=== PATIENT | female | born 1965 | race Caucasian/White ===

== ENCOUNTER 2018-12-02 01:04 | Inpatient (IN) | payer OTHER ==
[2018-12-02] VITALS (13 sets, daily range): BP systolic 104–128; BP diastolic 64–80; PULSE 76–99; RESP 18–19; Ht 152.4 cm; Wt 88.3 kg
[~2018-12-02] VITALS: Ht 152.4 cm; Wt 88.3 kg
[2018-12-02] MEDS ORDERED: AMLO-145 PO (02:45)
[2018-12-02] MEDS ORDERED: METO10TA3 PO (02:45)
[2018-12-02] MEDS ORDERED: LOSA50TA14 PO (02:45)
[2018-12-02] MEDS ORDERED: NITROGLYCERIN (SL) 0.4 MG TAB SL PRN (05:00)
[2018-12-02] MEDS ORDERED: ONDANSETRON 4 MG INJ IV PRN (05:00)
[2018-12-02] MEDS ORDERED: NACL 0.9% 3 ML SYG IV SCH (05:00)
[2018-12-02] MEDS ORDERED: ALBUTEROL/IPRATROPIUM (NEB) 3 ML AMP HHN PRN (05:00)
--- NOTE | 2018-12-02 06:39 | HP ---
Date/Time of Note Date/Time of Note DATE: 12/02/18 TIME: 06:37 Assessment/Plan VTE Prophylaxis Pharmacological prophylaxis: heparin Lines/Catheters IV Catheter Type (from Nrsg): Saline Lock Urinary Cath still in place: No Assessment/Plan Assessment/Plan 1. Chest pain: Rule out ACS -Telemetry monitoring -Supplemental oxygen, aspirin, statin. As needed nitro -2D echo and cardiology consult -Trend troponin -A1c, fasting lipid and TSH in a.m. 2. Hypertension: BP within goal. Continue home meds. Adjust as needed Results 24hrs Laboratory Tests Test 12/02/18 05:18 White Blood Count Pending Red Blood Count Pending Hemoglobin Pending Hematocrit Pending Mean Corpuscular Volume Pending Mean Corpuscular Hemoglobin Pending Mean Corpuscular Hemoglobin Concent Pending Red Cell Distribution Width Pending Platelet Count Pending Mean Platelet Volume Pending HPI/ROS Admit Date/Time Admit Date/Time Dec 02, 2018 at 01:56 Hx of Present Illness This is a 53-year-old female with a history of hypertension who initially presented on outside hospital complaining of chest pain. Pain is mainly left- sided and pressure-like. First troponin and EKG were negative. Patient was transferred to [facility] for insurance reasons. PMH/Family/Social Past Medical History Medications Current Medications Influenza Virus Vaccine Quadrival (Fluzone) 0.5 ml ONCE ONCE IM* ; Start 12/03/18 at 10:00; Stop 12/03/18 at 10:01 IV Flush (NS 3 ml) 3 ml PER PROTOCOL IV ; Start 12/02/18 at 05:00 Ondansetron HCl (Zofran Inj) 4 mg Q6H PRN IV NAUSEA AND/OR VOMITING; Start 12/02/18 at 05:00 Aspirin (Aspirin) 81 mg DAILY PO ; Start 12/02/18 at 09:00 Nitroglycerin (Nitroglycerin (Sl Tab) 0.4 Mg) 1 tab Q5M PRN SL CHEST PAIN; Start 12/02/18 at 05:00 Acetaminophen (Tylenol Tab) 650 mg Q6H PRN PO PAIN LEVEL 1-3 OR FEVER; Start 12/02/18 at 05:00 Enoxaparin Sodium (Lovenox) 40 mg DAILY SC ; Start 12/02/18 at 09:00 Albuterol/ Ipratropium (Duoneb) 3 ml Q2H RESP THERAPY PRN HHN SHORTNESS OF BREATH; Start 12/02/18 at 05:00 Amlodipine Besylate (Norvasc) 5 mg DAILY PO ; Start 12/02/18 at 09:00 Losartan Potassium (Cozaar) 50 mg BID PO ; Start 12/02/18 at 09:00 Coded Allergies: No Known Allergy (Unverified , 12/02/18) Social History Smoking Status: Never smoker Exam/Review of Systems Vital Signs Vitals Vital Signs Date Temp Pulse Resp B/P (MAP) Pulse Ox O2 O2 Flow FiO2 Time Delivery Rate 12/02/18 98.3 76 19 104/64 95 04:23 (77) 12/02/18 Nasal 2.0 02:20 Cannula Intake and Output 12/01/18 12/01/18 12/02/18 1515:00 23:00 07:00 IntakeIntake Total 200 ml BalanceBalance 200 ml Exam Exam Constitutional: other (no acute distress) Head: normocephalic Respiratory: other (slight decreased at bases) Cardiovascular: regular rate and rhythm Gastrointestinal: soft Extremities: normal pulses PMH/Family/Social Past Medical History Medical History: other (see hpi) Coded Allergies: No Known Drug Allergy (Verified Allergy, Unknown, 07/18/16) Past Surgical History Past Surgical Hx: other (see hpi) Family History Significant Family History: no pertinent family hx Social History Alcohol Use: other Smoking Status: Unknown if ever smoked Drug Use: other LULU BLACKWOOD MD Dec 02, 2018 06:39
[2018-12-02] MEDS: ACETAMINOPHEN 325 MG TAB PO PRN (07:52)
[2018-12-02] MEDS ORDERED: AMLODIPINE 5 MG TAB PO SCH (09:00)
[2018-12-02] MEDS ORDERED: LOSARTAN 50 MG TAB PO SCH (09:00)
[2018-12-02] MEDS ORDERED: ENOXAPARIN 40 MG/0.4 ML SYG SC SCH (09:00)
[2018-12-02] MEDS: ASPIRIN 81 MG TAB PO SCH (09:33)
--- NOTE | 2018-12-02 15:04 | PN ---
Date/Time of Note Date/Time of Note DATE: 12/02/18 TIME: 15:01 Assessment/Plan VTE Prophylaxis Risk score (from Ns)>0 risk: 5 SCD applied (from Ns): No SCD contraindicated: low risk/ambulating Pharmacological prophylaxis: LMWH Lines/Catheters IV [facility] Type (from [facility] Saline Lock Urinary Cath still in place: No Assessment/Plan Hospital Course Assessment and plan 1. Atypical chest pain nonexertional, stable rule out ACS. Rule out symptomatic pleural effusion check echo 2. Bronchitis pleurisy stable continue supportive care. Flu shot on discharge 3. Type 2 diabetes 4. Metabolic syndrome stable start aspirin 5. Anemia check stools iron 6. Migraines, intermittent subacute does not see a specialist. Start therapy 7. S: Atypical chest pain nonexertional but occurs when bending over. 2 days. Substernal lower chest no associated nausea vomiting diaphoresis syncope. No recent travel. 1 week cough fairly nonproductive. No sore throat no flu shot no ill contacts. Appetite okay no diarrhea. O: Vital signs stable PE No pallor adenopathy JVD Reg no m/r/g Ctab, no rash Bs+ nt nd, no abd bruits No edema/Homans some varicose veins Result Diagram: 12/02/18 0518 12/02/1818 Results 24hrs Laboratory Tests Test 12/02/18 05:18 12/02/18 08:10 12/02/18 10:55 12/02/18 12:13 White Blood Count 6.6 Red Blood Count 3.45 L Hemoglobin 10.3 L Hematocrit 30.9 L Mean Corpuscular Volume 89.6 Mean Corpuscular 29.9 Hemoglobin Mean Corpuscular 33.3 Hemoglobin Concent Red Cell Distribution 12.9 Width Platelet Count 202 Mean Platelet Volume 9.6 Immature Granulocytes % 0.500 H Neutrophils % 54.2 Lymphocytes % 32.3 Monocytes % 10.5 Eosinophils % 2.3 Basophils % 0.2 Nucleated Red Blood 0.0 Cells % Immature Granulocytes # 0.030 Neutrophils # 3.6 Lymphocytes # 2.1 Monocytes # 0.7 Eosinophils # 0.2 Basophils # 0.0 Nucleated Red Blood 0.0 Cells # Sodium Level 143 Potassium Level 3.8 Chloride Level 111 H Carbon Dioxide Level 25 Anion Gap 7 Blood Urea Nitrogen 12 Creatinine 0.61 Est Glomerular Filtrat > 60 Rate mL/min Glucose Level 108 Hemoglobin A1c 6.1 H Calcium Level 9.3 Total Bilirubin 0.2 Direct Bilirubin 0.00 Indirect Bilirubin 0.2 Aspartate Amino 43 Transf (AST/SGOT) Alanine 44 Aminotransferase (ALT/SG PT) Alkaline Phosphatase 91 Creatine Kinase 133 107 Creatine Kinase Index 0.9 0.8 Creatinine Kinase MB 1.23 0.83 (Mass) Troponin I < 0.012 < 0.012 Total Protein 7.7 Albumin 3.7 Globulin 4.00 H Albumin/Globulin Ratio 0.92 Triglycerides Level 73 Cholesterol Level 125 LDL Cholesterol, 75 Calculated HDL Cholesterol 35 L Cholesterol/HDL Ratio 3.5 Thyroid Stimulating 4.060 Hormone (TSH) Bedside Glucose 105 111 Exam/Review of Systems Vital Signs Vitals Vital Signs Date Temp Pulse Resp B/P (MAP) Pulse Ox O2 O2 Flow FiO2 Time Delivery Rate 12/02/18 78 12:21 12/02/18 98.0 18 121/73 95 Nasal 11:05 (89) Cannula 12/02/18 2.0 07:57 Intake and Output 12/01/18 12/01/18 12/02/18 1515:00 23:00 07:00 IntakeIntake Total 200 ml BalanceBalance 200 ml Medications Medications Current Medications Influenza Virus Vaccine Quadrival (Fluzone) 0.5 ml ONCE ONCE IM* ; Start 12/03/18 at 10:00; Stop 12/03/18 at 10:01 IV Flush (NS 3 ml) 3 ml PER PROTOCOL IV ; Start 12/02/18 at 05:00 Ondansetron HCl (Zofran Inj) 4 mg Q6H PRN IV NAUSEA AND/OR VOMITING; Start 12/02/18 at 05:00 Aspirin (Aspirin) 81 mg DAILY PO Last administered on 12/02/18at 09:33; Admin Dose 81 MG; Start 12/02/18 at 09:00 Nitroglycerin (Nitroglycerin (Sl Tab) 0.4 Mg) 1 tab Q5M PRN SL CHEST PAIN; Start 12/02/18 at 05:00 Acetaminophen (Tylenol Tab) 650 mg Q6H PRN PO PAIN LEVEL 1-3 OR FEVER Last administered on 12/02/18at 07:52; Admin Dose 650 MG; Start 12/02/18 at 05:00 Enoxaparin Sodium (Lovenox) 40 mg DAILY SC Last administered on 12/02/18at 09:40; Admin Dose 40 MG; Start 12/02/18 at 09:00 Albuterol/ Ipratropium (Duoneb) 3 ml Q2H RESP THERAPY PRN HHN SHORTNESS OF ANGEL TH; Start 12/02/18 at 05:00 Amlodipine Besylate (Norvasc) 5 mg DAILY PO Last administered on 12/02/18at 09:33; Admin Dose 5 MG; Start 12/02/18 at 09:00 Losartan Potassium (Cozaar) 50 mg BID PO Last administered on 12/02/18at 09:32; Admin Dose 50 MG; Start 12/02/18 at 09:00 MICHAEL VELIZ MD Dec 02, 2018 15:04
[2018-12-02] MEDS ORDERED: SUMATRIPTAN 50 MG TAB PO PRN (15:30)
[2018-12-02] MEDS ORDERED: morphine 4 MG/ML VIAL IV PRN (15:30)
[2018-12-02] MEDS ORDERED: GLUCOSE GEL 15 GRAM TUBE BUCCAL PRN (15:30)
[2018-12-02] MEDS ORDERED: METOCLOPRAMIDE 10 MG INJ IV PRN (15:30)
[2018-12-02] MEDS ORDERED: GLUCAGON 1 MG INJ IM PRN (15:30)
[2018-12-02] MEDS ORDERED: GLUCOSE GEL 15 GRAM TUBE PO PRN ×2 (15:30)
[2018-12-02] MEDS ORDERED: ALBUTEROL HFA 8 GM INHALER INH PRN (15:30)
[2018-12-02] MEDS ORDERED: HYDROCODONE/APAP (10/325) TAB PO PRN (15:30)
[2018-12-02] MEDS ORDERED: SUMATRIPTAN 50 MG TAB PO ONE (15:30)
[2018-12-02] MEDS ORDERED: DEXTROSE 50% 50 ML SYRINGE IV PRN ×2 (15:30)
[2018-12-02] MEDS: INSULIN ASPART [NOVOLOG] 3 ML PEN SC SCH ×2 (17:37→20:19)
--- NOTE | 2018-12-02 18:38 | RADRPT ---
Echocardiogram Report Patient Name: QUINTEN REDDY Gender: Female Date: 1965 Study Date: 02-Dec-2018 Personnel Clerk: Renetta [facility] Location: [address] Ref. Physician: MICHAEL VELIZ Quality: Adequate Procedures: Transthoracic echocardiogram with complete 2D, M-Mode, and doppler examination. Indications: Chest pain, effusion?. 2D/M Mode Doppler Measurement Value Normal Ranges Measurement Value Normal Ranges LVIDd 2D 3.0 3.5 - 5.6 cm AV Peak Eduardo 1.9 m/sec LVIDs 2D 2.0 2.1 - 4.1 cm AV Peak PG 15.0 mmHg LVPWd 2D 1.9 0.6 - 1.1 cm LVOT Peak Eduardo 1.0 m/sec IVSd 2D 2.0 0.6 - 1.1 cm LVOT Peak PG 4.0 mmHg AoR Diam 2D 2.9 2.0 - 3.7 cm MV E Peak Eduardo 0.8 m/sec LA/Ao 2D 1 0 - 1 MV A Peak Eduardo 1.1 m/sec LA Dimen 2D 3.7 2.3 - 4.0 cm MV E/A 0.7 MV Decel Time 236 msec Lat E` Eduardo 0.1 m/sec Lateral E/E` 9.4 Med E` Eduardo 0.1 m/sec MV E/A 0.7 TR Peak Eduardo 2.3 m/sec TR Peak PG 22.0 mmHg RVSP 37.0 mmHg Findings Left Ventricle: Normal left ventricular systolic function. Normal left ventricular cavity size. Moderate concentric left ventricular hypertrophy. Ejection fraction is visually estimated at 60 %. Tissue Doppler/Mitral Doppler indices are consistent with impaired relaxation (Stage I diastolic dysfunction). Right Ventricle: Normal right ventricular size. Normal right ventricular systolic function. Left Atrium: The left atrium is normal in size. Right Atrium: The right atrium is normal in size. Mitral Valve: Mild mitral leaflet calcification. Mild mitral annular calcification. Trace mitral regurgitation. Aortic Valve: No significant aortic stenosis or insufficiency. Aortic cusps appear mildly calcified. Trace aortic valve regurgitation. Tricuspid Valve: Normal appearance of the tricuspid valve. Estimated peak PA systolic pressure 37 mmHg. There is mild tricuspid regurgitation. Pulmonic Valve: Pulmonic valve not well visualized. There is trace pulmonic regurgitation. Pericardium: Moderate to large pericardial effusion. Aorta: Normal aortic root. IVC: Dilated inferior vena cava with poor inspiratory collapse consistent with elevated right atrial pressures. Conclusions Normal left ventricular systolic function. Normal left ventricular cavity size. Moderate concentric left ventricular hypertrophy. Ejection fraction is visually estimated at 60 %. Tissue Doppler/Mitral Doppler indices are consistent with impaired relaxation (Stage I diastolic dysfunction). Normal right ventricular size. Normal right ventricular systolic function. The left atrium is normal in size. The right atrium is normal in size. Normal appearance of the tricuspid valve. Estimated peak PA systolic pressure 37 mmHg. There is mild tricuspid regurgitation. No significant valvular stenosis or regurgitation seen of remaining visualized valves. Medium to large sized pericardial effusion. Findings discussed with hospitalist. Electronically Signed By: Pawel Plascencia 02-Dec-2018 18:37:09 -0800 Patient Name: QUINTEN REDDY Study Date: 02-Dec-2018 [id number]
--- NOTE | 2018-12-02 18:40 | EN ---
Date/Time of Note Date/Time of Note DATE: 12/02/18 TIME: 18:37 Event Note Cardiology Cardiology Event Note Called by library circulation technician regarding pericardial effusion seen. Echo reviewed, medium to large size pericardial effusion. Early RA invagination. Spoke to hospitalist and bedside nurse, HR in 70-80s, BP stable, no sob, cp, dizziness, palpitations. Will dc anti-HTN meds, start IV fluids, NPO after midnight for possible pericardiocentesis, close monitoring for sx and vital signs. D/W nurse Pawel Plascencia DO Dec 02, 2018 18:40
[2018-12-02] MEDS ORDERED: SOD CHLORIDE 0.9% 1,000 ML IV SCH (19:00)
[2018-12-02] MEDS: COLCHICINE 0.6 MG TAB PO SCH (20:16)
[2018-12-03] VITALS (18 sets, daily range): BP systolic 106–140; BP diastolic 51–85; PULSE 76–101; RESP 14–27
[2018-12-03] MEDS: ACCU-CHEK XX SCH (02:00)
[2018-12-03] MEDS: INSULIN ASPART [NOVOLOG] 3 ML PEN SC SCH ×4 (07:55→21:00)
[2018-12-03] MEDS: ACETAMINOPHEN 325 MG TAB PO PRN (07:58)
[2018-12-03] MEDS: COLCHICINE 0.6 MG TAB PO SCH ×2 (09:57→21:07)
[2018-12-03] MEDS: ASPIRIN 81 MG TAB PO SCH (09:57)
[2018-12-03] MEDS ORDERED: INFLUENZA VIRUS VACCINE 0.5 ML (DISPENSING) IM* ONE (10:00)
[2018-12-03] MEDS ORDERED: LIDOCAINE 1% (MDV) 20 ML INJ ONE (12:37)
[2018-12-03] MEDS ORDERED: HEPARIN 1000 UNITS/NS (A-LINE) 1,000 ML ONE (12:37)
[2018-12-03] MEDS ORDERED: FENTAnyl 50 MCG/ML VIAL ONE (12:38)
[2018-12-03] MEDS ORDERED: MIDAZOLAM 1 MG/ML 2 ML INJ ONE (12:38)
--- NOTE | 2018-12-03 13:51 | PN ---
Date/Time of Note Date/Time of Note DATE: 12/03/18 TIME: 13:48 Assessment/Plan VTE Prophylaxis Risk score (from Ns)>0 risk: 5 SCD applied (from [facility]): Yes SCD contraindicated: low risk/ambulating Pharmacological prophylaxis: NA/contraindicated Pharm contraindication: surgical contra Lines/Catheters IV [facility]from [facility] Peripheral IV Urinary Cath still in place: No Assessment/Plan Hospital Course Assessment and plan 1. Atypical chest pain nonexertional, stable ruled out ACS. 2. Bronchitis pleurisy stable cont supportive care. Flu shot on discharge 3. Type 2 diabetes 4. Metabolic syndrome stable start asa 5. Anemia check stools iron 6. Migraines, intermittent subacute does not see a specialist. Started therapy 7. Pericardial effusion/moderate. for pericardiocentesis/ culture S: 12/02: Atypical chest pain nonexertional but occurs when bending over. 2 days. Substernal lower chest no associated nausea vomiting diaphoresis syncope. No recent travel. 1 week cough fairly nonproductive. No sore throat no flu shot no ill contacts. Appetite okay no diarrhea. 12/03: events noted O: Vital signs stable PE No pallor adenopathy JVD Reg no m/r/g Ctab, no rash Bs+ nt nd, no abd bruits No edema/Homans some varicose veins Result Diagram: 12/03/18 0527 12/03/18 0527 Results 24hrs Laboratory Tests Test 12/02/18 17:32 12/02/18 20:12 12/03/18 05:27 12/03/18 08:02 Bedside Glucose 104 122 102 White Blood Count 6.7 Red Blood Count 3.55 L Hemoglobin 10.5 L Hematocrit 32.3 L Mean Corpuscular Volume 91.0 Mean Corpuscular 29.6 Hemoglobin Mean Corpuscular 32.5 Hemoglobin Concent Red Cell Distribution 13.1 Width Platelet Count 198 Mean Platelet Volume 9.7 Immature Granulocytes % 0.400 Neutrophils % 57.3 Lymphocytes % 28.3 Monocytes % 10.0 Eosinophils % 3.7 Basophils % 0.3 Nucleated Red Blood 0.0 Cells % Immature Granulocytes # 0.030 Neutrophils # 3.8 Lymphocytes # 1.9 Monocytes # 0.7 Eosinophils # 0.3 Basophils # 0.0 Nucleated Red Blood 0.0 Cells # Sodium Level 143 Potassium Level 4.3 Chloride Level 109 Carbon Dioxide Level 25 Anion Gap 9 Blood Urea Nitrogen 16 Creatinine 0.59 Est Glomerular Filtrat > 60 Rate mL/min Glucose Level 112 Hemoglobin A1c 6.1 H Calcium Level 8.9 Phosphorus Level 3.8 Magnesium Level 1.9 Iron Level 52 Total Iron Binding 329 Capacity Percent Iron Saturation 16 L Ferritin 54.8 Total Bilirubin 0.3 Direct Bilirubin 0.00 Indirect Bilirubin 0.3 Aspartate Amino 36 Transf (AST/SGOT) Alanine 39 Aminotransferase (ALT/SG PT) Alkaline Phosphatase 66 Total Protein 7.3 Albumin 3.5 Globulin 3.80 H Albumin/Globulin Ratio 0.92 Lipase 137 Serum HCG, Qualitative NEGATIVE Test 12/03/18 12:20 Bedside Glucose 87 Exam/Review of Systems Vital Signs Vitals Vital Signs Date Temp Pulse Resp B/P (MAP) Pulse Ox O2 O2 Flow FiO2 Time Delivery Rate 12/03/18 98.3 81 20 126/72 92 11:25 (90) 12/03/18 Nasal 2.0 07:43 Cannula Intake and Output 12/02/18 12/02/18 12/03/18 1515:00 23:00 07:00 IntakeIntake Total 600 ml 975 ml BalanceBalance 600 ml 975 ml Medications Medications Current Medications IV Flush (NS 3 ml) 3 ml PER PROTOCOL IV ; Start 12/02/18 at 05:00 Ondansetron HCl (Zofran Inj) 4 mg Q6H PRN IV NAUSEA AND/OR VOMITING; Start 12/02/18 at 05:00 Aspirin (Aspirin) 81 mg DAILY PO Last administered on 12/03/18at 09:57; Admin Dose 81 MG; Start 12/02/18 at 09:00 Nitroglycerin (Nitroglycerin (Sl Tab) 0.4 Mg) 1 tab Q5M PRN SL CHEST PAIN; Start 12/02/18 at 05:00 Acetaminophen (Tylenol Tab) 650 mg Q6H PRN PO PAIN LEVEL 1-3 OR FEVER Last administered on 12/03/18at 07:58; Admin Dose 650 MG; Start 12/02/18 at 05:00 Albuterol/ Ipratropium (Duoneb) 3 ml Q2H RESP THERAPY PRN HHN SHORTNESS OF BREATH; Start 12/02/18 at 05:00 Metoclopramide HCl (Reglan) 5 mg Q6H PRN IV HEADACHE; Start 12/02/18 at 15:30 Diagnostic Test (Pha) (Accu-Chek) 1 ea 02 XX ; Start 12/03/18 at 02:00 Insulin Aspart (Novolog Insulin Pen) NOVOLOG *MODERATE* ALGORITHM WITH MEALS BEDTIME SC ; Start 12/02/18 at 17:55 Miscellaneous Information 1 ea NOTE XX ; Start 12/02/18 at 15:30 Glucose (Glutose) 15 gm Q15M PRN PO DECREASED GLUCOSE; Start 12/02/18 at 15:30 Glucose (Glutose) 22.5 gm Q15M PRN PO DECREASED GLUCOSE; Start 12/02/18 at 15:30 Dextrose (D50w Syringe) 25 ml Q15M PRN IV DECREASED GLUCOSE; Start 12/02/18 at 15:30 Dextrose (D50w Syringe) 50 ml Q15M PRN IV DECREASED GLUCOSE; Start 12/02/18 at 15:30 Glucagon (Glucagen) 1 mg Q15M PRN IM DECREASED GLUCOSE; Start 12/02/18 at 15:30 Glucose (Glutose) 15 gm Q15M PRN BUCCAL DECREASED GLUCOSE; Start 12/02/18 at 15:30 Acetaminophen/ Hydrocodone Bitart ([place] (10/325)) 1 tab Q6H PRN PO MODERATE PAIN LEVEL 4-6; Start 12/02/18 at 15:30 Morphine Sulfate (morphine) 3 mg Q4H PRN IV SEVERE PAIN LEVEL 7-10; Start 12/02/18 at 15:30 Guaifenesin/ Dextromethorphan (Robitussin Dm Liquid Cup) 10 ml Q4H PRN PO COUGH; Start 12/02/18 at 15:30 Albuterol (Ventolin Hfa) 2 puff Q6H RESP THERAPY PRN INH SHORTNESS OF BREATH; Start 12/02/18 at 15:30 Colchicine (Colchicine) 0.6 mg BID PO Last administered on 12/03/18at 09:57; Admin Dose 0.6 MG; Start 12/02/18 at 21:00 MICHAEL VELIZ MD Dec 03, 2018 13:51
[2018-12-03] MEDS ORDERED: KETOROLAC 15 MG INJ IV STA (14:00)
--- NOTE | 2018-12-03 14:00 | OPR ---
Date/Time of Note Date/Time of Note DATE: 12/03/18 TIME: 13:57 Operative Report Procedure Date: Dec 03, 2018 Preoperative Diagnosis Pericardial effusion Postoperative Diagnosis Pericardial effusion Operation/Procedure Performed Pericardiocentesis Surgeon see signature line Learning Analyst [employer] staff Anesthesia Type: MAC Estimated Blood Loss: minimal Transfusion none Specimen 550 mL's of pericardial fluid Grafts/Implants none Complications none Pt Condition Post Procedure: stable Procedure Description Patient with echocardiographic evidence of cardiac tamponade on with medium to large size pericardial effusion. After informed consent, patient brought down to [employer]. Patient prepped and draped as per protocol. Using fluoroscopy guidance and ultrasound guidance, we enter the pericardium. This was confirmed with bubble study via echocardiogram as well as with fluoroscopy. Fluid was removed. We attempted getting a pigtail fully in the pericardium, but the mid region [place] in the subcutaneous tissue. After echo confirmed that all the pe ricardial fluid was removed, the pigtail was removed. There was no immediate complications Recommendation Pericardial fluid evaluation, ICU observation overnight. Repeat echocardiogram in the Pawel Mcallister DO Dec 03, 2018 14:00
--- NOTE | 2018-12-03 16:21 | CONS ---
Date/Time of Note Date/Time of Note DATE: 12/03/18 TIME: 16:18 Assessment/Plan Assessment/Plan Assessment/Plan Medium to large size pericardial effusion Chest pain and shortness of breath Preserved ejection fraction Hypertension Diabetes -Echocardiogram with medium to large caliber pericardial effusion. There is early echo cardiographic evidence of cardiac tamponade with right atrial invagination and intermittent RV diastolic collapse. Blood pressure has remained stable, patient underwent pericardiocentesis for therapeutic and diagnostic purposes. Approximately 550 mL's of bloody fluid was removed. This was sent for microbiology and cytology. Will monitor in the ICU overnight, repeat limited echocardiogram in the a.m. Result Diagram: 12/03/1827 12/03/18526 Results 24hrs Laboratory Tests Test 12/02/18 17:32 12/02/18 20:12 12/03/18 05:27 12/03/18 08:02 Bedside Glucose 104 122 102 White Blood Count 6.7 Red Blood Count 3.55 L Hemoglobin 10.5 L Hematocrit 32.3 L Mean Corpuscular Volume 91.0 Mean Corpuscular 29.6 Hemoglobin Mean Corpuscular 32.5 Hemoglobin Concent Red Cell Distribution 13.1 Width Platelet Count 198 Mean Platelet Volume 9.7 Immature Granulocytes % 0.400 Neutrophils % 57.3 Lymphocytes % 28.3 Monocytes % 10.0 Eosinophils % 3.7 Basophils % 0.3 Nucleated Red Blood 0.0 Cells % Immature Granulocytes # 0.030 Neutrophils # 3.8 Lymphocytes # 1.9 Monocytes # 0.7 Eosinophils # 0.3 Basophils # 0.0 Nucleated Red Blood 0.0 Cells # Sodium Level 143 Potassium Level 4.3 Chloride Level 109 Carbon Dioxide Level 25 Anion Gap 9 Blood Urea Nitrogen 16 Creatinine 0.59 Est Glomerular Filtrat > 60 Rate mL/min Glucose Level 112 Hemoglobin A1c 6.1 H Calcium Level 8.9 Phosphorus Level 3.8 Magnesium Level 1.9 Iron Level 52 Total Iron Binding 329 Capacity Percent Iron Saturation 16 L Ferritin 54.8 Total Bilirubin 0.3 Direct Bilirubin 0.00 Indirect Bilirubin 0.3 Aspartate Amino 36 Transf (AST/SGOT) Alanine 39 Aminotransferase (ALT/SG PT) Alkaline Phosphatase 66 Total Protein 7.3 Albumin 3.5 Globulin 3.80 H Albumin/Globulin Ratio 0.92 Lipase 137 Serum HCG, Qualitative NEGATIVE Test 12/03/18 12:20 12/03/18 13:13 Bedside Glucose 87 Body Fluid Type OTHERS Body Fluid Volume 510.0 Body Fluid Color RED Body Fluid Appearance BLOODY Body Fluid WBC 1270 Body Fluid RBC (Auto) > 82176 Body Fluid Polynuclear 37.8 WBCs (%) Body Fluid Mononuclear 62.2 Cells % Auto Body Fluid Total Protein 7.1 Consultation Date/Type/Reason Admit Date/Time Dec 02, 2018 at 01:56 Type of Consult cv Reason for Consultation Pericardial effusion Hx of Present Illness This is a 53-year-old female with past medical history of hypertension, diabetes who presents with chest pain and shortness of breath over the past 5-6 days. Symptoms have been worse with exertion and improved at rest. Patient also with dizziness at times. Denies any edema, denies any fevers or chills but has been having a cough. 12 point review of systems was performed with all pertinent positives and negatives mentioned above and all else is negative Past Medical History Medical History: diabetes, hypertension Medications Current Medications IV Flush (NS 3 ml) 3 ml PER PROTOCOL IV ; Start 12/02/18 at 05:00 Ondansetron HCl (Zofran Inj) 4 mg Q6H PRN IV NAUSEA AND/OR VOMITING; Start 12/02/18 at 05:00 Aspirin (Aspirin) 81 mg DAILY PO Last administered on 12/03/18at 09:57; Admin Dose 81 MG; Start 12/02/18 at 09:00 Nitroglycerin (Nitroglycerin (Sl Tab) 0.4 Mg) 1 tab Q5M PRN SL CHEST PAIN; Start 12/02/18 at 05:00 Acetaminophen (Tylenol Tab) 650 mg Q6H PRN PO PAIN LEVEL 1-3 OR FEVER Last administered on 12/03/18at 07:58; Admin Dose 650 MG; Start 12/02/18 at 05:00 Albuterol/ Ipratropium (Duoneb) 3 ml Q2H RESP THERAPY PRN HHN SHORTNESS OF BREATH; Start 12/02/18 at 05:00 Metoclopramide HCl (Reglan) 5 mg Q6H PRN IV HEADACHE; Start 12/02/18 at 15:30 Diagnostic Test (Pha) (Accu-Chek) 1 ea 02 XX ; Start 12/03/18 at 02:00 Insulin Aspart (Novolog Insulin Pen) NOVOLOG *MODERATE* ALGORITHM WITH MEALS BEDTIME SC ; Start 12/02/18 at 17:55 Miscellaneous Information 1 ea NOTE XX ; Start 12/02/18 at 15:30 Glucose (Glutose) 15 gm Q15M PRN PO DECREASED GLUCOSE; Start 12/02/18 at 15:30 Glucose (Glutose) 22.5 gm Q15M PRN PO DECREASED GLUCOSE; Start 12/02/18 at 15:30 Dextrose (D50w Syringe) 25 ml Q15M PRN IV DECREASED GLUCOSE; Start 12/02/18 at 15:30 Dextrose (D50w Syringe) 50 ml Q15M PRN IV DECREASED GLUCOSE; Start 12/02/18 at 15:30 Glucagon (Glucagen) 1 mg Q15M PRN IM DECREASED GLUCOSE; Start 12/02/18 at 15:30 Glucose (Glutose) 15 gm Q15M PRN BUCCAL DECREASED GLUCOSE; Start 12/02/18 at 15:30 Acetaminophen/ Hydrocodone Bitart ([place] (10/325)) 1 tab Q6H PRN PO MODERATE PAIN LEVEL 4-6; Start 12/02/18 at 15:30 Morphine Sulfate (morphine) 3 mg Q4H PRN IV SEVERE PAIN LEVEL 7-10; Start 12/02/18 at 15:30 Guaifenesin/ Dextromethorphan (Robitussin Dm Liquid Cup) 10 ml Q4H PRN PO COUGH; Start 12/02/18 at 15:30 Albuterol (Ventolin Hfa) 2 puff Q6H RESP THERAPY PRN INH SHORTNESS OF BREATH; Start 12/02/18 at 15:30 Colchicine (Colchicine) 0.6 mg BID PO Last administered on 12/03/18at 09:57; Admin Dose 0.6 MG; Start 12/02/18 at 21:00 Ibuprofen (Motrin) 400 mg Q6 PO ; Start 12/03/18 at 18:00; Stop 12/05/18 at 17:59 Allergies: Coded Allergies: No Known Allergy (Unverified , 12/02/18) Past Surgical History Past Surgical Hx: no surgical history Family History Significant Family History: no pertinent family hx Social History Alcohol Use: none Smoking Status: Never smoker Exam/Review of Systems Vital Signs Vitals Vital Signs Date Temp Pulse Resp B/P (MAP) Pulse Ox O2 O2 Flow FiO2 Time Delivery Rate 12/03/18 97 14:15 12/03/18 Nasal 2.0 14:00 Cannula 12/03/18 98.3 20 126/72 92 11:25 (90) Intake and Output 12/02/18 12/02/18 12/03/18 1515:00 23:00 07:00 IntakeIntake Total 600 ml 975 ml BalanceBalance 600 ml 975 ml Exam No apparent distress Constitutional: alert, oriented, obese Head: normocephalic Respiratory: clear to auscultation, normal air movement Cardiovascular: regular rate and rhythm, other (S1-S2 heard) Gastrointestinal: soft, non-tender, bowel sounds Extremities: other (Trace lower examinee edema) Medications Medications Current Medications IV Flush (NS 3 ml) 3 ml PER PROTOCOL IV ; Start 12/02/18 at 05:00 Ondansetron HCl (Zofran Inj) 4 mg Q6H PRN IV NAUSEA AND/OR VOMITING; Start 12/02/18 at 05:00 Aspirin (Aspirin) 81 mg DAILY PO Last administered on 12/03/18at 09:57; Admin Dose 81 MG; Start 12/02/18 at 09:00 Nitroglycerin (Nitroglycerin (Sl Tab) 0.4 Mg) 1 tab Q5M PRN SL CHEST PAIN; Start 12/02/18 at 05:00 Acetaminophen (Tylenol Tab) 650 mg Q6H PRN PO PAIN LEVEL 1-3 OR FEVER Last administered on 12/03/18at 07:58; Admin Dose 650 MG; Start 12/02/18 at 05:00 Albuterol/ Ipratropium (Duoneb) 3 ml Q2H RESP THERAPY PRN HHN SHORTNESS OF BREATH; Start 12/02/18 at 05:00 Metoclopramide HCl (Reglan) 5 mg Q6H PRN IV HEADACHE; Start 12/02/18 at 15:30 Diagnostic Test (Pha) (Accu-Chek) 1 ea 02 XX ; Start 12/03/18 at 02:00 Insulin Aspart (Novolog Insulin Pen) NOVOLOG *MODERATE* ALGORITHM WITH MEALS BEDTIME SC ; Start 12/02/18 at 17:55 Miscellaneous Information 1 ea NOTE XX ; Start 12/02/18 at 15:30 Glucose (Glutose) 15 gm Q15M PRN PO DECREASED GLUCOSE; Start 12/02/18 at 15:30 Glucose (Glutose) 22.5 gm Q15M PRN PO DECREASED GLUCOSE; Start 12/02/18 at 15:30 Dextrose (D50w Syringe) 25 ml Q15M PRN IV DECREASED GLUCOSE; Start 12/02/18 at 15:30 Dextrose (D50w Syringe) 50 ml Q15M PRN IV DECREASED GLUCOSE; Start 12/02/18 at 15:30 Glucagon (Glucagen) 1 mg Q15M PRN IM DECREASED GLUCOSE; Start 12/02/18 at 15:30 Glucose (Glutose) 15 gm Q15M PRN BUCCAL DECREASED GLUCOSE; Start 12/02/18 at 15:30 Acetaminophen/ Hydrocodone Bitart ([place] (10)) 1 tab Q6H PRN PO MODERATE PAIN LEVEL 4-6; Start 12/02/18 at 15:30 Morphine Sulfate (morphine) 3 mg Q4H PRN IV SEVERE PAIN LEVEL 7-10; Start at 15:30 Guaifenesin/ Dextromethorphan (Robitussin Dm Liquid Cup) 10 ml Q4H PRN PO COUGH; Start 12/02/18 at 15:30 Albuterol (Ventolin Hfa) 2 puff Q6H RESP THERAPY PRN INH SHORTNESS OF BREATH; Start 12/02/18 at 15:30 Colchicine (Colchicine) 0.6 mg BID PO Last administered on 12/03/18at 09:57; Ad min Dose 0.6 MG; Start 12/02/18 at 21:00 Ibuprofen (Motrin) 400 mg Q6 PO ; Start 12/03/18 at 18:00; Stop 12/05/18 at 17:59 Imaging Imaging ECG sinus rhythm, poor R wave progression, nonspecific ST abnormalities Pawel Plascencia DO Dec 03, 2018 16:21
[2018-12-03] MEDS: IBUPROFEN 400 MG TAB PO SCH (18:08)
[2018-12-04] VITALS (21 sets, daily range): BP systolic 96–126; BP diastolic 56–74; PULSE 71–87; RESP 16–29
[2018-12-04] MEDS: IBUPROFEN 400 MG TAB PO SCH ×4 (00:09→17:27)
[2018-12-04] MEDS: ACCU-CHEK XX SCH (01:44)
[2018-12-04] MEDS: INSULIN ASPART [NOVOLOG] 3 ML PEN SC SCH ×4 (07:35→20:29)
[2018-12-04] MEDS: ASPIRIN 81 MG TAB PO SCH (08:34)
[2018-12-04] MEDS: COLCHICINE 0.6 MG TAB PO SCH ×2 (08:34→20:21)
--- NOTE | 2018-12-04 11:34 | CONS ---
Date/Time of Note Date/Time of Note DATE: 12/04/18 TIME: 11:30 Assessment/Plan Assessment/Plan Assessment/Plan Medium to large size pericardial effusion with early tamponade, status post pericardiocentesis 12/03/2018 Chest pain and shortness of breath-resolved Preserved ejection fraction Hypertension Diabetes -Patient doing well post procedure. Limited echo for today to look for any residual effusion. Fluid studies have been sent off, so far preliminary Gram stain is negative, awaiting cultures, AFB and cytology. Plan of care and findings discussed with patient and daughter over the phone. Okay to transfer to telemetry. Result Diagram: 12/04/18 0500 12/04/18 0500 Results 24hrs Laboratory Tests Test 12/03/18 12:20 12/03/18 13:13 12/03/18 18:06 12/03/18 21:05 Bedside Glucose 87 80 157 Body Fluid Type OTHERS Body Fluid Volume 510.0 Body Fluid Color RED Body Fluid Appearance BLOODY Body Fluid WBC 1270 Body Fluid RBC (Auto) > 77819 Body Fluid Polynuclear 37.8 WBCs (%) Body Fluid Mononuclear 62.2 Cells % Auto Body Fluid Total Protein 7.1 Test 12/04/18 05:00 12/04/18 08:11 White Blood Count 7.8 Red Blood Count 3.56 L Hemoglobin 10.6 L Hematocrit 32.3 L Mean Corpuscular Volume 90.7 Mean Corpuscular 29.8 Hemoglobin Mean Corpuscular 32.8 Hemoglobin Concent Red Cell Distribution 12.5 Width Platelet Count 207 Mean Platelet Volume 9.1 Immature Granulocytes % 0.600 H Neutrophils % 58.2 Lymphocytes % 26.6 Monocytes % 13.1 H Eosinophils % 1.4 Basophils % 0.1 Nucleated Red Blood 0.0 Cells % Immature Granulocytes # 0.050 H Neutrophils # 4.5 Lymphocytes # 2.1 Monocytes # 1.0 H Eosinophils # 0.1 Basophils # 0.0 Nucleated Red Blood 0.0 Cells # Prothrombin Time 15.2 H Prothrombin Time Ratio 1.2 INR International 1.19 Normalized Ratio Sodium Level 145 H Potassium Level 3.9 Chloride Level 108 Carbon Dioxide Level 28 Anion Gap 9 Blood Urea Nitrogen 15 Creatinine 0.64 Est Glomerular Filtrat > 60 Rate mL/min Glucose Level 88 Uric Acid 6.7 Calcium Level 8.8 Magnesium Level 2.0 Total Bilirubin 0.5 Direct Bilirubin 0.00 Indirect Bilirubin 0.5 Aspartate Amino 36 Transf (AST/SGOT) Alanine 34 Aminotransferase (ALT/SG PT) Alkaline Phosphatase 60 Total Protein 7.4 Albumin 3.3 Globulin 4.10 H Albumin/Globulin Ratio 0.80 Thyroid Stimulating 2.480 Hormone (TSH) Bedside Glucose 89 Consultation Date/Type/Reason Admit Date/Time Dec 03, 2018 at 13:51 Initial Consult Date Type of Consult cv 24 HR Interval Summary Free Text/Dictation Feeling much better today. Denies chest pain, shortness of breath, dizziness or palpitations Exam/Review of Systems Vital Signs Vitals Vital Signs Date Temp Pulse Resp B/P (MAP) Pulse Ox O2 O2 Flow FiO2 Time Delivery Rate 12/04/18 79 27 104/59 93 Nasal 09:00 (74) Cannula 12/04/18 99.1 08:00 12/04/18 2.0 08:00 Intake and Output 12/03/18 12/03/18 12/04/18 1414:59 22:59 06:59 IntakeIntake Total 240 ml OutputOutput Total 750 ml BalanceBalance -510 ml Exam No apparent distress Constitutional: alert, oriented, obese Head: normocephalic Respiratory: clear to auscultation, normal air movement Cardiovascular: regular rate and rhythm, other (S1-S2 heard) Gastrointestinal: soft, non-tender, bowel sounds Musculoskeletal: other (Chest wall puncture site is soft, no hematoma felt and no drainage) Extremities: edema (Trace) Medications Medications Current Medications IV Flush (NS 3 ml) 3 ml PER PROTOCOL IV ; Start 12/02/18 at 05:00 Ondansetron HCl (Zofran Inj) 4 mg Q6H PRN IV NAUSEA AND/OR VOMITING; Start 12/02/18 at 05:00 Aspirin (Aspirin) 81 mg DAILY PO Last administered on 12/04/18at 08:34; Admin Dose 81 MG; Start 12/02/18 at 09:00 Nitroglycerin (Nitroglycerin (Sl Tab) 0.4 Mg) 1 tab Q5M PRN SL CHEST PAIN; Start 12/02/18 at 05:00 Acetaminophen (Tylenol Tab) 650 mg Q6H PRN PO PAIN LEVEL 1-3 OR FEVER Last administered on 12/03/18at 07:58; Admin Dose 650 MG; Start 12/02/18 at 05:00 Albuterol/ Ipratropium (Duoneb) 3 ml Q2H RESP THERAPY PRN HHN SHORTNESS OF BREATH; Start 12/02/18 at 05:00 Metoclopramide HCl (Reglan) 5 mg Q6H PRN IV HEADACHE; Start 12/02/18 at 15:30 Diagnostic Test (Pha) (Accu-Chek) 1 ea 02 XX ; Start 12/03/18 at 02:00 Insulin Aspart (Novolog Insulin Pen) NOVOLOG *MODERATE* ALGORITHM WITH MEALS BEDTIME SC ; Start 12/02/18 at 17:55 Miscellaneous Information 1 ea NOTE XX ; Start 12/02/18 at 15:30 Glucose (Glutose) 15 gm Q15M PRN PO DECREASED GLUCOSE; Start 12/02/18 at 15:30 Glucose (Glutose) 22.5 gm Q15M PRN PO DECREASED GLUCOSE; Start 12/02/18 at 15:30 Dextrose (D50w Syringe) 25 ml Q15M PRN IV DECREASED GLUCOSE; Start 12/02/18 at 15:30 Dextrose (D50w Syringe) 50 ml Q15M PRN IV DECREASED GLUCOSE; Start 12/02/18 at 15:30 Glucagon (Glucagen) 1 mg Q15M PRN IM DECREASED GLUCOSE; Start 12/02/18 at 15:30 Glucose (Glutose) 15 gm Q15M PRN BUCCAL DECREASED GLUCOSE; Start 12/02/18 at 15:30 Acetaminophen/ Hydrocodone Bitart ([place] (10/325)) 1 tab Q6H PRN PO MODERATE PAIN LEVEL 4-6; Start 12/02/18 at 15:30 Morphine Sulfate (morphine) 3 mg Q4H PRN IV SEVERE PAIN LEVEL 7-10; Start 12/02/18 at 15:30 Guaifenesin/ Dextromethorphan (Robitussin Dm Liquid Cup) 10 ml Q4H PRN PO COUGH; Start 12/02/18 at 15:30 Albuterol (Ventolin Hfa) 2 puff Q6H RESP THERAPY PRN INH SHORTNESS OF BREATH; Start 12/02/18 at 15:30 Colchicine (Colchicine) 0.6 mg BID PO Last administered on 12/04/18at 08:34; Admin Dose 0.6 MG; Start 12/02/18 at 21:00 Ibuprofen (Motrin) 400 mg Q6 PO Last administered on 12/04/18at 06:22; Admin Dose 400 MG; Start 12/03/18 at 18:00; Stop 12/05/18 at 17:59 Pawel Plascencia DO Dec 04, 2018 11:34
--- NOTE | 2018-12-04 13:09 | PN ---
Date/Time of Note Date/Time of Note DATE: 12/04/18 TIME: 13:08 Assessment/Plan VTE Prophylaxis Risk score (from [facility])>0 risk: 2 SCD applied (from [facility]): No SCD contraindicated: low risk/ambulating Pharmacological prophylaxis: NA/contraindicated Pharm contraindication: surgical contra Lines/Catheters IV [facility]from [facility] [place] Urinary Cath still in place: No Assessment/Plan Hospital Course Assessment and plan 1. Atypical chest pain nonexertional, stable ruled out ACS. 2. Bronchitis pleurisy stable cont supportive care. Flu shot on discharge 3. Type 2 diabetes 4. Metabolic syndrome stable start asa 5. Anemia check stools iron 6. Migraines, intermittent subacute does not see a specialist. Started therapy 7. Pericardial effusion w mild Tamponade. sp pericardiocentesis/ cultures sent. viral? S: 1/2: Atypical chest pain nonexertional but occurs when bending over. 2 days. Substernal lower chest no associated nausea vomiting diaphoresis syncope. No recent travel. 1 week cough fairly nonproductive. No sore throat no flu shot no ill contacts. Appetite okay no diarrhea. 12/03: events noted 12/04: No events O: Vital signs stable PE No pallor adenopathy JVD Reg no m/r/g Ctab, no rash Bs+ nt nd, no abd bruits No edema, some varicose veins Result Diagram: 12/04/18 0500 12/04/18 0500 Results 24hrs Laboratory Tests Test 12/03/18 13:13 12/03/18 18:06 12/03/18 21:05 12/04/18 05:00 Body Fluid Type OTHERS Body Fluid Volume 510.0 Body Fluid Color RED Body Fluid Appearance BLOODY Body Fluid WBC 1270 Body Fluid RBC (Auto) > 43790 Body Fluid Polynuclear 37.8 WBCs (%) Body Fluid Mononuclear 62.2 Cells % Auto Body Fluid Total Protein 7.1 Bedside Glucose 80 157 White Blood Count 7.8 Red Blood Count 3.56 L Hemoglobin 10.6 L Hematocrit 32.3 L Mean Corpuscular Volume 90.7 Mean Corpuscular 29.8 Hemoglobin Mean Corpuscular 32.8 Hemoglobin Concent Red Cell Distribution 12.5 Width Platelet Count 207 Mean Platelet Volume 9.1 Immature Granulocytes % 0.600 H Neutrophils % 58.2 Lymphocytes % 26.6 Monocytes % 13.1 H Eosinophils % 1.4 Basophils % 0.1 Nucleated Red Blood 0.0 Cells % Immature Granulocytes # 0.050 H Neutrophils # 4.5 Lymphocytes # 2.1 Monocytes # 1.0 H Eosinophils # 0.1 Basophils # 0.0 Nucleated Red Blood 0.0 Cells # Prothrombin Time 15.2 H Prothrombin Time Ratio 1.2 INR International 1.19 Normalized Ratio Sodium Level 145 H Potassium Level 3.9 Chloride Level 108 Carbon Dioxide Level 28 Anion Gap 9 Blood Urea Nitrogen 15 Creatinine 0.64 Est Glomerular Filtrat > 60 Rate mL/min Glucose Level 88 Uric Acid 6.7 Calcium Level 8.8 Magnesium Level 2.0 Total Bilirubin 0.5 Direct Bilirubin 0.00 Indirect Bilirubin 0.5 Aspartate Amino 36 Transf (AST/SGOT) Alanine 34 Aminotransferase (ALT/SG PT) Alkaline Phosphatase 60 Total Protein 7.4 Albumin 3.3 Globulin 4.10 H Albumin/Globulin Ratio 0.80 Thyroid Stimulating 2.480 Hormone (TSH) Test 12/04/18 08:11 12/04/18 12:23 Bedside Glucose 89 102 Exam/Review of Systems Vital Signs Vitals Vital Signs Date Temp Pulse Resp B/P (MAP) Pulse Ox O2 O2 Flow FiO2 Time Delivery Rate 12/04/18 79 27 104/59 93 Nasal 09:00 (74) Cannula 12/04/18 99.1 08:00 12/04/18 2.0 08:00 Intake and Output 12/03/18 12/03/18 12/04/18 1515:00 23:00 07:00 IntakeIntake Total 0 ml 240 ml OutputOutput Total 350 ml 400 ml BalanceBalance -350 ml -160 ml Medications Medications Current Medications IV Flush (NS 3 ml) 3 ml PER PROTOCOL IV ; Start 12/02/18 at 05:00 Ondansetron HCl (Zofran Inj) 4 mg Q6H PRN IV NAUSEA AND/OR VOMITING; Start 12/02/18 at 05:00 Aspirin (Aspirin) 81 mg DAILY PO Last administered on 12/04/18at 08:34; Admin Dose 81 MG; Start 12/02/18 at 09:00 Nitroglycerin (Nitroglycerin (Sl Tab) 0.4 Mg) 1 tab Q5M PRN SL CHEST PAIN; Start 12/02/18 at 05:00 Acetaminophen (Tylenol Tab) 650 mg Q6H PRN PO PAIN LEVEL 1-3 OR FEVER Last administered on 12/03/18at 07:58; Admin Dose 650 MG; Start 12/02/18 at 05:00 Albuterol/ Ipratropium (Duoneb) 3 ml Q2H RESP THERAPY PRN HHN SHORTNESS OF BREATH; Start 12/02/18 at 05:00 Metoclopramide HCl (Reglan) 5 mg Q6H PRN IV HEADACHE; Start 12/02/18 at 15:30 Diagnostic Test (Pha) (Accu-Chek) 1 ea 02 XX ; Start 12/03/18 at 02:00 Insulin Aspart (Novolog Insulin Pen) NOVOLOG *MODERATE* ALGORITHM WITH MEALS BEDTIME SC ; Start 12/02/18 at 17:55 Miscellaneous Information 1 ea NOTE XX ; Start 12/02/18 at 15:30 Glucose (Glutose) 15 gm Q15M PRN PO DECREASED GLUCOSE; Start 12/02/18 at 15:30 Glucose (Glutose) 22.5 gm Q15M PRN PO DECREASED GLUCOSE; Start 12/02/18 at 15:30 Dextrose (D50w Syringe) 25 ml Q15M PRN IV DECREASED GLUCOSE; Start 12/02/18 at 15:30 Dextrose (D50w Syringe) 50 ml Q15M PRN IV DECREASED GLUCOSE; Start 12/02/18 at 15:30 Glucagon (Glucagen) 1 mg Q15M PRN IM DECREASED GLUCOSE; Start 12/02/18 at 15:30 Glucose (Glutose) 15 gm Q15M PRN BUCCAL DECREASED GLUCOSE; Start 12/02/18 at 15:30 Acetaminophen/ Hydrocodone Bitart ([place] (10/325)) 1 tab Q6H PRN PO MODERATE PAIN LEVEL 4-6; Start 12/02/18 at 15:30 Morphine Sulfate (morphine) 3 mg Q4H PRN IV SEVERE PAIN LEVEL 7-10; Start 12/02/18 at 15:30 Guaifenesin/ Dextromethorphan (Robitussin Dm Liquid Cup) 10 ml Q4H PRN PO CO UGH; Start 12/02/18 at 15:30 Albuterol (Ventolin Hfa) 2 puff Q6H RESP THERAPY PRN INH SHORTNESS OF BREATH; Start 12/02/18 at 15:30 Colchicine (Colchicine) 0.6 mg BID PO Last administered on 12/04/18at 08:34; Admin Dose 0.6 MG; Start 12/02/18 at 21:00 Ibuprofen (Motrin) 400 mg Q6 PO Last administered on 12/04/18at 12:32; Admin Dose 400 MG; Start 12/03/18 at 18:00; Stop 12/05/18 at 17:59 MICHAEL VELIZ MD Dec 04, 2018 13:09
--- NOTE | 2018-12-04 13:26 | RADRPT ---
Echocardiogram Report Patient Name: QUINTEN REDDY Gender: Female Date: 1965 Study Date: 04-Dec-2018 Construction Sales Manager: Emelina Solis RDCS Location: [address] [place] [address]. Physician: JERMAINE PLASCENCIA Quality: Good Procedures: Transthoracic echocardiogram examination. Indications: Pericardial Effusion. Findings Left Ventricle: Normal left ventricular systolic function. The left ventricular ejection fraction is visually estimated at 60 %. Right Ventricle: Normal right ventricular systolic function. Pericardium: Trivial to small pericardial effusion. Conclusions Normal left ventricular systolic function. The left ventricular ejection fraction is visually estimated at 60 %. Normal right ventricular systolic function. Trivial to small pericardial effusion. Electronically Signed By: Jermaine Plascencia 04-Dec-2018 13:26:18 -0800 Patient Name: QUINTEN REDDY Study Date: 04-Dec-2018 [id number]
[2018-12-05] VITALS (12 sets, daily range): BP systolic 107–130; BP diastolic 55–72; PULSE 63–77; RESP 16–18
[2018-12-05] MEDS: IBUPROFEN 400 MG TAB PO SCH ×3 (00:28→12:46)
[2018-12-05] MEDS: GUAIFENESIN/DM 5ML CUP PO PRN ×3 (00:28→23:58)
[2018-12-05] MEDS: ACCU-CHEK XX SCH (01:34)
[2018-12-05] MEDS: INSULIN ASPART [NOVOLOG] 3 ML PEN SC SCH ×4 (07:46→20:32)
[2018-12-05] MEDS: ASPIRIN 81 MG TAB PO SCH (08:23)
[2018-12-05] MEDS: COLCHICINE 0.6 MG TAB PO SCH ×2 (08:23→20:32)
--- NOTE | 2018-12-05 15:25 | CONS ---
Date/Time of Note Date/Time of Note DATE: 12/05/18 TIME: 15:21 Consult Date/Type/Reason Admit Date/Time Dec 03, 2018 at 13:51 Initial Consult Date Subjective Cardiology follow-up progress Subjective: Discussed with the staff. Rhythm was reviewed. Patient remained sinus rhythm. Patient with no chest pain or pressure but does complain of cough No PND orthopnea. Discussed with patient daughter as well. Objective: General: no acute distress HEENT: NC/AT. pupils are equal. round. NECK: NO JVD. no stridor. CV: RRR. systolic murmur; no gallop or rubs. PULM: no wheezing or rhonchi. GI: SOFT, NT, ND, no rebound or guarding Extremity: trace B/L LE edema. no clubbing. neuro: awake and alert, OX3. Psych: calm and pleasant rectal: deferred Repeat echocardiogram done December 04, 2018 shows Normal left ventricular systolic function. The left ventricular ejection fraction is visually estimated at 60 %. Normal right ventricular systolic function. Trivial to small pericardial effusion. Objective Vital Signs Date Temp Pulse Resp B/P (MAP) Pulse Ox O2 O2 Flow FiO2 Time Delivery Rate 12/05/18 74 12:02 12/05/18 98.4 16 115/58 96 Room Air 11:39 (77) 12/04/18 2.0 08:00 Intake and Output 12/04/18 12/04/18 12/05/18 1515:00 23:00 07:00 IntakeIntake Total 600 ml 150 ml BalanceBalance 600 ml 150 ml Results/Medications Result Diagram: 12/04/18 0500 12/04/18 0500 Results 24 hrs Laboratory Tests Test 12/04/18 17:26 12/04/18 20:22 12/05/18 07:45 12/05/18 11:47 Bedside Glucose 91 121 91 93 Medications Current Medications IV Flush (NS 3 ml) 3 ml PER PROTOCOL IV ; Start 12/02/18 at 05:00 Ondansetron HCl (Zofran Inj) 4 mg Q6H PRN IV NAUSEA AND/OR VOMITING; Start 12/02/18 at 05:00 Aspirin (Aspirin) 81 mg DAILY PO Last administered on 12/05/18at 08:23; Admin Dose 81 MG; Start 12/02/18 at 09:00 Nitroglycerin (Nitroglycerin (Sl Tab) 0.4 Mg) 1 tab Q5M PRN SL CHEST PAIN; St art 12/02/18 at 05:00 Acetaminophen (Tylenol Tab) 650 mg Q6H PRN PO PAIN LEVEL 1-3 OR FEVER Last admi nistered on 12/03/18at 07:58; Admin Dose 650 MG; Start 12/02/18 at 05:00 Albuterol/ Ipratropium (Duoneb) 3 ml Q2H RESP THERAPY PRN HHN SHORTNESS OF BREATH; Start 12/02/18 at 05:00 Metoclopramide HCl (Reglan) 5 mg Q6H PRN IV HEADACHE; Start 12/02/18 at 15:30 Diagnostic Test (Pha) (Accu-Chek) 1 ea 02 XX ; Start 12/03/18 at 02:00 Insulin Aspart (Novolog Insulin Pen) NOVOLOG *MODERATE* ALGORITHM WITH MEALS BEDTIME SC ; Start 12/02/18 at 17:55 Miscellaneous Information 1 ea NOTE XX ; Start 12/02/18 at 15:30 Glucose (Glutose) 15 gm Q15M PRN PO DECREASED GLUCOSE; Start 12/02/18 at 15:30 Glucose (Glutose) 22.5 gm Q15M PRN PO DECREASED GLUCOSE; Start 12/02/18 at 15:30 Dextrose (D50w Syringe) 25 ml Q15M PRN IV DECREASED GLUCOSE; Start 12/02/18 at 15:30 Dextrose (D50w Syringe) 50 ml Q15M PRN IV DECREASED GLUCOSE; Start 12/02/18 at 15:30 Glucagon (Glucagen) 1 mg Q15M PRN IM DECREASED GLUCOSE; Start 12/02/18 at 15:30 Glucose (Glutose) 15 gm Q15M PRN BUCCAL DECREASED GLUCOSE; Start 12/02/18 at 15:30 Acetaminophen/ Hydrocodone Bitart ([place] ([id number])) 1 tab Q6H PRN PO MODERATE PAIN LEVEL 4-6; Start 12/02/18 at 15:30 Morphine Sulfate (morphine) 3 mg Q4H PRN IV SEVERE PAIN LEVEL 7-10; Start 12/02/18 at 15:30 Guaifenesin/ Dextromethorphan (Robitussin Dm Liquid Cup) 10 ml Q4H PRN PO COUGH Last administered on 12/05/18at 08:30; Admin Dose 10 ML; Start 12/02/18 at 15:30 Albuterol (Ventolin Hfa) 2 puff Q6H RESP THERAPY PRN INH SHORTNESS OF BREATH; Start 12/02/18 at 15:30 Colchicine (Colchicine) 0.6 mg BID PO Last administered on 12/05/18at 08:23; Admin Dose 0.6 MG; Start 12/02/18 at 21:00 Ibuprofen (Motrin) 400 mg Q6 PO Last administered on 12/05/18at 12:46; Admin Dose 400 MG; Start 12/03/18 at 18:00; Stop 12/05/18 at 17:59 Assessment/Plan Chief Complaint/Hosp Course Medium to large size pericardial effusion with early tamponade, status post pericardiocentesis 12/03/2018 Chest pain and shortness of breath-resolved with Preserved ejection fraction Hypertension Diabetes Anemia Recommendations: We will continue the current cardiac care. Follow-up with results of pericardiocentesis sent including cytology AFB Thank you for his referral. We will continue to follow along with you until Dr. Islas returns on Friday ROBBI EMERSON MD [facility] ROBBI EMERSON MD Dec 05, 2018 15:25
--- NOTE | 2018-12-05 16:19 | PN ---
Date/Time of Note Date/Time of Note DATE: 12/05/18 TIME: 16:19 Assessment/Plan VTE Prophylaxis Risk score (from Ns)>0 risk: 3 [place]CD applied [place] [facility] [place] SCD contraindicated: low risk/ambulating Pharmacological prophylaxis: NA/contraindicated Pharm contraindication: surgical contra Lines/Catheters IV [facility] Type [facility]from [facility] [place] [facility] Urinary Cath still in place: No Assessment/Plan Hospital Course Assessment and plan 1. Atypical chest pain nonexertional, stable ruled out ACS. 2. Bronchitis pleurisy stable cont supportive care. Flu shot on discharge 3. Type 2 diabetes 4. Metabolic syndrome stable start asa 5. Anemia check stools iron 6. Migraines, intermittent subacute does not see a specialist. Started therapy 7. Pericardial effusion w mild Tamponade. sp pericardiocentesis/ cultures sent. viral? S: 1/2: Atypical chest pain nonexertional but occurs when bending over. 2 days. Substernal lower chest no associated nausea vomiting diaphoresis syncope. No recent travel. 1 week cough fairly nonproductive. No sore throat no flu shot no ill contacts. Appetite okay no diarrhea. 12/03: events noted 12/04: No events: Occasional cough otherwise stable no fever O: Vital signs stable PE No pallor adenopathy JVD Reg no m/r/g Ctab, no rash Bs+ nt nd, no abd bruits No edema, some varicose veins Result Diagram: 12/04/18 0500 12/04/18 0500 Results 24hrs Laboratory Tests Test 12/04/18 17:26 12/04/18 20:22 12/05/18 07:45 12/05/18 11:47 Bedside Glucose 91 121 91 93 Exam/Review of Systems Vital Signs Vitals Vital Signs Date Temp Pulse Resp B/P (MAP) Pulse Ox O2 O2 Flow FiO2 Time Delivery Rate 12/05/18 77 16:07 12/05/18 98.7 18 130/69 100 Room Air 15:39 (89) 12/04/18 2.0 08:00 Intake and Output 12/04/18 12/04/18 12/05/18 1515:00 23:00 07:00 IntakeIntake Total 600 ml 150 ml BalanceBalance 600 ml 150 ml Medications Medications Current Medications IV Flush (NS 3 ml) 3 ml PER PROTOCOL IV ; Start 12/02/18 at 05:00 Ondansetron HCl (Zofran Inj) 4 mg Q6H PRN IV NAUSEA AND/OR VOMITING; Start 12/02/18 at 05:00 Aspirin (Aspirin) 81 mg DAILY PO Last administered on 12/05/18at 08:23; Admin Dose 81 MG; Start 12/02/18 at 09:00 Nitroglycerin (Nitroglycerin (Sl Tab) 0.4 Mg) 1 tab Q5M PRN SL CHEST PAIN; Sta rt 12/02/18 at 05:00 Acetaminophen (Tylenol Tab) 650 mg Q6H PRN PO PAIN LEVEL 1-3 OR FEVER Last administered on 12/03/18at 07:58; Admin Dose 650 MG; Start 12/02/18 at 05:00 Albuterol/ Ipratropium (Duoneb) 3 ml Q2H RESP THERAPY PRN HHN SHORTNESS OF BREATH; Start 12/02/18 at 05:00 Metoclopramide HCl (Reglan) 5 mg Q6H PRN IV HEADACHE; Start 12/02/18 at 15:30 Diagnostic Test (Pha) (Accu-Chek) 1 ea 02 XX ; Start 12/03/18 at 02:00 Insulin Aspart (Novolog Insulin Pen) NOVOLOG *MODERATE* ALGORITHM WITH MEALS BEDTIME SC ; Start 12/02/18 at 17:55 Miscellaneous Information 1 ea NOTE XX ; Start 12/02/18 at 15:30 Glucose (Glutose) 15 gm Q15M PRN PO DECREASED GLUCOSE; Start 12/02/18 at 15:30 Glucose (Glutose) 22.5 gm Q15M PRN PO DECREASED GLUCOSE; Start 12/02/18 at 15:30 Dextrose (D50w Syringe) 25 ml Q15M PRN IV DECREASED GLUCOSE; Start 12/02/18 at 15:30 Dextrose (D50w Syringe) 50 ml Q15M PRN IV DECREASED GLUCOSE; Start 12/02/18 at 15:30 Glucagon (Glucagen) 1 mg Q15M PRN IM DECREASED GLUCOSE; Start 12/02/18 at 15:30 Glucose (Glutose) 15 gm Q15M PRN BUCCAL DECREASED GLUCOSE; Start 12/02/18 at 15:30 Acetaminophen/ Hydrocodone Bitart ([place] (10/325)) 1 tab Q6H PRN PO MODERATE PAIN LEVEL 4-6; Start 12/02/18 at 15:30 Morphine Sulfate (morphine) 3 mg Q4H PRN IV SEVERE PAIN LEVEL 7-10; Start 12/02/18 at 15:30 Guaifenesin/ Dextromethorphan (Robitussin Dm Liquid Cup) 10 ml Q4H PRN PO COUGH Last administered on 12/05/18at 08:30; Admin Dose 10 ML; Start 12/02/18 at 15:30 Albuterol (Ventolin Hfa) 2 puff Q6H RESP THERAPY PRN INH SHORTNESS OF BREATH; Start 12/02/18 at 15:30 Colchicine (Colchicine) 0.6 mg BID PO Last administered on 12/05/18at 08:23; Admin Dose 0.6 MG; Start 12/02/18 at 21:00 Ibuprofen (Motrin) 400 mg Q6 PO Last administered on 12/05/18at 12:46; Admin Dose 400 MG; Start 12/03/18 at 18:00; Stop 12/05/18 at 17:59 MICHAEL VELIZ MD Dec 05, 2018 16:19
[2018-12-06] VITALS (9 sets, daily range): BP systolic 120–124; BP diastolic 60–70; PULSE 70–91; RESP 17–20
[2018-12-06] MEDS: ACCU-CHEK XX SCH (02:00)
[2018-12-06] MEDS: INSULIN ASPART [NOVOLOG] 3 ML PEN SC SCH ×2 (07:45→11:47)
[2018-12-06] MEDS: COLCHICINE 0.6 MG TAB PO SCH (08:23)
[2018-12-06] MEDS: ASPIRIN 81 MG TAB PO SCH (08:23)
--- NOTE | 2018-12-06 14:41 | DS ---
Date/Time of Note Date/Time of Note DATE: 12/06/18 TIME: 14:34 Discharge Summary Admission/Discharge Info Admit Date/Time Dec 03, 2018 at 13:51 Discharge Date/Time Patient Condition: Good Consults [facility] Procedures CXR IMPRESSION: 1. Enlarged cardiomediastinal silhouette. Considerations include pericardial effusion and cardiomyopathy. Echocardiogram results of 12/02/2018 are pending. 2. Left retrocardiac opacification with diagnostic considerations including atelectasis, consolidation, and hiatal hernia. [place] [facility] Physician 2D ECHO Normal left ventricular systolic function. Normal left ventricular cavity size. Moderate concentric left ventricular hypertrophy. Ejection fraction is visually estimated at 60 %. Tissue Doppler/Mitral Doppler indices are consistent with impaired relaxation (Stage I diastolic dysfunction). Normal right ventricular size. Normal right ventricular systolic function. The left atrium is normal in size. The right atrium is normal in size. Normal appearance of the tricuspid valve. Estimated peak PA systolic pressure 37 mmHg. There is mild tricuspid regurgitation. No significant valvular stenosis or regurgitation seen of remaining visualized valves. Medium to large sized pericardial effusion. Findings discussed with hospitalist. Electronically Signed By: Pawel Plascencia Pericardiocentesis Postoperative Diagnosis Pericardial effusion Operation/Procedure Performed Pericardiocentesis Specimen 550 mL's of pericardial fluid Procedure Description Patient with echocardiographic evidence of cardiac tamponade on with medium to large size pericardial effusion. After informed consent, patient brought down to [employer]. Patient prepped and draped as per protocol. Using fluoroscopy guidance and ultrasound guidance, we enter the pericardium. This was confirmed with bubble study via echocardiogram as well as with fluoroscopy. Fluid was removed. We attempted getting a pigtail fully in the pericardium, but the mid region Cur[place] in the subcutaneous tissue. After echo confirmed that all the pericardial fluid was removed, the pigtail was removed. There was no immediate complications 2D ECHO #2 Conclusions Normal left ventricular systolic function. The left ventricular ejection fraction is visually estimated at 60 %. Normal right ventricular systolic function. Trivial to small pericardial effusion. Hx of Present Illness 53-year-old female admitted transferred from [facility] for continuity with insurance. Hospital Course Hospital course Imaging concerning for cardiomegaly. ECHO confirming pericardial effusion. underwent pericardiocentesis the next day. At this time there is no growth. Etiologies are probably due to recent pericarditis, likely viral. At this time the patient is stable and fit for discharge. Follow-up with cardiology/primary to follow-up pathology/ fungal/ afb results. Daughter aware additionally. Assessment and plan 1. Atypical chest pain nonexertional, stable ruled out ACS. 2. Bronchitis pleurisy stable cont supportive care. Flu shot on discharge 3. Type 2 diabetes 4. Metabolic syndrome stable start asa soon 5. Anemia checked stools iron 6. Migraines, intermittent subacute does not see a specialist. Resolved with 2 doses of Imitrex. 7. Pericardial effusion w mild Tamponade. sp pericardiocentesis/ cultures sent/pending [[phone] & [id number]]. viral? S: 1/2: Atypical chest pain nonexertional but occurs when bending over. 2 days. Substernal lower chest no associated nausea vomiting diaphoresis syncope. No recent travel. 1 week cough fairly nonproductive. No sore throat no flu shot no ill contacts. Appetite okay no diarrhea. 3: events noted 12/04: No events: Occasional cough otherwise stable no fever /5: No events 12/06: Feels good no fever dyspnea occ cough Home Meds Reported Medications Amlodipine Besylate* (Amlodipine Besylate*) 5 Mg Tablet, 5 MG PO DAILY, #30 TAB 12/02/18 Losartan Potassium* (Losartan Potassium*) 50 Mg Tablet, 50 MG PO BID, TAB 12/02/18 Metoclopramide Hcl* (Metoclopramide Hcl*) 10 Mg Tablet, 10 MG PO TID for NAUSEA AND VOMITING, TAB 12/02/18 Primary Care Provider Not On Staff Doctor Time spent on discharge: > 30 minutes Pending Labs Laboratory Tests Test 12/05/18 17:01 12/05/18 20:32 12/06/18 07:44 12/06/18 11:42 Bedside 121 135 97 105 Glucose mg/dL (70-220) mg/dL (70-220) mg/dL (70-220) mg/dL (70-220) MICHAEL VELIZ MD Dec 06, 2018 14:41
--- NOTE | 2018-12-06 14:42 | PDOCDIS ---
Discharge Instructions CONDITION [id number] Patient Condition: [id number] Good HOME CARE INSTRUCTIONS: [id number] Diet Instructions: [id number] Low Fat /Cholesterol [id number] Special Diet: [id number] CCD ACTIVITY: [id number] Activity Restrictions: [id number] Slowly Increase Activity Do not Drive FOLLOW UP/APPOINTMENTS Follow-up Plan Appt PCP & Dr Plascencia 1wk MICHAEL VELIZ MD Dec 06, 2018 14:42
[2018-12-06] MEDS ORDERED: GUAI120S26 PO (14:44)
[2018-12-06] MEDS ORDERED: ACET325T33 PO (14:44)
[2018-12-06] MEDS ORDERED: METO10TA3 PO (14:44)
[2018-12-06] MEDS ORDERED: Colchicine PO (14:44)
--- NOTE | 2018-12-06 16:03 | CONS ---
Date/Time of Note Date/Time of Note DATE: 12/06/18 TIME: 16:02 Consult Date/Type/Reason Admit Date/Time Dec 03, 2018 at 13:51 Initial Consult Date Subjective Cardiology follow-up progress Subjective: Discussed with the staff. Rhythm was reviewed. Patient remained sinus rhythm. Patient with no chest pain or pressure No PND orthopnea. Discussed with patient daughter as well. Patient is excited to go home Objective: General: no acute distress HEENT: NC/AT. pupils are equal. round. NECK: NO JVD. no stridor. CV: RRR. systolic murmur; no gallop or rubs. PULM: no wheezing or rhonchi. GI: SOFT, NT, ND, no rebound or guarding Extremity: trace B/L LE edema. no clubbing. neuro: awake and alert, OX3. Psych: calm and pleasant rectal: deferred Repeat echocardiogram done December 04, 2018 shows Normal left ventricular systolic function. The left ventricular ejection fraction is visually estimated at 60 %. Normal right ventricular systolic function. Trivial to small pericardial effusion. Objective Vital Signs Date Temp Pulse Resp B/P (MAP) Pulse Ox O2 O2 Flow FiO2 Time Delivery Rate 12/06/18 97.5 79 20 120/60 100 Room Air 15:42 (80) 12/04/18 2.0 08:00 Intake and Output 12/05/18 12/05/18 12/06/18 1515:00 23:00 07:00 IntakeIntake Total 1200 ml 280 ml BalanceBalance 1200 ml 280 ml Results/Medications Result Diagram: 12/04/18 0500 12/04/18 0500 Results 24 hrs Laboratory Tests Test 12/05/18 17:01 12/05/18 20:32 12/06/18 07:44 12/06/18 11:42 Bedside Glucose 121 135 97 105 Medications Current Medications IV Flush (NS 3 ml) 3 ml PER PROTOCOL IV ; Start 12/02/18 at 05:00 Ondansetron HCl (Zofran Inj) 4 mg Q6H PRN IV NAUSEA AND/OR VOMITING; Start 12/02/18 at 05:00 Aspirin (Aspirin) 81 mg DAILY PO Last administered on 12/06/18at 08:23; Admin Dose 81 MG; Start 12/02/18 at 09:00 Nitroglycerin (Nitroglycerin (Sl Tab) 0.4 Mg) 1 tab Q5M PRN SL CHEST PAIN; Start 12/02/18 at 05:00 Acetaminophen (Tylenol Tab) 650 mg Q6H PRN PO PAIN LEVEL 1-3 OR FEVER Last administered on 12/03/18at 07:58; Admin Dose 650 MG; Start 12/02/18 at 05:00 Albuterol/ Ipratropium (Duoneb) 3 ml Q2H RESP THERAPY PRN HHN SHORTNESS OF BREATH; Start 12/02/18 at 05:00 Metoclopramide HCl (Reglan) 5 mg Q6H PRN IV HEADACHE; Start 12/02/18 at 15:30 Diagnostic Test (Pha) (Accu-Chek) 1 ea 02 XX ; Start 12/03/18 at 02:00 Insulin Aspart (Novolog Insulin Pen) NOVOLOG *MODERATE* ALGORITHM WITH MEALS BEDTIME SC ; Start 12/02/18 at 17:55 Miscellaneous Information 1 ea NOTE XX ; Start 12/02/18 at 15:30 Glucose (Glutose) 15 gm Q15M PRN PO DECREASED GLUCOSE; Start 12/02/18 at 15:30 Glucose (Glutose) 22.5 gm Q15M PRN PO DECREASED GLUCOSE; Start 12/02/18 at 15:30 Dextrose (D50w Syringe) 25 ml Q15M PRN IV DECREASED GLUCOSE; Start 12/02/18 at 15:30 Dextrose (D50w Syringe) 50 ml Q15M PRN IV DECREASED GLUCOSE; Start 12/02/18 at 15:30 Glucagon (Glucagen) 1 mg Q15M PRN IM DECREASED GLUCOSE; Start 12/02/18 at 15:30 Glucose (Glutose) 15 gm Q15M PRN BUCCAL DECREASED GLUCOSE; Start 12/02/18 at 15:30 Acetaminophen/ Hydrocodone Bitart ([place] (10/325)) 1 tab Q6H PRN PO MODERATE PAIN LEVEL 4-6; Start 12/02/18 at 15:30 Morphine Sulfate (morphine) 3 mg Q4H PRN IV SEVERE PAIN LEVEL 7-10; Start 12/02/18 at 15:30 Guaifenesin/ Dextromethorphan (Robitussin Dm Liquid Cup) 10 ml Q4H PRN PO COUGH Last administered on 12/05/18at 23:58; Admin Dose 10 ML; Start 12/02/18 at 15:30 Albuterol (Ventolin Hfa) 2 puff Q6H RESP THERAPY PRN INH SHORTNESS OF BREATH; Start 12/02/18 at 15:30 Colchicine (Colchicine) 0.6 mg BID PO Last administered on 12/06/18at 08:23; Admin Dose 0.6 MG; Start 12/02/18 at 21:00 Assessment/Plan Chief Complaint/Hosp Course Medium to large size pericardial effusion with early tamponade, status post pericardiocentesis 12/03/2018 Chest pain and shortness of breath-resolved with Preserved ejection fraction Hypertension Diabetes Anemia Recommendations: We will continue the current cardiac care. Follow-up with results of pericardiocentesis sent including cytology AFB Patient was advised to call Dr. Islas office tomorrow to schedule a post hospital follow-up with him as soon as possible Thank you for his referral. We will continue to follow along with you until Dr. Islas returns on Friday ROBBI EMERSON MD [facility] ROBBI EMERSON MD Dec 06, 2018 16:03
== END 2018-12-06 16:55 | disposition home or self-care (01) | DRG 316 ==
LOC: INTOOBSV 01:56 → TEL 01:56 → ICU 12-03 12:22 → OBSVTOIN 12-03 13:51 → TEL 12-04 17:17
PROVIDERS: ADMIT Internal Medicine; ATTEND Internal Medicine
PROC: 0W9D3ZZ Drainage of Pericardial Cavity, Percutaneous Approach (ICD-10-PCS; principal; 2018-12-03 13:00)
DX: I31.3 Pericardial effusion (noninflammatory) (principal); I31.4 Cardiac tamponade; I10 Essential (primary) hypertension; E11.9 Type 2 diabetes mellitus without complications; D64.9 Anemia, unspecified; J40 Bronchitis, not specified as acute or chronic; E88.81 Metabolic syndrome and other insulin resistance; G43.809 Other migraine, not intractable, without status migrainosus
CPT/HCPCS: 33010; 71045; 80053; 80061; 82550; 82553; 82728; 82962; 83036; 83540; 83690; 83735; 84100; 84157; 84443; 84484; 84560; 84703; 85025; 85610; 86480; 87070; 87102; 87116; 87400; 88104; 88107; 88305; 89051; 93306; 93308; 99217; G0378; J1644; J1650; J1815; J2250; J3010; J7030

== ENCOUNTER 2018-12-17 11:07 | Inpatient (IN) | payer OTHER ==
[2018-12-17] VITALS (14 sets, daily range): BP systolic 94–127; BP diastolic 53–101; PULSE 105–123; RESP 14–23
[~2018-12-17] VITALS: Ht 152.4 cm; Wt 86.8 kg
[~2018-12-17 11:07] MED LIST: ACET325T33 PO; AMLO-145 PO; CEFAZOLIN 1 GM INJ ONE; Colchicine PO; DESFLURANE 15 MIN ONE; DEXAMETHASONE 4 MG/ML 1 ML INJ ONE; ETOMIDATE 20 MG INJ ONE; GUAI120S26 PO; LIDOCAINE 2% (SDV) 5 ML INJ ONE; LOSA50TA14 PO; METO10TA3 PO; METOCLOPRAMIDE 10 MG INJ ONE; ONDANSETRON 4 MG INJ ONE; PROPOFOL 200 MG INJ ONE; ROCURONIUM 50 MG INJ ONE; SUCCINYLCHOLINE CHLORIDE 100 MG/5 ML SYG IV ONE
[2018-12-17] MEDS ORDERED: COLC0.6T6 PO (12:32)
[2018-12-17] MEDS ORDERED: SODIUM CHLORIDE 0.9% 1L BAG IV* STA (12:54)
--- NOTE | 2018-12-17 12:59 | ERD ---
ER Documentation Chief Complaint Chief Complaint CP X 12 DAYS. HAD CARDIO PARACENTHESIS ON Dec HPI 53-year-old woman presents with 2 weeks of mild cough, intermittent shortness of breath, and sharp nonexertional nonradiating chest pain. Her symptoms did get worse this morning and mostly consists of shortness of breath. She is status post pericardiocentesis due to pericardial effusion about 2-3 weeks ago. She denies loss of consciousness, no dizziness, no vomiting or diarrhea, no blood per rectum or melena. ROS All systems reviewed and are negative except as per history of present illness. Medications Home Meds Active Scripts Metoclopramide Hcl* (Metoclopramide Hcl*) 10 Mg Tablet, 10 MG PO TID PRN for NAUSEA MDD 4 for 7 Days, #1 TAB Prov:MICHAEL VELIZ MD 12/06/18 Reported Medications Colchicine* (Colcrys*) 0.6 Mg Tablet, 0.6 MG PO DAILY, TAB 12/17/18 Amlodipine Besylate* (Amlodipine Besylate*) 5 Mg Tablet, 5 MG PO DAILY, #30 TAB 12/02/18 Losartan Potassium* (Losartan Potassium*) 50 Mg Tablet, 50 MG PO DAILY, TAB 12/02/18 Discontinued Scripts [Colchicine] 0.6 MG TAB No Conflict Check, 0.6 MG PO BID for 7 Days, #14 Prov:MICHAEL VELIZ MD 12/06/18 Fzygvxpjwcc-D-Bctfihrpmu Hb* (Guaifenesin* DM Syrup) 120 Ml Syrup, 10 ML PO Q4H PRN for COUGH for 1 Day Prov:MICHAEL VELIZ MD 12/06/18 Acetaminophen* (Tylenol*) 325 Mg Tablet, 650 MG PO Q6H PRN for PAIN LEVEL 1-3 OR FEVER for 1 Day, TAB Prov:MICHAEL VELIZ MD 12/06/18 Allergies Allergies: Coded Allergies: No Known Allergy (Unverified , 12/17/18) PMhx/Soc Hypertension, diabetes mellitus, obesity, recent large pericardial effusion requiring urgent pericardiocentesis Medical and Surgical Hx: pt denies Surgical Hx History of Surgery: No Anesthesia Reaction: No Hx Neurological Disorder: No Hx Respiratory Disorders: No Hx Cardiac Disorders: Yes (HTN) Hx Psychiatric Problems: No Hx Miscellaneous Medical Probl: Yes (DM) Hx Alcohol Use: No Hx Substance Use: No Hx Tobacco Use: No Smoking Status: Never smoker Physical Exam Vitals Vital Signs Date Temp Pulse Resp B/P (MAP) Pulse Ox O2 O2 Flow FiO2 Time Delivery Rate 12/17/18 91 18 93/71 (78) 95 Nasal 3.0 15:40 Cannula 12/17/18 99 98/75 (83) 95 Nasal 3.0 15:08 Cannula 12/17/18 113/84 98 Room Air 13:45 (94) 12/17/18 Nasal 3 13:20 Cannula 12/17/18 Nasal 3 12:43 Cannula 12/17/18 104 16 93/66 (75) 95 Room Air 12:23 12/17/18 100.0 78 18 121/73 99 11:09 (89) Physical Exam GENERAL: Well-developed, well-nourished, elderly woman, appears dyspneic, low- grade fever HEENT: Dry mucous membranes, pale conjunctive a, no cervical spine tenderness or step-off deformities, no goiter, no jaundice or icterus, extraocular movements intact without pain. NEURO: Alert and oriented 3, cranial nerves II through XII intact bilaterally, pupils equal round reactive to light, no focal deficits or facial asymmetry, sensation intact distally Strength 5/5 in upper and lower extremities bilaterally CARDIAC: Tachycardic and regular, distant heart sounds LUNGS: Poor breath sounds, crackles at the bases, no wheezing or stridor ABDOMEN: Soft nontender, no guarding, no rigidity, no rebound, no psoas sign no obturator sign. SKIN: Warm and dry to touch, no abrasions, contusions, or hematomas, no la cerations, no ecchymosis, no target lesions, and without ulcers EXTREMITIES: No clubbing cyanosis or edema, calves are bilaterally symmetrical, no Homans sign, no popliteal cord sign. Distal pulses equal and bilateral PSYCH: Normal affect without agitation or irritability Result Diagram: 12/17/18 1303 12/17/18 1303 Results 24 hrs Laboratory Tests Test 12/17/18 13:03 12/17/18 13:06 12/17/18 14:40 White Blood Count 7.1 10^3/ul Red Blood Count 3.29 10^6/ul Hemoglobin 9.4 g/dl Hematocrit 29.7 % Mean Corpuscular Volume 90.3 fl Mean Corpuscular Hemoglobin 28.6 pg Mean Corpuscular 31.6 g/dl Hemoglobin Concent Red Cell Distribution Width 13.0 % Platelet Count 246 10^3/UL Mean Platelet Volume 9.6 fl Immature Granulocytes % 0.400 % Neutrophils % 60.2 % Lymphocytes % 26.2 % Monocytes % 11.5 % Eosinophils % 1.4 % Basophils % 0.3 % Nucleated Red Blood Cells % 0.0 /100WBC Immature Granulocytes # 0.030 10^3/ul Neutrophils # 4.3 10^3/ul Lymphocytes # 1.9 10^3/ul Monocytes # 0.8 10^3/ul Eosinophils # 0.1 10^3/ul Basophils # 0.0 10^3/ul Nucleated Red Blood Cells # 0.0 10^3/ul Prothrombin Time 15.0 Sec Prothrombin Time Ratio 1.2 INR International 1.17 Normalized Ratio Activated Partial Thromboplast 26.9 Sec Time Sodium Level 136 mmol/L Potassium Level 4.0 mmol/L Chloride Level 103 mmol/L Carbon Dioxide Level 23 mmol/L Anion Gap 10 Blood Urea Nitrogen 28 mg/dl Creatinine 1.02 mg/dl Est Glomerular Filtrat 57 mL/min Rate mL/min Glucose Level 146 mg/dl Calcium Level 9.4 mg/dl Total Bilirubin 0.6 mg/dl Direct Bilirubin 0.00 mg/dl Indirect Bilirubin 0.6 mg/dl Aspartate Amino 28 IU/L Transf (AST/SGOT) Alanine 21 IU/L Aminotransferase (ALT/SGPT) Alkaline Phosphatase 74 IU/L Troponin I < 0.012 ng/ml C-Reactive Protein 1.9 mg/dl B-Type Natriuretic Peptide 253 PG/ML Total Protein 8.3 g/dl Albumin 3.9 g/dl Globulin 4.40 g/dl Albumin/Globulin Ratio 0.88 Lipase 168 U/L POC Venous Lactate 1.5 mmol/L Urine Color YELLOW Urine Clarity SLIGHTLY CLOUDY Urine pH 5.0 Urine Specific [place] 1.009 Urine Ketones NEGATIVE mg/dL Urine Nitrite NEGATIVE mg/dL Urine Bilirubin NEGATIVE mg/dL Urine Urobilinogen NEGATIVE mg/dL Urine Leukocyte Esterase 3+ Anna/ul Urine Microscopic RBC 7 /HPF Urine Microscopic WBC 5 /HPF Urine Squamous Epithelial Cells FEW /HPF Urine Hemoglobin 1+ mg/dL Urine Glucose NEGATIVE mg/dL Urine Total Protein 1+ mg/dl Current Medications Medications Dose Sig/Jodie Start Time Status Last (Trade) Ordered Route PRN Stop Time Admin Dose Reason Admin Ibuprofen 600 mg ONCE ONCE 12/17/18 DC 12/17/18 (Motrin) PO 13:00 13:47 12/17/18 13:01 Sodium 2,000 ml BOLUS OVER 2 12/17/18 DC 12/17/18 Chloride HOURS STAT 12:54 13:47 (NS) IV* 12/17/18 12:57 Cefepime HCl 50 ml @ ONCE ONCE 12/17/18 DC 12/17/18 100 mls/hr IVPB 14:00 14:03 12/17/18 14:29 80 mg ONCE ONCE 12/17/18 DC 12/17/18 Methylprednis IV 15:00 15:30 olone Sodium 12/17/18 15:11 Succinate (Solu-Medrol) Colchicine 0.6 mg BID PO 12/17/18 (Colchicine) 21:00 Sodium 1,000 ml @ [id number] IV 12/17/18 Chloride 75 mls/hr 15:00 12/18/18 14:59 IV Flush 3 ml PER 12/17/18 (NS 3 ml) PROTOCOL IV 16:30 Ondansetron 4 mg Q6H PRN 12/17/18 HCl (Zofran IV NAUSEA 16:30 Inj) AND/OR VOMITING 650 mg Q6H PRN 12/17/18 Acetaminophen PO PAIN 16:30 (Tylenol LEVEL 1-3 OR Tab) FEVER 650 mg Q6H PRN 12/17/18 Acetaminophen LA PAIN 16:30 (Tylenol LEVEL 1-3 OR Supp) FEVER Oxycodone/ 1 tab Q6H PRN 12/17/18 Acetaminophen PO MODERATE 16:30 (Percocet PAIN LEVEL (5/ 325)) 4-6 Morphine 2 mg Q4H PRN 12/17/18 Sulfate IV SEVERE 16:30 (morphine) PAIN LEVEL 7-10 Docusate 100 mg Q12H PRN 12/17/18 Sodium PO 16:30 (Colace) CONSTIPATION Magnesium 30 ml DAILY PRN 12/17/18 Hydroxide PO 16:30 (Milk Of Mag) CONSTIPATION Bisacodyl 5 mg DAILY PRN 12/17/18 (Dulcolax) PO 16:30 CONSTIPATION Bisacodyl 10 mg DAILY PRN 12/17/18 (Dulcolax LA 16:30 Supp) CONSTIPATION Discontinue ONCE ONCE 12/17/18 DC Miscellaneous current oral XX 16:30 sulfonylur... 12/17/18 17:05 Information (* Miscellaneous Pharmacy Order) Diagnostic 1 ea 02 XX 12/18/18 Test (Pha) 02:00 (Accu-Chek) ONCE ONCE 12/17/18 DC Miscellaneous HYPOGLYCEMIA XX 16:30 PROTOCOL 12/17/18 17:05 Information w... (* Miscellaneous Pharmacy Order) Insulin NOVOLOG Q4 SC 12/17/18 Aspart *MODERATE* 17:00 (Novolog ALGORI... Insulin Pen) Discontinue ONCE ONCE 12/17/18 DC Miscellaneous all previ... XX 16:30 12/17/18 17:05 Information (* Miscellaneous Pharmacy Order) Procedures/MDM IV line was established patient was placed on residential monitor rhythm strip revealed a sinus tachycardia at 110 bpm with upright P and T waves. Patient was febrile, blood and urine cultures have been ordered results are pending I will follow-up. I do not suspect sepsis. EKG performed, read by me revealed a sinus tachycardia at 110 bpm, normal axis, narrow QRS complex, no concerning ST elevations or depressions noted, diffuse flattened T waves Adult echocardiogram performed: Revealed large pericardial effusion overall concerning given her symptoms One AP view of the chest performed, read by me reveals cardiomegaly and bilateral pulmonary vascular congestion, no acute infiltrates, no pneumothorax. Given her low-grade fever and pericardial effusion I administered cefepime 1 g IV. Patient was initially hypotensive and tachycardic and I administered 2 L normal saline IV, as well as ibuprofen 600 mg p.o. CBC revealed mild anemia, electrolytes revealed dehydration otherwise unremarkable, liver function tests were unremarkable, troponin was negative, BNP was low. Urinalysis was positive for infection. Lactic acid level was low Critical Care: Time: 42 minutes, this was time separate from other billable procedures. Treatments/Evaluations: Close monitoring and treatment of unstable vital signs, cardiorespiratory, and neurologic status, while maintaining tight balance of fluid, respiratory, and cardiac interventions. 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 Plascencia who saw the patient in the emergency department and recommended admission to ICU and will continue to manage, patient may receive pericardial window Departure Diagnosis: Primary Impression: Acute pericardial effusion Additional Impressions: Acute UTI Dehydration Anemia Anemia type: unspecified type Qualified Codes: D64.9 - Anemia, unspecified Chest pain Chest pain type: unspecified Qualified Codes: R07.9 - Chest pain, unspecified Condition: Serious BAILEY BRENNAN MD Dec 17, 2018 12:59
[2018-12-17] MEDS ORDERED: IBUPROFEN 600 MG TAB PO ONE (13:00)
[2018-12-17] MEDS ORDERED: CEFEPIME 1GM/50 ML (PMX) 50 ML IVPB ONE (14:00)
[2018-12-17] MEDS ORDERED: METHYLPREDNISOLONE 125 MG INJ IV ONE (15:00)
[2018-12-17] MEDS ORDERED: SOD CHLORIDE 0.9% 1,000 ML IV SCH (15:00)
--- NOTE | 2018-12-17 15:01 | CONS ---
Date/Time of Note Date/Time of Note DATE: 12/17/18 TIME: 14:56 Assessment/Plan Assessment/Plan Assessment/Plan Pericardial effusion Preserved ejection fraction History of hypertension Diabetes -Patient with history of pericardial effusion and underwent pericardial centesis approximately 2 weeks ago. Now with recurrent symptoms. Preliminary echocardiogram with recurrent effusion. I will review the echo. Given patient with recurrent effusion such a short period of time, will need pericardial window to be performed by CT surgery. Increased dose of colchicine, add NSAIDs if renal function permits, 1 dose of steroids. Antibiotics as per primary team. -Hold all antihypertensives, ICU monitoring Result Diagram: 12/17/18 1303 12/17/18 1303 Results 24hrs Laboratory Tests Test 12/17/18 13:03 12/17/18 13:06 White Blood Count 7.1 Red Blood Count 3.29 L Hemoglobin 9.4 L Hematocrit 29.7 L Mean Corpuscular Volume 90.3 Mean Corpuscular Hemoglobin 28.6 L Mean Corpuscular Hemoglobin Concent 31.6 L Red Cell Distribution Width 13.0 Platelet Count 246 Mean Platelet Volume 9.6 Immature Granulocytes % 0.400 Neutrophils % 60.2 Lymphocytes % 26.2 Monocytes % 11.5 H Eosinophils % 1.4 Basophils % 0.3 Nucleated Red Blood Cells % 0.0 Immature Granulocytes # 0.030 Neutrophils # 4.3 Lymphocytes # 1.9 Monocytes # 0.8 Eosinophils # 0.1 Basophils # 0.0 Nucleated Red Blood Cells # 0.0 Prothrombin Time 15.0 H Prothrombin Time Ratio 1.2 INR International Normalized Ratio 1.17 Activated Partial Thromboplast Time 26.9 Sodium Level 136 Potassium Level 4.0 Chloride Level 103 Carbon Dioxide Level 23 Anion Gap 10 Blood Urea Nitrogen 28 H Creatinine 1.02 H Est Glomerular Filtrat Rate mL/min 57 L Glucose Level 146 Calcium Level 9.4 Total Bilirubin 0.6 Direct Bilirubin 0.00 Indirect Bilirubin 0.6 Aspartate Amino Transf (AST/SGOT) 28 Alanine Aminotransferase (ALT/SGPT) 21 Alkaline Phosphatase 74 Troponin I < 0.012 C-Reactive Protein 1.9 H B-Type Natriuretic Peptide 253 H Total Protein 8.3 H Albumin 3.9 Globulin 4.40 H Albumin/Globulin Ratio 0.88 Lipase 168 POC Venous Lactate 1.5 Consultation Date/Type/Reason Admit Date/Time Type of Consult cv Reason for Consultation Pericardial effusion Hx of Present Illness This is a 53-year-old female past medical history of pericardial effusion status post pericardiocentesis beginning of December who presents back with 3-4 days of aggressive worsening chest discomfort, back pain and cough. Patient also with subjective fevers and chills. Because of worsening symptoms, patient came to emergency room today for evaluation and care. 12 point review of systems was performed with all pertinent positives and negatives mentioned above and all else is negative Past Medical History Pericardial effusion Hypertension Allergies: Coded Allergies: No Known Allergy (Unverified , 12/17/18) Past Surgical History Past Surgical Hx: other (Pericardiocentesis) Family History Significant Family History: no pertinent family hx Social History Smoking Status: Never smoker Exam/Review of Systems Vital Signs Vitals Vital Signs Date Temp Pulse Resp B/P (MAP) Pulse Ox O2 O2 Flow FiO2 Time Delivery Rate 12/17/18 Nasal 3 13:20 Cannula 12/17/18 104 16 93/66 (75) 95 12:23 12/17/18 100.0 11:09 Exam No apparent distress Constitutional: alert, oriented, obese Head: normocephalic Respiratory: other (Coarse breath sounds bilaterally, no wheezing) Cardiovascular: regular rate and rhythm, other Gastrointestinal: soft, non-tender, bowel sounds Extremities: edema (Trace) Imaging Imaging ECG sinus tachycardia 110 bpm, QRS 82 ms, nonspecific ST abnormalities Pawel Plascencia DO Dec 17, 2018 15:01
--- NOTE | 2018-12-17 16:28 | HP ---
Date/Time of Note Date/Time of Note DATE: 12/17/18 TIME: 16:22 Assessment/Plan VTE Prophylaxis SCD contraindicated: low risk/ambulating Pharmacological prophylaxis: NA/contraindicated Pharm contraindication: surgical contra Lines/Catheters IV C[facility]ter Type [facility]): Peripheral IV Assessment/Plan Hospital Course Chief complaint dyspnea History of present illness 53-year-old female who presents from home with dyspnea chest and back discomfort. Subjective fever chills? No known aggravating or relieving factors. No syncope diaphoresis nausea vomiting or chest wall injury. No recent travel. Patient was here at the beginning a month for pericardial effu deann had pericardiocentesis. Likely viral. Cultures cytology negative. Patient was stabilized and discharged home on colchicine which I believe she took. ER: Vital signs stable except for sinus tachycardia Past medical history 1. Pericardial effusion with tamponade on December 2018 2. Type 2 diabetes 3. Metabolic syndrome 4. Hypertension Past surgical history None Social history No active tobacco or alcohol Family history There is no family history of early coronary scans were stroke Review of systems Neuro: No headache loss speech or vision Cardiovascular: Positive chest pain dyspnea subjective fever Pulmonary: Cough dyspnea no active edema GI: No nausea vomiting diarrhea : No dysuria hematuria, fever subjective Musculoskeletal: No edema calf pain recent travel gait dysfunction Endocrine: Type 2 diabetes no previous thyroid dysfunction or dyslipidemia Psychiatry: Patient has stable mood without any significant agitation anxiety depression Hematologic; no hematochezia melena hematuria Constitutional: Subjective fever no chills no regular Physical exam No pallor adenopathy JVD Regular no m/r/g Clear Benign No edema Assessment and plan 1. Recurrent pericardial effusion, stable consulted cardio/CT surgery. Etio, likely viral, patient may need pericardial window. 2. Type 2 diabetes/metabolic syndrome stable observe 3. Anemia stable observe Result Diagram: 12/17/18 1303 12/17/18 1303 Results 24hrs Laboratory Tests Test 12/17/18 13:03 12/17/18 13:06 12/17/18 14:40 White Blood Count 7.1 Red Blood Count 3.29 L Hemoglobin 9.4 L Hematocrit 29.7 L Mean Corpuscular Volume 90.3 Mean Corpuscular Hemoglobin 28.6 L Mean Corpuscular 31.6 L Hemoglobin Concent Red Cell Distribution Width 13.0 Platelet Count 246 Mean Platelet Volume 9.6 Immature Granulocytes % 0.400 Neutrophils % 60.2 Lymphocytes % 26.2 Monocytes % 11.5 H Eosinophils % 1.4 Basophils % 0.3 Nucleated Red Blood Cells % 0.0 Immature Granulocytes # 0.030 Neutrophils # 4.3 Lymphocytes # 1.9 Monocytes # 0.8 Eosinophils # 0.1 Basophils # 0.0 Nucleated Red Blood Cells # 0.0 Prothrombin Time 15.0 H Prothrombin Time Ratio 1.2 INR International 1.17 Normalized Ratio Activated Partial Thromboplast 26.9 Time Sodium Level 136 Potassium Level 4.0 Chloride Level 103 Carbon Dioxide Level 23 Anion Gap 10 Blood Urea Nitrogen 28 H Creatinine 1.02 H Est Glomerular Filtrat 57 L Rate mL/min Glucose Level 146 Calcium Level 9.4 Total Bilirubin 0.6 Direct Bilirubin 0.00 Indirect Bilirubin 0.6 Aspartate Amino 28 Transf (AST/SGOT) Alanine 21 Aminotransferase (ALT/SGPT) Alkaline Phosphatase 74 Troponin I < 0.012 C-Reactive Protein 1.9 H B-Type Natriuretic Peptide 253 H Total Protein 8.3 H Albumin 3.9 Globulin 4.40 H Albumin/Globulin Ratio 0.88 Lipase 168 POC Venous Lactate 1.5 Urine Color YELLOW Urine Clarity SLIGHTLY CLOUDY A Urine pH 5.0 Urine Specific [place] 1.009 Urine Ketones NEGATIVE Urine Nitrite NEGATIVE Urine Bilirubin NEGATIVE Urine Urobilinogen NEGATIVE Urine Leukocyte Esterase 3+ H Urine Microscopic RBC 7 H Urine Microscopic WBC 5 Urine Squamous FEW Epithelial Cells Urine Hemoglobin 1+ H Urine Glucose NEGATIVE Urine Total Protein 1+ H HPI/ROS Admit Date/Time Admit Date/Time PMH/Family/Social Past Medical History Medications Current Medications Colchicine (Colchicine) 0.6 mg BID PO ; Start 12/17/18 at 21:00 Sodium Chloride 1,000 ml @ 75 mls/hr [id number] IV ; Start 12/17/18 at 15:00; Stop 12/18/18 at 14:59 Coded Allergies: No Known Allergy (Unverified , 12/17/18) Past Surgical History Past Surgical Hx: other (Pericardiocentesis) Family History Significant Family History: no pertinent family hx Social History Smoking Status: Never smoker Exam/Review of Systems Vital Signs Vitals Vital Signs Date Temp Pulse Resp B/P (MAP) Pulse Ox O2 O2 Flow FiO2 Time Delivery Rate 12/17/18 99 98/75 (83) 95 Nasal 3.0 15:08 Cannula 12/17/18 16 12:23 12/17/18 100.0 11:09 MICHAEL VELIZ MD Dec 17, 2018 16:28
[2018-12-17] MEDS ORDERED: DOCUSATE SODIUM 100 MG CAP PO PRN (16:30)
[2018-12-17] MEDS ORDERED: ACETAMINOPHEN 650 MG SUPP PR PRN (16:30)
[2018-12-17] MEDS ORDERED: MAGNESIUM HYDROXIDE 30ML CUP PO PRN (16:30)
[2018-12-17] MEDS ORDERED: ONDANSETRON 4 MG INJ IV PRN ×2 (16:30→21:30)
[2018-12-17] MEDS ORDERED: morphine 2 MG INJ IV PRN ×2 (16:30→20:30)
[2018-12-17] MEDS ORDERED: BISACODYL (EC) 5 MG TAB PO PRN (16:30)
[2018-12-17] MEDS ORDERED: OXYCODONE/ACETAMINOPHEN (5/325) TAB PO PRN (16:30)
[2018-12-17] MEDS ORDERED: NACL 0.9% 3 ML SYG IV SCH (16:30)
[2018-12-17] MEDS ORDERED: BISACODYL 10 MG SUPP PR PRN (16:30)
--- NOTE | 2018-12-17 18:19 | PREAC ---
Date/Time of Note Date/Time of Note DATE: 12/17/18 TIME: 18:17 Anesthesia Eval and Record Evaluation Time Pre-Procedure Interview DATE: 12/17/18 TIME: 18:17 Age 53 Sex female NPO: 8 hrs Preoperative diagnosis acute pericadial tamponade Planned procedure sub-xiphoid pericardial window w/ drainage of effusion Past Medical History Past Medical History: Includes Cardio: Dyslipidemia, Arrythmia, CHF, Other (pericardial effusion w/ TAMPONADE) Pulm: Sleep Apnea Neuro: Peripheral neuropathy GI: Obesity, Other (metabolic syndrome) Surgery & Anesthesia Issues Hx of difficult intubation, Significant blood loss Meds Anticoagulation: No Beta Salome within 24 hr: No Reason Beta Salome not given: Pt. not on B-Salome, Cardiomyopathy, CHF Active Scripts Metoclopramide Hcl* (Metoclopramide Hcl*) 10 Mg Tablet, 10 MG PO TID PRN for NAUSEA MDD 4 for 7 Days, #1 TAB Prov:MICHAEL VELIZ MD 12/06/18 Reported Medications Colchicine* (Colcrys*) 0.6 Mg Tablet, 0.6 MG PO DAILY, TAB 12/17/18 Amlodipine Besylate* (Amlodipine Besylate*) 5 Mg Tablet, 5 MG PO DAILY, #30 TAB 12/02/18 Losartan Potassium* (Losartan Potassium*) 50 Mg Tablet, 50 MG PO DAILY, TAB 12/02/18 Discontinued Scripts [Colchicine] 0.6 MG TAB No Conflict Check, 0.6 MG PO BID for 7 Days, #14 Prov:MICHAEL VELIZ MD 12/06/18 Fhirwntwfno-D-Otrguupjtm Hb* (Guaifenesin* DM Syrup) 120 Ml Syrup, 10 ML PO Q4H PRN for COUGH for 1 Day Prov:MICHAEL VELIZ MD 12/06/18 Acetaminophen* (Tylenol*) 325 Mg Tablet, 650 MG PO Q6H PRN for PAIN LEVEL 1-3 OR FEVER for 1 Day, TAB Prov:MICHAEL VELIZ MD 12/06/18 Current Medications Colchicine (Colchicine) 0.6 mg BID PO ; Start 12/17/18 at 21:00 Sodium Chloride 1,000 ml @ 75 mls/hr [id number] IV ; Start 12/17/18 at 15:00; Stop 12/18/18 at 14:59 IV Flush (NS 3 ml) 3 ml PER PROTOCOL IV ; Start 12/17/18 at 16:30 Ondansetron HCl (Zofran Inj) 4 mg Q6H PRN IV NAUSEA AND/OR VOMITING; Start 12/17/18 at 16:30 Acetaminophen (Tylenol Tab) 650 mg Q6H PRN PO PAIN LEVEL 1-3 OR FEVER; Start 12/17/18 at 16:30 Acetaminophen (Tylenol Supp) 650 mg Q6H PRN [place] PAIN LEVEL 1-3 OR FEVER; Start 12/17/18 at 16:30 Oxycodone/ Acetaminophen (Percocet (5/ 325)) 1 tab Q6H PRN PO MODERATE PAIN LEVEL 4-6; Start 12/17/18 at 16:30 Morphine Sulfate (morphine) 2 mg Q4H PRN IV SEVERE PAIN LEVEL 7-10; Start 12/17/18 at 16:30 Docusate Sodium (Colace) 100 mg Q12H PRN PO CONSTIPATION; Start 12/17/18 at 16:30 Magnesium Hydroxide (Milk Of Mag) 30 ml DAILY PRN PO CONSTIPATION; Start 12/17/18 at 16:30 Bisacodyl (Dulcolax) 5 mg DAILY PRN PO CONSTIPATION; Start 12/17/18 at 16:30 Bisacodyl (Dulcolax Supp) 10 mg DAILY PRN [place] CONSTIPATION; Start 12/17/18 at 16:30 Diagnostic Test (Pha) (Accu-Chek) 1 ea 02 XX ; Start 12/18/18 at 02:00 Insulin Aspart (Novolog Insulin Pen) NOVOLOG *MODERATE* ALGORI... Q4 SC ; Start 12/17/18 at 17:00 Norepinephrine 250 ml @ 1.875 mls/ hr TITRATE IV ; Start 12/17/18 at 18:30 Phenylephrine HCl 250 ml @ 75 mls/hr TITRATE IV ; Start 12/17/18 at 18:30 Meds reviewed: Yes Allergies Coded Allergies: No Known Allergy (Unverified , 12/17/18) Allergies Reviewed: Yes Labs/Studies Labs Reviewed: Reviewed by anesthesiologist Result Diagram: 12/17/18 1303 12/17/18 1303 Laboratory Tests 12/17/18 13:03 Blood Bank Test 12/17/18 16:55 Blood Product Summary Counts test: Negative Studies: ECG, CXR, 2D Echo Pre-procedure Exam Last vitals Vital Signs Date Temp Pulse Resp B/P (MAP) Pulse Ox O2 O2 Flow FiO2 Time Delivery Rate 12/17/18 98 24 104/71 94 Nasal 3.0 18:01 (82) Cannula 12/17/18 100.0 11:09 Airway: Adequate mouth opening, Adequate thyromental dist Mallampati: Mallampati IV Teeth: Normal Lung: Normal Heart: Normal ASA Physical Status ASA physical status: 4 Emergency: E Planned Anesthetic General/MAC: ETT Planned Pain Management Parenteral pain med, Local by surgeon Pre-operative Attestations Prior to commencing anesthesia and surgery, the patient was re-evaluated, there was verification of: *The patient's identity *The results of appropriate recent lab work and preoperative vital signs *The above evaluation not changing prior to induction *Anesthetic plan, risk benefits, alternative and complications discussed with patient/family; questions answered; patient/family understands, accepts and wishes to proceed. Detention Attendant used (myself) DREW NOLEN MD Dec 17, 2018 18:19
--- NOTE | 2018-12-17 18:27 | RADRPT ---
Echocardiogram Report Patient Name: QUINTEN REDDY Gender: Female Date: 1965 Study Date: 17-Dec-2018 House Coordinator: TB Location: E Ref. Physician: BAILEY BRENNAN Quality: Good Procedures: Transthoracic echocardiogram examination. Indications: Pericardial Effusion. 2D/M Mode Doppler Measurement Value Normal Range Measurement Value Normal Range LVIDd 2D 4.4 3.5 - 5.6 cm LVIDs 2D 3.4 2.1 - 4.1 cm LVPWd 2D 0.8 0.6 - 1.1 cm IVSd 2D 0.9 0.6 - 1.1 cm IVC Diam 2.2 1.2 - 2.0 Findings Left Ventricle: Normal left ventricular systolic function. Right Ventricle: Normal right ventricular systolic function. Pericardium: Large pericardial effusion. IVC: Dilated inferior vena cava with respiratory collapse only with sniff. Conclusions Normal left ventricular systolic function. Normal right ventricular systolic function. Large pericardial effusion. Electronically Signed By: Pawel Plascencia 17-Dec-2018 15:33:53 -0800 Patient Name: QUINTEN REDDY Study Date: 17-Dec-2018 [id number]
[2018-12-17] MEDS ORDERED: PHENYLephrine 20MG IN 250 ML 250 ML IV SCH (18:30)
[2018-12-17] MEDS ORDERED: IPRATROPIUM (NEB) 0.5 MG/2.5 ML AMP HHN SCH (18:30)
[2018-12-17] MEDS ORDERED: NORepinephrine 8MG/250 ML (PMX 250 ML IV SCH (18:30)
[2018-12-17] MEDS ORDERED: LEVALBUTEROL (NEB) 1.25 MG/0.5 ML AMP HHN SCH (18:30)
--- NOTE | 2018-12-17 18:30 | NUR ---
ADMIT PT ADMITTED TO [address] NOLEN AT BEDSIDE, PREPARING PATIENT TO GO FOR SURGERY. AWAITING FOR DR TEJEDA TO COME AND TALK TO PATIENT ABOUT SURGERY. ORDERS RECEIVED FROM DR NOLEN AND CARRIED OUT. WILL ENDORSE TO PACKING MACHINE PILOT CAN ROUTER. 1829- DR TEJEDA AT BEDSIDE, SPOKE WITH FAMILY AND PATIENT. HE WROTE CONSENT AND RN HAD PATIENT SIGN FOR SURGERY.
[2018-12-17] MEDS ORDERED: FENTAnyl 50 MCG/ML VIAL ONE (18:33)
--- NOTE | 2018-12-17 19:00 | CONS ---
Date/Time of Note Date/Time of Note DATE: 12/17/18 TIME: 18:53 Assessment/Plan Assessment/Plan Hospital Course 53 year old female with large pericardial effusion with early tamponade. I explained to the patient and daughter the risks and benefits of surgery They understand and consent Result Diagram: 12/17/18 1303 12/17/18 1303 Results 24hrs Laboratory Tests Test 12/17/18 13:03 12/17/18 13:06 12/17/18 14:40 12/17/18 16:57 White Blood Count 7.1 Red Blood Count 3.29 L Hemoglobin 9.4 L Hematocrit 29.7 L Mean Corpuscular 90.3 Volume Mean Corpuscular 28.6 L Hemoglobin Mean Corpuscular 31.6 L Hemoglobin Concen t Red Cell 13.0 Distribution Width Platelet Count 246 Mean Platelet 9.6 Volume Immature 0.400 Granulocytes % Neutrophils % 60.2 Lymphocytes % 26.2 Monocytes % 11.5 H Eosinophils % 1.4 Basophils % 0.3 Nucleated Red 0.0 Blood Cells % Immature 0.030 Granulocytes # Neutrophils # 4.3 Lymphocytes # 1.9 Monocytes # 0.8 Eosinophils # 0.1 Basophils # 0.0 Nucleated Red 0.0 Blood Cells # Prothrombin Time 15.0 H Prothrombin Time 1.2 Ratio INR International 1.17 Normalized Ratio Activated 26.9 Partial Thrombopl ast Time Sodium Level 136 Potassium Level 4.0 Chloride Level 103 Carbon Dioxide 23 Level Anion Gap 10 Blood Urea 28 H Nitrogen Creatinine 1.02 H Est Glomerular 57 L Filtrat Rate mL/min Glucose Level 146 Calcium Level 9.4 Total Bilirubin 0.6 Direct Bilirubin 0.00 Indirect 0.6 Bilirubin Aspartate Amino 28 Transf (AST/SGOT) Alanine 21 Aminotransferase (ALT/SGPT) Alkaline 74 Phosphatase Troponin I < 0.012 C-Reactive 1.9 H Protein B-Type 253 H Natriuretic Peptide Total Protein 8.3 H Albumin 3.9 Globulin 4.40 H Albumin/Globulin 0.88 Ratio Lipase 168 POC Venous 1.5 Lactate Urine Color YELLOW Urine Clarity SLIGHTLY CLOUDY A Urine pH 5.0 Urine Specific 1.009 [place] Urine Ketones NEGATIVE Urine Nitrite NEGATIVE Urine Bilirubin NEGATIVE Urine NEGATIVE Urobilinogen Urine Leukocyte 3+ H Esterase Urine Microscopic 7 H RBC Urine Microscopic 5 WBC Urine Squamous FEW Epithelial Cells Urine Hemoglobin 1+ H Urine Glucose NEGATIVE Urine Total 1+ H Protein Lactic Acid Level 1.1 Consultation Date/Type/Reason Admit Date/Time Date of Consultation: Dec 17, [address] surgery Reason for Consultation pericardial effusion with tamponade Requesting Provider: Pawel Plascencia DO Hx of Present Illness 53 year old female s/p pericardiocentesis 2 weeks. Fluid was nondiagnostic. Now admitted with chest pain and SOB. Repeat echo shows large effusion and early tamponad. We are asked to see her regarding urgent pericardial window. Constitutional: No no complaints, No improved, No chills, No diaphoresis, No disoriented, No febrile, No poor po, No requiring IVF, No requiring O2, No other Eyes: No no complaints, No pain, No discharge, No redness, No visual change, No other ENT: No no complaints, No bleeding, No pain, No congestion, No discharge, No dy sphagia, No sore throat, No other Respiratory: shortness of breath Cardiovascular: chest pain Gastrointestinal: No no complaints, No pain, No blood, No constipation, No decreased appetite, No diarrhea, No flatus, No nausea, No passing stool, No vomiting, No other Genitourinary: No no complaints, No bleeding, No dysuria, No discharge, No flank pain, No hematuria, No other Musculoskeletal: No no complaints, No back pain, No bone/joint pain, No neck pain, No restricted range of motion, No swelling, No other Skin: No no complaints, No bruising, No erythema, No laceration, No pruritis, No rash, No skin lesions, No other Neurologic: No no complaints, No confusion, No dizziness, No focal-weakness, No headache, No syncope, No seizure, No other Endocrine: No no complaints, No polyuria, No polydypsia, No dry skin, No temp intolerance, No other Lymphatic: No no complaints, No adenopathy, No tender nodes, No lymphadema, No other Psychological: No no complaints, No nl mood/affect, No anxiety, No confusion, No depression, No suicidal, No other Immunologic: No no complaints, No immunodeficiency, No pruritis, No rhinitis, No urticaria, No other Past Medical History Medical History: no pertinent history Medications Current Medications Colchicine (Colchicine) 0.6 mg BID PO ; Start 12/17/18 at 21:00 Sodium Chloride 1,000 ml @ 75 mls/hr [id number] IV ; Start 12/17/18 at 15:00; St op 12/18/18 at 14:59 IV Flush (NS 3 ml) 3 ml PER PROTOCOL IV ; Start 12/17/18 at 16:30 Ondansetron HCl (Zofran Inj) 4 mg Q6H PRN IV NAUSEA AND/OR VOMITING; Start 12/17/18 at 16:30 Acetaminophen (Tylenol Tab) 650 mg Q6H PRN PO PAIN LEVEL 1-3 OR FEVER; Start 12/17/18 at 16:30 Acetaminophen (Tylenol Supp) 650 mg Q6H PRN RI PAIN LEVEL 1-3 OR FEVER; Start 12/17/18 at 16:30 Oxycodone/ Acetaminophen (Percocet (5/ 325)) 1 tab Q6H PRN PO MODERATE PAIN LEVEL 4-6; Start 12/17/18 at 16:30 Morphine Sulfate (morphine) 2 mg Q4H PRN IV SEVERE PAIN LEVEL 7-10; Start 12/17/18 at 16:30 Docusate Sodium (Colace) 100 mg Q12H PRN PO CONSTIPATION; Start 12/17/18 at 16:30 Magnesium Hydroxide (Milk Of Mag) 30 ml DAILY PRN PO CONSTIPATION; Start 12/17/18 at 16:30 Bisacodyl (Dulcolax) 5 mg DAILY PRN PO CONSTIPATION; Start 12/17/18 at 16:30 Bisacodyl (Dulcolax Supp) 10 mg DAILY PRN RI CONSTIPATION; Start 12/17/18 at 16:30 Diagnostic Test (Pha) (Accu-Chek) 1 ea 02 XX ; Start 12/18/18 at 02:00 Insulin Aspart (Novolog Insulin Pen) NOVOLOG *MODERATE* ALGORI... Q4 SC ; Start 12/17/18 at 17:00 Norepinephrine 250 ml @ 1.875 mls/ hr TITRATE IV ; Start 12/17/18 at 18:30 Phenylephrine HCl 250 ml @ 75 mls/hr TITRATE IV ; Start 12/17/18 at 18:30 Levalbuterol (Xopenex Neb) 1.25 mg Q6 HHN Last administered on 12/17/18at 18:30; Admin Dose 1.25 MG; Start 12/17/18 at 18:30 Ipratropium [place] (Atrovent 0.02% (Neb)) 0.5 mg Q6 HHN Last administered on 12/17/18at 18:30; Admin Dose 0.5 MG; Start 12/17/18 at 18:30 Allergies: Coded Allergies: No Known Allergy (Unverified , 12/17/18) Past Surgical History Past Surgical Hx: no surgical history, other (Pericardiocentesis) Family History Significant Family History: no pertinent family hx Social History Alcohol Use: none Smoking Status: Never smoker Drug Use: none Exam/Review of Systems Vital Signs Vitals Vital Signs Date Temp Pulse Resp B/P (MAP) Pulse Ox O2 O2 Flow FiO2 Time Delivery Rate 12/17/18 87 18 96 Nasal 2.0 18:32 Cannula 12/17/18 98.9 117/80 18:10 (92) Exam Constitutional: No alert, No oriented, No well developed, No non-verbal, No distress, No frail, No obese, No other Psych: No no complaints, No nl mood/affect, No anxiety, No confusion, No depression, No suicidal, No other Head: No normocephalic, No atraumatic, No lacerations, No hematomas, No other Eyes: No nl conjunctiva, No EOMI, No nl lids, No nl sclera, No PERRL, No icteric, No fundi, disc, No other ENMT: No nl external ears & nose, No nl lips & teeth, No nl nasal mucosa & septum, No mucosa pink and moist, No intubated, No tympanic membranes, No other Neck: No supple, No non-tender, No jvd, No bruits, No masses, No thyromegaly, No nuchal rigidity, No other Respiratory: No clear to auscultation, No normal air movement, No congested cough, No crackles/rales, No diminished breath sounds, No intercostal retraction, No labored breathing, No respirations, No tactile fremitus, No wheezing, No other Cardiovascular: jugular venous distention (JVD), other (distant breath sounds) Gastrointestinal: No soft, No nl liver, spleen, No non-tender, No ascites, No bowel sounds, No distended, No firm, No hepatomegaly, No mass, No rebound or guarding, No splenomegaly, No surgical scars, No tender, No other Musculoskeletal: No nl extremities to inspection, No nl gait and stance, No joint tenderness, No muscle tone, No muscle weakness, No range of motion, No spine non-tender, No swelling, No other Extremities: No normal pulses, No calf tenderness, No cyanosis, No clubbing, No edema, No pitting pedal edema, No palpable cord, No tenderness, No other Neurological: No [employer] II-XII intact, No nl mental status, No nl speech, No nl strength, No confused, No DTR's symmetric, No focal weakness, No lethargic, No numbness, No reflexes, No unresponsive, No other Skin: No nl turgor, No rash or lesions, No diaphoresis, No ecchymosis, No l aceration, No puncture, No other Lymph: No nl lymph nodes, No enlarged, No nontender, No other Medications Medications Current Medications Colchicine (Colchicine) 0.6 mg BID PO ; Start 12/17/18 at 21:00 Sodium Chloride 1,000 ml @ 75 mls/hr [id number] IV ; Start 12/17/18 at 15:00; Stop 12/18/18 at 14:59 IV Flush (NS 3 ml) 3 ml PER PROTOCOL IV ; Start 12/17/18 at 16:30 Ondansetron HCl (Zofran Inj) 4 mg Q6H PRN IV NAUSEA AND/OR VOMITING; Start 12/17/18 at 16:30 Acetaminophen (Tylenol Tab) 650 mg Q6H PRN PO PAIN LEVEL 1-3 OR FEVER; Start 12/17/18 at 16:30 Acetaminophen (Tylenol Supp) 650 mg Q6H PRN RI PAIN LEVEL 1-3 OR FEVER; Start 12/17/18 at 16:30 Oxycodone/ Acetaminophen (Percocet (5/ 325)) 1 tab Q6H PRN PO MODERATE PAIN LEVEL 4-6; Start 12/17/18 at 16:30 Morphine Sulfate (morphine) 2 mg Q4H PRN IV SEVERE PAIN LEVEL 7-10; Start 12/17/18 at 16:30 Docusate Sodium (Colace) 100 mg Q12H PRN PO CONSTIPATION; Start 12/17/18 at 16:30 Magnesium Hydroxide (Milk Of Mag) 30 ml DAILY PRN PO CONSTIPATION; Start at 16:30 Bisacodyl (Dulcolax) 5 mg DAILY PRN PO CONSTIPATION; Start 12/17/18 at 16:30 Bisacodyl (Dulcolax Supp) 10 mg DAILY PRN RI CONSTIPATION; Start 12/17/18 at 16:30 Diagnostic Test (Pha) (Accu-Chek) 1 ea 02 XX ; Start 12/18/18 at 02:00 Insulin Aspart (Novolog Insulin Pen) NOVOLOG *MODERATE* ALGORI... Q4 SC ; Start 12/17/18 at 17:00 Norepinephrine 250 ml @ 1.875 mls/ hr TITRATE IV ; Start 12/17/18 at 18:30 Phenylephrine HCl 250 ml @ 75 mls/hr TITRATE IV ; Start 12/17/18 at 18:30 Levalbuterol (Xopenex Neb) 1.25 mg Q6 HHN Last administered on 12/17/18at 18:30; Admin Dose 1.25 MG; Start 12/17/18 at 18:30 Ipratropium [place] (Atrovent 0.02% (Neb)) 0.5 mg Q6 HHN Last administered on 12/17/18at 18:30; Admin Dose 0.5 MG; Start 12/17/18 at 18:30 CHERI TEJEDA MD Dec 17, 2018 19:00
--- NOTE | 2018-12-17 20:02 | SIPON ---
Date/Time of Note Date/Time of Note DATE: 12/17/18 TIME: 20:01 Operative Report Preoperative Diagnosis cardiac tamponade Postoperative Diagnosis same Operation/Procedure Performed subxyphoid pericardial window and biopsy Surgeon see signature line senior it assistant none Anesthesia: general Estimated blood loss: 10 - 50 ml's Transfusion Required none Specimen pericardial fluid and pericardium Grafts/Implants none Complications none CHERI TEJEDA MD Dec 17, 2018 20:02
[2018-12-17] MEDS ORDERED: SUGAMMADEX SODIUM 200 MG/2 ML VIAL IV ONE (20:06)
[2018-12-17] MEDS ORDERED: ACETAMINOPHEN 325 MG TAB PO PRN (20:30)
[2018-12-17] MEDS ORDERED: HYDROCODONE/APAP (5/325) TAB PO PRN (20:30)
[2018-12-17] MEDS ORDERED: CEFAZOLIN 2 GM/50 ML (PMX) 50 ML IVPB SCH (20:30)
[2018-12-17] MEDS ORDERED: KETOROLAC 30 MG INJ IV PRN (20:30)
[2018-12-17] MEDS: COLCHICINE 0.6 MG TAB PO SCH (21:00)
[2018-12-17] MEDS ORDERED: FAMOTIDINE 20 MG TAB PO SCH (21:00)
[2018-12-17] MEDS ORDERED: TRIMETHOBENZAMIDE 100 MG/ML VIAL IM PRN (21:30)
[2018-12-17] MEDS ORDERED: PROCHLORPERAZINE 10 MG INJ IV PRN (21:30)
[2018-12-17] MEDS ORDERED: HALOPERIDOL 5 MG INJ IV PRN (21:30)
[2018-12-17] MEDS ORDERED: MIDAZOLAM 1 MG/ML 2 ML INJ IV PRN (21:30)
[2018-12-17] MEDS ORDERED: DIPHENHYDRAMINE 50 MG INJ IV PRN (21:30)
[2018-12-17] MEDS ORDERED: MEPERIDINE 25 MG INJ IV PRN (21:30)
[2018-12-17] MEDS ORDERED: LORAZEPAM 2 MG INJ IV PRN (21:30)
[2018-12-17] MEDS ORDERED: ALBUMIN HUMAN 5% 250 ML IV PRN (21:30)
[2018-12-17] MEDS ORDERED: HYDROmorphONE 0.5 MG/0.5 ML SYG IV PRN ×3 (21:30)
[2018-12-17] MEDS ORDERED: hydrALAzine 20 MG INJ IV PRN (21:30)
[2018-12-17] MEDS ORDERED: IPRATROPIUM (NEB) 0.5 MG/2.5 ML AMP HHN PRN (21:30)
[2018-12-17] MEDS ORDERED: LEVALBUTEROL (NEB) 1.25 MG/0.5 ML AMP HHN PRN (21:30)
[2018-12-17] MEDS ORDERED: LABETALOL HCL 20MG INJ IV PRN (21:30)
[2018-12-17] MEDS ORDERED: FENTAnyl 50 MCG/ML VIAL IV PRN ×2 (21:30)
[2018-12-17] MEDS ORDERED: NA BICARBONATE 8.4% 50 ML SYG IV STA (22:35)
[2018-12-17] MEDS: D5-NS + KCL 20 MEQ 1,000 ML IV SCH (22:47)
[2018-12-17] MEDS ORDERED: morphine 4 MG/ML VIAL IV PRN (23:45)
[2018-12-18] VITALS (38 sets, daily range): BP systolic 86–137; BP diastolic 45–87; PULSE 76–114; RESP 14–26; Ht 152.4 cm; Wt 86.8 kg
[2018-12-18] MEDS: INSULIN ASPART [NOVOLOG] 3 ML PEN SC SCH ×8 (00:19→21:00)
[2018-12-18] MEDS: FAMOTIDINE 20 MG INJ IV SCH ×3 (01:48→20:56)
[2018-12-18] MEDS: LEVALBUTEROL (HFA) 15 GM INHALER INH SCH ×4 (01:58→20:00)
[2018-12-18] MEDS: IPRATROPIUM (HFA) 12.9 GM INHALER INH SCH ×4 (01:59→20:57)
[2018-12-18] MEDS: ACCU-CHEK XX SCH (02:00)
[2018-12-18] MEDS: PROPOFOL 100 ML IV SCH ×2 (06:13→18:30)
--- NOTE | 2018-12-18 06:56 | NUR ---
EOSS: Received pt from OR s/p pericardial window with RENY drain. orally intubated to vent, no SOB, with [place] to right radial, CVP 3L o right IJ, sedated on Propofol. Sinus tachy per child monitor , HR in the 120's medicated for pain, noted decrease in HR. Yannick noted to nbe positional, ETT initially found low and needed to be pulled out 2 cms , ETT placement repeat CXR done. grace with good u/o , labs drawn called to Dr Oleg Ibrahim, ABG done at [address] Oleg Ibrahim ,received total 4 amps of Na Bicarb . repeat ABG done 1 hr and called to Dr Ibrahim. Dr Ingram aware pt here in ICU, ordered to insert grace cath, NPO, changed Pepcid po to IV. turned and repositioned, no skin breakdown noted, refused bath. Blood suagrs done by Accuchecks elevated, addressed to Dr Mirian Ibrahim, aware of coverage will address again in am for better control. RENY moderate drain, more serous than sanguinous drainage in am. afebrile, no signs of distress noted.
[2018-12-18] MEDS: ENOXAPARIN 40 MG/0.4 ML SYG SC SCH (07:00)
--- NOTE | 2018-12-18 07:00 | PN ---
Date/Time of Note Date/Time of Note DATE: 12/18/18 TIME: 06:53 Assessment/Plan VTE Prophylaxis Risk score (from Ns)>0 risk: 8 [place] [facility] [place] Pharmacological prophylaxis: NA/contraindicated, LMWH Pharm contraindication: bleeding Lines/Catheters IV Catheter Type (from [facility]): Central Line Central line still needed: Yes Urinary Cath still in place: Yes Reason Cath still needed: other (indicate) Assessment/Plan Assessment/Plan Awake. Lungs sound clear. No fever this am. BP 90-100 systolic. Serosang per icardial drainage. Labs not back yet. CXR pending. HR 90's. Probable wean today. Sats 100 on 60% Result Diagram: 12/18/1844412/18/18 0445 Results 24hrs Laboratory Tests Test 12/17/18 13:03 12/17/18 13:06 12/17/18 14:40 12/17/18 16:57 White Blood 7.1 Count Red Blood Count 3.29 L Hemoglobin 9.4 L Hematocrit 29.7 L Mean 90.3 Corpuscular Volume Mean 28.6 L Corpuscular Hemoglobin Mean 31.6 L Corpuscular Hemoglobin Conc ent Red Cell 13.0 Distribution Width Platelet Count 246 Mean Platelet 9.6 Volume Immature 0.400 Granulocytes % Neutrophils % 60.2 Lymphocytes % 26.2 Monocytes % 11.5 H Eosinophils % 1.4 Basophils % 0.3 Nucleated Red 0.0 Blood Cells % Immature 0.030 Granulocytes # Neutrophils # 4.3 Lymphocytes # 1.9 Monocytes # 0.8 Eosinophils # 0.1 Basophils # 0.0 Nucleated Red 0.0 Blood Cells # Prothrombin 15.0 H Time Prothrombin 1.2 Time Ratio INR 1.17 International Normalized Rati o Activated 26.9 Partial Thrombo plast Time Sodium Level 136 Potassium Level 4.0 Chloride Level 103 Carbon Dioxide 23 Level Anion Gap 10 Blood Urea 28 H Nitrogen Creatinine 1.02 H Est Glomerular 57 L Filtrat Rate mL/min Glucose Level 146 Calcium Level 9.4 Total Bilirubin 0.6 Direct 0.00 Bilirubin Indirect 0.6 Bilirubin Aspartate Amino 28 Transf (AST/SGO T) Alanine 21 Aminotransferas e (ALT/SGPT) Alkaline 74 Phosphatase Troponin I < 0.012 C-Reactive 1.9 H Protein B-Type 253 H Natriuretic Peptide Total Protein 8.3 H Albumin 3.9 Globulin 4.40 H Albumin/Globuli 0.88 n Ratio Lipase 168 POC Venous 1.5 Lactate Urine Color YELLOW Urine Clarity SLIGHTLY CLOUDY A Urine pH 5.0 Urine Specific 1.009 [place] Urine Ketones NEGATIVE Urine Nitrite NEGATIVE Urine Bilirubin NEGATIVE Urine NEGATIVE Urobilinogen Urine Leukocyte 3+ H Esterase Urine 7 H Microscopic RBC Urine 5 Microscopic WBC Urine Squamous FEW Epithelial Cell s Urine 1+ H Hemoglobin Urine Glucose NEGATIVE Urine Total 1+ H Protein Lactic Acid 1.1 Level Test 12/17/18 21:30 12/17/18 22:12 12/17/18 22:20 12/18/18 00:00 Blood Gas Blood arterial Blood Specimen arterial Source Arterial Blood 12/17/2018 10:04 12/18/2018 12:0 Date Drawn :23 PM 5:48 AM Arterial Blood 7.216 *L 7.426 pH (Temp corrected ) Arterial Blood 36.7 35.2 pCO2 (Temp correct) Arterial Blood 205.9 H 80.2 pO2 (Temp corrected ) Arterial Blood 14.5 L 22.6 HCO3 Arterial Blood -12.3 L -1.3 Base Excess Arterial Blood 99.1 H 94.9 L Oxygen Saturati on Myke Test N/A N/A Arterial Blood A-Line A-Line Gas Puncture Site Arterial 0.2 0.3 Blood Carboxyhe moglobin Arterial Blood 0.7 0.4 Methemoglobin Blood Gas A-a 470.4 H 308.9 H O2 Differential Oxyhemoglobin 98.2 94.2 Percent Blood Gas 37.0 37.0 Temperature Blood Gas 14.0 14.0 Respiration Rate Blood Gas 15 15 Actual Respiration Rat e Blood Gas VENT - AC VENT - AC Modality FiO2 100.0 60.0 Blood Gas Tidal 550.0 550.0 Volume Blood Gas Low 8.0 5.0 PEEP Setting Blood Gas Faiza PALMER RN Critical Value Read Back Blood Gas LW MM Notified Whom Blood Gas 12/17/2018 10:16 12/18/2018 12:1 Notified Time :05 PM 3:30 AM Bedside Glucose 259 H White Blood 9.8 # Count Red Blood Count 3.44 L Hemoglobin 10.1 L Hematocrit 31.5 L Mean 91.6 Corpuscular Volume Mean 29.4 Corpuscular Hemoglobin Mean 32.1 Corpuscular Hemoglobin Conc ent Red Cell 13.1 Distribution Width Platelet Count 261 Mean Platelet 9.5 Volume Immature 0.700 H Granulocytes % Neutrophils % 88.0 H Lymphocytes % 9.7 L Monocytes % 1.4 Eosinophils % 0.0 Basophils % 0.2 Nucleated Red 0.0 Blood Cells % Immature 0.070 H Granulocytes # Neutrophils # 8.6 H Lymphocytes # 1.0 Monocytes # 0.1 L Eosinophils # 0.0 Basophils # 0.0 Nucleated Red 0.0 Blood Cells # Sodium Level 137 Potassium Level 3.9 Chloride Level 108 Carbon Dioxide 15 L Level Anion Gap 14 H Blood Urea 24 H Nitrogen Creatinine 0.82 Est Glomerular > 60 Filtrat Rate mL/min Glucose Level 258 #H Calcium Level 9.3 Phosphorus 5.1 H Level Magnesium Level 1.9 Total Bilirubin 0.4 Direct 0.00 Bilirubin Indirect 0.4 Bilirubin Aspartate Amino 27 Transf (AST/SGO T) Alanine 23 Aminotransferas e (ALT/SGPT) Alkaline 67 Phosphatase Total Protein 7.7 Albumin 3.4 Globulin 4.30 H Albumin/Globuli 0.79 n Ratio Blood Gas 29.0 Inspiratory Pressure Test 12/18/18 00:16 12/18/18 02:22 12/18/18 04:45 12/18/18 05:45 Bedside Glucose 261 H 280 H 229 H White Blood 8.1 Count Red Blood Count 3.08 L Hemoglobin 9.0 L Hematocrit 27.1 L Mean 88.0 Corpuscular Volume Mean 29.2 Corpuscular Hemoglobin Mean 33.2 Corpuscular Hemoglobin Conc ent Red Cell 13.0 Distribution Width Platelet Count 216 Mean Platelet 9.8 Volume Immature 0.500 H Granulocytes % Neutrophils % 84.2 H Lymphocytes % 8.2 L Monocytes % 7.0 Eosinophils % 0.0 Basophils % 0.1 Nucleated Red 0.0 Blood Cells % Immature 0.040 H Granulocytes # Neutrophils # 6.8 Lymphocytes # 0.7 L Monocytes # 0.6 Eosinophils # 0.0 Basophils # 0.0 Nucleated Red 0.0 Blood Cells # Sodium Level 142 Potassium Level 3.9 Chloride Level 108 Carbon Dioxide 25 # Level Anion Gap 9 # Blood Urea 20 Nitrogen Creatinine 0.69 Est Glomerular > 60 Filtrat Rate mL/min Glucose Level 259 H Hemoglobin A1c 5.8 Calcium Level 8.9 Phosphorus 2.7 # Level Magnesium Level 2.1 Total Bilirubin 0.3 Direct 0.00 Bilirubin Indirect 0.3 Bilirubin Aspartate Amino 21 Transf (AST/SGO T) Alanine 25 Aminotransferas e (ALT/SGPT) Alkaline 52 Phosphatase Total Protein 6.6 # Albumin 2.8 L Globulin 3.80 H Albumin/Globuli 0.73 n Ratio Thyroid 1.230 Stimulating Hormone (TSH) Exam/Review of Systems Vital Signs Vitals Vital Signs Date Temp Pulse Resp B/P (MAP) Pulse Ox O2 O2 Flow FiO2 Time Delivery Rate 12/18/18 91 14 92/64 (73) 99 Mechanical 06:00 Ventilator 12/18/18 60 05:15 12/18/18 98.7 04:00 12/17/18 2.0 18:32 Intake and Output 12/17/18 12/17/18 12/18/18 1515:00 23:00 07:00 IntakeIntake Total 1450 ml 550 ml OutputOutput Total 245 ml 595 ml BalanceBalance 1205 ml -45 ml Medications Medications Current Medications Colchicine (Colchicine) 0.6 mg BID PO ; Start 12/17/18 at 21:00 Sodium Chloride 1,000 ml @ 75 mls/hr [id number] IV ; Start 12/17/18 at 15:00; Stop 12/18/18 at 14:59 IV Flush (NS 3 ml) 3 ml PER PROTOCOL IV ; Start 12/17/18 at 16:30 Acetaminophen (Tylenol Tab) 650 mg Q6H PRN PO PAIN LEVEL 1-3 OR FEVER; Start 12/17/18 at 16:30 Acetaminophen (Tylenol Supp) 650 mg Q6H PRN IN PAIN LEVEL 1-3 OR FEVER; Start 12/17/18 at 16:30 Oxycodone/ Acetaminophen (Percocet (5/ 325)) 1 tab Q6H PRN PO MODERATE PAIN LEVEL 4-6; Start 12/17/18 at 16:30 Docusate Sodium (Colace) 100 mg Q12H PRN PO CONSTIPATION; Start 12/17/18 at 16:30 Magnesium Hydroxide (Milk Of Mag) 30 ml DAILY PRN PO CONSTIPATION; Start 12/17/18 at 16:30 Bisacodyl (Dulcolax) 5 mg DAILY PRN PO CONSTIPATION; Start 12/17/18 at 16:30 Bisacodyl (Dulcolax Supp) 10 mg DAILY PRN IN CONSTIPATION; Start 12/17/18 at 16:30 Diagnostic Test (Pha) (Accu-Chek) 1 ea 02 XX Last administered on 12/18/18at 02:00; Admin Dose 1 EA; Start 12/18/18 at 02:00 Insulin Aspart (Novolog Insulin Pen) NOVOLOG *MODERATE* ALGORI... Q4 SC Last administered on 12/18/18at 05:53; Admin Dose 6 UNIT; Start 12/17/18 at 17:00 Norepinephrine 250 ml @ 1.875 mls/ hr TITRATE IV ; Start 12/17/18 at 18:30 Phenylephrine HCl 250 ml @ 75 mls/hr TITRATE IV ; Start 12/17/18 at 18:30 Acetaminophen/ Hydrocodone Bitart ([place] (5/325)) 1 tab Q6H PRN PO PAIN LEVEL 6-10; Start 12/17/18 at 20:30 Ketorolac Tromethamine (Toradol) 30 mg Q6H PRN IV PAIN; Start 12/17/18 at 20:30; Stop 12/20/18 at 20:29 Acetaminophen (Tylenol Tab) 650 mg Q6H PRN PO MILD PAIN(1-3)OR ELEVATED TEMP; Start 12/17/18 at 20:30 Ondansetron HCl (Zofran Inj) 4 mg Q6H PRN IV NAUSEA AND/OR VOMITING; Start 12/17/18 at 20:30 Potassium Chloride/Dextrose/ Sod Cl 1,000 ml @ 100 mls/hr Q10H IV Last administered on 12/17/18at 22:47; Admin Dose 100 MLS/HR; Start 12/17/18 at 20:02 Enoxaparin Sodium (Lovenox) 40 mg DAILY@07 SC ; Start 12/18/18 at 07:00 Levalbuterol (Xopenex Neb) 1.25 mg ICU RECOVERY PRN HHN WHEEZING; Start 12/17/18 at 21:30 Ipratropium [place] (Atrovent 0.02% (Neb)) 0.5 mg ICU RECOVERY PRN HHN WHEEZING; Start 12/17/18 at 21:30 Ipratropium [place] (Atrovent Hfa) 4 puff Q6H RESP THERAPY INH Last administered on 12/18/18at 01:59; Admin Dose 4 PUFF; Start 12/18/18 at 02:00 Levalbuterol (Xopenex Hfa) 4 puff Q6H RESP THERAPY INH Last administered on 12/18/18at 01:58; Admin Dose 4 PUFF; Start 12/18/18 at 02:00 Famotidine (Pepcid Iv) 20 mg BID IV Last administered on 12/18/18at 01:48; Admin Dose 20 MG; Start 12/17/18 at 23:30 Morphine Sulfate (morphine) 2 mg Q2H PRN IV PAIN LEVEL 6-10; Start 12/17/18 at 23:45 Morphine Sulfate (morphine) 2 mg Q4H PRN IV SEVERE PAIN LEVEL 7-10; Start 12/17/18 at 23:45 Cefazolin Sodium/ Dextrose 50 ml @ 100 mls/hr Q8H IVPB ; Start 12/18/18 at 08:30; Stop 12/18/18 at 16:59 Propofol 100 ml @ 2.604 mls/ hr Q12H IV Last administered on 12/18/18at 06:13; Admin Dose 5.208 MLS/HR; Start 12/18/18 at 06:30 JERMAINE GARAY MD Dec 18, 2018 07:00
[2018-12-18] MEDS: COLCHICINE 0.6 MG TAB PO SCH ×2 (09:00→20:56)
[2018-12-18] MEDS: CEFAZOLIN 2 GM/50 ML (PMX) 50 ML IVPB SCH ×2 (09:11→16:42)
[2018-12-18] MEDS: D5-NS + KCL 20 MEQ 1,000 ML IV SCH ×3 (09:18→19:25)
[2018-12-18] MEDS: morphine 4 MG/ML VIAL IV PRN ×2 (09:39→17:26)
--- NOTE | 2018-12-18 09:58 | CONS ---
Date/Time of Note Date/Time of Note DATE: 12/18/18 TIME: 09:54 Assessment/Plan Assessment/Plan Assessment/Plan Chest x-ray showing cardiomegaly with volume loss involving left lower lobe. Endotracheal tube is at an adequate level. Patient is currently on assist control of 14, tidal volume 550, PEEP of 5, 40% FiO2. Patient is on propofol at 20 mics per kilogram per minute. Assessment recommendations; 1. Patient admitted with shortness of breath due to recurrent pericardial effusion status post pericardial window placement yesterday. 2. Possibly some element of left lower lobe atelectasis. 3. History of diabetes and hypertension. 4. Mild anemia. Discontinue further propofol dosing. Once the patient is off propofol she will be evaluated for possible extubation. Obtain follow-up chest x-ray 24 hours. I did have a detailed discussion with the patient's daughter at bedside and answered all questions. 40 minutes of critical care time was spent evaluating patient. Result Diagram: 12/18/18 0445 12/18/18 0445 Results 24hrs Laboratory Tests Test 12/17/18 13:03 12/17/18 13:06 12/17/18 14:40 12/17/18 16:57 White Blood 7.1 Count Red Blood Count 3.29 L Hemoglobin 9.4 L Hematocrit 29.7 L Mean 90.3 Corpuscular Volume Mean 28.6 L Corpuscular Hemoglobin Mean 31.6 L Corpuscular Hemoglobin Conc ent Red Cell 13.0 Distribution Width Platelet Count 246 Mean Platelet 9.6 Volume Immature 0.400 Granulocytes % Neutrophils % 60.2 Lymphocytes % 26.2 Monocytes % 11.5 H Eosinophils % 1.4 Basophils % 0.3 Nucleated Red 0.0 Blood Cells % Immature 0.030 Granulocytes # Neutrophils # 4.3 Lymphocytes # 1.9 Monocytes # 0.8 Eosinophils # 0.1 Basophils # 0.0 Nucleated Red 0.0 Blood Cells # Prothrombin 15.0 H Time Prothrombin 1.2 Time Ratio INR 1.17 International Normalized Rati o Activated 26.9 Partial Thrombo plast Time Sodium Level 136 Potassium Level 4.0 Chloride Level 103 Carbon Dioxide 23 Level Anion Gap 10 Blood Urea 28 H Nitrogen Creatinine 1.02 H Est Glomerular 57 L Filtrat Rate mL/min Glucose Level 146 Calcium Level 9.4 Total Bilirubin 0.6 Direct 0.00 Bilirubin Indirect 0.6 Bilirubin Aspartate Amino 28 Transf (AST/SGO T) Alanine 21 Aminotransferas e (ALT/SGPT) Alkaline 74 Phosphatase Troponin I < 0.012 C-Reactive 1.9 H Protein B-Type 253 H Natriuretic Peptide Total Protein 8.3 H Albumin 3.9 Globulin 4.40 H Albumin/Globuli 0.88 n Ratio Lipase 168 POC Venous 1.5 Lactate Urine Color YELLOW Urine Clarity SLIGHTLY CLOUDY A Urine pH 5.0 Urine Specific 1.009 Boyce Urine Ketones NEGATIVE Urine Nitrite NEGATIVE Urine Bilirubin NEGATIVE Urine NEGATIVE Urobilinogen Urine Leukocyte 3+ H Esterase Urine 7 H Microscopic RBC Urine 5 Microscopic WBC Urine Squamous FEW Epithelial Cell s Urine 1+ H Hemoglobin Urine Glucose NEGATIVE Urine Total 1+ H Protein Lactic Acid 1.1 Level Test 12/17/18 21:30 12/17/18 22:12 12/17/18 22:20 12/18/18 00:00 Blood Gas Blood arterial Blood Specimen arterial Source Arterial Blood 12/17/2018 10:04 12/18/2018 12:0 Date Drawn :23 PM 5:48 AM Arterial Blood 7.216 *L 7.426 pH (Temp corrected ) Arterial Blood 36.7 35.2 pCO2 (Temp correct) Arterial Blood 205.9 H 80.2 pO2 (Temp corrected ) Arterial Blood 14.5 L 22.6 HCO3 Arterial Blood -12.3 L -1.3 Base Excess Arterial Blood 99.1 H 94.9 L Oxygen Saturati on Myke Test N/A N/A Arterial Blood A-Line A-Line Gas Puncture Site Arterial 0.2 0.3 Blood Carboxyhe moglobin Arterial Blood 0.7 0.4 Methemoglobin Blood Gas A-a 470.4 H 308.9 H O2 Differential Oxyhemoglobin 98.2 94.2 Percent Blood Gas 37.0 37.0 Temperature Blood Gas 14.0 14.0 Respiration Rate Blood Gas 15 15 Actual Respiration Rat e Blood Gas VENT - AC VENT - AC Modality FiO2 100.0 60.0 Blood Gas Tidal 550.0 550.0 Volume Blood Gas Low 8.0 5.0 PEEP Setting Blood Gas Faiza PALMER RN Critical Value Read Back Blood Gas LW MM Notified Whom Blood Gas 12/17/2018 10:16 12/18/2018 12:1 Notified Time :05 PM 3:30 AM Bedside Glucose 259 H White Blood 9.8 # Count Red Blood Count 3.44 L Hemoglobin 10.1 L Hematocrit 31.5 L Mean 91.6 Corpuscular Volume Mean 29.4 Corpuscular Hemoglobin Mean 32.1 Corpuscular Hemoglobin Conc ent Red Cell 13.1 Distribution Width Platelet Count 261 Mean Platelet 9.5 Volume Immature 0.700 H Granulocytes % Neutrophils % 88.0 H Lymphocytes % 9.7 L Monocytes % 1.4 Eosinophils % 0.0 Basophils % 0.2 Nucleated Red 0.0 Blood Cells % Immature 0.070 H Granulocytes # Neutrophils # 8.6 H Lymphocytes # 1.0 Monocytes # 0.1 L Eosinophils # 0.0 Basophils # 0.0 Nucleated Red 0.0 Blood Cells # Sodium Level 137 Potassium Level 3.9 Chloride Level 108 Carbon Dioxide 15 L Level Anion Gap 14 H Blood Urea 24 H Nitrogen Creatinine 0.82 Est Glomerular > 60 Filtrat Rate mL/min Glucose Level 258 #H Calcium Level 9.3 Phosphorus 5.1 H Level Magnesium Level 1.9 Total Bilirubin 0.4 Direct 0.00 Bilirubin Indirect 0.4 Bilirubin Aspartate Amino 27 Transf (AST/SGO T) Alanine 23 Aminotransferas e (ALT/SGPT) Alkaline 67 Phosphatase Total Protein 7.7 Albumin 3.4 Globulin 4.30 H Albumin/Globuli 0.79 n Ratio Blood Gas 29.0 Inspiratory Pressure Test 12/18/18 00:16 12/18/18 02:22 12/18/18 04:45 12/18/18 05:45 Bedside Glucose 261 H 280 H 229 H White Blood 8.1 Count Red Blood Count 3.08 L Hemoglobin 9.0 L Hematocrit 27.1 L Mean 88.0 Corpuscular Volume Mean 29.2 Corpuscular Hemoglobin Mean 33.2 Corpuscular Hemoglobin Conc ent Red Cell 13.0 Distribution Width Platelet Count 216 Mean Platelet 9.8 Volume Immature 0.500 H Granulocytes % Neutrophils % 84.2 H Lymphocytes % 8.2 L Monocytes % 7.0 Eosinophils % 0.0 Basophils % 0.1 Nucleated Red 0.0 Blood Cells % Immature 0.040 H Granulocytes # Neutrophils # 6.8 Lymphocytes # 0.7 L Monocytes # 0.6 Eosinophils # 0.0 Basophils # 0.0 Nucleated Red 0.0 Blood Cells # Sodium Level 142 Potassium Level 3.9 Chloride Level 108 Carbon Dioxide 25 # Level Anion Gap 9 # Blood Urea 20 Nitrogen Creatinine 0.69 Est Glomerular > 60 Filtrat Rate mL/min Glucose Level 259 H Hemoglobin A1c 5.8 Calcium Level 8.9 Phosphorus 2.7 # Level Magnesium Level 2.1 Total Bilirubin 0.3 Direct 0.00 Bilirubin Indirect 0.3 Bilirubin Aspartate Amino 21 Transf (AST/SGO T) Alanine 25 Aminotransferas e (ALT/SGPT) Alkaline 52 Phosphatase Total Protein 6.6 # Albumin 2.8 L Globulin 3.80 H Albumin/Globuli 0.73 n Ratio Thyroid 1.230 Stimulating Hormone (TSH) Test 12/18/18 09:24 Bedside Glucose 170 Consultation Date/Type/Reason Admit Date/Time Date of Consultation: Dec 18, 2018 Type of Consult Pulmonary/critical care Patient is a 53-year-old lady who came into the hospital yesterday with shortness of breath. Patient does have a history of Pericardial effusion and underwent pericardiocentesis last month however no discernible etiology could be discovered. Patient was discharged home in stable condition only to return yesterday with increasing shortness of breath. Echocardiogram was done which showed a large pericardial effusion. Patient underwent pericardial window placement as well as evacuation of pericardial effusion. Postoperatively patient could not be immediately extubated and was transferred to ICU intubated. By the time I saw her, patient is awake and alert and did not appear to be in any distress. Orally intubated. Past medical history; 1. History of recent pericarditis with pericardial effusion. Status post pericardiocentesis. 2. History of diabetes and hypertension. 3. Anemia. Medications; reviewed. Allergies; none. Social history; noncontributory. Family history; various family members of diabetes and hypertension. Occupational history; patient is a housewife. Review of systems; limited review of system could be obtained. Patient denies any chest pain, shortness of breath. Any abdominal pain. General exam; young female, appears overweight. Orally intubated. Awake and alert. Currently in no distress. Past Medical History Medical History: no pertinent history Medications Current Medications Colchicine (Colchicine) 0.6 mg BID PO ; Start 12/17/18 at 21:00 Sodium Chloride 1,000 ml @ 75 mls/hr [id number] IV ; Start 12/17/18 at 15:00; Stop 12/18/18 at 14:59 IV Flush (NS 3 ml) 3 ml PER PROTOCOL IV ; Start 12/17/18 at 16:30 Acetaminophen (Tylenol Tab) 650 mg Q6H PRN PO PAIN LEVEL 1-3 OR FEVER; Start 12/17/18 at 16:30 Acetaminophen (Tylenol Supp) 650 mg Q6H PRN [place] PAIN LEVEL 1-3 OR FEVER; Start 12/17/18 at 16:30 Oxycodone/ Acetaminophen (Percocet (5/ 325)) 1 tab Q6H PRN PO MODERATE PAIN LEVEL 4-6; Start 12/17/18 at 16:30 Docusate Sodium (Colace) 100 mg Q12H PRN PO CONSTIPATION; Start 12/17/18 at 16:30 Magnesium Hydroxide (Milk Of Mag) 30 ml DAILY PRN PO CONSTIPATION; Start 12/17/18 at 16:30 Bisacodyl (Dulcolax) 5 mg DAILY PRN PO CONSTIPATION; Start 12/17/18 at 16:30 Bisacodyl (Dulcolax Supp) 10 mg DAILY PRN [place] CONSTIPATION; Start 12/17/18 at 16:30 Diagnostic Test (Pha) (Accu-Chek) 1 ea 02 XX Last administered on 12/18/18at 02:00; Admin Dose 1 EA; Start 12/18/18 at 02:00 Insulin Aspart (Novolog Insulin Pen) NOVOLOG *MODERATE* ALGORI... Q4 SC Last administered on 12/18/18at 09:26; Admin Dose 2 UNIT; Start 12/17/18 at 17:00 Norepinephrine 250 ml @ 1.875 mls/ hr TITRATE IV ; Start 12/17/18 at 18:30 Phenylephrine HCl 250 ml @ 75 mls/hr TITRATE IV ; Start 12/17/18 at 18:30 Acetaminophen/ Hydrocodone Bitart ([place] (5/325)) 1 tab Q6H PRN PO PAIN LEVEL 6-10; Start 12/17/18 at 20:30 Ketorolac Tromethamine (Toradol) 30 mg Q6H PRN IV PAIN; Start 12/17/18 at 20:30; Stop 12/20/18 at 20:29 Acetaminophen (Tylenol Tab) 650 mg Q6H PRN PO MILD PAIN(1-3)OR ELEVATED TEMP; Start 12/17/18 at 20:30 Ondansetron HCl (Zofran Inj) 4 mg Q6H PRN IV NAUSEA AND/OR VOMITING; Start 12/17/18 at 20:30 Potassium Chloride/Dextrose/ Sod Cl 1,000 ml @ 100 mls/hr Q10H IV Last administered on 12/18/18at 09:18; Admin Dose 100 MLS/HR; Start 12/17/18 at 20:02 Enoxaparin Sodium (Lovenox) 40 mg DAILY@07 SC ; Start 12/18/18 at 07:00 Levalbuterol (Xopenex Neb) 1.25 mg ICU RECOVERY PRN HHN WHEEZING; Start 12/17/18 at 21:30 Ipratropium [place] (Atrovent 0.02% (Neb)) 0.5 mg ICU RECOVERY PRN HHN WHEEZING; Start 12/17/18 at 21:30 Ipratropium [place] (Atrovent Hfa) 4 puff Q6H RESP THERAPY INH Last administered on 12/18/18at 08:12; Admin Dose 4 PUFF; Start 12/18/18 at 02:00 Levalbuterol (Xopenex Hfa) 4 puff Q6H RESP THERAPY INH Last administered on 12/18/18at 08:12; Admin Dose 4 PUFF; Start 12/18/18 at 02:00 Famotidine (Pepcid Iv) 20 mg BID IV Last administered on 12/18/18at 09:18; Admin Dose 20 MG; Start 12/17/18 at 23:30 Morphine Sulfate (morphine) 2 mg Q2H PRN IV PAIN LEVEL 6-10 Last administered on 12/18/18at 09:39; Admin Dose 2 MG; Start 12/17/18 at 23:45 Morphine Sulfate (morphine) 2 mg Q4H PRN IV SEVERE PAIN LEVEL 7-10; Start 12/17/18 at 23:45 Cefazolin Sodium/ Dextrose 50 ml @ 100 mls/hr Q8H IVPB Last administered on 12/18/18at 09:11; Admin Dose 100 MLS/HR; Start 12/18/18 at 08:30; Stop 12/18/18 at 16:59 Propofol 100 ml @ 2.604 mls/ hr Q12H IV Last administered on 12/18/18at 06:13; Admin Dose 5.208 MLS/HR; Start 12/18/18 at 06:30 Allergies: Coded Allergies: No Known Allergy (Unverified , 12/17/18) Past Surgical History Past Surgical Hx: no surgical history, other (Pericardiocentesis) Social History Alcohol Use: none Smoking Status: Unknown if ever smoked Drug Use: none Exam/Review of Systems Vital Signs Vitals Vital Signs Date Temp Pulse Resp B/P (MAP) Pulse Ox O2 O2 Flow FiO2 Time Delivery Rate 12/18/18 91 14 92/64 (73) 99 Mechanical 06:00 Ventilator 12/18/18 60 05:15 12/18/18 98.7 04:00 12/17/18 2.0 18:32 Intake and Output 12/17/18 12/17/18 12/18/18 1515:00 23:00 07:00 IntakeIntake Total 1450 ml 850 ml OutputOutput Total 245 ml 920 ml BalanceBalance 1205 ml -70 ml Exam HEENT exam; supple neck, positive JVD. No lymphadenopathy. Midline trachea. No thyromegaly. Orally intubated. Patient does have carious teeth. Pupils are small bilaterally. Chest exam; diminished breath sounds left lower lobe. Upper lobes and right lower lobe are clear to auscultation. S1-S2 audible, no murmurs. Regular rhythm. Dressing applied over epigastric area. Abdomen exam; soft, protuberant. Nontender. Bowel sounds audible. No organomegaly. Extremity exam; no peripheral edema or clubbing. Pulses 1+. MAT INSPECTOR exam; no focal deficit. Medications Medications Current Medications Colchicine (Colchicine) 0.6 mg BID PO ; Start 12/17/18 at 21:00 Sodium Chloride 1,000 ml @ 75 mls/hr [id number] IV ; Start 12/17/18 at 15:00; Stop 12/18/18 at 14:59 IV Flush (NS 3 ml) 3 ml PER PROTOCOL IV ; Start 12/17/18 at 16:30 Acetaminophen (Tylenol Tab) 650 mg Q6H PRN PO PAIN LEVEL 1-3 OR FEVER; Start 12/17/18 at 16:30 Acetaminophen (Tylenol Supp) 650 mg Q6H PRN [place] PAIN LEVEL 1-3 OR FEVER; Start 12/17/18 at 16:30 Oxycodone/ Acetaminophen (Percocet (5/ 325)) 1 tab Q6H PRN PO MODERATE PAIN LEVEL 4-6; Start 12/17/18 at 16:30 Docusate Sodium (Colace) 100 mg Q12H PRN PO CONSTIPATION; Start 12/17/18 at 16:30 Magnesium Hydroxide (Milk Of Mag) 30 ml DAILY PRN PO CONSTIPATION; Start 12/17/18 at 16:30 Bisacodyl (Dulcolax) 5 mg DAILY PRN PO CONSTIPATION; Start 12/17/18 at 16:30 Bisacodyl (Dulcolax Supp) 10 mg DAILY PRN [place] CONSTIPATION; Start 12/17/18 at 16:30 Diagnostic Test (Pha) (Accu-Chek) 1 ea 02 XX Last administered on 12/18/18at 02:00; Admin Dose 1 EA; Start 12/18/18 at 02:00 Insulin Aspart (Novolog Insulin Pen) NOVOLOG *MODERATE* ALGORI... Q4 SC Last administered on 12/18/18at 09:26; Admin Dose 2 UNIT; Start 12/17/18 at 17:00 Norepinephrine 250 ml @ 1.875 mls/ hr TITRATE IV ; Start 12/17/18 at 18:30 Phenylephrine HCl 250 ml @ 75 mls/hr TITRATE IV ; Start 12/17/18 at 18:30 Acetaminophen/ Hydrocodone Bitart ([place] (5/325)) 1 tab Q6H PRN PO PAIN LEVEL 6-10; Start 12/17/18 at 20:30 Ketorolac Tromethamine (Toradol) 30 mg Q6H PRN IV PAIN; Start 12/17/18 at 20:30; Stop 12/20/18 at 20:29 Acetaminophen (Tylenol Tab) 650 mg Q6H PRN PO MILD PAIN(1-3)OR ELEVATED TEMP; Start 12/17/18 at 20:30 Ondansetron HCl (Zofran Inj) 4 mg Q6H PRN IV NAUSEA AND/OR VOMITING; Start 12/17/18 at 20:30 Potassium Chloride/Dextrose/ Sod Cl 1,000 ml @ 100 mls/hr Q10H IV Last administered on 12/18/18at 09:18; Admin Dose 100 MLS/HR; Start 12/17/18 at 20:02 Enoxaparin Sodium (Lovenox) 40 mg DAILY@07 SC ; Start 12/18/18 at 07:00 Levalbuterol (Xopenex Neb) 1.25 mg ICU RECOVERY PRN HHN WHEEZING; Start 12/17/18 at 21:30 Ipratropium [place] (Atrovent 0.02% (Neb)) 0.5 mg ICU RECOVERY PRN HHN WHEEZING; Start 12/17/18 at 21:30 Ipratropium [place] (Atrovent Hfa) 4 puff Q6H RESP THERAPY INH Last administered on 12/18/18 08:12; Admin Dose 4 PUFF; Start 12/18/18 at 02:00 Levalbuterol (Xopenex Hfa) 4 puff Q6H RESP THERAPY INH Last administered on 12/18/18 08:12; Admin Dose 4 PUFF; Start 12/18/18 at 02:00 Famotidine (Pepcid Iv) 20 mg BID IV Last administered on 12/18/18 09:18; Admin Dose 20 MG; Start 12/17/18 at 23:30 Morphine Sulfate (morphine) 2 mg Q2H PRN IV PAIN LEVEL 6-10 Last administered on 12/18/18 09:39; Admin Dose 2 MG; Start 12/17/18 at 23:45 Morphine Sulfate (morphine) 2 mg Q4H PRN IV SEVERE PAIN LEVEL 7-10; Start 12/17/18 at 23:45 Cefazolin Sodium/ Dextrose 50 ml @ 100 mls/hr Q8H IVPB Last administered on 12/18/18 09:11; Admin Dose 100 MLS/HR; Start 12/18/18 at 08:30; Stop 12/18/18 at 16:59 Propofol 100 ml @ 2.604 mls/ hr Q12H IV Last administered on 12/18/18 06:13; Admin Dose 5.208 MLS/HR; Start 12/18/18 at 06:30 JOSHUA CHRISTENSEN Dec 18, 2018 09:58
--- NOTE | 2018-12-18 11:05 | CONS ---
Date/Time of Note Date/Time of Note DATE: 12/18/18 TIME: 10:55 Assessment/Plan Assessment/Plan Assessment/Plan 1) pericarditis/pericardial effusion s/p pericardial window on 12/17/18 the likely diagnosis would be viral in origin I have ordered coxsackie A and B serology, echo virus serology, EBV, HIV I have also ordered mycoplasma fungal and TB are possible but less likely in lieu of relatively benign presentation for constitutional symptoms nonetheless I will order beta d glucan, cocci titers and histoplasma Ag (seen in [place]) her quant TB gold was neg before and so far the AFB cx are NGTD I will look for non infectious etiology as well with ESR, CRP, HODA her TSH was WNL so no sign of myxedema no further antibiotics at this time when she is done with her cefazolin prophylaxis 2) DM 3) HTN Result Diagram: 12/18/185 12/18/185 Results 24hrs Laboratory Tests Test 12/17/18 13:03 12/17/18 13:06 12/17/18 14:40 12/17/18 16:57 White Blood 7.1 Count Red Blood Count 3.29 L Hemoglobin 9.4 L Hematocrit 29.7 L Mean 90.3 Corpuscular Volume Mean 28.6 L Corpuscular Hemoglobin Mean 31.6 L Corpuscular Hemoglobin Conc ent Red Cell 13.0 Distribution Width Platelet Count 246 Mean Platelet 9.6 Volume Immature 0.400 Granulocytes % Neutrophils % 60.2 Lymphocytes % 26.2 Monocytes % 11.5 H Eosinophils % 1.4 Basophils % 0.3 Nucleated Red 0.0 Blood Cells % Immature 0.030 Granulocytes # Neutrophils # 4.3 Lymphocytes # 1.9 Monocytes # 0.8 Eosinophils # 0.1 Basophils # 0.0 Nucleated Red 0.0 Blood Cells # Prothrombin 15.0 H Time Prothrombin 1.2 Time Ratio INR 1.17 International Normalized Rati o Activated 26.9 Partial Thrombo plast Time Sodium Level 136 Potassium Level 4.0 Chloride Level 103 Carbon Dioxide 23 Level Anion Gap 10 Blood Urea 28 H Nitrogen Creatinine 1.02 H Est Glomerular 57 L Filtrat Rate mL/min Glucose Level 146 Calcium Level 9.4 Total Bilirubin 0.6 Direct 0.00 Bilirubin Indirect 0.6 Bilirubin Aspartate Amino 28 Transf (AST/SGO T) Alanine 21 Aminotransferas e (ALT/SGPT) Alkaline 74 Phosphatase Troponin I < 0.012 C-Reactive 1.9 H Protein B-Type 253 H Natriuretic Peptide Total Protein 8.3 H Albumin 3.9 Globulin 4.40 H Albumin/Globuli 0.88 n Ratio Lipase 168 POC Venous 1.5 Lactate Urine Color YELLOW Urine Clarity SLIGHTLY CLOUDY A Urine pH 5.0 Urine Specific 1.009 [place] Urine Ketones NEGATIVE Urine Nitrite NEGATIVE Urine Bilirubin NEGATIVE Urine NEGATIVE Urobilinogen Urine Leukocyte 3+ H Esterase Urine 7 H Microscopic RBC Urine 5 Microscopic WBC Urine Squamous FEW Epithelial Cell s Urine 1+ H Hemoglobin Urine Glucose NEGATIVE Urine Total 1+ H Protein Lactic Acid 1.1 Level Test 12/17/18 21:30 12/17/18 22:12 12/17/18 22:20 12/18/18 00:00 Blood Gas Blood arterial Blood Specimen arterial Source Arterial Blood 12/17/2018 10:04 12/18/2018 12:0 Date Drawn :23 PM 5:48 AM Arterial Blood 7.216 *L 7.426 pH (Temp corrected ) Arterial Blood 36.7 35.2 pCO2 (Temp correct) Arterial Blood 205.9 H 80.2 pO2 (Temp corrected ) Arterial Blood 14.5 L 22.6 HCO3 Arterial Blood -12.3 L -1.3 Base Excess Arterial Blood 99.1 H 94.9 L Oxygen Saturati on Myke Test N/A N/A Arterial Blood A-Line A-Line Gas Puncture Site Arterial 0.2 0.3 Blood Carboxyhe moglobin Arterial Blood 0.7 0.4 Methemoglobin Blood Gas A-a 470.4 H 308.9 H O2 Differential Oxyhemoglobin 98.2 94.2 Percent Blood Gas 37.0 37.0 Temperature Blood Gas 14.0 14.0 Respiration Rate Blood Gas 15 15 Actual Respiration Rat e Blood Gas VENT - AC VENT - AC Modality FiO2 100.0 60.0 Blood Gas Tidal 550.0 550.0 Volume Blood Gas Low 8.0 5.0 PEEP Setting Blood Gas Faiza PALMER RN Critical Value Read Back Blood Gas LW MM Notified Whom Blood Gas 12/17/2018 10:16 12/18/2018 12:1 Notified Time :05 PM 3:30 AM Bedside Glucose 259 H White Blood 9.8 # Count Red Blood Count 3.44 L Hemoglobin 10.1 L Hematocrit 31.5 L Mean 91.6 Corpuscular Volume Mean 29.4 Corpuscular Hemoglobin Mean 32.1 Corpuscular Hemoglobin Conc ent Red Cell 13.1 Distribution Width Platelet Count 261 Mean Platelet 9.5 Volume Immature 0.700 H Granulocytes % Neutrophils % 88.0 H Lymphocytes % 9.7 L Monocytes % 1.4 Eosinophils % 0.0 Basophils % 0.2 Nucleated Red 0.0 Blood Cells % Immature 0.070 H Granulocytes # Neutrophils # 8.6 H Lymphocytes # 1.0 Monocytes # 0.1 L Eosinophils # 0.0 Basophils # 0.0 Nucleated Red 0.0 Blood Cells # Sodium Level 137 Potassium Level 3.9 Chloride Level 108 Carbon Dioxide 15 L Level Anion Gap 14 H Blood Urea 24 H Nitrogen Creatinine 0.82 Est Glomerular > 60 Filtrat Rate mL/min Glucose Level 258 #H Calcium Level 9.3 Phosphorus 5.1 H Level Magnesium Level 1.9 Total Bilirubin 0.4 Direct 0.00 Bilirubin Indirect 0.4 Bilirubin Aspartate Amino 27 Transf (AST/SGO T) Alanine 23 Aminotransferas e (ALT/SGPT) Alkaline 67 Phosphatase Total Protein 7.7 Albumin 3.4 Globulin 4.30 H Albumin/Globuli 0.79 n Ratio Blood Gas 29.0 Inspiratory Pressure Test 12/18/18 00:16 12/18/18 02:22 12/18/18 04:45 12/18/18 05:45 Bedside Glucose 261 H 280 H 229 H White Blood 8.1 Count Red Blood Count 3.08 L Hemoglobin 9.0 L Hematocrit 27.1 L Mean 88.0 Corpuscular Volume Mean 29.2 Corpuscular Hemoglobin Mean 33.2 Corpuscular Hemoglobin Conc ent Red Cell 13.0 Distribution Width Platelet Count 216 Mean Platelet 9.8 Volume Immature 0.500 H Granulocytes % Neutrophils % 84.2 H Lymphocytes % 8.2 L Monocytes % 7.0 Eosinophils % 0.0 Basophils % 0.1 Nucleated Red 0.0 Blood Cells % Immature 0.040 H Granulocytes # Neutrophils # 6.8 Lymphocytes # 0.7 L Monocytes # 0.6 Eosinophils # 0.0 Basophils # 0.0 Nucleated Red 0.0 Blood Cells # Sodium Level 142 Potassium Level 3.9 Chloride Level 108 Carbon Dioxide 25 # Level Anion Gap 9 # Blood Urea 20 Nitrogen Creatinine 0.69 Est Glomerular > 60 Filtrat Rate mL/min Glucose Level 259 H Hemoglobin A1c 5.8 Calcium Level 8.9 Phosphorus 2.7 # Level Magnesium Level 2.1 Total Bilirubin 0.3 Direct 0.00 Bilirubin Indirect 0.3 Bilirubin Aspartate Amino 21 Transf (AST/SGO T) Alanine 25 Aminotransferas e (ALT/SGPT) Alkaline 52 Phosphatase Total Protein 6.6 # Albumin 2.8 L Globulin 3.80 H Albumin/Globuli 0.73 n Ratio Thyroid 1.230 Stimulating Hormone (TSH) Test 12/18/18 09:24 Bedside Glucose 170 Consultation Date/Type/Reason Admit Date/Time Date of Consultation: Dec 18, 2018 Type of Consult ID Hx of Present Illness pt was admitted earlier this month due to new onset pericardial effusion Pt has travel to [place] (around [facility]) for 3 weeks in october and while there she developed some cough and SOB There has not been though any fever, chills, sweats She has recently be losing weight and not eating well. The cough she has is non productive. No N, V, D no rashes, joint pains, dysuria no sick contacts, tick bites or animal exposures She was sent home on 12/06/18 but returned due to recurrence of the chest pressure, and SOB She got a pericardial window performed yesterday Her cx from the initial pericardiocentesis have been neg for bacteria and NGTD for fungus and AFB Past Medical History DM but sugars have been good HTN Medications Current Medications Colchicine (Colchicine) 0.6 mg BID PO ; Start 12/17/18 at 21:00 Sodium Chloride 1,000 ml @ 75 mls/hr [id number] IV ; Start 12/17/18 at 15:00; Stop 12/18/18 at 14:59 IV Flush (NS 3 ml) 3 ml PER PROTOCOL IV ; Start 12/17/18 at 16:30 Acetaminophen (Tylenol Tab) 650 mg Q6H PRN PO PAIN LEVEL 1-3 OR FEVER; Start 12/17/18 at 16:30 Acetaminophen (Tylenol Supp) [address] PAIN LEVEL 1-3 OR FEVER; Start 12/17/18 at 16:30 Oxycodone/ Acetaminophen (Percocet (5/ 325)) 1 tab Q6H PRN PO MODERATE PAIN LEVEL 4-6; Start 12/17/18 at 16:30 Docusate Sodium (Colace) 100 mg Q12H PRN PO CONSTIPATION; Start 12/17/18 at 16:30 Magnesium Hydroxide (Milk Of Mag) 30 ml DAILY PRN PO CONSTIPATION; Start 12/17/18 at 16:30 Bisacodyl (Dulcolax) 5 mg DAILY PRN PO CONSTIPATION; Start 12/17/18 at 16:30 Bisacodyl (Dulcolax Supp) [address] CONSTIPATION; Start 12/17/18 at 16:30 Diagnostic Test (Pha) (Accu-Chek) 1 ea 02 XX Last administered on 12/18/18at 02:00; Admin Dose 1 EA; Start 12/18/18 at 02:00 Insulin Aspart (Novolog Insulin Pen) NOVOLOG *MODERATE* ALGORI... Q4 SC Last administered on 12/18/18at 09:26; Admin Dose 2 UNIT; Start 12/17/18 at 17:00 Norepinephrine 250 ml @ 1.875 mls/ hr TITRATE IV ; Start 12/17/18 at 18:30 Phenylephrine HCl 250 ml @ 75 mls/hr TITRATE IV ; Start 12/17/18 at 18:30 Acetaminophen/ Hydrocodone Bitart ([place] (5/325)) 1 tab Q6H PRN PO PAIN LEVEL 6-10; Start 12/17/18 at 20:30 Ketorolac Tromethamine (Toradol) 30 mg Q6H PRN IV PAIN; Start 12/17/18 at 20:30; Stop 12/20/18 at 20:29 Acetaminophen (Tylenol Tab) 650 mg Q6H PRN PO MILD PAIN(1-3)OR ELEVATED TEMP; Start 12/17/18 at 20:30 Ondansetron HCl (Zofran Inj) 4 mg Q6H PRN IV NAUSEA AND/OR VOMITING; Start 12/17/18 at 20:30 Potassium Chloride/Dextrose/ Sod Cl 1,000 ml @ 100 mls/hr Q10H IV Last administered on 12/18/18at 09:18; Admin Dose 100 MLS/HR; Start 12/17/18 at 20:02 Enoxaparin Sodium (Lovenox) 40 mg DAILY@07 SC ; Start 12/18/18 at 07:00 Levalbuterol (Xopenex Neb) 1.25 mg ICU RECOVERY PRN HHN WHEEZING; Start 12/17/18 at 21:30 Ipratropium Lorane (Atrovent 0.02% (Neb)) 0.5 mg ICU RECOVERY PRN HHN WHEEZING; Start 12/17/18 at 21:30 Ipratropium Lorane (Atrovent Hfa) 4 puff Q6H RESP THERAPY INH Last administered on 12/18/18at 08:12; Admin Dose 4 PUFF; Start 12/18/18 at 02:00 Levalbuterol (Xopenex Hfa) 4 puff Q6H RESP THERAPY INH Last administered on 12/18/18at 08:12; Admin Dose 4 PUFF; Start 12/18/18 at 02:00 Famotidine (Pepcid Iv) 20 mg BID IV Last administered on 12/18/18 09:18; Admin Dose 20 MG; Start 12/17/18 at 23:30 Morphine Sulfate (morphine) 2 mg Q2H PRN IV PAIN LEVEL 6-10 Last administered on 12/18/18at 09:39; Admin Dose 2 MG; Start 12/17/18 at 23:45 Morphine Sulfate (morphine) 2 mg Q4H PRN IV SEVERE PAIN LEVEL 7-10; Start 12/17/18 at 23:45 Cefazolin Sodium/ Dextrose 50 ml @ 100 mls/hr Q8H IVPB Last administered on 12/18/18at 09:11; Admin Dose 100 MLS/HR; Start 12/18/18 at 08:30; Stop 12/18/18 at 16:59 Propofol 100 ml @ 2.604 mls/ hr Q12H IV Last administered on 12/18/18at 06:13; Admin Dose 5.208 MLS/HR; Start 12/18/18 at 06:30 Allergies: Coded Allergies: No Known Allergy (Unverified , 12/17/18) Past Surgical History Past Surgical Hx: no surgical history, other (Pericardiocentesis) Social History Alcohol Use: none Smoking Status: Unknown if ever smoked Drug Use: none Exam/Review of Systems Vital Signs Vitals Vital Signs Date Temp Pulse Resp B/P (MAP) Pulse Ox O2 O2 Flow FiO2 Time Delivery Rate 12/18/18 98 18 137/70 97 Mechanical 10:30 (92) Ventilator 12/18/18 98.6 08:00 12/18/18 60 05:15 12/17/18 2.0 18:32 Intake and Output 112/17/18 12/18/18 1515:00 23:00 07:00 IntakeIntake Total 1450 ml 850 ml OutputOutput Total 245 ml 920 ml BalanceBalance 1205 ml -70 ml Exam Constitutional: alert, oriented Eyes: nl sclera ENMT: mucosa pink and moist Respiratory: clear to auscultation Cardiovascular: regular rate and rhythm Gastrointestinal: soft, non-tender Extremities: other (no edema) Neurological: other (non focal) Medications Medications Current Medications Colchicine (Colchicine) 0.6 mg BID PO ; Start 12/17/18 at 21:00 Sodium Chloride 1,000 ml @ 75 mls/hr [id number] IV ; Start 12/17/18 at 15:00; Stop 12/18/18 at 14:59 IV Flush (NS 3 ml) 3 ml PER PROTOCOL IV ; Start 12/17/18 at 16:30 Acetaminophen (Tylenol Tab) 650 mg Q6H PRN PO PAIN LEVEL 1-3 OR FEVER; Start 12/17/18 at 16:30 Acetaminophen (Tylenol Supp) [address] PAIN LEVEL 1-3 OR FEVER; Start 12/17/18 at 16:30 Oxycodone/ Acetaminophen (Percocet (5/ 325)) 1 tab Q6H PRN PO MODERATE PAIN LEVEL 4-6; Start 12/17/18 at 16:30 Docusate Sodium (Colace) 100 mg Q12H PRN PO CONSTIPATION; Start 12/17/18 at 16:30 Magnesium Hydroxide (Milk Of Mag) 30 ml DAILY PRN PO CONSTIPATION; Start 12/17/18 at 16:30 Bisacodyl (Dulcolax) 5 mg DAILY PRN PO CONSTIPATION; Start 12/17/18 at 16:30 Bisacodyl (Dulcolax Supp) [address] CONSTIPATION; Start 12/17/18 at 16:30 Diagnostic Test (Pha) (Accu-Chek) 1 ea 02 XX Last administered on 12/18/18at 02:00; Admin Dose 1 EA; Start 12/18/18 at 02:00 Insulin Aspart (Novolog Insulin Pen) NOVOLOG *MODERATE* ALGORI... Q4 SC Last administered on 12/18/18at 09:26; Admin Dose 2 UNIT; Start 12/17/18 at 17:00 Norepinephrine 250 ml @ 1.875 mls/ hr TITRATE IV ; Start 12/17/18 at 18:30 Phenylephrine HCl 250 ml @ 75 mls/hr TITRATE IV ; Start 12/17/18 at 18:30 Acetaminophen/ Hydrocodone Bitart ([place] (5/325)) 1 tab Q6H PRN PO PAIN LEVEL 6-10; Start 12/17/18 at 20:30 Ketorolac Tromethamine (Toradol) 30 mg Q6H PRN IV PAIN; Start 12/17/18 at 20:30; Stop 12/20/18 at 20:29 Acetaminophen (Tylenol Tab) 650 mg Q6H PRN PO MILD PAIN(1-3)OR ELEVATED TEMP; Start 12/17/18 at 20:30 Ondansetron HCl (Zofran Inj) 4 mg Q6H PRN IV NAUSEA AND/OR VOMITING; Start 12/17/18 at 20:30 Potassium Chloride/Dextrose/ Sod Cl 1,000 ml @ 100 mls/hr Q10H IV Last administered on 12/18/18at 09:18; Admin Dose 100 MLS/HR; Start 12/17/18 at 20:02 Enoxaparin Sodium (Lovenox) 40 mg DAILY@07 SC ; Start 12/18/18 at 07:00 Levalbuterol (Xopenex Neb) 1.25 mg ICU RECOVERY PRN HHN WHEEZING; Start 12/17/18 at 21:30 Ipratropium Lorane (Atrovent 0.02% (Neb)) 0.5 mg ICU RECOVERY PRN HHN WHEEZING; Start 12/17/18 at 21:30 Ipratropium Lorane (Atrovent Hfa) 4 puff Q6H RESP THERAPY INH Last administered on 12/18/18at 08:12; Admin Dose 4 PUFF; Start 12/18/18 at 02:00 Levalbuterol (Xopenex Hfa) 4 puff Q6H RESP THERAPY INH Last administered on 12/18/18at 08:12; Admin Dose 4 PUFF; Start 12/18/18 at 02:00 Famotidine (Pepcid Iv) 20 mg BID IV Last administered on 12/18/18at 09:18; Admin Dose 20 MG; Start 12/17/18 at 23:30 Morphine Sulfate (morphine) 2 mg Q2H PRN IV PAIN LEVEL 6-10 Last administered on 12/18/18at 09:39; Admin Dose 2 MG; Start 12/17/18 at 23:45 Morphine Sulfate (morphine) 2 mg Q4H PRN IV SEVERE PAIN LEVEL 7-10; Start 12/17/18 at 23:45 Cefazolin Sodium/ Dextrose 50 ml @ 100 mls/hr Q8H IVPB Last administered on 12/18/18at 09:11; Admin Dose 100 MLS/HR; Start 12/18/18 at 08:30; Stop 12/18/18 at 16:59 Propofol 100 ml @ 2.604 mls/ hr Q12H IV Last administered on 12/18/18at 06:13; Admin Dose 5.208 MLS/HR; Start 12/18/18 at 06:30 RAINER SANTIAGO MD Dec 18, 2018 11:05
[2018-12-18] MEDS ORDERED: LIDOCAINE 1% (MDV) 20 ML INJ SC STA (12:35)
--- NOTE | 2018-12-18 12:43 | CONS ---
Date/Time of Note Date/Time of Note DATE: 12/18/18 TIME: 12:39 Assessment/Plan Assessment/Plan Assessment/Plan Recurrent pericardial effusion status post pericardial window 12/17/2018 Preserved ejection fraction History of hypertension Diabetes -Patient with recurrent pericardial effusion, most recent pericardiocentesis December 03, 2018. Given recurrence and early evidence of cardiac tamponade, patient underwent pericardial window yesterday evening. -Patient undergoing infectious and rheumatological workup -Vent weaning Result Diagram: 12/18/18 0445 12/18/18 0445 Results 24hrs Laboratory Tests Test 12/17/18 13:03 12/17/18 13:06 12/17/18 14:40 12/17/18 16:57 White Blood 7.1 Count Red Blood Count 3.29 L Hemoglobin 9.4 L Hematocrit 29.7 L Mean 90.3 Corpuscular Volume Mean 28.6 L Corpuscular Hemoglobin Mean 31.6 L Corpuscular Hemoglobin Conc ent Red Cell 13.0 Distribution Width Platelet Count 246 Mean Platelet 9.6 Volume Immature 0.400 Granulocytes % Neutrophils % 60.2 Lymphocytes % 26.2 Monocytes % 11.5 H Eosinophils % 1.4 Basophils % 0.3 Nucleated Red 0.0 Blood Cells % Immature 0.030 Granulocytes # Neutrophils # 4.3 Lymphocytes # 1.9 Monocytes # 0.8 Eosinophils # 0.1 Basophils # 0.0 Nucleated Red 0.0 Blood Cells # Prothrombin 15.0 H Time Prothrombin 1.2 Time Ratio INR 1.17 International Normalized Rati o Activated 26.9 Partial Thrombo plast Time Sodium Level 136 Potassium Level 4.0 Chloride Level 103 Carbon Dioxide 23 Level Anion Gap 10 Blood Urea 28 H Nitrogen Creatinine 1.02 H Est Glomerular 57 L Filtrat Rate mL/min Glucose Level 146 Calcium Level 9.4 Total Bilirubin 0.6 Direct 0.00 Bilirubin Indirect 0.6 Bilirubin Aspartate Amino 28 Transf (AST/SGO T) Alanine 21 Aminotransferas e (ALT/SGPT) Alkaline 74 Phosphatase Troponin I < 0.012 C-Reactive 1.9 H Protein B-Type 253 H Natriuretic Peptide Total Protein 8.3 H Albumin 3.9 Globulin 4.40 H Albumin/Globuli 0.88 n Ratio Lipase 168 POC Venous 1.5 Lactate Urine Color YELLOW Urine Clarity SLIGHTLY CLOUD Y A Urine pH 5.0 Urine Specific 1.009 [place] Urine Ketones NEGATIVE Urine Nitrite NEGATIVE Urine Bilirubin NEGATIVE Urine NEGATIVE Urobilinogen Urine Leukocyte 3+ H Esterase Urine 7 H Microscopic RBC Urine 5 Microscopic WBC Urine Squamous FEW Epithelial Cell s Urine 1+ H Hemoglobin Urine Glucose NEGATIVE Urine Total 1+ H Protein Lactic Acid 1.1 Level Test 12/17/18 21:30 12/17/18 22:12 12/17/18 22:20 12/18/18 00:00 Blood Gas Blood arterial Blood Specimen arterial Source Arterial Blood 12/17/2018 10:04 12/18/2018 12:0 Date Drawn :23 PM 5:48 AM Arterial Blood 7.216 *L 7.426 pH (Temp corrected ) Arterial Blood 36.7 35.2 pCO2 (Temp correct) Arterial Blood 205.9 H 80.2 pO2 (Temp corrected ) Arterial Blood 14.5 L 22.6 HCO3 Arterial Blood -12.3 L -1.3 Base Excess Arterial Blood 99.1 H 94.9 L Oxygen Saturati on Myke Test N/A N/A Arterial Blood A-Line A-Line Gas Puncture Site Arterial 0.2 0.3 Blood Carboxyhe moglobin Arterial Blood 0.7 0.4 Methemoglobin Blood Gas A-a 470.4 H 308.9 H O2 Differential Oxyhemoglobin 98.2 94.2 Percent Blood Gas 37.0 37.0 Temperature Blood Gas 14.0 14.0 Respiration Rate Blood Gas 15 15 Actual Respiration Rat e Blood Gas VENT - AC VENT - AC Modality FiO2 100.0 60.0 Blood Gas Tidal 550.0 550.0 Volume Blood Gas Low 8.0 5.0 PEEP Setting Blood Gas Faiza PALMER RN Critical Value Read Back Blood Gas LW MM Notified Whom Blood Gas 12/17/2018 10:16 12/18/2018 12:1 Notified Time :05 PM 3:30 AM Bedside Glucose 259 H White Blood 9.8 # Count Red Blood Count 3.44 L Hemoglobin 10.1 L Hematocrit 31.5 L Mean 91.6 Corpuscular Volume Mean 29.4 Corpuscular Hemoglobin Mean 32.1 Corpuscular Hemoglobin Conc ent Red Cell 13.1 Distribution Width Platelet Count 261 Mean Platelet 9.5 Volume Immature 0.700 H Granulocytes % Neutrophils % 88.0 H Lymphocytes % 9.7 L Monocytes % 1.4 Eosinophils % 0.0 Basophils % 0.2 Nucleated Red 0.0 Blood Cells % Immature 0.070 H Granulocytes # Neutrophils # 8.6 H Lymphocytes # 1.0 Monocytes # 0.1 L Eosinophils # 0.0 Basophils # 0.0 Nucleated Red 0.0 Blood Cells # Sodium Level 137 Potassium Level 3.9 Chloride Level 108 Carbon Dioxide 15 L Level Anion Gap 14 H Blood Urea 24 H Nitrogen Creatinine 0.82 Est Glomerular > 60 Filtrat Rate mL/min Glucose Level 258 #H Calcium Level 9.3 Phosphorus 5.1 H Level Magnesium Level 1.9 Total Bilirubin 0.4 Direct 0.00 Bilirubin Indirect 0.4 Bilirubin Aspartate Amino 27 Transf (AST/SGO T) Alanine 23 Aminotransferas e (ALT/SGPT) Alkaline 67 Phosphatase Total Protein 7.7 Albumin 3.4 Globulin 4.30 H Albumin/Globuli 0.79 n Ratio Blood Gas 29.0 Inspiratory Pressure Test 12/18/18 00:16 12/18/18 02:22 12/18/18 04:45 12/18/18 05:45 Bedside Glucose 261 H 280 H 229 H White Blood 8.1 Count Red Blood Count 3.08 L Hemoglobin 9.0 L Hematocrit 27.1 L Mean 88.0 Corpuscular Volume Mean 29.2 Corpuscular Hemoglobin Mean 33.2 Corpuscular Hemoglobin Conc ent Red Cell 13.0 Distribution Width Platelet Count 216 Mean Platelet 9.8 Volume Immature 0.500 H Granulocytes % Neutrophils % 84.2 H Lymphocytes % 8.2 L Monocytes % 7.0 Eosinophils % 0.0 Basophils % 0.1 Nucleated Red 0.0 Blood Cells % Immature 0.040 H Granulocytes # Neutrophils # 6.8 Lymphocytes # 0.7 L Monocytes # 0.6 Eosinophils # 0.0 Basophils # 0.0 Nucleated Red 0.0 Blood Cells # Sodium Level 142 Potassium Level 3.9 Chloride Level 108 Carbon Dioxide 25 # Level Anion Gap 9 # Blood Urea 20 Nitrogen Creatinine 0.69 Est Glomerular > 60 Filtrat Rate mL/min Glucose Level 259 H Hemoglobin A1c 5.8 Calcium Level 8.9 Phosphorus 2.7 # Level Magnesium Level 2.1 Total Bilirubin 0.3 Direct 0.00 Bilirubin Indirect 0.3 Bilirubin Aspartate Amino 21 Transf (AST/SGO T) Alanine 25 Aminotransferas e (ALT/SGPT) Alkaline 52 Phosphatase Total Protein 6.6 # Albumin 2.8 L Globulin 3.80 H Albumin/Globuli 0.73 n Ratio Thyroid 1.230 Stimulating Hormone (TSH) Test 12/18/18 09:24 12/18/18 11:00 Bedside Glucose 170 Blood Gas Blood Specimen arterial Source Arterial Blood 12/18/2018 10:5 Date Drawn 0:39 AM Arterial Blood 7.459 H pH (Temp corrected ) Arterial Blood 34.7 L pCO2 (Temp correct) Arterial Blood 79.2 L pO2 (Temp corrected ) Arterial Blood 24.1 HCO3 Arterial Blood 0.6 Base Excess Arterial Blood 95.1 Oxygen Saturati on Myke Test N/A Arterial Blood A-Line Gas Puncture Site Arterial 0.3 Blood Carboxyhe moglobin Arterial Blood 0.4 Methemoglobin Blood Gas A-a 130.0 H O2 Differential Oxyhemoglobin 94.4 Percent Blood Gas 37.0 Temperature Blood Gas 21 Actual Respiration Rat e Blood Gas VENT - CPAP Modality FiO2 35.0 Blood Gas Low 5.0 PEEP Setting Blood Gas 10 Pressure Support Blood Gas TM Notified Whom Blood Gas 12/18/2018 10:5 Notified Time 8:14 AM Consultation Date/Type/Reason Admit Date/Time Dec 17, 2018 at 14:27 Initial Consult Date 12/18/18 Type of Consult cv Requesting Provider: Pawel Plascencia DO 24 HR Interval Summary Free Text/Dictation Patient status post pericardial window yesterday. Remains intubated, blood pressure stable Exam/Review of Systems Vital Signs Vitals Vital Signs Date Temp Pulse Resp B/P (MAP) Pulse Ox O2 O2 Flow FiO2 Time Delivery Rate 12/18/18 98 19 96 35 11:00 12/18/18 137/70 Mechanical 10:30 (92) Ventilator 12/18/18 98.6 08:00 12/17/18 2.0 18:32 Intake and Output 12/17/18 12/17/18 12/18/18 1414:59 22:59 06:59 IntakeIntake Total 1350 ml 850 ml OutputOutput Total 215 ml 950 ml BalanceBalance 1135 ml -100 ml Exam Sleeping but arousable, intubated, no apparent distress, in restraints, family bedside Head: normocephalic ENMT: intubated Respiratory: other (Coarse breath sounds bilaterally, no wheezing) Cardiovascular: regular rate and rhythm, other (S1-S2 heard) Gastrointestinal: soft, non-tender, bowel sounds Extremities: edema Medications Medications Current Medications Colchicine (Colchicine) 0.6 mg BID PO ; Start 12/17/18 at 21:00 Sodium Chloride 1,000 ml @ 75 mls/hr [id number] IV ; Start 12/17/18 at 15:00; Stop 12/18/18 at 14:59 IV Flush (NS 3 ml) 3 ml PER PROTOCOL IV ; Start 12/17/18 at 16:30 Acetaminophen (Tylenol Tab) 650 mg Q6H PRN PO PAIN LEVEL 1-3 OR FEVER; Start 12/17/18 at 16:30 Acetaminophen (Tylenol Supp) 650 mg Q6H PRN ND PAIN LEVEL 1-3 OR FEVER; Start 12/17/18 at 16:30 Oxycodone/ Acetaminophen (Percocet (5/ 325)) 1 tab Q6H PRN PO MODERATE PAIN LEVEL 4-6; Start 12/17/18 at 16:30 Docusate Sodium (Colace) 100 mg Q12H PRN PO CONSTIPATION; Start 12/17/18 at 16:30 Magnesium Hydroxide (Milk Of Mag) 30 ml DAILY PRN PO CONSTIPATION; Start 12/17/18 at 16:30 Bisacodyl (Dulcolax) 5 mg DAILY PRN PO CONSTIPATION; Start 12/17/18 at 16:30 Bisacodyl (Dulcolax Supp) 10 mg DAILY PRN ND CONSTIPATION; Start 12/17/18 at 16:30 Diagnostic Test (Pha) (Accu-Chek) 1 ea 02 XX Last administered on 12/18/18at 02:00; Admin Dose 1 EA; Start 12/18/18 at 02:00 Insulin Aspart (Novolog Insulin Pen) NOVOLOG *MODERATE* ALGORI... Q4 SC Last administered on 12/18/18at 09:26; Admin Dose 2 UNIT; Start 12/17/18 at 17:00 Norepinephrine 250 ml @ 1.875 mls/ hr TITRATE IV ; Start 12/17/18 at 18:30 Phenylephrine HCl 250 ml @ 75 mls/hr TITRATE IV ; Start 12/17/18 at 18:30 Acetaminophen/ Hydrocodone Bitart ([place] (5/325)) 1 tab Q6H PRN PO PAIN LEVEL 6-10; Start 12/17/18 at 20:30 Ketorolac Tromethamine (Toradol) 30 mg Q6H PRN IV PAIN; Start 12/17/18 at 20:30; Stop 12/20/18 at 20:29 Acetaminophen (Tylenol Tab) 650 mg Q6H PRN PO MILD PAIN(1-3)OR ELEVATED TEMP; Start 12/17/18 at 20:30 Ondansetron HCl (Zofran Inj) 4 mg Q6H PRN IV NAUSEA AND/OR VOMITING; Start 12/17/18 at 20:30 Potassium Chloride/Dextrose/ Sod Cl 1,000 ml @ 100 mls/hr Q10H IV Last administered on 12/18/18at 09:18; Admin Dose 100 MLS/HR; Start 12/17/18 at 20:02 Enoxaparin Sodium (Lovenox) 40 mg DAILY@07 SC ; Start 12/18/18 at 07:00 Levalbuterol (Xopenex Neb) 1.25 mg ICU RECOVERY PRN HHN WHEEZING; Start 12/17/18 at 21:30 Ipratropium [place] (Atrovent 0.02% (Neb)) 0.5 mg ICU RECOVERY PRN HHN WHEEZING; Start 12/17/18 at 21:30 Ipratropium [place] (Atrovent Hfa) 4 puff Q6H RESP THERAPY INH Last administered on 12/18/18at 08:12; Admin Dose 4 PUFF; Start 12/18/18 at 02:00 Levalbuterol (Xopenex Hfa) 4 puff Q6H RESP THERAPY INH Last administered on 12/18/18at 08:12; Admin Dose 4 PUFF; Start 12/18/18 at 02:00 Famotidine (Pepcid Iv) 20 mg BID IV Last administered on 12/18/18at 09:18; Admin Dose 20 MG; Start 12/17/18 at 23:30 Morphine Sulfate (morphine) 2 mg Q2H PRN IV PAIN LEVEL 6-10 Last administered on 12/18/18at 09:39; Admin Dose 2 MG; Start 12/17/18 at 23:45 Morphine Sulfate (morphine) 2 mg Q4H PRN IV SEVERE PAIN LEVEL 7-10; Start 12/17/18 at 23:45 Cefazolin Sodium/ Dextrose 50 ml @ 100 mls/hr Q8H IVPB Last administered on 12/18/18at 09:11; Admin Dose 100 MLS/HR; Start 12/18/18 at 08:30; Stop 12/18/18 at 16:59 Propofol 100 ml @ 2.604 mls/ hr Q12H IV Last administered on 12/18/18at 06:13; Admin Dose 5.208 MLS/HR; Start 12/18/18 at 06:30 Pawel Plascencia DO Dec 18, 2018 12:43
--- NOTE | 2018-12-18 12:51 | OPR ---
Date/Time of Note Date/Time of Note DATE: 12/18/18 TIME: 12:48 Operative Report Procedure Date: Dec 18, 2018 Preoperative Diagnosis Recurrent pericardial effusion. Chest x-ray showing left lower lobe segmental atelectasis. Bronchoscopy to rule out endobronchial lesion. Postoperative Diagnosis Normal bronchoscopy. Operation/Procedure Performed Bronchoscopy. Surgeon see signature line Taker Away Respiratory therapist. And patient's nurse. Anesthesia Type: moderate sedation Estimated Blood Loss: none Transfusion none Specimen None Grafts/Implants none Tubes/Drains Patient already was on mechanical ventilation via endotracheal tube. She already was on propofol drip for sedation. Topical anesthesia was achieved by instilling 5 mm of 1% lidocaine through endotracheal tube. Bronchoscope was introduced via endotracheal tube. Distal trachea was normal. Alea was sharp and well defined. The scope was introduced into the right mainstem bronchus with evaluation of the right upper lobe, bronchus intermedius, middle lobe, superior segment of the lower lobe as well as lower lobes. They were normal. The scope was introduced into the left mainstem bronchus with evaluation of left upper lobe, lingula, superior segment of the lower lobes as well as lower lobes. They were all totally normal. The scope was then withdrawn. Start time was 12:42 PM, finish time was 12:47 PM. The patient maintained stable O2 saturation, airway pressure as well as cardiac rhythm. Complications none Pt Condition Post Procedure: stable Procedure Description See above. JOSHUA CHRISTENSEN Dec 18, 2018 12:51
--- NOTE | 2018-12-18 13:26 | NUR ---
MD CHRISTENSEN PREFORMED BRONCH. MD CHRISTENSEN ROUNDED ON PT THIS AM. PT WAS PLACED ON CPAP AT 1000. ABG AT 1100 WERE GOOD, BUT MD WANTED TO DO A LEFT LOBE BRONCH. CONSENT SIGNED BY DAUGHTER. PT WAS PLACED BACK ON A/C. BRONCH PREFORMED BY MD CHRISTENSEN AT AROUND 1240. NOTHING SIGNIFICANT WAS FOUND. PT WILL TRY TO BE WEAN AGAIN LATER.
[2018-12-18] MEDS: ONDANSETRON 4 MG INJ IV PRN (17:30)
--- NOTE | 2018-12-18 19:00 | NUR ---
END OF SHIFT SUMMARY PT WAS WEAN OFF OF VENTILATOR. PT IS IN STABLE CONDITION. PT HAD NO RESPIRATORY DISTRESS AFTER EXTUBATION. PT HAD AN EPISODE OF EMESIS. PT HAS BEEN SINUS RHYTHM WITH HR IN THE 80S. PT HAS BEEN AFEBRILE. ALL OF PT NEEDS CARED FOR. ENDORSING CARE TO DAYSHIFT.
--- NOTE | 2018-12-18 20:09 | CONS ---
DATE OF ADMISSION: 12/17/2018 DATE OF CONSULTATION: TYPE OF CONSULTATION: Rheumatology. HISTORY OF PRESENT ILLNESS: The patient is a 53-year-old woman with a history of hypertensi on and well controlled diabetes, who was well until about 6 weeks ago when she started developing tawanda e shortness of breath and chest discomfort. She was admitted to this hospital 2 weeks ago and was fo und to have a pericardial effusion and subsequently improved and was discharged home. This was felt to be of viral etiology. Subsequently, the patient returned a couple of days ago to the hospital [facility] with shortness of breath and chest discomfort. She again was noted to have a large pericardial e ffusion and underwent a pericardial window surgery yesterday with removal of large amount of fluid. The patient denies having had fevers until now. Infectious etiology has not been found. Cytology wa s negative. Fungal cultures are pending and new studies were recently obtained but results are pendi ng. The patient denies a history of autoimmune conditions such as rheumatoid or lupus and denies a family history of such. She denies history of rashes and denies arthritis history. States that prior to e cherelle 10/2018, she did not have fatigue. No prior history of shortness of breath or chest pains. No significant abdominal pain, nausea or vomiting or diarrhea. No dysuria or hematuria. Denies history of headaches. No history of numbness or specific muscle weakness. Denies depression or anxiety. PAST MEDICAL HISTORY: 1. Hypertension. 2. Diabetes type 2. 3. Recent pericardial effusion with tamponade. PAST SURGICAL HISTORY: None prior to this hospitalization. MEDICATIONS: Prior to admission included: 1. Colchicine that was recently given. 2. Losartan. 3. Amlodipine. 4. Metoclopramide that was p.r.n. ALLERGIES: NO KNOWN ALLERGIES. SOCIAL HISTORY: The patient is . Does not smoke or drink alcohol. FAMILY HISTORY: Negative for rheumatoid arthritis, lupus or other autoimmune connective tissue disea se as far as she knows. PHYSICAL EXAMINATION: GENERAL: Well-developed, well-nourished, woman in no acute distress at present, alert, orie nted. SKIN: Without rashes. HEENT: Without acute oral or ocular lesions. NECK: Without lymphadenopathy or thyromegaly. CHEST: Decreased breath sounds at present. HEART: Regular rate. No murmurs noted. ABDOMEN: Soft without masses or tenderness. MUSCULOSKELETAL: Joints with good range of motion, no synovitis or tenderness. NEUROLOGIC: Grossly intact. EXTREMITIES: No cyanosis, clubbing or edema at present. ASSESSMENT: 1. Pericarditis with pericardial effusion, unclear etiology. No evidence so far of bacterial infect ion or tuberculosis and final fungal cultures are pending. No evidence of neoplastic process with ne gative cytology of the fluid. Viral etiology is still a possibility. We would consider an autoimmun e etiology as well, although has no prior evidence of autoimmune condition. However, she did come wi th substantial anemia which may have reflected a more chronic process inflammatory process. 2. Anemia of unclear etiology. The patient denies a history of gastrointestinal bleeding. It is po ssible that it is connected to a more chronic autoimmune process. 3. Hypertension, stable. 4. Diabetes mellitus, stable. RECOMMENDATIONS: 1. Various laboratory studies were recently ordered by Dr. Rehman. 2. I will add additional laboratory studies and evaluation for possible autoimmune process: 3. If okay with Dr. Rehman, we would consider adding prednisone at 20 mg daily empirically. Thank you for having me see the patient rheumatologically. We will follow while in the hospital. Dictated By: CHINA IVEY MD CW/NTS Conf#: [id number] DID#: [id number] CC: MICHAEL VELIZ MD; ZINA MURRAY; CHERI TEJEDA MD;*EndCC*
[2018-12-18] MEDS: ACETAMINOPHEN 325 MG TAB PO PRN (21:43)
--- NOTE | 2018-12-18 23:25 | PN ---
Date/Time of Note Date/Time of Note DATE: 12/18/18 TIME: 23:23 Assessment/Plan VTE Prophylaxis Risk score (from Ns)>0 risk: 7 SCD applied (from [facility] [place]): Yes SCD contraindicated: low risk/ambulating Pharmacological prophylaxis: NA/contraindicated, LMWH Pharm contraindication: surgical contra Lines/Catheters IV Catheter Type (from [facility]): Central Line Central line still needed: Yes Urinary Cath still in place: Yes Reason Cath still needed: urinary retention Assessment/Plan Hospital Course Assessment and plan 1. Recurrent pericardial effusion, stable sp pericardial window. etio, likely viral, continue supportive care 2. Type 2 diabetes/metabolic syndrome stable observe 3. Anemia stable observ3 4. Possible migraines, may try Imitrex Subjective: Extubated some dysphagia occasional headache, which may be associate with photophobia and nausea Objective: Vital signs stable Physical exam No pallor JVD Regular faint or distant no murmur rub gallop Diminished but clear Benign No edema Result Diagram: 12/18/18 0445 12/18/18 0445 Results 24hrs Laboratory Tests Test 12/18/18 00:00 12/18/18 00:16 12/18/18 02:22 12/18/18 04:45 Blood Gas Blood arterial Specimen Source Arterial Blood 12/18/2018 12:05 Date Drawn :48 AM Arterial Blood 7.426 pH (Temp corrected) Arterial Blood 35.2 pCO2 (Temp correct) Arterial Blood 80.2 pO2 (Temp corrected) Arterial Blood 22.6 HCO3 Arterial Blood -1.3 Base Excess Arterial Blood 94.9 L Oxygen Saturatio n Myke Test N/A Arterial Blood A-Line Gas Puncture Site Arterial 0.3 Blood Carboxyhem oglobin Arterial Blood 0.4 Methemoglobin Blood Gas A-a O2 308.9 H Differential Oxyhemoglobin 94.2 Percent Blood Gas 37.0 Temperature Blood Gas 14.0 Respiration Rate Blood Gas Actual 15 Respiration Rate Blood Gas VENT - AC Modality FiO2 60.0 Blood Gas Tidal 550.0 Volume Blood Gas Low 5.0 PEEP Setting Blood Gas 29.0 Inspiratory Pressure Blood Gas MM Notified Whom Blood Gas 12/18/2018 12:13 Notified Time :30 AM Bedside Glucose 261 H 280 H White Blood 8.1 Count Red Blood Count 3.08 L Hemoglobin 9.0 L Hematocrit 27.1 L Mean Corpuscular 88.0 Volume Mean Corpuscular 29.2 Hemoglobin Mean Corpuscular 33.2 Hemoglobin Nadine nt Red Cell 13.0 Distribution Width Platelet Count 216 Mean Platelet 9.8 Volume Immature 0.500 H Granulocytes % Neutrophils % 84.2 H Lymphocytes % 8.2 L Monocytes % 7.0 Eosinophils % 0.0 Basophils % 0.1 Nucleated Red 0.0 Blood Cells % Immature 0.040 H Granulocytes # Neutrophils # 6.8 Lymphocytes # 0.7 L Monocytes # 0.6 Eosinophils # 0.0 Basophils # 0.0 Nucleated Red 0.0 Blood Cells # Sodium Level 142 Potassium Level 3.9 Chloride Level 108 Carbon Dioxide 25 # Level Anion Gap 9 # Blood Urea 20 Nitrogen Creatinine 0.69 Est Glomerular > 60 Filtrat Rate mL/min Glucose Level 259 H Hemoglobin A1c 5.8 Calcium Level 8.9 Phosphorus Level 2.7 # Magnesium Level 2.1 Total Bilirubin 0.3 Direct Bilirubin 0.00 Indirect 0.3 Bilirubin Aspartate Amino 21 Transf (AST/SGOT ) Alanine 25 Aminotransferase (ALT/SGPT) Alkaline 52 Phosphatase Total Protein 6.6 # Albumin 2.8 L Globulin 3.80 H Albumin/Globulin 0.73 Ratio Thyroid 1.230 Stimulating Hormone (TSH) Test 12/18/18 05:45 12/18/18 09:24 12/18/18 11:00 12/18/18 12:57 Bedside Glucose 229 H 170 132 Blood Gas Blood arterial Specimen Source Arterial Blood 12/18/2018 10:50 Date Drawn :39 AM Arterial Blood 7.459 H pH (Temp corrected) Arterial Blood 34.7 L pCO2 (Temp correct) Arterial Blood 79.2 L pO2 (Temp corrected) Arterial Blood 24.1 HCO3 Arterial Blood 0.6 Base Excess Arterial Blood 95.1 Oxygen Saturatio n Myke Test N/A Arterial Blood A-Line Gas Puncture Site Arterial 0.3 Blood Carboxyhem oglobin Arterial Blood 0.4 Methemoglobin Blood Gas A-a O2 130.0 H Differential Oxyhemoglobin 94.4 Percent Blood Gas 37.0 Temperature Blood Gas Actual 21 Respiration Rate Blood Gas VENT - CPAP Modality FiO2 35.0 Blood Gas Low 5.0 PEEP Setting Blood Gas 10 Pressure Support Blood Gas TM Notified Whom Blood Gas 12/18/2018 10:58 Notified Time :14 AM Test 12/18/18 14:00 12/18/18 20:50 Blood Gas Blood arterial Specimen Source Arterial Blood 12/18/2018 2:31: Date Drawn 30 PM Arterial Blood 7.456 H pH (Temp corrected) Arterial Blood 36.3 pCO2 (Temp correct) Arterial Blood 75.9 L pO2 (Temp corrected) Arterial Blood 25.0 HCO3 Arterial Blood 1.3 Base Excess Arterial Blood 94.6 L Oxygen Saturatio n Myke Test N/A Arterial Blood A-Line Gas Puncture Site Arterial 0.3 Blood Carboxyhem oglobin Arterial Blood 0.4 Methemoglobin Blood Gas A-a O2 131.5 H Differential Oxyhemoglobin 93.9 Percent Blood Gas 37.0 Temperature Blood Gas Actual 24 Respiration Rate Blood Gas VENT - CPAP Modality FiO2 35.0 Blood Gas Low 5.0 PEEP Setting Blood Gas 10 Pressure Support Blood Gas TM Notified Whom Blood Gas 12/18/2018 2:41: Notified Time 11 PM Bedside Glucose 140 Exam/Review of Systems Vital Signs Vitals Vital Signs Date Temp Pulse Resp B/P (MAP) Pulse Ox O2 O2 Flow FiO2 Time Delivery Rate 12/18/18 78 26 90/59 (69) 94 Nasal 2.0 22:00 Cannula 12/18/18 98.2 21:00 12/18/18 35 15:00 Intake and Output 12/17/18 12/17/18 12/18/18 1515:00 23:00 07:00 IntakeIntake Total 1450 ml 860 ml OutputOutput Total 245 ml 1020 ml BalanceBalance 1205 ml -160 ml Medications Medications Current Medications Colchicine (Colchicine) 0.6 mg BID PO Last administered on 12/18/18at 20:56; Admin Dose 0.6 MG; Start 12/17/18 at 21:00 IV Flush (NS 3 ml) 3 ml PER PROTOCOL IV ; Start 12/17/18 at 16:30 Acetaminophen (Tylenol Tab) 650 mg Q6H PRN PO PAIN LEVEL 1-3 OR FEVER Last administered on 12/18/18at 21:43; Admin Dose 650 MG; Start 12/17/18 at 16:30 Acetaminophen (Tylenol Supp) 650 mg Q6H PRN [place] PAIN LEVEL 1-3 OR FEVER; Start 12/17/18 at 16:30 Oxycodone/ Acetaminophen (Percocet (5/ 325)) 1 tab Q6H PRN PO MODERATE PAIN LEVEL 4-6; Start 12/17/18 at 16:30 Docusate Sodium (Colace) 100 mg Q12H PRN PO CONSTIPATION; Start 12/17/18 at 16:30 Magnesium Hydroxide (Milk Of Mag) 30 ml DAILY PRN PO CONSTIPATION; Start 12/17/18 at 16:30 Bisacodyl (Dulcolax) 5 mg DAILY PRN PO CONSTIPATION; Start 12/17/18 at 16:30 Bisacodyl (Dulcolax Supp) 10 mg DAILY PRN [place] CONSTIPATION; Start 12/17/18 at 16:30 Diagnostic Test (Pha) (Accu-Chek) 1 ea 02 XX Last administered on 12/18/18at 02:00; Admin Dose 1 EA; Start 12/18/18 at 02:00 Insulin Aspart (Novolog Insulin Pen) NOVOLOG *MODERATE* ALGORI... Q4 SC Last administered on 12/18/18at 09:26; Admin Dose 2 UNIT; Start 12/17/18 at 17:00 Norepinephrine 250 ml @ 1.875 mls/ hr TITRATE IV ; Start 12/17/18 at 18:30 Phenylephrine HCl 250 ml @ 75 mls/hr TITRATE IV ; Start 12/17/18 at 18:30 Acetaminophen/ Hydrocodone Bitart ([place] (5/325)) 1 tab Q6H PRN PO PAIN LEVEL 6-10; Start 12/17/18 at 20:30 Ketorolac Tromethamine (Toradol) 30 mg Q6H PRN IV PAIN; Start 12/17/18 at 20:30; Stop 12/20/18 at 20:29 Acetaminophen (Tylenol Tab) 650 mg Q6H PRN PO MILD PAIN(1-3)OR ELEVATED TEMP; Start 12/17/18 at 20:30 Ondansetron HCl (Zofran Inj) 4 mg Q6H PRN IV NAUSEA AND/OR VOMITING Last administered on 12/18/18at 17:30; Admin Dose 4 MG; Start 12/17/18 at 20:30 Potassium Chloride/Dextrose/ Sod Cl 1,000 ml @ 100 mls/hr Q10H IV Last administered on 12/18/18at 19:25; Admin Dose 100 MLS/HR; Start 12/17/18 at 20:02 Enoxaparin Sodium (Lovenox) 40 mg DAILY@07 SC ; Start 12/18/18 at 07:00 Levalbuterol (Xopenex Neb) 1.25 mg ICU RECOVERY PRN HHN WHEEZING; Start 12/17/18 at 21:30 Ipratropium [place] (Atrovent 0.02% (Neb)) 0.5 mg ICU RECOVERY PRN HHN WHEEZING; Start 12/17/18 at 21:30 Ipratropium [place] (Atrovent Hfa) 4 puff Q6H RESP THERAPY INH Last admin istered on 12/18/18at 20:57; Admin Dose 4 PUFF; Start 12/18/18 at 02:00 Levalbuterol (Xopenex Hfa) 4 puff Q6H RESP THERAPY INH Last administered on 12/18/18 14:45; Admin Dose 4 PUFF; Start 12/18/18 at 02:00 Famotidine (Pepcid Iv) 20 mg BID IV Last administered on 12/18/18at 20:56; Admin Dose 20 MG; Start 12/17/18 at 23:30 Morphine Sulfate (morphine) 2 mg Q2H PRN IV PAIN LEVEL 6-10 Last administered on 12/18/18at 17:26; Admin Dose 2 MG; Start 12/17/18 at 23:45 Morphine Sulfate (morphine) 2 mg Q4H PRN IV SEVERE PAIN LEVEL 7-10; Start 12/17/18 at 23:45 Propofol 100 ml @ 2.604 mls/ hr Q12H IV Last administered on 12/18/18 06:13; Admin Dose 5.208 MLS/HR; Start 12/18/18 at 06:30 MICHAEL VELIZ MD Dec 18, 2018 23:25
[2018-12-18] MEDS ORDERED: SUMATRIPTAN 6 MG/0.5 ML INJ SC PRN (23:30)
[2018-12-19] VITALS (31 sets, daily range): BP systolic 40–125; BP diastolic 25–76; PULSE 73–89; RESP 12–35
[2018-12-19] MEDS: IPRATROPIUM (HFA) 12.9 GM INHALER INH SCH ×4 (01:36→20:02)
[2018-12-19] MEDS: INSULIN ASPART [NOVOLOG] 3 ML PEN SC SCH ×6 (01:42→20:47)
[2018-12-19] MEDS: ACCU-CHEK XX SCH (01:43)
[2018-12-19] MEDS: LEVALBUTEROL (HFA) 15 GM INHALER INH SCH ×4 (02:00→20:02)
[2018-12-19] MEDS: D5-NS + KCL 20 MEQ 1,000 ML IV SCH ×2 (05:20→16:59)
[2018-12-19] MEDS: PROPOFOL 100 ML IV SCH (05:24)
--- NOTE | 2018-12-19 07:26 | NUR ---
EOSS: Pt. did well overnight. A&Ox4 ([place]inid[place] speaking, understands/speaks little Frisian). Received pt. on 2L NC however throughout night had to increase O2 to 4L due to desaturations while sleeping. Pt. in normal sinus rhythm with minimal complaints of pain which were relieved with pain medications, most of the pain being from a headache, Dr. Lemons rounded overnight around ~2200 and made aware of headache complaints. Dr. Lemons also spoke with pt. and daughters who were present at bedside. No acute changes overnight. All information will be endorsed to day shift RN.
[2018-12-19] MEDS: COLCHICINE 0.6 MG TAB PO SCH ×2 (08:05→20:32)
[2018-12-19] MEDS: FAMOTIDINE 20 MG INJ IV SCH ×2 (08:05→20:32)
[2018-12-19] MEDS: ENOXAPARIN 40 MG/0.4 ML SYG SC SCH (08:15)
--- NOTE | 2018-12-19 09:50 | CONS ---
Date/Time of Note Date/Time of Note DATE: 12/19/18 TIME: 09:49 Assessment/Plan Assessment/Plan Hospital Course 1) pericarditis/pericardial effusion s/p pericardial window on 12/17/18 the likely diagnosis would be viral in origin I have ordered coxsackie A and B serology, echo virus serology, EBV, HIV I have also ordered mycoplasma fungal and TB are possible but less likely in lieu of relatively benign presentation for constitutional symptoms nonetheless I will order beta d glucan, cocci titers and histoplasma Ag (seen in [place]) her quant TB gold was neg before and so far the AFB cx are NGTD I will look for non infectious etiology as well with ESR, CRP, HODA her TSH was WNL so no sign of myxedema no further antibiotics at this time when she is done with her cefazolin prophylaxis 12/19 - ESR and CRP are not impressively elevated continue off antibiotics ok for steroids from ID perspective 2) DM 3) HTN Result Diagram: 12/19/18 0400 12/19/18 0428 Results 24hrs Laboratory Tests Test 12/18/18 11:00 12/18/18 12:57 12/18/18 14:00 12/18/18 20:50 Blood Gas Blood arterial Blood arterial Specimen Source Arterial Blood 12/18/2018 10:50 12/18/2018 2:31: Date Drawn :39 AM 30 PM Arterial Blood 7.459 H 7.456 H pH (Temp corrected) Arterial Blood 34.7 L 36.3 pCO2 (Temp correct) Arterial Blood 79.2 L 75.9 L pO2 (Temp corrected) Arterial Blood 24.1 25.0 HCO3 Arterial Blood 0.6 1.3 Base Excess Arterial Blood 95.1 94.6 L Oxygen Saturatio n Myke Test N/A N/A Arterial Blood A-Line A-Line Gas Puncture Site Arterial 0.3 0.3 Blood Carboxyhem oglobin Arterial Blood 0.4 0.4 Methemoglobin Blood Gas A-a O2 130.0 H 131.5 H Differential Oxyhemoglobin 94.4 93.9 Percent Blood Gas 37.0 37.0 Temperature Blood Gas Actual 21 24 Respiration Rate Blood Gas VENT - CPAP VENT - CPAP Modality FiO2 35.0 35.0 Blood Gas Low 5.0 5.0 PEEP Setting Blood Gas 10 10 Pressure Support Blood Gas TM TM Notified Whom Blood Gas 12/18/2018 10:58 12/18/2018 2:41: Notified Time :14 AM 11 PM Bedside Glucose 132 140 Test 12/19/18 01:35 12/19/18 04:00 12/19/18 04:28 12/19/18 05:20 Bedside Glucose 142 118 White Blood 10.0 # Count Red Blood Count 3.07 L Hemoglobin 8.8 L Hematocrit 28.2 L Mean Corpuscular 91.9 Volume Mean Corpuscular 28.7 L Hemoglobin Mean Corpuscular 31.2 L Hemoglobin Nadine nt Red Cell 13.4 Distribution Width Platelet Count 184 Mean Platelet 9.6 Volume Immature 0.300 Granulocytes % Neutrophils % 74.0 Lymphocytes % 17.8 Monocytes % 7.6 Eosinophils % 0.2 Basophils % 0.1 Nucleated Red 0.0 Blood Cells % Immature 0.030 Granulocytes # Neutrophils # 7.4 Lymphocytes # 1.8 Monocytes # 0.8 Eosinophils # 0.0 Basophils # 0.0 Nucleated Red 0.0 Blood Cells # Absolute 0.084 Reticulocyte Count Percent 2.7 H Reticulocyte Count Iron Level 16 L Total Iron 268 Binding Capacity Percent Iron 6 L Saturation Erythrocyte 37 H Sedimentation Rate Sodium Level 145 H Potassium Level 4.2 Chloride Level 115 H Carbon Dioxide 25 Level Anion Gap 5 Blood Urea 16 Nitrogen Creatinine 0.66 Est Glomerular > 60 Filtrat Rate mL/min Glucose Level 119 # Calcium Level 8.5 C-Reactive 2.6 H Protein Vitamin B12 356 Level Folate 12.4 HIV (1&2) NEGATIVE Antibody Consultation Date/Type/Reason Admit Date/Time Dec 17, 2018 at 14:27 Initial Consult Date 12/18/18 Type of Consult ID Requesting Provider: Pawel Plascencia DO 24 HR Interval Summary Free Text/Dictation pt has some pain at surgical site no N, V, D no SOB but pain with deep breathing Exam/Review of Systems Vital Signs Vitals Vital Signs Date Temp Pulse Resp B/P (MAP) Pulse Ox O2 O2 Flow FiO2 Time Delivery Rate 12/19/18 77 27 90/59 (69) 94 Nasal 2.0 06:00 Cannula 12/19/18 98.1 04:00 12/18/18 35 15:00 Intake and Output 12/18/18 12/18/18 12/19/18 1515:00 23:00 07:00 IntakeIntake Total 792 ml 820 ml 820 ml OutputOutput Total 705 ml 800 ml 460 ml BalanceBalance 87 ml 20 ml 360 ml Exam Constitutional: alert, oriented Eyes: nl sclera Respiratory: clear to auscultation Cardiovascular: regular rate and rhythm Gastrointestinal: soft, non-tender Medications Medications Current Medications Colchicine (Colchicine) 0.6 mg BID PO Last administered on 12/19/18at 08:05; Admin Dose 0.6 MG; Start 12/17/18 at 21:00 IV Flush (NS 3 ml) 3 ml PER PROTOCOL IV ; Start 12/17/18 at 16:30 Acetaminophen (Tylenol Tab) 650 mg Q6H PRN PO PAIN LEVEL 1-3 OR FEVER Last administered on 12/18/18at 21:43; Admin Dose 650 MG; Start 12/17/18 at 16:30 Acetaminophen (Tylenol Supp) 650 mg Q6H PRN [place] PAIN LEVEL 1-3 OR FEVER; Start 12/17/18 at 16:30 Oxycodone/ Acetaminophen (Percocet (5/ 325)) 1 tab Q6H PRN PO MODERATE PAIN LEVEL 4-6; Start 12/17/18 at 16:30 Docusate Sodium (Colace) 100 mg Q12H PRN PO CONSTIPATION; Start 12/17/18 at 16:30 Magnesium Hydroxide (Milk Of Mag) 30 ml DAILY PRN PO CONSTIPATION; Start 12/17/18 at 16:30 Bisacodyl (Dulcolax) 5 mg DAILY PRN PO CONSTIPATION; Start 12/17/18 at 16:30 Bisacodyl (Dulcolax Supp) 10 mg DAILY PRN [place] CONSTIPATION; Start 12/17/18 at 16:30 Diagnostic Test (Pha) (Accu-Chek) 1 ea 02 XX Last administered on 12/19/18at 01:43; Admin Dose 1 EA; Start 12/18/18 at 02:00 Insulin Aspart (Novolog Insulin Pen) NOVOLOG *MODERATE* ALGORI... Q4 SC Last administered on 12/19/18at 01:42; Admin Dose 2 UNIT; Start 12/17/18 at 17:00 Norepinephrine 250 ml @ 1.875 mls/ hr TITRATE IV ; Start 12/17/18 at 18:30 Phenylephrine HCl 250 ml @ 75 mls/hr TITRATE IV ; Start 12/17/18 at 18:30 Acetaminophen/ Hydrocodone Bitart ([place] (5/325)) 1 tab Q6H PRN PO PAIN LEVEL 6-10; Start 12/17/18 at 20:30 Ketorolac Tromethamine (Toradol) 30 mg Q6H PRN IV PAIN; Start 12/17/18 at 20:30; Stop 12/20/18 at 20:29 Acetaminophen (Tylenol Tab) 650 mg Q6H PRN PO MILD PAIN(1-3)OR ELEVATED TEMP; Start 12/17/18 at 20:30 Ondansetron HCl (Zofran Inj) 4 mg Q6H PRN IV NAUSEA AND/OR VOMITING Last administered on 12/18/18at 17:30; Admin Dose 4 MG; Start 12/17/18 at 20:30 Potassium Chloride/Dextrose/ Sod Cl 1,000 ml @ 100 mls/hr Q10H IV Last administered on 12/19/18 05:20; Admin Dose 100 MLS/HR; Start 12/17/18 at 20:02 Enoxaparin Sodium (Lovenox) 40 mg DAILY@07 SC Last administered on 12/19/18 08:15; Admin Dose 40 MG; Start 12/18/18 at 07:00 Levalbuterol (Xopenex Neb) 1.25 mg ICU RECOVERY PRN HHN WHEEZING; Start 12/17/18 at 21:30 Ipratropium [place] (Atrovent 0.02% (Neb)) 0.5 mg ICU RECOVERY PRN HHN WHEEZING; Start 12/17/18 at 21:30 Ipratropium [place] (Atrovent Hfa) 4 puff Q6H RESP THERAPY INH Last administered on 12/19/18 08:05; Admin Dose 4 PUFF; Start 12/18/18 at 02:00 Levalbuterol (Xopenex Hfa) 4 puff Q6H RESP THERAPY INH Last administered on 12/19/18 08:14; Admin Dose 4 PUFF; Start 12/18/18 at 02:00 Famotidine (Pepcid Iv) 20 mg BID IV Last administered on 12/19/18 08:05; Admin Dose 20 MG; Start 12/17/18 at 23:30 Morphine Sulfate (morphine) 2 mg Q2H PRN IV PAIN LEVEL 6-10 Last administered on 1/18/19at 17:26; Admin Dose 2 MG; Start 12/17/18 at 23:45 Morphine Sulfate (morphine) 2 mg Q4H PRN IV SEVERE PAIN LEVEL 7-10; Start 12/17/18 at 23:45 Propofol 100 ml @ 2.604 mls/ hr Q12H IV Last administered on 12/18/18at 06:13; Admin Dose 5.208 MLS/HR; Start 12/18/18 at 06:30 Sumatriptan Succinate (Imitrex) 6 mg ONCE PRN [place] HEADACHE; Start 12/18/18 at 23: 30 RAINER SANTIAGO MD Dec 19, 2018 09:50
[2018-12-19] MEDS: ONDANSETRON 4 MG INJ IV PRN (10:02)
--- NOTE | 2018-12-19 10:34 | PN ---
Date/Time of Note Date/Time of Note DATE: 12/19/18 TIME: 10:32 Assessment/Plan VTE Prophylaxis Risk score (from Ns)>0 risk: 7 SCD applied (from Ns): Yes Pharmacological prophylaxis: LMWH Lines/Catheters IV Catheter Type (from Nrsg): Central Line Central line still needed: Yes (venous access) Urinary Cath still in place: Yes Reason Cath still needed: other (indicate) (poorly mobile) Assessment/Plan Assessment/Plan Awake. Extubated. CXR some lower lobe atelectasis. Drainage 75cc. BP 95/74. Up in chair today. Result Diagram: 12/19/18 0400 12/19/18 0428 Results 24hrs Laboratory Tests Test 12/18/18 11:00 12/18/18 12:57 12/18/18 14:00 12/18/18 20:50 Blood Gas Blood arterial Blood arterial Specimen Source Arterial Blood 12/18/2018 10:50 12/18/2018 2:31: Date Drawn :39 AM 30 PM Arterial Blood 7.459 H 7.456 H pH (Temp corrected) Arterial Blood 34.7 L 36.3 pCO2 (Temp correct) Arterial Blood 79.2 L 75.9 L pO2 (Temp corrected) Arterial Blood 24.1 25.0 HCO3 Arterial Blood 0.6 1.3 Base Excess Arterial Blood 95.1 94.6 L Oxygen Saturatio n Myke Test N/A N/A Arterial Blood A-Line A-Line Gas Puncture Site Arterial 0.3 0.3 Blood Carboxyhem oglobin Arterial Blood 0.4 0.4 Methemoglobin Blood Gas A-a O2 130.0 H 131.5 H Differential Oxyhemoglobin 94.4 93.9 Percent Blood Gas 37.0 37.0 Temperature Blood Gas Actual 21 24 Respiration Rate Blood Gas VENT - CPAP VENT - CPAP Modality FiO2 35.0 35.0 Blood Gas Low 5.0 5.0 PEEP Setting Blood Gas 10 10 Pressure Support Blood Gas TM TM Notified Whom Blood Gas 12/18/2018 10:58 12/18/2018 2:41: Notified Time :14 AM 11 PM Bedside Glucose 132 140 Test 12/19/18 01:35 12/19/18 04:00 12/19/18 04:28 12/19/18 05:20 Bedside Glucose 142 118 White Blood 10.0 # Count Red Blood Count 3.07 L Hemoglobin 8.8 L Hematocrit 28.2 L Mean Corpuscular 91.9 Volume Mean Corpuscular 28.7 L Hemoglobin Mean Corpuscular 31.2 L Hemoglobin Nadine nt Red Cell 13.4 Distribution Width Platelet Count 184 Mean Platelet 9.6 Volume Immature 0.300 Granulocytes % Neutrophils % 74.0 Lymphocytes % 17.8 Monocytes % 7.6 Eosinophils % 0.2 Basophils % 0.1 Nucleated Red 0.0 Blood Cells % Immature 0.030 Granulocytes # Neutrophils # 7.4 Lymphocytes # 1.8 Monocytes # 0.8 Eosinophils # 0.0 Basophils # 0.0 Nucleated Red 0.0 Blood Cells # Absolute 0.084 Reticulocyte Count Percent 2.7 H Reticulocyte Count Iron Level 16 L Total Iron 268 Binding Capacity Percent Iron 6 L Saturation Erythrocyte 37 H Sedimentation Rate Sodium Level 145 H Potassium Level 4.2 Chloride Level 115 H Carbon Dioxide 25 Level Anion Gap 5 Blood Urea 16 Nitrogen Creatinine 0.66 Est Glomerular > 60 Filtrat Rate mL/min Glucose Level 119 # Calcium Level 8.5 C-Reactive 2.6 H Protein Vitamin B12 356 Level Folate 12.4 HIV (1&2) NEGATIVE Antibody Test 12/19/18 10:07 Bedside Glucose 115 Exam/Review of Systems Vital Signs Vitals Vital Signs Date Temp Pulse Resp B/P (MAP) Pulse Ox O2 O2 Flow FiO2 Time Delivery Rate 12/19/18 81 30 94/65 (75) 96 Nasal 4.0 09:00 Cannula 12/19/18 98.8 08:00 12/18/18 35 15:00 Intake and Output 12/18/18 12/18/18 12/19/18 1515:00 23:00 07:00 IntakeIntake Total 792 ml 820 ml 820 ml OutputOutput Total 705 ml 800 ml 530 ml BalanceBalance 87 ml 20 ml 290 ml Medications Medications Current Medications Colchicine (Colchicine) 0.6 mg BID PO Last administered on 12/19/18at 08:05; Admin Dose 0.6 MG; Start 12/17/18 at 21:00 IV Flush (NS 3 ml) 3 ml PER PROTOCOL IV ; Start 12/17/18 at 16:30 Acetaminophen (Tylenol Tab) 650 mg Q6H PRN PO PAIN LEVEL 1-3 OR FEVER Last administered on 12/18/18at 21:43; Admin Dose 650 MG; Start 12/17/18 at 16:30 Acetaminophen (Tylenol Supp) 650 mg Q6H PRN [place] PAIN LEVEL 1-3 OR FEVER; Start 12/17/18 at 16:30 Oxycodone/ Acetaminophen (Percocet (5/ 325)) 1 tab Q6H PRN PO MODERATE PAIN LEVEL 4-6; Start 12/17/18 at 16:30 Docusate Sodium (Colace) 100 mg Q12H PRN PO CONSTIPATION; Start 12/17/18 at 16:30 Magnesium Hydroxide (Milk Of Mag) 30 ml DAILY PRN PO CONSTIPATION; Start 12/17/18 at 16:30 Bisacodyl (Dulcolax) 5 mg DAILY PRN PO CONSTIPATION; Start 12/17/18 at 16:30 Bisacodyl (Dulcolax Supp) 10 mg DAILY PRN [place] CONSTIPATION; Start 12/17/18 at 16:30 Diagnostic Test (Pha) (Accu-Chek) 1 ea 02 XX Last administered on 12/19/18at 01:43; Admin Dose 1 EA; Start 12/18/18 at 02:00 Insulin Aspart (Novolog Insulin Pen) NOVOLOG *MODERATE* ALGORI... Q4 SC Last administered on 12/19/18at 01:42; Admin Dose 2 UNIT; Start 12/17/18 at 17:00 Norepinephrine 250 ml @ 1.875 mls/ hr TITRATE IV ; Start 12/17/18 at 18:30 Phenylephrine HCl 250 ml @ 75 mls/hr TITRATE IV ; Start 12/17/18 at 18:30 Acetaminophen/ Hydrocodone Bitart ([place] (5/325)) 1 tab Q6H PRN PO PAIN LEVEL 6-10; Start 12/17/18 at 20:30 Ketorolac Tromethamine (Toradol) 30 mg Q6H PRN IV PAIN Last administered on 12/19/18at 10:03; Admin Dose 30 MG; Start 12/17/18 at 20:30; Stop 12/20/18 at 20:29 Acetaminophen (Tylenol Tab) 650 mg Q6H PRN PO MILD PAIN(1-3)OR ELEVATED TEMP; Start 12/17/18 at 20:30 Ondansetron HCl (Zofran Inj) 4 mg Q6H PRN IV NAUSEA AND/OR VOMITING Last administered on 12/19/18at 10:02; Admin Dose 4 MG; Start 12/17/18 at 20:30 Potassium Chloride/Dextrose/ Sod Cl 1,000 ml @ 100 mls/hr Q10H IV Last administered on 12/19/18at 05:20; Admin Dose 100 MLS/HR; Start 12/17/18 at 20:02 Enoxaparin Sodium (Lovenox) 40 mg DAILY@07 SC Last administered on 12/19/18 08:15; Admin Dose 40 MG; Start 12/18/18 at 07:00 Levalbuterol (Xopenex Neb) 1.25 mg ICU RECOVERY PRN HHN WHEEZING; Start 12/17/18 at 21:30 Ipratropium [place] (Atrovent 0.02% (Neb)) 0.5 mg ICU RECOVERY PRN HHN WHEEZING; Start 12/17/18 at 21:30 Ipratropium [place] (Atrovent Hfa) 4 puff Q6H RESP THERAPY INH Last administered on 12/19/18at 08:05; Admin Dose 4 PUFF; Start 12/18/18 at 02:00 Levalbuterol (Xopenex Hfa) 4 puff Q6H RESP THERAPY INH Last administered on 12/19/18at 08:14; Admin Dose 4 PUFF; Start 12/18/18 at 02:00 Famotidine (Pepcid Iv) 20 mg BID IV Last administered on 12/19/18at 08:05; Admin Dose 20 MG; Start 12/17/18 at 23:30 Morphine Sulfate (morphine) 2 mg Q2H PRN IV PAIN LEVEL 6-10 Last administered on 12/18/18at 17:26; Admin Dose 2 MG; Start 12/17/18 at 23:45 Morphine Sulfate (morphine) 2 mg Q4H PRN IV SEVERE PAIN LEVEL 7-10; Start 12/17/18 at 23:45 Propofol 100 ml @ 2.604 mls/ hr Q12H IV Last administered on 12/18/18at 06:13; Admin Dose 5.208 MLS/HR; Start 12/18/18 at 06:30 Sumatriptan Succinate (Imitrex) 6 mg ONCE PRN SC HEADACHE; Start 12/18/18 at 23:30 JERMAINE GARAY MD Dec 19, 2018 10:34
[2018-12-19] MEDS ORDERED: GLUCOSE GEL 15 GRAM TUBE BUCCAL PRN (13:30)
[2018-12-19] MEDS ORDERED: DEXTROSE 50% 50 ML SYRINGE IV PRN ×2 (13:30)
[2018-12-19] MEDS ORDERED: GLUCOSE GEL 15 GRAM TUBE PO PRN ×2 (13:30)
[2018-12-19] MEDS ORDERED: GLUCAGON 1 MG INJ IM PRN (13:30)
[2018-12-19] MEDS: ACETAMINOPHEN 325 MG TAB PO PRN (14:15)
--- NOTE | 2018-12-19 15:49 | PN ---
Date/Time of Note Date/Time of Note DATE: 12/19/18 TIME: 15:45 Assessment/Plan VTE Prophylaxis Risk score (from Ns)>0 risk: 8 SCD applied (from Ns): Yes Pharmacological prophylaxis: LMWH Lines/Catheters IV Catheter Type (from Nrsg): Central Line Central line still needed: Yes Urinary Cath still in place: Yes Reason Cath still needed: urinary retention Assessment/Plan Hospital Course 53 yo with recurrent pericardial effusion who is s/p pericardial window, doing well. Assessment/Plan Impression: Recurrent pericardial effusion status post pericardial window 12/17/2018 Hypertension, with low/normal blood pressures Diabetes Recommendations: Patient undergoing infectious and rheumatological workup Will observe blood pressure for rise as she recovers Postoperative care, incentive spirometry Result Diagram: 12/19/18 0400 12/19/18 0428 Results 24hrs Laboratory Tests Test 12/18/18 20:50 12/19/18 01:35 12/19/18 04:00 12/19/18 04:28 Bedside Glucose 140 142 White Blood Count 10.0 # Red Blood Count 3.07 L Hemoglobin 8.8 L Hematocrit 28.2 L Mean Corpuscular 91.9 Volume Mean Corpuscular 28.7 L Hemoglobin Mean Corpuscular 31.2 L Hemoglobin Concent Red Cell 13.4 Distribution Width Platelet Count 184 Mean Platelet Volume 9.6 Immature 0.300 Granulocytes % Neutrophils % 74.0 Lymphocytes % 17.8 Monocytes % 7.6 Eosinophils % 0.2 Basophils % 0.1 Nucleated Red Blood 0.0 Cells % Immature 0.030 Granulocytes # Neutrophils # 7.4 Lymphocytes # 1.8 Monocytes # 0.8 Eosinophils # 0.0 Basophils # 0.0 Nucleated Red Blood 0.0 Cells # Absolute 0.084 Reticulocyte Count Percent Reticulocyte 2.7 H Count Iron Level 16 L Total Iron Binding 268 Capacity Percent Iron 6 L Saturation Serum HCG, NEGATIVE Qualitative Erythrocyte 37 H Sedimentation Rate Sodium Level 145 H Potassium Level 4.2 Chloride Level 115 H Carbon Dioxide Level 25 Anion Gap 5 Blood Urea Nitrogen 16 Creatinine 0.66 Est Glomerular > 60 Filtrat Rate mL/min Glucose Level 119 # Calcium Level 8.5 C-Reactive Protein 2.6 H Vitamin B12 Level 356 Folate 12.4 HIV (1&2) Antibody NEGATIVE Test 12/19/18 05:20 12/19/18 09:53 12/19/18 10:07 12/19/18 13:08 Bedside Glucose 118 115 133 Rheumatoid Factor NEGATIVE Screen Subjective 24 Hr Interval Summary Free Text/Dictation Mild pain the chest with coughing, otherwise doing okay. Exam/Review of Systems Vital Signs Vitals Vital Signs Date Temp Pulse Resp B/P (MAP) Pulse Ox O2 O2 Flow FiO2 Time Delivery Rate 12/19/18 83 25 103/67 93 Nasal 4.0 15:00 (79) Cannula 12/19/18 99.0 12:00 12/18/18 35 15:00 Intake and Output 12/18/18 12/18/18 12/19/18 1515:00 23:00 07:00 IntakeIntake Total 792 ml 820 ml 920 ml OutputOutput Total 705 ml 800 ml 530 ml BalanceBalance 87 ml 20 ml 390 ml Exam Constitutional: alert, oriented, obese Psych: no complaints, nl mood/affect Head: normocephalic, atraumatic Eyes: nl conjunctiva, EOMI, nl lids, nl sclera ENMT: nl external ears & nose, nl lips & teeth Neck: supple; No jvd, No bruits Respiratory: clear to auscultation (fair inspiratory effort), normal air movement Cardiovascular: regular rate and rhythm, nl pulses; No murmurs/extra sounds, No rub Gastrointestinal: soft, non-tender Musculoskeletal: nl extremities to inspection Extremities: normal pulses Neurological: nl mental status, nl speech Skin: nl turgor; No rash or lesions Medications Medications Current Medications Colchicine (Colchicine) 0.6 mg BID PO Last administered on 12/19/18at 08:05; Admin Dose 0.6 MG; Start 12/17/18 at 21:00 IV Flush (NS 3 ml) 3 ml PER PROTOCOL IV ; Start 12/17/18 at 16:30 Acetaminophen (Tylenol Tab) 650 mg Q6H PRN PO PAIN LEVEL 1-3 OR FEVER Last administered on 12/19/18at 14:15; Admin Dose 650 MG; Start 12/17/18 at 16:30 Acetaminophen (Tylenol Supp) 650 mg Q6H PRN [place] PAIN LEVEL 1-3 OR FEVER; Start 12/17/18 at 16:30 Oxycodone/ Acetaminophen (Percocet (5/ 325)) 1 tab Q6H PRN PO MODERATE PAIN LE RISHI 4-6; Start 12/17/18 at 16:30 Docusate Sodium (Colace) 100 mg Q12H PRN PO CONSTIPATION; Start 12/17/18 at 16:30 Magnesium Hydroxide (Milk Of Mag) 30 ml DAILY PRN PO CONSTIPATION; Start 12/17/18 at 16:30 Bisacodyl (Dulcolax) 5 mg DAILY PRN PO CONSTIPATION; Start 12/17/18 at 16:30 Bisacodyl (Dulcolax Supp) 10 mg DAILY PRN [place] CONSTIPATION; Start 12/17/18 at 16:30 Diagnostic Test (Pha) (Accu-Chek) 1 ea 02 XX Last administered on 12/19/18at 01:43; Admin Dose 1 EA; Start 12/18/18 at 02:00 Norepinephrine 250 ml @ 1.875 mls/ hr TITRATE IV ; Start 12/17/18 at 18:30 Phenylephrine HCl 250 ml @ 75 mls/hr TITRATE IV ; Start 12/17/18 at 18:30 Acetaminophen/ Hydrocodone Bitart ([place] (5/325)) 1 tab Q6H PRN PO PAIN LEVEL 6-10; Start 12/17/18 at 20:30 Ketorolac Tromethamine (Toradol) 30 mg Q6H PRN IV PAIN Last administered on 12/19/18at 10:03; Admin Dose 30 MG; Start 12/17/18 at 20:30; Stop 12/20/18 at 20:29 Acetaminophen (Tylenol Tab) 650 mg Q6H PRN PO MILD PAIN(1-3)OR ELEVATED TEMP; Start 12/17/18 at 20:30 Ondansetron HCl (Zofran Inj) 4 mg Q6H PRN IV NAUSEA AND/OR VOMITING Last administered on 12/19/18at 10:02; Admin Dose 4 MG; Start 12/17/18 at 20:30 Potassium Chloride/Dextrose/ Sod Cl 1,000 ml @ 100 mls/hr Q10H IV Last administered on 12/19/18at 05:20; Admin Dose 100 MLS/HR; Start 12/17/18 at 20:02 Enoxaparin Sodium (Lovenox) 40 mg DAILY@07 SC Last administered on 12/19/18at 08:15; Admin Dose 40 MG; Start 12/18/18 at 07:00 Levalbuterol (Xopenex Neb) 1.25 mg ICU RECOVERY PRN HHN WHEEZING; Start 12/17/18 at 21:30 Ipratropium [place] (Atrovent 0.02% (Neb)) 0.5 mg ICU RECOVERY PRN HHN WHEEZING; Start 12/17/18 at 21:30 Ipratropium [place] (Atrovent Hfa) 4 puff Q6H RESP THERAPY INH Last administered on 12/19/18at 08:05; Admin Dose 4 PUFF; Start 12/18/18 at 02:00 Levalbuterol (Xopenex Hfa) 4 puff Q6H RESP THERAPY INH Last administered on 12/19/18at 08:14; Admin Dose 4 PUFF; Start 12/18/18 at 02:00 Famotidine (Pepcid Iv) 20 mg BID IV Last administered on 12/19/18at 08:05; Admin Dose 20 MG; Start 12/17/18 at 23:30 Morphine Sulfate (morphine) 2 mg Q2H PRN IV PAIN LEVEL 6-10 Last administered on 12/18/18at 17:26; Admin Dose 2 MG; Start 12/17/18 at 23:45 Morphine Sulfate (morphine) 2 mg Q4H PRN IV SEVERE PAIN LEVEL 7-10; Start 12/17/18 at 23:45 Propofol 100 ml @ 2.604 mls/ hr Q12H IV Last administered on 12/18/18at 06:13; Admin Dose 5.208 MLS/HR; Start 12/18/18 at 06:30 Sumatriptan Succinate (Imitrex) 6 mg ONCE PRN SC HEADACHE; Start 12/18/18 at 23:30 Insulin Aspart (Novolog Insulin Pen) NOVOLOG *MODERATE* ALGORITHM WITH MEALS BEDTIME SC ; Start 12/19/18 at 17:35 Miscellaneous Information 1 ea NOTE XX ; Start 12/19/18 at 13:30 Glucose (Glutose) 15 gm Q15M PRN PO DECREASED GLUCOSE; Start 12/19/18 at 13:30 Glucose (Glutose) 22.5 gm Q15M PRN PO DECREASED GLUCOSE; Start 12/19/18 at 13:30 Dextrose (D50w Syringe) 25 ml Q15M PRN IV DECREASED GLUCOSE; Start 12/19/18 at 13:30 Dextrose (D50w Syringe) 50 ml Q15M PRN IV DECREASED GLUCOSE; Start 12/19/18 at 13:30 Glucagon (Glucagen) 1 mg Q15M PRN IM DECREASED GLUCOSE; Start 12/19/18 at 13:30 Glucose (Glutose) 15 gm Q15M PRN BUCCAL DECREASED GLUCOSE; Start 12/19/18 at 13:30 FAISAL JOE Dec 19, 2018 15:49
--- NOTE | 2018-12-19 17:10 | PN ---
Date/Time of Note Date/Time of Note DATE: 12/19/18 TIME: 17:08 Assessment/Plan VTE Prophylaxis Risk score (from [facility])>0 risk: 8 SCD applied (from [facility]): Yes SCD contraindicated: low risk/ambulating Pharmacological prophylaxis: NA/contraindicated Pharm contraindication: surgical contra Lines/Catheters IV Catheter Type (from [facility] Central Line Central line still needed: Yes Urinary Cath still in place: Yes Reason Cath still needed: urinary retention Assessment/Plan Hospital Course Assessment and plan 1. Recurrent pericardial effusion, stable sp pericardial window. etio, likely viral, cont supportive care; pending viral/ fungal studies. 2. Type 2 diabetes/metabolic syndrome stable observe 3. Anemia stable observe 4. Possible migraines, may try Imitrex Subjective: 12/18 extubated some dysphagia occasional headache, which may be associate with photophobia and nausea 12/19: No distress improving. Appreciate eventually T assistance. Viral fungal studies pending. Rheumatology has recommended to start prednisone Objective: Vital signs stable Physical exam No pallor JVD Regular faint or distant no m/r/g Diminished but clear Benign No edema Result Diagram: 12/19/18 0400 12/19/18 0428 Results 24hrs Laboratory Tests Test 12/18/18 20:50 12/19/18 01:35 12/19/18 04:00 12/19/18 04:28 Bedside Glucose 140 142 White Blood Count 10.0 # Red Blood Count 3.07 L Hemoglobin 8.8 L Hematocrit 28.2 L Mean Corpuscular 91.9 Volume Mean Corpuscular 28.7 L Hemoglobin Mean Corpuscular 31.2 L Hemoglobin Concent Red Cell 13.4 Distribution Width Platelet Count 184 Mean Platelet Volume 9.6 Immature 0.300 Granulocytes % Neutrophils % 74.0 Lymphocytes % 17.8 Monocytes % 7.6 Eosinophils % 0.2 Basophils % 0.1 Nucleated Red Blood 0.0 Cells % Immature 0.030 Granulocytes # Neutrophils # 7.4 Lymphocytes # 1.8 Monocytes # 0.8 Eosinophils # 0.0 Basophils # 0.0 Nucleated Red Blood 0.0 Cells # Absolute 0.084 Reticulocyte Count Percent Reticulocyte 2.7 H Count Iron Level 16 L Total Iron Binding 268 Capacity Percent Iron 6 L Saturation Serum HCG, NEGATIVE Qualitative Erythrocyte 37 H Sedimentation Rate Sodium Level 145 H Potassium Level 4.2 Chloride Level 115 H Carbon Dioxide Level 25 Anion Gap 5 Blood Urea Nitrogen 16 Creatinine 0.66 Est Glomerular > 60 Filtrat Rate mL/min Glucose Level 119 # Calcium Level 8.5 C-Reactive Protein 2.6 H Vitamin B12 Level 356 Folate 12.4 HIV (1&2) Antibody NEGATIVE Test 12/19/18 05:20 12/19/18 09:53 12/19/18 10:07 12/19/18 13:08 Bedside Glucose 118 115 133 Rheumatoid Factor NEGATIVE Screen Exam/Review of Systems Vital Signs Vitals Vital Signs Date Temp Pulse Resp B/P (MAP) Pulse Ox O2 O2 Flow FiO2 Time Delivery Rate 12/19/18 4.0 17:00 12/19/18 82 16:00 12/19/18 98.4 12 106/67 95 Nasal 16:00 (80) Cannula 12/18/18 35 15:00 Intake and Output 12/18/18 12/18/18 12/19/18 1414:59 22:59 06:59 IntakeIntake Total 802 ml 820 ml 920 ml OutputOutput Total 805 ml 700 ml 560 ml BalanceBalance -3 ml 120 ml 360 ml Medications Medications Current Medications Colchicine (Colchicine) 0.6 mg BID PO Last administered on 12/19/18at 08:05; Admin Dose 0.6 MG; Start 12/17/18 at 21:00 IV Flush (NS 3 ml) 3 ml PER PROTOCOL IV ; Start 12/17/18 at 16:30 Acetaminophen (Tylenol Tab) 650 mg Q6H PRN PO PAIN LEVEL 1-3 OR FEVER Last administered on 12/19/18at 14:15; Admin Dose 650 MG; Start 12/17/18 at 16:30 Acetaminophen (Tylenol Supp) 650 mg Q6H PRN [place] PAIN LEVEL 1-3 OR FEVER; Start 12/17/18 at 16:30 Oxycodone/ Acetaminophen (Percocet (5/ 325)) 1 tab Q6H PRN PO MODERATE PAIN LEVEL 4-6; Start 12/17/18 at 16:30 Docusate Sodium (Colace) 100 mg Q12H PRN PO CONSTIPATION; Start 12/17/18 at 16:30 Magnesium Hydroxide (Milk Of Mag) 30 ml DAILY PRN PO CONSTIPATION; Start 12/17/18 at 16:30 Bisacodyl (Dulcolax) 5 mg DAILY PRN PO CONSTIPATION; Start 12/17/18 at 16:30 Bisacodyl (Dulcolax Supp) 10 mg DAILY PRN [place] CONSTIPATION; Start 12/17/18 at 16:30 Diagnostic Test (Pha) (Accu-Chek) 1 ea 02 XX Last administered on 12/19/18at 01:43; Admin Dose 1 EA; Start 12/18/18 at 02:00 Norepinephrine 250 ml @ 1.875 mls/ hr TITRATE IV ; Start 12/17/18 at 18:30 Phenylephrine HCl 250 ml @ 75 mls/hr TITRATE IV ; Start 12/17/18 at 18:30 Acetaminophen/ Hydrocodone Bitart ([place] (5/325)) 1 tab Q6H PRN PO PAIN LEVEL 6-10; Start 12/17/18 at 20:30 Ketorolac Tromethamine (Toradol) 30 mg Q6H PRN IV PAIN Last administered on 12/19/18at 10:03; Admin Dose 30 MG; Start 12/17/18 at 20:30; Stop 12/20/18 at 20:29 Acetaminophen (Tylenol Tab) 650 mg Q6H PRN PO MILD PAIN(1-3)OR ELEVATED TEMP; Start 12/17/18 at 20:30 Ondansetron HCl (Zofran Inj) 4 mg Q6H PRN IV NAUSEA AND/OR VOMITING Last administered on 12/19/18at 10:02; Admin Dose 4 MG; Start 12/17/18 at 20:30 Potassium Chloride/Dextrose/ Sod Cl 1,000 ml @ 100 mls/hr Q10H IV Last administered on 12/19/18at 16:59; Admin Dose 100 MLS/HR; Start 12/17/18 at 20:02 Enoxaparin Sodium (Lovenox) 40 mg DAILY@07 SC Last administered on 12/19/18at 08:15; Admin Dose 40 MG; Start 12/18/18 at 07:00 Levalbuterol (Xopenex Neb) 1.25 mg ICU RECOVERY PRN HHN WHEEZING; Start 12/17/18 at 21:30 Ipratropium [place] (Atrovent 0.02% (Neb)) 0.5 mg ICU RECOVERY PRN HHN WHEEZING; Start 12/17/18 at 21:30 Ipratropium [place] (Atrovent Hfa) 4 puff Q6H RESP THERAPY INH Last administe red on 12/19/18at 15:55; Admin Dose 4 PUFF; Start 12/18/18 at 02:00 Levalbuterol (Xopenex Hfa) 4 puff Q6H RESP THERAPY INH Last administered on 12/19/18at 15:55; Admin Dose 4 PUFF; Start 12/18/18 at 02:00 Famotidine (Pepcid Iv) 20 mg BID IV Last administered on 12/19/18at 08:05; Admin Dose 20 MG; Start 12/17/18 at 23:30 Morphine Sulfate (morphine) 2 mg Q2H PRN IV PAIN LEVEL 6-10 Last administered on 12/18/18at 17:26; Admin Dose 2 MG; Start 12/17/18 at 23:45 Morphine Sulfate (morphine) 2 mg Q4H PRN IV SEVERE PAIN LEVEL 7-10; Start 12/17/18 at 23:45 Propofol 100 ml @ 2.604 mls/ hr Q12H IV Last administered on 12/18/18at 06:13; Admin Dose 5.208 MLS/HR; Start 12/18/18 at 06:30 Sumatriptan Succinate (Imitrex) 6 mg ONCE PRN SC HEADACHE; Start 12/18/18 at 23:30 Insulin Aspart (Novolog Insulin Pen) NOVOLOG *MODERATE* ALGORITHM WITH MEALS BEDTIME SC ; Start 12/19/18 at 17:35 Miscellaneous Information 1 ea NOTE XX ; Start 12/19/18 at 13:30 Glucose (Glutose) 15 gm Q15M PRN PO DECREASED GLUCOSE; Start 12/19/18 at 13:30 Glucose (Glutose) 22.5 gm Q15M PRN PO DECREASED GLUCOSE; Start 12/19/18 at 13:30 Dextrose (D50w Syringe) 25 ml Q15M PRN IV DECREASED GLUCOSE; Start 12/19/18 at 13:30 Dextrose (D50w Syringe) 50 ml Q15M PRN IV DECREASED GLUCOSE; Start 12/19/18 at 13:30 Glucagon (Glucagen) 1 mg Q15M PRN IM DECREASED GLUCOSE; Start 12/19/18 at 13:30 Glucose (Glutose) 15 gm Q15M PRN BUCCAL DECREASED GLUCOSE; Start 12/19/18 at 13:30 MICHAEL VELIZ MD Dec 19, 2018 17:10
[2018-12-19] MEDS: predniSONE 20 MG TAB PO SCH (18:48)
--- NOTE | 2018-12-19 18:54 | NUR ---
END OF SHIFT NOTE. PT A0X4. CURRENTLY SITTING ON CHAIR EATING DINNER. TELE ORDERS FOR TRANSFER TO [facility] 502. PT WITH CHEST RENY DRAIN, 20ML SEROSANG FROM SHIFT. PT SR 70-80S, SBP 90-100S. TORADOL GIVEN FOR PAIN X i, EFFECTIVE. TYLENOL GIVEN FOR HEADACHE X i, EFFECTIVE. PT ABLE TO USE INCENTIVE SPIROMETER, 10X q1H WHEN AWAKE, 250ML VOLUME. PT TURNED Q2H, NO NEW SKIN BREAKDOWNS.
--- NOTE | 2018-12-19 23:27 | NUR ---
TRANSFER TO ROOM 502 Report given to MADELEINE Alexander @ 0. Pt. escorted by MADELEINE Reyes and transportation services. Twin daughters present at bedside and aware of transfer. Pt. did well during short time I cared for her tonight. Pt. A&Ox4, in sinus rhythm, saturating in mid 90s on 4L NC, pt. desaturated upon transfer from chair to bed but saturations came up once situated in bed. Breathing treatments given, 2100 medications given, no coverage was given for blood glucose. Nur bag emptied @ 2200. Inhalers x2 and Novolog pen sent to floor with chart upon transfer. No acute changes. Dr. Jade called unit while pt. was being transferred; all questions answered, notified physician pt. has been transferred to Room 502, said he will try to come see her at bedside tomorrow (Wednesday 12/20). All information has been endorsed to tele nurse- MADELEINE Alexander.
[2018-12-20] VITALS (10 sets, daily range): BP systolic 107–122; BP diastolic 61–71; PULSE 81–92; RESP 16–19
[2018-12-20] MEDS: ACCU-CHEK XX SCH (02:00)
[2018-12-20] MEDS: D5-NS + KCL 20 MEQ 1,000 ML IV SCH ×3 (07:09→17:49)
[2018-12-20] MEDS: ENOXAPARIN 40 MG/0.4 ML SYG SC SCH (07:14)
--- NOTE | 2018-12-20 07:20 | PN ---
Date/Time of Note Date/Time of Note DATE: 12/20/18 TIME: 07:19 Assessment/Plan Lines/Catheters IV Catheter Type (from [facility]): Central Line Nur in Place (from [facility]): Yes Assessment/Plan Chief Complaint/Hosp Course RENY 55cc. cytology negative and previous cultures negative. check ct chest, cxr shows bilat infiltrates. send cocci titers and check quantiferon gold. Exam/Review of Systems Vital Signs Vitals Vital Signs Date Temp Pulse Resp B/P (MAP) Pulse Ox O2 O2 Flow FiO2 Time Delivery Rate 12/20/18 85 04:03 12/20/18 98.0 18 122/71 93 04:00 (88) 12/20/18 4.0 02:56 12/20/18 Nasal 02:00 Cannula 12/18/18 35 15:00 Intake and Output 12/19/18 12/19/18 12/20/18 1515:00 23:00 07:00 IntakeIntake Total 960 ml 320 ml 250 ml OutputOutput Total 360 ml 365 ml 305 ml BalanceBalance 600 ml -45 ml -55 ml Results Result Diagram: 12/20/18 0551 12/19/18 0428 CHERI TEJEDA MD Dec 20, 2018 07:20
--- NOTE | 2018-12-20 07:44 | NUR ---
RN NOTES: CAME FROM ICU AT 2300. RECEIVED REPORT FROM ANNA/ICU-RN. PT AAOX4. TOLERABLE PAIN 4/10 ON MIDCHEST WITHOUT PAIN MEDICATION NEEDS. DAUGHTERS CAME WITH PT AND STAYED OVER NIGHT. RENY ON MIDABDOMEN ON SUCTION CONDITION. MIDCHEST SURGICAL WOUND DRY AND NO BLEEDING. EMPTIED 100CC OUTPUT FROM RENY, TOTAL SHIFT 200ML INCLUDING OF ICU'S. F/C TO [facility]. PHOTOS ON SKIN TAKEN ON RECEIVING PT. IS AT BEDSIDE, PT ABLE TO DEMONSTRATING 500ML ON INCENTIVE SPIROMETER. ENDORSED.
[2018-12-20] MEDS: INSULIN ASPART [NOVOLOG] 3 ML PEN SC SCH ×4 (07:54→21:11)
[2018-12-20] MEDS: IPRATROPIUM (HFA) 12.9 GM INHALER INH SCH ×3 (08:00→14:09)
[2018-12-20] MEDS: LEVALBUTEROL (HFA) 15 GM INHALER INH SCH ×3 (08:00→14:09)
[2018-12-20] MEDS: predniSONE 20 MG TAB PO SCH (08:16)
[2018-12-20] MEDS: ACETAMINOPHEN 325 MG TAB PO PRN ×2 (08:16→17:49)
[2018-12-20] MEDS: FAMOTIDINE 20 MG INJ IV SCH ×2 (08:16→21:08)
[2018-12-20] MEDS ORDERED: SOD CHLORIDE 0.9% 100 ML ONE (08:50)
[2018-12-20] MEDS ORDERED: IOHEXOL 300MG/ML 150 ML BTL ONE (08:50)
--- NOTE | 2018-12-20 08:56 | NUR ---
SENT TRANSPORT TO [facility] FOR CT CHEST WITH IV CONTRAST. MT CALLED AND STATED THAT PT WAS EATING AND ALSO FELT NAUSEOUS. MADELEINE COVARRUBIAS STATED PT ATE 80% OF BREAKFAST TRAY. ADVISED TO KEEP PT NPO FOR 2 HOURS AND WE WILL RETURN AFTER 2 HOURS, AND WHEN MT AVAIL, TO SCAN PT.
[2018-12-20] MEDS: COLCHICINE 0.6 MG TAB PO SCH ×3 (09:00→21:09)
--- NOTE | 2018-12-20 12:10 | CONS ---
Date/Time of Note Date/Time of Note DATE: 12/20/18 TIME: 12:05 Consult Date/Type/Reason Admit Date/Time Dec 17, 2018 at 14:27 Initial Consult Date 12/18/18 Type of Consultation: Rheum Requesting Provider: Pawel Plascencia DO Subjective Still with some discomfort when takes deep breath and when trying to sit up more erect. Some cough. Feels better than yesterday, however. Objective Vital Signs Date Temp Pulse Resp B/P (MAP) Pulse Ox O2 O2 Flow FiO2 Time Delivery Rate 12/20/18 86 12:00 12/20/18 98.3 18 117/68 92 Nasal 3.0 11:27 (84) Cannula 12/18/18 35 15:00 Intake and Output 12/19/18 12/19/18 12/20/18 1414:59 22:59 06:59 IntakeIntake Total 960 ml 420 ml 250 ml OutputOutput Total 400 ml 395 ml 305 ml BalanceBalance 560 ml 25 ml -55 ml Exam GENERAL: No acute distress at present, alert, oriented. SKIN: Without rashes. HEENT: Without acute oral or ocular lesions. NECK: Without lymphadenopathy. CHEST: Decreased breath sounds. HEART: Regular rate. No murmurs noted. ABDOMEN: Soft without masses or tenderness. MUSCULOSKELETAL: Joints with good range of motion, no synovitis or tenderness. NEUROLOGIC: Grossly intact. EXTREMITIES: No cyanosis edema. Results/Medications Result Diagram: 12/20/18 0551 12/20/18 0549 Results 24 hrs Laboratory Tests Test 12/19/18 13:08 12/19/18 18:14 12/19/18 20:45 12/20/18 05:49 Bedside Glucose 133 128 141 Sodium Level 143 Potassium Level 4.5 Chloride Level 114 H Carbon Dioxide Level 25 Anion Gap 4 L Blood Urea Nitrogen 14 Creatinine 0.63 Est Glomerular > 60 Filtrat Rate mL/min Glucose Level 118 Calcium Level 8.4 Test 12/20/18 05:51 12/20/18 07:52 12/20/18 11:54 White Blood Count 7.6 # Red Blood Count 3.04 L Hemoglobin 8.9 L Hematocrit 28.0 L Mean Corpuscular 92.1 Volume Mean Corpuscular 29.3 Hemoglobin Mean Corpuscular 31.8 L Hemoglobin Concent Red Cell 13.2 Distribution Width Platelet Count 180 Mean Platelet Volume 9.9 Immature 0.700 H Granulocytes % Neutrophils % 75.6 Lymphocytes % 16.1 Monocytes % 7.4 Eosinophils % 0.1 Basophils % 0.1 Nucleated Red Blood 0.0 Cells % Immature 0.050 H Granulocytes # Neutrophils # 5.7 Lymphocytes # 1.2 Monocytes # 0.6 Eosinophils # 0.0 Basophils # 0.0 Nucleated Red Blood 0.0 Cells # Magnesium Level 1.8 Bedside Glucose 105 154 Medications Current Medications Colchicine (Colchicine) 0.6 mg BID PO Last administered on 12/19/18at 20:32; Admin Dose 0.6 MG; Start 12/17/18 at 21:00 IV Flush (NS 3 ml) 3 ml PER PROTOCOL IV ; Start 12/17/18 at 16:30 Acetaminophen (Tylenol Tab) 650 mg Q6H PRN PO PAIN LEVEL 1-3 OR FEVER Last administered on 12/20/18at 08:16; Admin Dose 650 MG; Start 12/17/18 at 16:30 Acetaminophen (Tylenol Supp) 650 mg Q6H PRN [place] PAIN LEVEL 1-3 OR FEVER; Start 12/17/18 at 16:30 Oxycodone/ Acetaminophen (Percocet (5/ 325)) 1 tab Q6H PRN PO MODERATE PAIN LEVEL 4-6; Start 12/17/18 at 16:30 Docusate Sodium (Colace) 100 mg Q12H PRN PO CONSTIPATION; Start 12/17/18 at 16:30 Magnesium Hydroxide (Milk Of Mag) 30 ml DAILY PRN PO CONSTIPATION; Start 12/01 06/18 at 16:30 Bisacodyl (Dulcolax) 5 mg DAILY PRN PO CONSTIPATION; Start 12/17/18 at 16:30 Bisacodyl (Dulcolax Supp) 10 mg DAILY PRN [place] CONSTIPATION; Start 12/17/18 at 16:30 Diagnostic Test (Pha) (Accu-Chek) 1 ea 02 XX Last administered on 12/19/18at 01:43; Admin Dose 1 EA; Start 12/18/18 at 02:00 Acetaminophen/ Hydrocodone Bitart ([place] (5/325)) 1 tab Q6H PRN PO PAIN LEVEL 6-10; Start 12/17/18 at 20:30 Ketorolac Tromethamine (Toradol) 30 mg Q6H PRN IV PAIN Last administered on 12/19/18 10:03; Admin Dose 30 MG; Start 12/17/18 at 20:30; Stop 12/20/18 at 20:29 Acetaminophen (Tylenol Tab) 650 mg Q6H PRN PO MILD PAIN(1-3)OR ELEVATED TEMP; Start 12/17/18 at 20:30 Ondansetron HCl (Zofran Inj) 4 mg Q6H PRN IV NAUSEA AND/OR VOMITING Last administered on 12/19/18 10:02; Admin Dose 4 MG; Start 12/17/18 at 20:30 Potassium Chloride/Dextrose/ Sod Cl 1,000 ml @ 100 mls/hr Q10H IV Last admini stered on 12/20/18 07:09; Admin Dose 100 MLS/HR; Start 12/17/18 at 20:02 Enoxaparin Sodium (Lovenox) 40 mg DAILY@07 SC Last administered on 12/20/18 07:14; Admin Dose 40 MG; Start 12/18/18 at 07:00 Levalbuterol (Xopenex Neb) 1.25 mg ICU RECOVERY PRN HHN WHEEZING; Start 12/17/18 at 21:30 Ipratropium [place] (Atrovent 0.02% (Neb)) 0.5 mg ICU RECOVERY PRN HHN WHEEZING; Start 12/17/18 at 21:30 Ipratropium [place] (Atrovent Hfa) 4 puff Q6H RESP THERAPY INH Last administered on 12/20/18 08:00; Admin Dose 0 PUFF; Start 12/18/18 at 02:00 Levalbuterol (Xopenex Hfa) 4 puff Q6H RESP THERAPY INH Last administered on 12/20/18 08:00; Admin Dose 0 PUFF; Start 12/18/18 at 02:00 Famotidine (Pepcid Iv) 20 mg BID IV Last administered on 12/20/18 08:16; Admin Dose 20 MG; Start 12/17/18 at 23:30 Morphine Sulfate (morphine) 2 mg Q2H PRN IV PAIN LEVEL 6-10 Last administered on 12/18/18 17:26; Admin Dose 2 MG; Start 12/17/18 at 23:45 Morphine Sulfate (morphine) 2 mg Q4H PRN IV SEVERE PAIN LEVEL 7-10; Start 12/17/18 at 23:45 Sumatriptan Succinate (Imitrex) 6 mg ONCE PRN SC HEADACHE; Start 12/18/18 at 23:30 Insulin Aspart (Novolog Insulin Pen) NOVOLOG *MODERATE* ALGORITHM WITH MEALS BEDTIME SC Last administered on 12/20/18at 12:02; Admin Dose 2 UNIT; Start 12/19/18 at 17:35 Miscellaneous Information 1 ea NOTE XX ; Start 12/19/18 at 13:30 Glucose (Glutose) 15 gm Q15M PRN PO DECREASED GLUCOSE; Start 12/19/18 at 13:30 Glucose (Glutose) 22.5 gm Q15M PRN PO DECREASED GLUCOSE; Start 12/19/18 at 13:30 Dextrose (D50w Syringe) 25 ml Q15M PRN IV DECREASED GLUCOSE; Start 12/19/18 at 13:30 Dextrose (D50w Syringe) 50 ml Q15M PRN IV DECREASED GLUCOSE; Start 12/19/18 at 13:30 Glucagon (Glucagen) 1 mg Q15M PRN IM DECREASED GLUCOSE; Start 12/19/18 at 13:30 Glucose (Glutose) 15 gm Q15M PRN BUCCAL DECREASED GLUCOSE; Start 12/19/18 at 13:30 Prednisone (Prednisone) 20 mg DAILY PO Last administered on 12/20/18at 08:16; Admin Dose 20 MG; Start 12/19/18 at 17:30 Assessment/Plan Chief Complaint/Hosp Course ASSESSMENT: 1. Pericarditis with pericardial effusion, unclear etiology. No evidence so far of bacterial infection or tuberculosis and final fungal cultures are pending. No evidence of neoplastic process with negative cytology of the fluid. Viral etiology is still a possibility. We would consider an autoimmune etiology as well, although has no prior evidence of autoimmune condition. However, she did come with substantial anemia which may have reflected a more chronic process inflammatory process. 2. Anemia of unclear etiology. The patient denies a history of gastrointestinal bleeding. It is possible that it is connected to a more chronic autoimmune process. 3. Hypertension, stable. 4. Diabetes mellitus, stable. RECOMMENDATIONS: 1. Various laboratory studies pending. 2. Continue prednisone 20 mg daily for now [place] IVEY MD Dec 20, 2018 12:10
--- NOTE | 2018-12-20 12:41 | PN ---
Date/Time of Note Date/Time of Note DATE: 12/20/18 TIME: 12:40 Assessment/Plan VTE Prophylaxis Risk score (from Ns)>0 risk: 2 SCD applied (from [facility] [place]): Yes SCD contraindicated: low risk/ambulating Pharmacological prophylaxis: NA/contraindicated Pharm contraindication: surgical contra Lines/Catheters IV C[facility]ter Type (from [facility]): Central Line Central line still needed: Yes Urinary Cath still in place: Yes Reason Cath still needed: urinary retention Assessment/Plan Hospital Course Assessment and plan 1. Recurrent pericardial effusion, stable sp pericardial window. etio, likely viral, cont supportive care; pending viral/ fungal studies. 2. Type 2 diabetes/metabolic syndrome stable observe 3. Anemia stable observe 4. Possible migraines, may try Imitrex 4. Abn cxr? Subjective: 12/18 extubated some dysphagia occasional headache, which may be associate with photophobia and nausea 12/19: No distress improving. Appreciate eventually T assistance. Viral fungal studies pending. Rheumatology has recommended to start prednisone 12/20: non productive cough O: Vital signs stable Physical exam No pallor JVD Regular faint or distant no m/r/g Diminished but clear Benign No edema Result Diagram: 12/20/18 0551 12/20/18 0549 Results 24hrs Laboratory Tests Test 12/19/18 13:08 12/19/18 18:14 12/19/18 20:45 12/20/18 05:49 Bedside Glucose 133 128 141 Sodium Level 143 Potassium Level 4.5 Chloride Level 114 H Carbon Dioxide Level 25 Anion Gap 4 L Blood Urea Nitrogen 14 Creatinine 0.63 Est Glomerular > 60 Filtrat Rate mL/min Glucose Level 118 Calcium Level 8.4 Test 12/20/18 05:51 12/20/18 07:52 12/20/18 11:54 White Blood Count 7.6 # Red Blood Count 3.04 L Hemoglobin 8.9 L Hematocrit 28.0 L Mean Corpuscular 92.1 Volume Mean Corpuscular 29.3 Hemoglobin Mean Corpuscular 31.8 L Hemoglobin Concent Red Cell 13.2 Distribution Width Platelet Count 180 Mean Platelet Volume 9.9 Immature 0.700 H Granulocytes % Neutrophils % 75.6 Lymphocytes % 16.1 Monocytes % 7.4 Eosinophils % 0.1 Basophils % 0.1 Nucleated Red Blood 0.0 Cells % Immature 0.050 H Granulocytes # Neutrophils # 5.7 Lymphocytes # 1.2 Monocytes # 0.6 Eosinophils # 0.0 Basophils # 0.0 Nucleated Red Blood 0.0 Cells # Magnesium Level 1.8 Bedside Glucose 105 154 Exam/Review of Systems Vital Signs Vitals Vital Signs Date Temp Pulse Resp B/P (MAP) Pulse Ox O2 O2 Flow FiO2 Time Delivery Rate 12/20/18 86 12:00 12/20/18 98.3 18 117/68 92 Nasal 3.0 11:27 (84) Cannula 12/18/18 35 15:00 Intake and Output 12/19/18 12/19/18 12/20/18 1515:00 23:00 07:00 IntakeIntake Total 960 ml 320 ml 250 ml OutputOutput Total 360 ml 365 ml 305 ml BalanceBalance 600 ml -45 ml -55 ml Medications Medications Current Medications Colchicine (Colchicine) 0.6 mg BID PO Last administered on 12/19/18at 20:32; Admin Dose 0.6 MG; Start 12/17/18 at 21:00 IV Flush (NS 3 ml) 3 ml PER PROTOCOL IV ; Start 12/17/18 at 16:30 Acetaminophen (Tylenol Tab) 650 mg Q6H PRN PO PAIN LEVEL 1-3 OR FEVER Last administered on 12/20/18at 08:16; Admin Dose 650 MG; Start 12/17/18 at 16:30 Acetaminophen (Tylenol Supp) 650 mg Q6H PRN [place] PAIN LEVEL 1-3 OR FEVER; Start 12/17/18 at 16:30 Oxycodone/ Acetaminophen (Percocet (5/ 325)) 1 tab Q6H PRN PO MODERATE PAIN LEVEL 4-6; Start 12/17/18 at 16:30 Docusate Sodium (Colace) 100 mg Q12H PRN PO CONSTIPATION; Start 12/17/18 at 16:30 Magnesium Hydroxide (Milk Of Mag) 30 ml DAILY PRN PO CONSTIPATION; Start 12/17/18 at 16:30 Bisacodyl (Dulcolax) 5 mg DAILY PRN PO CONSTIPATION; Start 12/17/18 at 16:30 Bisacodyl (Dulcolax Supp) 10 mg DAILY PRN [place] CONSTIPATION; Start 12/17/18 at 16:30 Diagnostic Test (Pha) (Accu-Chek) 1 ea 02 XX Last administered on 12/19/18at 01:43; Admin Dose 1 EA; Start 12/18/18 at 02:00 Acetaminophen/ Hydrocodone Bitart ([place] (5/325)) 1 tab Q6H PRN PO PAIN LEVEL 6-10; Start 12/17/18 at 20:30 Ketorolac Tromethamine (Toradol) 30 mg Q6H PRN IV PAIN Last administered on 12/19/18 10:03; Admin Dose 30 MG; Start 12/17/18 at 20:30; Stop 12/20/18 at 20:29 Acetaminophen (Tylenol Tab) 650 mg Q6H PRN PO MILD PAIN(1-3)OR ELEVATED TEMP; Start 12/17/18 at 20:30 Ondansetron HCl (Zofran Inj) 4 mg Q6H PRN IV NAUSEA AND/OR VOMITING Last administered on 12/19/18 10:02; Admin Dose 4 MG; Start 12/17/18 at 20:30 Potassium Chloride/Dextrose/ Sod Cl 1,000 ml @ 100 mls/hr Q10H IV Last administered on 12/20/18 07:09; Admin Dose 100 MLS/HR; Start 12/17/18 at 20:02 Enoxaparin Sodium (Lovenox) 40 mg DAILY@07 SC Last administered on 12/20/18 07:14; Admin Dose 40 MG; Start 12/18/18 at 07:00 Levalbuterol (Xopenex Neb) 1.25 mg ICU RECOVERY PRN HHN WHEEZING; Start 12/17/18 at 21:30 Ipratropium [place] (Atrovent 0.02% (Neb)) 0.5 mg ICU RECOVERY PRN HHN WHEEZING; Start 12/17/18 at 21:30 Ipratropium [place] (Atrovent Hfa) 4 puff Q6H RESP THERAPY INH Last administered on 12/20/18 08:00; Admin Dose 0 PUFF; Start 12/18/18 at 02:00 Levalbuterol (Xopenex Hfa) 4 puff Q6H RESP THERAPY INH Last administered on 12/20/18 08:00; Admin Dose 0 PUFF; Start 12/18/18 at 02:00 Famotidine (Pepcid Iv) 20 mg BID IV Last administered on 12/20/18 08:16; Admin Dose 20 MG; Start 12/17/18 at 23:30 Morphine Sulfate (morphine) 2 mg Q2H PRN IV PAIN LEVEL 6-10 Last administered on 12/18/18at 17:26; Admin Dose 2 MG; Start 12/17/18 at 23:45 Morphine Sulfate (morphine) 2 mg Q4H PRN IV SEVERE PAIN LEVEL 7-10; Start at 23:45 Sumatriptan Succinate (Imitrex) 6 mg ONCE PRN [place] HEADACHE; Start 12/18/18 at 23:30 Insulin Aspart (Novolog Insulin Pen) NOVOLOG *MODERATE* ALGORITHM WITH MEALS BEDTIME SC Last administered on 12/20/18at 12:02; Admin Dose 2 UNIT; Start 12/19/18 at 17:35 Miscellaneous Information 1 ea NOTE XX ; Start 12/19/18 at 13:30 Glucose (Glutose) 15 gm Q15M PRN PO DECREASED GLUCOSE; Start 12/19/18 at 13:30 Glucose (Glutose) 22.5 gm Q15M PRN PO DECREASED GLUCOSE; Start 12/19/18 at 13:30 Dextrose (D50w Syringe) 25 ml Q15M PRN IV DECREASED GLUCOSE; Start 12/19/18 at 13:30 Dextrose (D50w Syringe) 50 ml Q15M PRN IV DECREASED GLUCOSE; Start 12/19/18 at 13:30 Glucagon (Glucagen) 1 mg Q15M PRN IM DECREASED GLUCOSE; Start 12/19/18 at 13:30 Glucose (Glutose) 15 gm Q15M PRN BUCCAL DECREASED GLUCOSE; Start 12/19/18 at 13:30 Prednisone (Prednisone) 20 mg DAILY PO Last administered on 12/20/18at 08:16; Admin Dose 20 MG; Start 12/19/18 at 17:30 MICHAEL VELIZ MD Dec 20, 2018 12:41
--- NOTE | 2018-12-20 12:50 | NUR ---
Procedure Ordered: CT CHEST W/IV CONTRAST Reason for Exam Today: PERICARDIAL EFFUSION, R/O LUNG INFILTRATES Previous Exams: Allergies: Current Medications Taken: Glucophage ( ) Metformin ( ) Previous reaction to contrast media: Yes ( ) No (X ) : Yes ( ) No (X ) Asthma: Yes ( ) No ( X) Diabetes: Yes (X ) No ( ) Myeloma: Yes (X ) No ( ) Heart Disease: Yes ( X) No ( ) Cardiac Disease: Yes ( X) No ( ) Kidney Disease: Yes ( ) No ( X) Vascular Disease: Yes ( ) No ( X) Patient Teaching done: Yes ( X) No ( ) Property Consultant Used: Yes ( ) No (X ) Name of Property Consultant: Language Used: As part of the test requested by your doctor, contrast media may be injected into your vein while the x-rays are being taken. Occasionally, reactions from IV contrast may occur. The physician and staff of this hospital are trained to treat these reactions. Select the type of Contrast that will be given to patient: Omnipaque 300 (X ) Omnipaque 350 ( ) Visipaque 320 ( ) Cystografin ( ) Gastrographin ( ) Redi-cat ( ) Volumen ( ) Amount of contrast to be given: 80CC IV ( X) PO ( ) Date given: 12/20/18 Lab Values: BUN: 16 Creatinine: 0.66 eGFR: >60 Reason why contrast cannot be given: Location of patient pre-procedure: ROOM 502 Location of patient post procedure:ROOM 502 Patient tolerated exam well and returned to unit.
--- NOTE | 2018-12-20 16:04 | NUR ---
RN NOTES: Nur catheter removed & discontinued completely, tolerated well. Continued monitoring patient.
--- NOTE | 2018-12-20 16:18 | PN ---
Date/Time of Note Date/Time of Note DATE: 12/20/18 TIME: 16:15 Assessment/Plan VTE Prophylaxis Risk score (from Ns)>0 risk: 2 SCD applied (from Nsg): Yes Pharmacological prophylaxis: LMWH Lines/Catheters IV Catheter Type (from Nrsg): Central Line Central line still needed: Yes Urinary Cath still in place: Yes Reason Cath still needed: urinary retention Assessment/Plan Hospital Course 53 yo with recurrent pericardial effusion who is s/p pericardial window, doing well. Assessment/Plan Impression: Recurrent pericardial effusion status post pericardial window 12/17/2018 Hypertension, with normal blood pressures Diabetes Recommendations: Patient undergoing infectious and rheumatological workup Continue colchicine Holding blood pressure medications for now Postoperative care, incentive spirometry Result Diagram: 12/20/18 0551 12/20/18 0549 Results 24hrs Laboratory Tests Test 12/19/18 18:14 12/19/18 20:45 12/20/18 05:49 12/20/18 05:51 Bedside Glucose 128 141 Sodium Level 143 Potassium Level 4.5 Chloride Level 114 H Carbon Dioxide Level 25 Anion Gap 4 L Blood Urea Nitrogen 14 Creatinine 0.63 Est Glomerular > 60 Filtrat Rate mL/min Glucose Level 118 Calcium Level 8.4 White Blood Count 7.6 # Red Blood Count 3.04 L Hemoglobin 8.9 L Hematocrit 28.0 L Mean Corpuscular 92.1 Volume Mean Corpuscular 29.3 Hemoglobin Mean Corpuscular 31.8 L Hemoglobin Concent Red Cell 13.2 Distribution Width Platelet Count 180 Mean Platelet Volume 9.9 Immature 0.700 H Granulocytes % Neutrophils % 75.6 Lymphocytes % 16.1 Monocytes % 7.4 Eosinophils % 0.1 Basophils % 0.1 Nucleated Red Blood 0.0 Cells % Immature 0.050 H Granulocytes # Neutrophils # 5.7 Lymphocytes # 1.2 Monocytes # 0.6 Eosinophils # 0.0 Basophils # 0.0 Nucleated Red Blood 0.0 Cells # Magnesium Level 1.8 Test 12/20/18 07:52 12/20/18 11:54 Bedside Glucose 105 154 Subjective 24 Hr Interval Summary Free Text/Dictation Resting comfortably in bed, no pain, no dyspnea, family at bedside. Exam/Review of Systems Vital Signs Vitals Vital Signs Date Temp Pulse Resp B/P (MAP) Pulse Ox O2 O2 Flow FiO2 Time Delivery Rate 12/20/18 92 16:02 12/20/18 98.3 18 117/68 92 Nasal 3.0 11:27 (84) Cannula 12/18/18 35 15:00 Intake and Output 12/19/18 12/19/18 12/20/18 1515:00 23:00 07:00 IntakeIntake Total 960 ml 320 ml 250 ml OutputOutput Total 360 ml 365 ml 305 ml BalanceBalance 600 ml -45 ml -55 ml Exam Constitutional: alert, oriented, obese Psych: no complaints, nl mood/affect Head: normocephalic, atraumatic Eyes: nl conjunctiva, EOMI ENMT: nl external ears & nose, nl lips & teeth Neck: supple; No jvd, No bruits Respiratory: clear to auscultation Cardiovascular: regular rate and rhythm; No murmurs/extra sounds Gastrointestinal: soft, non-tender Musculoskeletal: nl extremities to inspection Extremities: No edema Neurological: nl mental status, nl speech Skin: nl turgor Medications Medications Current Medications Colchicine (Colchicine) 0.6 mg BID PO Last administered on 12/20/18at 13:14; Admin Dose 0.6 MG; Start 12/17/18 at 21:00 IV Flush (NS 3 ml) 3 ml PER PROTOCOL IV ; Start 12/17/18 at 16:30 Acetaminophen (Tylenol Tab) 650 mg Q6H PRN PO PAIN LEVEL 1-3 OR FEVER Last administered on 12/20/18at 08:16; Admin Dose 650 MG; Start 12/17/18 at 16:30 Acetaminophen (Tylenol Supp) 650 mg Q6H PRN [place] PAIN LEVEL 1-3 OR FEVER; Start 12/17/18 at 16:30 Oxycodone/ Acetaminophen (Percocet (5/ 325)) 1 tab Q6H PRN PO MODERATE PAIN LEVEL 4-6; Start 12/17/18 at 16:30 Docusate Sodium (Colace) 100 mg Q12H PRN PO CONSTIPATION; Start 12/17/18 at 16:30 Magnesium Hydroxide (Milk Of Mag) 30 ml DAILY PRN PO CONSTIPATION; Start 12/17/18 at 16:30 Bisacodyl (Dulcolax) 5 mg DAILY PRN PO CONSTIPATION; Start 12/17/18 at 16:30 Bisacodyl (Dulcolax Supp) 10 mg DAILY PRN [place] CONSTIPATION; Start 12/17/18 at 16:30 Diagnostic Test (Pha) (Accu-Chek) 1 ea 02 XX Last administered on 12/19/18at 01:43; Admin Dose 1 EA; Start 12/18/18 at 02:00 Acetaminophen/ Hydrocodone Bitart ([place] (5/325)) 1 tab Q6H PRN PO PAIN LEVEL 6-10; Start 12/17/18 at 20:30 Ketorolac Tromethamine (Toradol) 30 mg Q6H PRN IV PAIN Last administered on 12/19/18at 10:03; Admin Dose 30 MG; Start 12/17/18 at 20:30; Stop 12/20/18 at 20:29 Acetaminophen (Tylenol Tab) 650 mg Q6H PRN PO MILD PAIN(1-3)OR ELEVATED TEMP; Start 12/17/18 at 20:30 Ondansetron HCl (Zofran Inj) 4 mg Q6H PRN IV NAUSEA AND/OR VOMITING Last administered on 12/19/18 10:02; Admin Dose 4 MG; Start 12/17/18 at 20:30 Potassium Chloride/Dextrose/ Sod Cl 1,000 ml @ 100 mls/hr Q10H IV Last administered on 12/20/18 07:09; Admin Dose 100 MLS/HR; Start 12/17/18 at 20:02 Enoxaparin Sodium (Lovenox) 40 mg DAILY@07 SC Last administered on 12/20/18at 07:14; Admin Dose 40 MG; Start 12/18/18 at 07:00 Levalbuterol (Xopenex Neb) 1.25 mg ICU RECOVERY PRN HHN WHEEZING; Start 12/17/18 at 21:30 Ipratropium [place] (Atrovent 0.02% (Neb)) 0.5 mg ICU RECOVERY PRN HHN WHEEZING; Start 12/17/18 at 21:30 Ipratropium [place] (Atrovent Hfa) 4 puff Q6H RESP THERAPY INH Last administered on 12/20/18 14:09; Admin Dose 4 PUFF; Start 12/18/18 at 02:00 Levalbuterol (Xopenex Hfa) 4 puff Q6H RESP THERAPY INH Last administered on 12/20/18 14:09; Admin Dose 4 PUFF; Start 12/18/18 at 02:00 Famotidine (Pepcid Iv) 20 mg BID IV Last administered on 12/20/18 08:16; Admin Dose 20 MG; Start 12/17/18 at 23:30 Morphine Sulfate (morphine) 2 mg Q2H PRN IV PAIN LEVEL 6-10 Last administered on 12/18/18at 17:26; Admin Dose 2 MG; Start 12/17/18 at 23:45 Morphine Sulfate (morphine) 2 mg Q4H PRN IV SEVERE PAIN LEVEL 7-10; Start at 23:45 Sumatriptan Succinate (Imitrex) 6 mg ONCE PRN SC HEADACHE; Start 12/18/18 at 23:30 Insulin Aspart (Novolog Insulin Pen) NOVOLOG *MODERATE* ALGORITHM WITH MEALS BEDTIME SC Last administered on 12/20/18at 12:02; Admin Dose 2 UNIT; Start 12/19/18 at 17:35 Miscellaneous Information 1 ea NOTE XX ; Start 12/19/18 at 13:30 Glucose (Glutose) 15 gm Q15M PRN PO DECREASED GLUCOSE; Start 12/19/18 at 13:30 Glucose (Glutose) 22.5 gm Q15M PRN PO DECREASED GLUCOSE; Start 12/19/18 at 13:30 Dextrose (D50w Syringe) 25 ml Q15M PRN IV DECREASED GLUCOSE; Start 12/19/18 at 13:30 Dextrose (D50w Syringe) 50 ml Q15M PRN IV DECREASED GLUCOSE; Start 12/19/18 at 13:30 Glucagon (Glucagen) 1 mg Q15M PRN IM DECREASED GLUCOSE; Start 12/19/18 at 13:30 Glucose (Glutose) 15 gm Q15M PRN BUCCAL DECREASED GLUCOSE; Start 12/19/18 at 13:30 Prednisone (Prednisone) 20 mg DAILY PO Last administered on 12/20/18at 08:16; Admin Dose 20 MG; Start 12/19/18 at 17:30 FAISAL JOE Dec 20, 2018 16:18
--- NOTE | 2018-12-20 18:26 | NUR ---
EOSS: Patient's V/S stable, sitting on the chair at dinner with good appetite noted. With complaint of headache relieved by tylenol. All needs attended well. Continued monitoring per plan of care.
[2018-12-21] VITALS (9 sets, daily range): BP systolic 109–128; BP diastolic 67–76; PULSE 78–91; RESP 18–20
[2018-12-21] MEDS: ACCU-CHEK XX SCH (02:00)
[2018-12-21] MEDS: D5-NS + KCL 20 MEQ 1,000 ML IV SCH ×2 (04:02→05:56)
[2018-12-21] MEDS: ENOXAPARIN 40 MG/0.4 ML SYG SC SCH (06:43)
--- NOTE | 2018-12-21 07:03 | NUR ---
RN NOTES: PT SLEPT WELL DURING NIGHT. NO C/O DISCOMFORT. SURGICAL WOUND SITE ON CHEST AND ABDOMEN IS DRY AND INTACT. J/P DRAIN TO BULB IN SUCTION CONDITION, 7 CC OUTPUT/12HRS SHIFT, LIGHT REDNESS COLOR. PT COMPLIED WITH HOSPITAL DIET FOR DIABETIC. SITTING IN THE CHAIR ON 2L O2/NC, NO SOB. EDUCATION ON SIDE EFFECTS OF LOVENOX REINFORCED WITH DAUGHTER'S TRANSLATION FOR [facility]. PT AND DAUGHTER GAVE FEEDBACK CORRECTLY. WILL F/U WITH AM SHIFT.
[2018-12-21] MEDS: INSULIN ASPART [NOVOLOG] 3 ML PEN SC SCH ×4 (07:55→21:00)
--- NOTE | 2018-12-21 07:55 | CONS ---
Date/Time of Note Date/Time of Note DATE: 12/21/18 TIME: 07:54 Assessment/Plan Assessment/Plan Hospital Course 1) pericarditis/pericardial effusion s/p pericardial window on 12/17/18 the likely diagnosis would be viral in origin I have ordered coxsackie A and B serology, echo virus serology, EBV, HIV I have also ordered mycoplasma fungal and TB are possible but less likely in lieu of relatively benign presentation for constitutional symptoms nonetheless I will order beta d glucan, cocci titers and histoplasma Ag (seen in [place]) her quant TB gold was neg before and so far the AFB cx are NGTD I will look for non infectious etiology as well with ESR, CRP, HODA her TSH was WNL so no sign of myxedema no further antibiotics at this time when she is done with her cefazolin prophylaxis 12/19 - ESR and CRP are not impressively elevated continue off antibiotics ok for steroids from ID perspective 12/21 - most special serologies are still pending, HIV was neg as well as RF pt on prednisone I will follow up on serologies and report back any positive ones 2) DM 3) HTN Result Diagram: 12/20/18 0551 12/20/18 0549 Results 24hrs Laboratory Tests Test 12/20/18 11:54 12/20/18 17:40 12/20/18 20:32 Bedside Glucose 154 173 197 Consultation Date/Type/Reason Admit Date/Time Dec 17, 2018 at 14:27 Initial Consult Date 12/18/18 Type of Consult ID Requesting Provider: Pawel Plascencia DO 24 HR Interval Summary Free Text/Dictation no CP, but gets easily SOB cough of clear phlegm no N, V, D Exam/Review of Systems Vital Signs Vitals Vital Signs Date Temp Pulse Resp B/P (MAP) Pulse Ox O2 O2 Flow FiO2 Time Delivery Rate 12/21/18 98.3 81 18 109/73 91 07:14 (85) 12/21/18 2.0 03:58 12/20/18 Nasal 20:00 Cannula 12/18/18 35 15:00 Intake and Output 12/20/18 12/20/18 12/21/18 1515:00 23:00 07:00 IntakeIntake Total 1550 ml 550 ml OutputOutput Total 10 ml 700 ml 7 ml BalanceBalance -10 ml 850 ml 543 ml Exam Constitutional: alert, oriented Eyes: nl sclera ENMT: mucosa pink and moist Respiratory: clear to auscultation Cardiovascular: regular rate and rhythm Gastrointestinal: soft, non-tender Medications Medications Current Medications Colchicine (Colchicine) 0.6 mg BID PO Last administered on 12/20/18at 21:09; Admin Dose 0.6 MG; Start 12/17/18 at 21:00 IV Flush (NS 3 ml) 3 ml PER PROTOCOL IV ; Start 12/17/18 at 16:30 Acetaminophen (Tylenol Tab) 650 mg Q6H PRN PO PAIN LEVEL 1-3 OR FEVER Last administered on 12/20/18at 17:49; Admin Dose 650 MG; Start 12/17/18 at 16:30 Acetaminophen (Tylenol Supp) 650 mg Q6H PRN [place] PAIN LEVEL 1-3 OR FEVER; Start 12/17/18 at 16:30 Oxycodone/ Acetaminophen (Percocet (5/ 325)) 1 tab Q6H PRN PO MODERATE PAIN LEVEL 4-6; Start 12/17/18 at 16:30 Docusate Sodium (Colace) 100 mg Q12H PRN PO CONSTIPATION; Start 12/17/18 at 16:30 Magnesium Hydroxide (Milk Of Mag) 30 ml DAILY PRN PO CONSTIPATION; Start 12/17/18 at 16:30 Bisacodyl (Dulcolax) 5 mg DAILY PRN PO CONSTIPATION; Start 12/17/18 at 16:30 Bisacodyl (Dulcolax Supp) 10 mg DAILY PRN [place] CONSTIPATION; Start 12/17/18 at 16:30 Diagnostic Test (Pha) (Accu-Chek) 1 ea 02 XX Last administered on 12/19/18at 01:43; Admin Dose 1 EA; Start 12/18/18 at 02:00 Acetaminophen/ Hydrocodone Bitart ([place] (5/325)) 1 tab Q6H PRN PO PAIN LEVEL 6-10; Start 12/17/18 at 20:30 Acetaminophen (Tylenol Tab) 650 mg Q6H PRN PO MILD PAIN(1-3)OR ELEVATED TEMP; Start 12/17/18 at 20:30 Ondansetron HCl (Zofran Inj) 4 mg Q6H PRN IV NAUSEA AND/OR VOMITING Last administered on 12/19/18at 10:02; Admin Dose 4 MG; Start 12/17/18 at 20:30 Potassium Chloride/Dextrose/ Sod Cl 1,000 ml @ 100 mls/hr Q10H IV Last administered on 12/21/18at 05:56; Admin Dose 100 MLS/HR; Start 12/17/18 at 20:02 Enoxaparin Sodium (Lovenox) 40 mg DAILY@07 SC Last administered on 12/21/18at 06:43; Admin Dose 40 MG; Start 12/18/18 at 07:00 Levalbuterol (Xopenex Neb) 1.25 mg ICU RECOVERY PRN HHN WHEEZING; Start 12/17/18 at 21:30 Ipratropium [place] (Atrovent 0.02% (Neb)) 0.5 mg ICU RECOVERY PRN HHN WHEEZING; Start 12/17/18 at 21:30 Ipratropium [place] (Atrovent Hfa) 4 puff Q6H RESP THERAPY INH Last administered on 12/20/18at 14:09; Admin Dose 4 PUFF; Start 12/18/18 at 02:00 Levalbuterol (Xopenex Hfa) 4 puff Q6H RESP THERAPY INH Last administered on 12/20/18at 14:09; Admin Dose 4 PUFF; Start 12/18/18 at 02:00 Famotidine (Pepcid Iv) 20 mg BID IV Last administered on 12/20/18at 21:08; Admin Dose 20 MG; Start 12/17/18 at 23:30 Morphine Sulfate (morphine) 2 mg Q2H PRN IV PAIN LEVEL 6-10 Last administered on 12/18/18at 17:26; Admin Dose 2 MG; Start 12/17/18 at 23:45 Morphine Sulfate (morphine) 2 mg Q4H PRN IV SEVERE PAIN LEVEL 7-10; Start 12/17/18 at 23:45 Sumatriptan Succinate (Imitrex) 6 mg ONCE PRN SC HEADACHE; Start 12/18/18 at 23:30 Insulin Aspart (Novolog Insulin Pen) NOVOLOG *MODERATE* ALGORITHM WITH MEALS BEDTIME SC Last administered on 12/20/18at 21:11; Admin Dose 1 UNIT; Start 12/19/18 at 17:35 Miscellaneous Information 1 ea NOTE XX ; Start 12/19/18 at 13:30 Glucose (Glutose) 15 gm Q15M PRN PO DECREASED GLUCOSE; Start 12/19/18 at 13:30 Glucose (Glutose) 22.5 gm Q15M PRN PO DECREASED GLUCOSE; Start 12/19/18 at 13:30 Dextrose (D50w Syringe) 25 ml Q15M PRN IV DECREASED GLUCOSE; Start 12/19/18 at 13:30 Dextrose (D50w Syringe) 50 ml Q15M PRN IV DECREASED GLUCOSE; Start 12/19/18 at 13:30 Glucagon (Glucagen) 1 mg Q15M PRN IM DECREASED GLUCOSE; Start 12/19/18 at 13:30 Glucose (Glutose) 15 gm Q15M PRN BUCCAL DECREASED GLUCOSE; Start 12/19/18 at 13:30 Prednisone (Prednisone) 20 mg DAILY PO Last administered on 12/20/18at 08:16; Admin Dose 20 MG; Start 12/19/18 at 17:30 RIANER SANTIAGO MD Dec 21, 2018 07:55
[2018-12-21] MEDS: FAMOTIDINE 20 MG INJ IV SCH (08:34)
[2018-12-21] MEDS: COLCHICINE 0.6 MG TAB PO SCH ×2 (08:34→21:37)
[2018-12-21] MEDS: predniSONE 20 MG TAB PO SCH (08:34)
--- NOTE | 2018-12-21 09:08 | PN ---
Date/Time of Note Date/Time of Note DATE: 12/21/18 TIME: 09:07 Assessment/Plan Lines/Catheters IV [facility] Central Line Assessment/Plan Chief Complaint/Hosp Course minimal RENY drainage. remove drain, hep lock. home per ID and PCP. follow up in 1-2 weeks Exam/Review of Systems Vital Signs Vitals Vital Signs Date Temp Pulse Resp B/P (MAP) Pulse Ox O2 O2 Flow FiO2 Time Delivery Rate 12/21/18 Nasal 2.0 08:40 Cannula 12/21/18 80 08:04 12/21/18 98.3 18 109/73 91 07:14 (85) 12/18/18 35 15:00 Intake and Output 12/20/18 12/20/18 12/21/18 1515:00 23:00 07:00 IntakeIntake Total 1550 ml 550 ml OutputOutput Total 10 ml 700 ml 7 ml BalanceBalance -10 ml 850 ml 543 ml Results Result Diagram: 12/20/18 0551 12/20/18 0549 CHERI TEJEDA MD Dec 21, 2018 09:08
--- NOTE | 2018-12-21 10:21 | CONS ---
Date/Time of Note Date/Time of Note DATE: 12/21/18 TIME: 10:19 Assessment/Plan Assessment/Plan Assessment/Plan Assessment and recommendations; 1. Patient admitted for recurrent pericardial effusion status post pericardial window placement. Patient also developed left lower lobe atelectasis versus post negative bronchoscopy. Chest x-ray showing significant improvement in aeration of the left lung. 2. Small right pleural effusion. 3. Mild anemia and thrombocytopenia. 4. Pericardial fluid cytology is negative for malignancy. Likely post viral in etiology. Continue current supportive care. Consider discharge. Result Diagram: 12/20/18 0551 12/20/18 0549 Results 24hrs Laboratory Tests Test 12/20/18 11:54 12/20/18 17:40 12/20/18 20:32 12/21/18 07:54 Bedside Glucose 154 173 197 94 Consultation Date/Type/Reason Admit Date/Time Dec 17, 2018 at 14:27 Initial Consult Date 12/18/18 Type of Consult Pulmonary/critical care Patient is a 53-year-old lady who came into the hospital yesterday with shortness of breath. Patient does have a history of Pericardial effusion and underwent pericardiocentesis last month however no discernible etiology could be discovered. Patient was discharged home in stable condition only to return yesterday with increasing shortness of breath. Echo cardiogram was done which showed a large pericardial effusion. Patient underwent pericardial window placement as well as evacuation of pericardial effusion. Postoperatively patient could not be immediately extubated and was transferred to ICU intubated. By the time I saw her, patient is awake and alert and did not appear to be in any distress. Orally intubated. Past medical history; 1. History of recent pericarditis with pericardial effusion. Status post pericardiocentesis. 2. History of diabetes and hypertension. 3. Anemia. Medications; reviewed. Allergies; none. Social history; noncontributory. Family history; various family members of diabetes and hypertension. Occupational history; patient is a housewife. Review of systems; limited review of system could be obtained. Patient denies any chest pain, shortness of breath. Any abdominal pain. General exam; young female, appears overweight. Orally intubated. Awake and alert. Currently in no distress. Requesting Provider: Pawel Plascencia DO 24 HR Interval Summary Free Text/Dictation Patient's condition is stable. Complains of dyspnea on exertion. Denies any sh ortness of breath at rest. Denies any coughing, wheezing, sputum production. Any fever. General exam; middle-aged woman, awake alert, currently in no distress. Sitting in a chair by bedside. Exam/Review of Systems Vital Signs Vitals Vital Signs Date Temp Pulse Resp B/P (MAP) Pulse Ox O2 O2 Flow FiO2 Time Delivery Rate 12/21/18 Nasal 2.0 08:40 Cannula 12/21/18 80 08:04 12/21/18 98.3 18 109/73 91 07:14 (85) 12/18/18 35 15:00 Intake and Output 12/20/18 12/20/18 12/21/18 1515:00 23:00 07:00 IntakeIntake Total 1550 ml 550 ml OutputOutput Total 10 ml 700 ml 7 ml BalanceBalance -10 ml 850 ml 543 ml Exam H EENT exam; supple neck, no JVD. No lymphadenopathy. Midline trachea. No thyromegaly. Patient has fair dentition. No neck masses. Chest exam; diminished but clear breath sounds. S1-S2 audible, no murmurs. Regular rhythm. Dressing applied over the xiphoid area. Abdomen exam; soft, nontender. Bowel sounds audible. Extremity exam; no peripheral edema clubbing. COUNTER INSTALLER exam; no focal deficit. Medications Medications Current Medications Colchicine (Colchicine) 0.6 mg BID PO Last administered on 12/21/18at 08:34; Admin Dose 0.6 MG; Start 12/17/18 at 21:00 IV Flush (NS 3 ml) 3 ml PER PROTOCOL IV ; Start 12/17/18 at 16:30 Acetaminophen (Tylenol Tab) 650 mg Q6H PRN PO PAIN LEVEL 1-3 OR FEVER Last administered on 12/20/18at 17:49; Admin Dose 650 MG; Start 12/17/18 at 16:30 Acetaminophen (Tylenol Supp) 650 mg Q6H PRN [place] PAIN LEVEL 1-3 OR FEVER; Start 12/17/18 at 16:30 Oxycodone/ Acetaminophen (Percocet (5/ 325)) 1 tab Q6H PRN PO MODERATE PAIN LEVEL 4-6; Start 12/17/18 at 16:30 Docusate Sodium (Colace) 100 mg Q12H PRN PO CONSTIPATION; Start 12/17/18 at 16:30 Magnesium Hydroxide (Milk Of Mag) 30 ml DAILY PRN PO CONSTIPATION; Start 12/17/18 at 16:30 Bisacodyl (Dulcolax) 5 mg DAILY PRN PO CONSTIPATION; Start 12/17/18 at 16:30 Bisacodyl (Dulcolax Supp) 10 mg DAILY PRN [place] CONSTIPATION; Start 12/17/18 at 16:30 Diagnostic Test (Pha) (Accu-Chek) 1 ea 02 XX Last administered on 12/19/18at 01:43; Admin Dose 1 EA; Start 12/18/18 at 02:00 Levalbuterol (Xopenex Neb) 1.25 mg ICU RECOVERY PRN HHN WHEEZING; Start 12/17/18 at 21:30 Ipratropium [place] (Atrovent 0.02% (Neb)) 0.5 mg ICU RECOVERY PRN HHN WHEEZING; Start 12/17/18 at 21:30 Ipratropium [place] (Atrovent Hfa) 4 puff Q6H RESP THERAPY INH Last administered on 12/20/18at 14:09; Admin Dose 4 PUFF; Start 12/18/18 at 02:00 Levalbuterol (Xopenex Hfa) 4 puff Q6H RESP THERAPY INH Last administered on 12/20/18at 14:09; Admin Dose 4 PUFF; Start 12/18/18 at 02:00 Famotidine (Pepcid Iv) 20 mg BID IV Last administered on 12/21/18at 08:34; Admin Dose 20 MG; Start 12/17/18 at 23:30 Morphine Sulfate (morphine) 2 mg Q2H PRN IV PAIN LEVEL 6-10 Last administered on 12/18/18at 17:26; Admin Dose 2 MG; Start 12/17/18 at 23:45 Morphine Sulfate (morphine) 2 mg Q4H PRN IV SEVERE PAIN LEVEL 7-10; Start 12/17/18 at 23:45 Sumatriptan Succinate (Imitrex) 6 mg ONCE PRN SC HEADACHE; Start 12/18/18 at 23:30 Insulin Aspart (Novolog Insulin Pen) NOVOLOG *MODERATE* ALGORITHM WITH MEALS BEDTIME SC Last administered on 12/20/18at 21:11; Admin Dose 1 UNIT; Start 12/19/18 at 17:35 Miscellaneous Information 1 ea NOTE XX ; Start 12/19/18 at 13:30 Glucose (Glutose) 15 gm Q15M PRN PO DECREASED GLUCOSE; Start 12/19/18 at 13:30 Glucose (Glutose) 22.5 gm Q15M PRN PO DECREASED GLUCOSE; Start 12/19/18 at 13:30 Dextrose (D50w Syringe) 25 ml Q15M PRN IV DECREASED GLUCOSE; Start 12/19/18 at 13:30 Dextrose (D50w Syringe) 50 ml Q15M PRN IV DECREASED GLUCOSE; Start 12/19/18 at 13:30 Glucagon (Glucagen) 1 mg Q15M PRN IM DECREASED GLUCOSE; Start 12/19/18 at 13:30 Glucose (Glutose) 15 gm Q15M PRN BUCCAL DECREASED GLUCOSE; Start 12/19/18 at 13:30 Prednisone (Prednisone) 20 mg DAILY PO Last administered on 12/21/18at 08:34; Admin Dose 20 MG; Start 12/19/18 at 17:30 JOSHUA CHRISTENSEN Dec 21, 2018 10:21
--- NOTE | 2018-12-21 13:38 | CONS ---
Date/Time of Note Date/Time of Note DATE: 12/21/18 TIME: 13:31 Consult Date/Type/Reason Admit Date/Time Dec 17, 2018 at 14:27 Initial Consult Date 12/18/18 Type of Consultation: Rheum Reason for Consultation Feeling better. Breathing better. No new complaints. Requesting Provider: Pawel Plascencia DO Objective Vital Signs Date Temp Pulse Resp B/P (MAP) Pulse Ox O2 O2 Flow FiO2 Time Delivery Rate 12/21/18 84 12:03 12/21/18 98.4 19 128/75 95 11:26 (92) 12/21/18 Nasal 2.0 08:40 Cannula 12/18/18 35 15:00 Intake and Output 12/20/18 12/20/18 12/21/18 1515:00 23:00 07:00 IntakeIntake Total 1550 ml 550 ml OutputOutput Total 10 ml 700 ml 7 ml BalanceBalance -10 ml 850 ml 543 ml Exam GENERAL: No acute distress at present, alert, oriented. SKIN: Without rashes. HEENT: Without acute oral or ocular lesions. NECK: Without lymphadenopathy. CHEST: Decreased breath sounds. HEART: Regular rate. No murmurs noted. ABDOMEN: Soft without masses or tenderness. MUSCULOSKELETAL: Joints with good range of motion, no synovitis or tenderness. NEUROLOGIC: Grossly intact. EXTREMITIES: No cyanosis edema. Results/Medications Result Diagram: 12/20/18 0551 12/20/18 0549 Results 24 hrs Laboratory Tests Test 12/20/18 17:40 12/20/18 20:32 12/21/18 07:54 12/21/18 11:55 Bedside Glucose 173 197 94 132 Medications Current Medications Colchicine (Colchicine) 0.6 mg BID PO Last administered on 12/21/18at 08:34; Admin Dose 0.6 MG; Start 12/17/18 at 21:00 IV Flush (NS 3 ml) 3 ml PER PROTOCOL IV ; Start 12/17/18 at 16:30 Acetaminophen (Tylenol Tab) 650 mg Q6H PRN PO PAIN LEVEL 1-3 OR FEVER Last administered on 12/20/18at 17:49; Admin Dose 650 MG; Start 12/17/18 at 16:30 Acetaminophen (Tylenol Supp) 650 mg Q6H PRN [place] PAIN LEVEL 1-3 OR FEVER; Start 12/17/18 at 16:30 Oxycodone/ Acetaminophen (Percocet (5/ 325)) 1 tab Q6H PRN PO MODERATE PAIN LEVEL 4-6; Start 12/17/18 at 16:30 Docusate Sodium (Colace) 100 mg Q12H PRN PO CONSTIPATION; Start 12/17/18 at 16:30 Magnesium Hydroxide (Milk Of Mag) 30 ml DAILY PRN PO CONSTIPATION; Start 12/17/18 at 16:30 Bisacodyl (Dulcolax) 5 mg DAILY PRN PO CONSTIPATION; Start 12/17/18 at 16:30 Bisacodyl (Dulcolax Supp) 10 mg DAILY PRN [place] CONSTIPATION; Start 12/17/18 at 16:30 Diagnostic Test (Pha) (Accu-Chek) 1 ea 02 XX Last administered on 12/19/18at 01:43; Admin Dose 1 EA; Start 12/18/18 at 02:00 Levalbuterol (Xopenex Neb) 1.25 mg ICU RECOVERY PRN HHN WHEEZING; Start 12/17/18 at 21:30 Ipratropium [place] (Atrovent 0.02% (Neb)) 0.5 mg ICU RECOVERY PRN HHN WHEEZING; Start 12/17/18 at 21:30 Ipratropium [place] (Atrovent Hfa) 4 puff Q6H RESP THERAPY INH Last administered on 12/20/18at 14:09; Admin Dose 4 PUFF; Start 12/18/18 at 02:00 Levalbuterol (Xopenex Hfa) 4 puff Q6H RESP THERAPY INH Last administered on 12/20/18at 14:09; Admin Dose 4 PUFF; Start 12/18/18 at 02:00 Famotidine (Pepcid Iv) 20 mg BID IV Last administered on 12/21/18at 08:34; Admin Dose 20 MG; Start 12/17/18 at 23:30 Morphine Sulfate (morphine) 2 mg Q2H PRN IV PAIN LEVEL 6-10 Last administered o n 12/18/18at 17:26; Admin Dose 2 MG; Start 12/17/18 at 23:45 Morphine Sulfate (morphine) 2 mg Q4H PRN IV SEVERE PAIN LEVEL 7-10; Start 12/17/18 at 23:45 Sumatriptan Succinate (Imitrex) 6 mg ONCE PRN SC HEADACHE; Start 12/18/18 at 23:30 Insulin Aspart (Novolog Insulin Pen) NOVOLOG *MODERATE* ALGORITHM WITH MEALS BEDTIME SC Last administered on 12/20/18at 21:11; Admin Dose 1 UNIT; Start 12/19/18 at 17:35 Miscellaneous Information 1 ea NOTE XX ; Start 12/19/18 at 13:30 Glucose (Glutose) 15 gm Q15M PRN PO DECREASED GLUCOSE; Start 12/19/18 at 13:30 Glucose (Glutose) 22.5 gm Q15M PRN PO DECREASED GLUCOSE; Start 12/19/18 at 13:30 Dextrose (D50w Syringe) 25 ml Q15M PRN IV DECREASED GLUCOSE; Start 12/19/18 at 13:30 Dextrose (D50w Syringe) 50 ml Q15M PRN IV DECREASED GLUCOSE; Start 12/19/18 at 13:30 Glucagon (Glucagen) 1 mg Q15M PRN IM DECREASED GLUCOSE; Start 12/19/18 at 13:30 Glucose (Glutose) 15 gm Q15M PRN BUCCAL DECREASED GLUCOSE; Start 12/19/18 at 13:30 Prednisone (Prednisone) 20 mg DAILY PO Last administered on 12/21/18at 08:34; Admin Dose 20 MG; Start 12/19/18 at 17:30 Assessment/Plan Chief Complaint/Hosp Course ASSESSMENT: 1. Pericarditis with pericardial effusion, unclear etiology. No evidence so far of bacterial infection or tuberculosis. Final fungal cultures are pending. No evidence of neoplastic process with negative cytology of the fluid. Viral etiology is still a possibility. Consider an autoimmune etiology, although has no prior evidence of autoimmune condition. However, she did come with substantial anemia which may have reflected a more chronic process inflammatory process. 2. Iron deficiency anemia with 6% saturation The patient denies a history of gastrointestinal bleeding. 3. Hypertension, stable. 4. Diabetes mellitus, stable. RECOMMENDATIONS: 1. Various laboratory studies pending. 2. Continue prednisone 20 mg daily for now 3. Should have GI evaluation in regard to iron deficiency CH[place] IVEY MD Dec 21, 2018 13:38
--- NOTE | 2018-12-21 15:28 | CONS ---
Date/Time of Note Date/Time of Note DATE: 12/21/18 TIME: 15:25 Assessment/Plan Assessment/Plan Assessment/Plan Recurrent pericardial effusion status post pericardial window 12/17/2018 Preserved ejection fraction Volume overload History of hypertension Diabetes -Pericardial fluid negative for malignancy. CT chest with evidence of pleural effusions and does have evidence of volume overload on examination. Would start gentle IV diuretics and continue his renal function blood pressure permits. Result Diagram: 12/20/18 0551 12/20/18 0549 Results 24hrs Laboratory Tests Test 12/20/18 17:40 12/20/18 20:32 12/21/18 07:54 12/21/18 11:55 Bedside Glucose 173 197 94 132 Consultation Date/Type/Reason Admit Date/Time Dec 17, 2018 at 14:27 Initial Consult Date 12/18/18 Type of Consult cv Requesting Provider: Pawel Plascencia DO 24 HR Interval Summary Free Text/Dictation Complains of mild shortness of breath with ambulation. Still has chest discomfort with coughing Exam/Review of Systems Vital Signs Vitals Vital Signs Date Temp Pulse Resp B/P (MAP) Pulse Ox O2 O2 Flow FiO2 Time Delivery Rate 12/21/18 2.0 14:27 12/21/18 84 12:03 12/21/18 98.4 19 128/75 95 11:26 (92) 12/21/18 Nasal 08:40 Cannula 12/18/18 35 15:00 Intake and Output 12/20/18 12/20/18 12/21/18 1414:59 22:59 06:59 IntakeIntake Total 1550 ml OutputOutput Total 10 ml 700 ml BalanceBalance -10 ml 850 ml Exam No apparent distress Constitutional: alert, oriented Head: normocephalic Respiratory: other (Coarse breath sounds bilaterally, decreased at the bases) Cardiovascular: regular rate and rhythm, other (S1-S2 heard) Gastrointestinal: soft, non-tender, bowel sounds Extremities: edema Medications Medications Current Medications Colchicine (Colchicine) 0.6 mg BID PO Last administered on 12/21/18at 08:34; Admin Dose 0.6 MG; Start 12/17/18 at 21:00 IV Flush (NS 3 ml) 3 ml PER PROTOCOL IV ; Start 12/17/18 at 16:30 Acetaminophen (Tylenol Tab) 650 mg Q6H PRN PO PAIN LEVEL 1-3 OR FEVER Last administered on 12/20/18at 17:49; Admin Dose 650 MG; Start 12/17/18 at 16:30 Acetaminophen (Tylenol Supp) 650 mg Q6H PRN OR PAIN LEVEL 1-3 OR FEVER; Start 12/17/18 at 16:30 Oxycodone/ Acetaminophen (Percocet (5/ 325)) 1 tab Q6H PRN PO MODERATE PAIN LEVEL 4-6; Start 12/17/18 at 16:30 Docusate Sodium (Colace) 100 mg Q12H PRN PO CONSTIPATION; Start 12/17/18 at 16:30 Magnesium Hydroxide (Milk Of Mag) 30 ml DAILY PRN PO CONSTIPATION; Start 12/17/18 at 16:30 Bisacodyl (Dulcolax) 5 mg DAILY PRN PO CONSTIPATION; Start 12/17/18 at 16:30 Bisacodyl (Dulcolax Supp) 10 mg DAILY PRN OR CONSTIPATION; Start 12/17/18 at 16:30 Diagnostic Test (Pha) (Accu-Chek) 1 ea 02 XX Last administered on 12/19/18at 01:43; Admin Dose 1 EA; Start 12/18/18 at 02:00 Levalbuterol (Xopenex Neb) 1.25 mg ICU RECOVERY PRN HHN WHEEZING; Start 12/17/18 at 21:30 Ipratropium [place] (Atrovent 0.02% (Neb)) 0.5 mg ICU RECOVERY PRN HHN WHEEZING; Start 12/17/18 at 21:30 Ipratropium [place] (Atrovent Hfa) 4 puff Q6H RESP THERAPY INH Last administered on 12/20/18at 14:09; Admin Dose 4 PUFF; Start 12/18/18 at 02:00 Levalbuterol (Xopenex Hfa) 4 puff Q6H RESP THERAPY INH Last administered on 12/20/18at 14:09; Admin Dose 4 PUFF; Start 12/18/18 at 02:00 Famotidine (Pepcid Iv) 20 mg BID IV Last administered on 12/21/18at 08:34; Admin Dose 20 MG; Start 12/17/18 at 23:30 Morphine Sulfate (morphine) 2 mg Q2H PRN IV PAIN LEVEL 6-10 Last administered on 12/18/18at 17:26; Admin Dose 2 MG; Start 12/17/18 at 23:45 Morphine Sulfate (morphine) 2 mg Q4H PRN IV SEVERE PAIN LEVEL 7-10; Start 12/17/18 at 23:45 Sumatriptan Succinate (Imitrex) 6 mg ONCE PRN SC HEADACHE; Start 12/18/18 at 23:30 Insulin Aspart (Novolog Insulin Pen) NOVOLOG *MODERATE* ALGORITHM WITH MEALS BEDTIME SC Last administered on 12/20/18at 21:11; Admin Dose 1 UNIT; Start 12/19/18 at 17:35 Miscellaneous Information 1 ea NOTE XX ; Start 12/19/18 at 13:30 Glucose (Glutose) 15 gm Q15M PRN PO DECREASED GLUCOSE; Start 12/19/18 at 13:30 Glucose (Glutose) 22.5 gm Q15M PRN PO DECREASED GLUCOSE; Start 12/19/18 at 13:30 Dextrose (D50w Syringe) 25 ml Q15M PRN IV DECREASED GLUCOSE; Start 12/19/18 at 13:30 Dextrose (D50w Syringe) 50 ml Q15M PRN IV DECREASED GLUCOSE; Start 12/19/18 at 13:30 Glucagon (Glucagen) 1 mg Q15M PRN IM DECREASED GLUCOSE; Start 12/19/18 at 13:30 Glucose (Glutose) 15 gm Q15M PRN BUCCAL DECREASED GLUCOSE; Start 12/19/18 at 13:30 Prednisone (Prednisone) 20 mg DAILY PO Last administered on 12/21/18at 08:34; Admin Dose 20 MG; Start 12/19/18 at 17:30 Pawel Plascencia DO Dec 21, 2018 15:28
[2018-12-21] MEDS ORDERED: FUROSEMIDE 20 MG INJ IV ONE (15:30)
--- NOTE | 2018-12-21 18:04 | PN ---
Date/Time of Note Date/Time of Note DATE: 12/21/18 TIME: 18:03 Assessment/Plan VTE Prophylaxis Risk score (from Ns)>0 risk: 7 SCD applied (from Ns): Yes SCD contraindicated: low risk/ambulating Pharmacological prophylaxis: NA/contraindicated Pharm contraindication: low risk/ambulating Lines/Catheters IV [facility]from [facility] Central Line Central line still needed: Yes Assessment/Plan Hospital Course Assessment and plan 1. Recurrent pericardial effusion, stable sp pericardial window. etio, likely viral, cont supportive care; pending viral/ fungal studies. 2. Type 2 diabetes/metabolic syndrome stable observe 3. Anemia stable observe 4. Possible migraines, may try Imitrex 4. Abn cxr? Subjective: 12/18 extubated some dysphagia occasional headache, which may be associate with photophobia and nausea 12/19: No distress improving. Appreciate eventually T assistance. Viral fungal studies pending. Rheumatology has recommended to start prednisone 12/20: non productive cough O: Vital signs stable Physical exam No pallor JVD Regular faint or distant no m/r/g Diminished but clear Benign No edema Result Diagram: 12/20/18 0551 12/20/18 0549 Results 24hrs Laboratory Tests Test 12/20/18 20:32 12/21/18 07:54 12/21/18 11:55 12/21/18 17:10 Bedside Glucose 197 94 132 116 Exam/Review of Systems Vital Signs Vitals Vital Signs Date Temp Pulse Resp B/P (MAP) Pulse Ox O2 O2 Flow FiO2 Time Delivery Rate 12/21/18 91 16:16 12/21/18 98.1 18 113/72 95 15:50 (86) 12/21/18 2.0 14:27 12/21/18 Nasal 08:40 Cannula 12/18/18 35 15:00 Intake and Output 12/20/18 12/20/18 12/21/18 1515:00 23:00 07:00 IntakeIntake Total 1550 ml 550 ml OutputOutput Total 10 ml 700 ml 7 ml BalanceBalance -10 ml 850 ml 543 ml Medications Medications Current Medications Colchicine (Colchicine) 0.6 mg BID PO Last administered on 12/21/18at 08:34; Admin Dose 0.6 MG; Start 12/17/18 at 21:00 IV Flush (NS 3 ml) 3 ml PER PROTOCOL IV ; Start 12/17/18 at 16:30 Acetaminophen (Tylenol Tab) 650 mg Q6H PRN PO PAIN LEVEL 1-3 OR FEVER Last administered on 12/20/18at 17:49; Admin Dose 650 MG; Start 12/17/18 at 16:30 Acetaminophen (Tylenol Supp) 650 mg Q6H PRN [place] PAIN LEVEL 1-3 OR FEVER; Start 12/17/18 at 16:30 Oxycodone/ Acetaminophen (Percocet (5/ 325)) 1 tab Q6H PRN PO MODERATE PAIN LEVEL 4-6; Start 12/17/18 at 16:30 Docusate Sodium (Colace) 100 mg Q12H PRN PO CONSTIPATION; Start 12/17/18 at 16:30 Magnesium Hydroxide (Milk Of Mag) 30 ml DAILY PRN PO CONSTIPATION; Start 12/17/18 at 16:30 Bisacodyl (Dulcolax) 5 mg DAILY PRN PO CONSTIPATION; Start 12/17/18 at 16:30 Bisacodyl (Dulcolax Supp) 10 mg DAILY PRN [place] CONSTIPATION; Start 12/17/18 at 16:30 Diagnostic Test (Pha) (Accu-Chek) 1 ea 02 XX Last administered on 12/19/18at 01:43; Admin Dose 1 EA; Start 12/18/18 at 02:00 Levalbuterol (Xopenex Neb) 1.25 mg ICU RECOVERY PRN HHN WHEEZING; Start 12/17/18 at 21:30 Ipratropium [place] (Atrovent 0.02% (Neb)) 0.5 mg ICU RECOVERY PRN HHN WHEEZING; Start 12/17/18 at 21:30 Ipratropium [place] (Atrovent Hfa) 4 puff Q6H RESP THERAPY INH Last administered on 12/20/18at 14:09; Admin Dose 4 PUFF; Start 12/18/18 at 02:00 Levalbuterol (Xopenex Hfa) 4 puff Q6H RESP THERAPY INH Last administered on 12/20/18at 14:09; Admin Dose 4 PUFF; Start 12/18/18 at 02:00 Morphine Sulfate (morphine) 2 mg Q2H PRN IV PAIN LEVEL 6-10 Last administered on 12/18/18at 17:26; Admin Dose 2 MG; Start 12/17/18 at 23:45 Morphine Sulfate (morphine) 2 mg Q4H PRN IV SEVERE PAIN LEVEL 7-10; Start 12/17/18 at 23:45 Sumatriptan Succinate (Imitrex) 6 mg ONCE PRN SC HEADACHE; Start 12/18/18 at 23:30 Insulin Aspart (Novolog Insulin Pen) NOVOLOG *MODERATE* ALGORITHM WITH MEALS BEDTIME SC Last administered on 12/20/18at 21:11; Admin Dose 1 UNIT; Start 12/19/18 at 17:35 Miscellaneous Information 1 ea NOTE XX ; Start 12/19/18 at 13:30 Glucose (Glutose) 15 gm Q15M PRN PO DECREASED GLUCOSE; Start 12/19/18 at 13:30 Glucose (Glutose) 22.5 gm Q15M PRN PO DECREASED GLUCOSE; Start 12/19/18 at 13:30 Dextrose (D50w Syringe) 25 ml Q15M PRN IV DECREASED GLUCOSE; Start 12/19/18 at 13:30 Dextrose (D50w Syringe) 50 ml Q15M PRN IV DECREASED GLUCOSE; Start 12/19/18 at 13:30 Glucagon (Glucagen) 1 mg Q15M PRN IM DECREASED GLUCOSE; Start 12/19/18 at 13:30 Glucose (Glutose) 15 gm Q15M PRN BUCCAL DECREASED GLUCOSE; Start 12/19/18 at 13:30 Prednisone (Prednisone) 20 mg DAILY PO Last administered on 12/21/18at 08:34; Admin Dose 20 MG; Start 12/19/18 at 17:30 Famotidine (Pepcid) 20 mg BID PO ; Start 12/21/18 at 21:00 MICHAEL VELIZ MD Dec 21, 2018 18:04
--- NOTE | 2018-12-21 18:06 | PN ---
Date/Time of Note Date/Time of Note DATE: 12/21/18 TIME: 18:04 Assessment/Plan VTE Prophylaxis Risk score (from Ns)>0 risk: 7 SCD applied (from [facility] [place] Yes SCD contraindicated: low risk/ambulating Pharmacological prophylaxis: NA/contraindicated Pharm contraindication: low risk/ambulating Lines/Catheters IV Catheter Type (from [facility]): Central Line Central line still needed: Yes Assessment/Plan Hospital Course Assessment and plan 1. Recurrent pericardial effusion, stable sp pericardial window. etio, likely viral, cont supportive care; pending viral/ fungal studies. 2. Type 2 diabetes/metabolic syndrome stable observe 3. Anemia stable observe 4. Possible migraines, may try Imitrex 4. Abn cxr? Subjective: 12/18 extubated some dysphagia occasional headache, which may be associate with photophobia and nausea 12/19: No distress improving. Appreciate eventually T assistance. Viral fungal studies pending. Rheumatology has recommended to start prednisone 12/20: non productive cough 12/21 doing okay. No fever diarrhea. Nur and chest tube out central line still in O: Vital signs stable Physical exam No pallor JVD Regular faint or distant no m/r/g Diminished but clear Benign mild edema Result Diagram: 12/20/18 0551 12/20/18 0549 Results 24hrs Laboratory Tests Test 12/20/18 20:32 12/21/18 07:54 12/21/18 11:55 12/21/18 17:10 Bedside Glucose 197 94 132 116 Exam/Review of Systems Vital Signs Vitals Vital Signs Date Temp Pulse Resp B/P (MAP) Pulse Ox O2 O2 Flow FiO2 Time Delivery Rate 12/21/18 91 16:16 12/21/18 98.1 18 113/72 95 15:50 (86) 12/21/18 2.0 14:27 12/21/18 Nasal 08:40 Cannula 12/18/18 35 15:00 Intake and Output 12/20/18 12/20/18 12/21/18 1515:00 23:00 07:00 IntakeIntake Total 1550 ml 550 ml OutputOutput Total 10 ml 700 ml 7 ml BalanceBalance -10 ml 850 ml 543 ml Medications Medications Current Medications Colchicine (Colchicine) 0.6 mg BID PO Last administered on 12/21/18at 08:34; Admin Dose 0.6 MG; Start 12/17/18 at 21:00 IV Flush (NS 3 ml) 3 ml PER PROTOCOL IV ; Start 12/17/18 at 16:30 Acetaminophen (Tylenol Tab) 650 mg Q6H PRN PO PAIN LEVEL 1-3 OR FEVER Last administered on 12/20/18at 17:49; Admin Dose 650 MG; Start 12/17/18 at 16:30 Acetaminophen (Tylenol Supp) 650 mg Q6H PRN [place] PAIN LEVEL 1-3 OR FEVER; Start 12/17/18 at 16:30 Oxycodone/ Acetaminophen (Percocet (5/ 325)) 1 tab Q6H PRN PO MODERATE PAIN LEVEL 4-6; Start 12/17/18 at 16:30 Docusate Sodium (Colace) 100 mg Q12H PRN PO CONSTIPATION; Start 12/17/18 at 16:30 Magnesium Hydroxide (Milk Of Mag) 30 ml DAILY PRN PO CONSTIPATION; Start 12/17/18 at 16:30 Bisacodyl (Dulcolax) 5 mg DAILY PRN PO CONSTIPATION; Start 12/17/18 at 16:30 Bisacodyl (Dulcolax Supp) 10 mg DAILY PRN [place] CONSTIPATION; Start 12/17/18 at 16:30 Diagnostic Test (Pha) (Accu-Chek) 1 ea 02 XX Last administered on 12/19/18at 01:43; Admin Dose 1 EA; Start 12/18/18 at 02:00 Levalbuterol (Xopenex Neb) 1.25 mg ICU RECOVERY PRN HHN WHEEZING; Start 12/17/18 at 21:30 Ipratropium [place] (Atrovent 0.02% (Neb)) 0.5 mg ICU RECOVERY PRN HHN WHEEZING; Start 12/17/18 at 21:30 Ipratropium [place] (Atrovent Hfa) 4 puff Q6H RESP THERAPY INH Last administered on 12/20/18at 14:09; Admin Dose 4 PUFF; Start 12/18/18 at 02:00 Levalbuterol (Xopenex Hfa) 4 puff Q6H RESP THERAPY INH Last administered on 12/20/18at 14:09; Admin Dose 4 PUFF; Start 12/18/18 at 02:00 Morphine Sulfate (morphine) 2 mg Q2H PRN IV PAIN LEVEL 6-10 Last administered on 12/18/18at 17:26; Admin Dose 2 MG; Start 12/17/18 at 23:45 Morphine Sulfate (morphine) 2 mg Q4H PRN IV SEVERE PAIN LEVEL 7-10; Start 12/17/18 at 23:45 Sumatriptan Succinate (Imitrex) 6 mg ONCE PRN SC HEADACHE; Start 12/18/18 at 23:30 Insulin Aspart (Novolog Insulin Pen) NOVOLOG *MODERATE* ALGORITHM WITH MEALS BEDTIME SC Last administered on 12/20/18at 21:11; Admin Dose 1 UNIT; Start 12/19/18 at 17:35 Miscellaneous Information 1 ea NOTE XX ; Start 12/19/18 at 13:30 Glucose (Glutose) 15 gm Q15M PRN PO DECREASED GLUCOSE; Start 12/19/18 at 13:30 Glucose (Glutose) 22.5 gm Q15M PRN PO DECREASED GLUCOSE; Start 12/19/18 at 13:30 Dextrose (D50w Syringe) 25 ml Q15M PRN IV DECREASED GLUCOSE; Start 12/19/18 at 13:30 Dextrose (D50w Syringe) 50 ml Q15M PRN IV DECREASED GLUCOSE; Start 12/19/18 at 13:30 Glucagon (Glucagen) 1 mg Q15M PRN IM DECREASED GLUCOSE; Start 12/19/18 at 13:30 Glucose (Glutose) 15 gm Q15M PRN BUCCAL DECREASED GLUCOSE; Start 12/19/18 at 13:30 Prednisone (Prednisone) 20 mg DAILY PO Last administered on 12/21/18at 08:34; Admin Dose 20 MG; Start 12/19/18 at 17:30 Famotidine (Pepcid) 20 mg BID PO ; Start 12/21/18 at 21:00 MICHAEL VELIZ MD Dec 21, 2018 18:06
--- NOTE | 2018-12-21 18:28 | NUR ---
EOSS: NO SIGNIFICANT CHANGE OF CONDITION, CONTINUE WITH CURRENT PLAN OF CARE
[2018-12-21] MEDS ORDERED: HYDROCODONE/APAP (7.5/325) TAB PO PRN (18:30)
[2018-12-21] MEDS ORDERED: FAMOTIDINE 20 MG TAB PO SCH (21:00)
[2018-12-21] MEDS ORDERED: PAROXETINE 20 MG TAB ONE (21:12)
[2018-12-21] MEDS: LACTOBACILLUS RHAMNOSUS CAP PO SCH (21:37)
[2018-12-21] MEDS: FAMOTIDINE 20 MG TAB PO SCH (22:36)
[2018-12-22] VITALS (9 sets, daily range): BP systolic 119–182; BP diastolic 63–83; PULSE 64–97; RESP 18–21
[2018-12-22] MEDS: ACETAMINOPHEN 325 MG TAB PO PRN ×2 (00:39→08:40)
[2018-12-22] MEDS: IPRATROPIUM (HFA) 12.9 GM INHALER INH SCH ×4 (02:00→13:49)
[2018-12-22] MEDS: LEVALBUTEROL (HFA) 15 GM INHALER INH SCH ×4 (02:00→13:49)
[2018-12-22] MEDS: ACCU-CHEK XX SCH (02:00)
[2018-12-22] MEDS: INSULIN ASPART [NOVOLOG] 3 ML PEN SC SCH ×4 (07:55→21:00)
[2018-12-22] MEDS: COLCHICINE 0.6 MG TAB PO SCH ×2 (08:36→21:29)
[2018-12-22] MEDS: LACTOBACILLUS RHAMNOSUS CAP PO SCH ×2 (08:36→21:29)
[2018-12-22] MEDS: FAMOTIDINE 20 MG TAB PO SCH (08:36)
[2018-12-22] MEDS: predniSONE 20 MG TAB PO SCH (08:38)
[2018-12-22] MEDS ORDERED: MAGNESIUM SULFATE 2 GM/50 ML 50 ML IVPB ONE (10:00)
--- NOTE | 2018-12-22 12:02 | NUR ---
PT EVALUATION NOTE: Patient is a 53 year old female admitted to [facility] after presenting to the ER on 12/17/18 with dyspnea chest and back discomfort. Patient was here at the beginning a month for pericardial effusion had pericardiocentesis. PMH: HTN, DM, obesity, recent large pericardial effusion PRECAUTIONS: fall risk, ambulate with supplemental O2 PLOF: Patient lives with family in a 2 story apartment; there are 15 stairs to negotiate to the second floor. Prior to hospitalization, patient was independent with all functional mobility without an assistive device. CLOF: Reji SALVADOR cleared patient for PT evaluation. Patient agreeable to participate with PT, denies pain. Received patient sitting up in bedside chair, patient on supplemental O2 via NC @ 2 l/min, daughter present in room. Patient educated in safety awareness, fall prevention and purpose of PT evaluation. VS stable BP 128/75, HR 75, O2 sat 94%. Patient demonstrates transfers with supervision, steady upon standing. Gait training 2 x 30 feet with one sitting rest break, no assistive device, on supplemental O2 via NC @ 2 l/min. Patient slightly unsteady during ambulation however no loss of balance. Patient returned to sitting up in bedside chair, all needs met, call light within reach. After ambulation BP 132/71, HR 81, O2 sat 96%. Reji SALVADOR notified of patient's status at the end of the session. PT RECOMMENDATION: Patient will benefit from skilled inpatient PT intervention to address, strength, endurance, safety, balance and functional mobility. Anticipate discharge home with family assistance as needed once cleared by MD. No DME needs anticipated.
--- NOTE | 2018-12-22 12:56 | CONS ---
Assessment/Plan Assessment/Plan Hospital Course 1) Fluid overload,improved 2) Pericardial window 3) Preserved LV function Assessment/Plan 1) diuresis as needed 2) no new cardiac changes 3) ok to dc if ambulatory 4) replete mag Result Diagram: 12/22/18 0533 12/22/18 0533 Results 24hrs Laboratory Tests Test 12/21/18 17:10 12/21/18 21:35 12/22/18 05:33 12/22/18 07:56 Bedside Glucose 116 88 82 White Blood Count 7.5 Red Blood Count 3.45 L Hemoglobin 9.9 L Hematocrit 31.0 L Mean Corpuscular 89.9 Volume Mean Corpuscular 28.7 L Hemoglobin Mean Corpuscular 31.9 L Hemoglobin Concent Red Cell 12.6 Distribution Width Platelet Count 203 Mean Platelet Volume 9.5 Immature 0.400 Granulocytes % Neutrophils % 52.8 Lymphocytes % 33.7 Monocytes % 8.4 Eosinophils % 4.4 Basophils % 0.3 Nucleated Red Blood 0.0 Cells % Immature 0.030 Granulocytes # Neutrophils # 4.0 Lymphocytes # 2.5 Monocytes # 0.6 Eosinophils # 0.3 Basophils # 0.0 Nucleated Red Blood 0.0 Cells # Sodium Level 139 Potassium Level 3.7 Chloride Level 105 Carbon Dioxide Level 28 Anion Gap 6 Blood Urea Nitrogen 13 Creatinine 0.60 Est Glomerular > 60 Filtrat Rate mL/min Glucose Level 81 Calcium Level 8.7 Magnesium Level 1.5 L Test 12/22/18 11:46 Bedside Glucose 144 Consultation Date/Type/Reason Admit Date/Time Dec 17, 2018 at 14:27 Initial Consult Date 12/18/18 Type of Consult cv Requesting Provider: Pawel Plascencia DO 24 HR Interval Summary Free Text/Dictation no chest pain, no sob, eating lunch Detailed Summary Respiratory: no complaints Cardiovascular: no complaints Gastrointestinal: no complaints Musculoskeletal: no complaints Skin: no complaints Neurologic: no complaints Endocrine: no complaints Exam/Review of Systems Vital Signs Vitals Vital Signs Date Temp Pulse Resp B/P (MAP) Pulse Ox O2 O2 Flow FiO2 Time Delivery Rate 12/22/18 77 12:19 12/22/18 98.0 18 119/67 99 12:19 (84) 12/22/18 Nasal 2.0 07:57 Cannula 12/18/18 35 15:00 Intake and Output 12/21/18 12/21/1819 1515:00 23:00 07:00 IntakeIntake Total 1800 ml 400 ml BalanceBalance 1800 ml 400 ml Exam Constitutional: alert, oriented Head: normocephalic, atraumatic Neck: jvd Respiratory: clear to auscultation Cardiovascular: regular rate and rhythm Gastrointestinal: soft Musculoskeletal: nl extremities to inspection Extremities: normal pulses Medications Medications Current Medications Colchicine (Colchicine) 0.6 mg BID PO Last administered on 12/22/18at 08:36; Admin Dose 0.6 MG; Start 12/17/18 at 21:00 IV Flush (NS 3 ml) 3 ml PER PROTOCOL IV ; Start 12/17/18 at 16:30 Acetaminophen (Tylenol Tab) 650 mg Q6H PRN PO PAIN LEVEL 1-3 OR FEVER Last administered on 12/22/18at 08:40; Admin Dose 650 MG; Start 12/17/18 at 16:30 Acetaminophen (Tylenol Supp) 650 mg Q6H PRN [place] PAIN LEVEL 1-3 OR FEVER; Start 12/17/18 at 16:30 Oxycodone/ Acetaminophen (Percocet (5/ 325)) 1 tab Q6H PRN PO MODERATE PAIN LEVEL 4-6; Start 12/17/18 at 16:30 Docusate Sodium (Colace) 100 mg Q12H PRN PO CONSTIPATION; Start 12/17/18 at 16:30 Magnesium Hydroxide (Milk Of Mag) 30 ml DAILY PRN PO CONSTIPATION; Start 12/17/18 at 16:30 Bisacodyl (Dulcolax) 5 mg DAILY PRN PO CONSTIPATION; Start 12/17/18 at 16:30 Bisacodyl (Dulcolax Supp) 10 mg DAILY PRN [place] CONSTIPATION; Start 12/17/18 at 16:30 Diagnostic Test (Pha) (Accu-Chek) 1 ea 02 XX Last administered on 12/19/18at 01:43; Admin Dose 1 EA; Start 12/18/18 at 02:00 Levalbuterol (Xopenex Neb) 1.25 mg ICU RECOVERY PRN HHN WHEEZING; Start 12/17/18 at 21:30 Ipratropium [place] (Atrovent 0.02% (Neb)) 0.5 mg ICU RECOVERY PRN HHN WHEEZING; Start 12/17/18 at 21:30 Ipratropium [place] (Atrovent Hfa) 4 puff Q6H RESP THERAPY INH Last administered on 12/22/18at 08:00; Admin Dose 4 PUFF; Start 12/18/18 at 02:00 Levalbuterol (Xopenex Hfa) 4 puff Q6H RESP THERAPY INH Last administered on 12/22/18at 08:00; Admin Dose 4 PUFF; Start 12/18/18 at 02:00 Morphine Sulfate (morphine) 2 mg Q4H PRN IV SEVERE PAIN LEVEL 7-10; Start 12/17/18 at 23:45 Sumatriptan Succinate (Imitrex) 6 mg ONCE PRN SC HEADACHE; Start 12/18/18 at 23:30 Insulin Aspart (Novolog Insulin Pen) NOVOLOG *MODERATE* ALGORITHM WITH MEALS BEDTIME SC Last administered on 12/22/18at 11:53; Admin Dose 2 UNIT; Start 12/19 at 17:35 Miscellaneous Information 1 ea NOTE XX ; Start 12/19/18 at 13:30 Glucose (Glutose) 15 gm Q15M PRN PO DECREASED GLUCOSE; Start 12/19/18 at 13:30 Glucose (Glutose) 22.5 gm Q15M PRN PO DECREASED GLUCOSE; Start 12/19/18 at 13:30 Dextrose (D50w Syringe) 25 ml Q15M PRN IV DECREASED GLUCOSE; Start 12/19/18 at 13:30 Dextrose (D50w Syringe) 50 ml Q15M PRN IV DECREASED GLUCOSE; Start 12/19/18 at 13:30 Glucagon (Glucagen) 1 mg Q15M PRN IM DECREASED GLUCOSE; Start 12/19/18 at 13:30 Glucose (Glutose) 15 gm Q15M PRN BUCCAL DECREASED GLUCOSE; Start 12/19/18 at 13:30 Prednisone (Prednisone) 20 mg DAILY PO Last administered on 12/22/18at 08:38; Admin Dose 20 MG; Start 12/19/18 at 17:30 Famotidine (Pepcid) 20 mg DAILY PO Last administered on 12/22/18at 08:36; Admin Dose 20 MG; Start 12/21/18 at 21:00 Acetaminophen/ Hydrocodone Bitart ([place] (7.5-325)) 1 tab Q6H PRN PO MODERATE PAIN LEVEL 4-6; Start 1/21/19 at 18:30 Lactobacillus Acidophilus/ Rhamnosus (Culturelle) 1 cap BID PO Last administered on 12/22/18at 08:36; Admin Dose 1 CAP; Start 12/21/18 at 21:00 Date/Time of Note Date/Time of Note DATE: 12/22/18 TIME: 12:54 KERI CAMEJO MD Dec 22, 2018 12:56
[2018-12-22] MEDS ORDERED: MAGNESIUM SULFATE 1 GM/D5W 100 ML IVPB ONE (13:00)
--- NOTE | 2018-12-22 13:32 | CONS ---
Date/Time of Note Date/Time of Note DATE: 12/22/18 TIME: 13:29 Consult Date/Type/Reason Admit Date/Time Dec 17, 2018 at 14:27 Initial Consult Date 12/18/18 Type of Consultation: Rheum Requesting Provider: Pawel Plascenica DO Subjective Describes some anxiety at night but no new complaints. Objective Vital Signs Date Temp Pulse Resp B/P (MAP) Pulse Ox O2 O2 Flow FiO2 Time Delivery Rate 12/22/18 77 12:19 12/22/18 98.0 18 119/67 99 12:19 (84) 12/22/18 Nasal 2.0 07:57 Cannula 12/18/18 35 15:00 Intake and Output 12/21/18 12/21/18 12/22/18 1515:00 23:00 07:00 IntakeIntake Total 1800 ml 400 ml BalanceBalance 1800 ml 400 ml Exam GENERAL: No acute distress at present, alert, oriented. SKIN: Without rashes. HEENT: Without acute oral or ocular lesions. NECK: Without lymphadenopathy. CHEST: Decreased breath sounds. HEART: Regular rate. No murmurs noted. ABDOMEN: Soft without masses or tenderness. MUSCULOSKELETAL: Joints with good range of motion, no synovitis or tenderness. NEUROLOGIC: Grossly intact. EXTREMITIES: No cyanosis edema. Results/Medications Result Diagram: 12/22/18 0533 12/22/18 0533 Results 24 hrs Laboratory Tests Test 12/21/18 17:10 12/21/18 21:35 12/22/18 05:33 12/22/18 07:56 Bedside Glucose 116 88 82 White Blood Count 7.5 Red Blood Count 3.45 L Hemoglobin 9.9 L Hematocrit 31.0 L Mean Corpuscular 89.9 Volume Mean Corpuscular 28.7 L Hemoglobin Mean Corpuscular 31.9 L Hemoglobin Concent Red Cell 12.6 Distribution Width Platelet Count 203 Mean Platelet Volume 9.5 Immature 0.400 Granulocytes % Neutrophils % 52.8 Lymphocytes % 33.7 Monocytes % 8.4 Eosinophils % 4.4 Basophils % 0.3 Nucleated Red Blood 0.0 Cells % Immature 0.030 Granulocytes # Neutrophils # 4.0 Lymphocytes # 2.5 Monocytes # 0.6 Eosinophils # 0.3 Basophils # 0.0 Nucleated Red Blood 0.0 Cells # Sodium Level 139 Potassium Level 3.7 Chloride Level 105 Carbon Dioxide Level 28 Anion Gap 6 Blood Urea Nitrogen 13 Creatinine 0.60 Est Glomerular > 60 Filtrat Rate mL/min Glucose Level 81 Calcium Level 8.7 Magnesium Level 1.5 L Test 12/22/18 11:46 Bedside Glucose 144 Medications Current Medications Colchicine (Colchicine) 0.6 mg BID PO Last administered on 12/22/18at 08:36; Admin Dose 0.6 MG; Start 12/17/18 at 21:00 IV Flush (NS 3 ml) 3 ml PER PROTOCOL IV ; Start 12/17/18 at 16:30 Acetaminophen (Tylenol Tab) 650 mg Q6H PRN PO PAIN LEVEL 1-3 OR FEVER Last administered on 12/22/18at 08:40; Admin Dose 650 MG; Start 12/17/18 at 16:30 Acetaminophen (Tylenol Supp) 650 mg Q6H PRN [place] PAIN LEVEL 1-3 OR FEVER; Start 12/17/18 at 16:30 Oxycodone/ Acetaminophen (Percocet (5/ 325)) 1 tab Q6H PRN PO MODERATE PAIN LEVEL 4-6; Start 12/17/18 at 16:30 Docusate Sodium (Colace) 100 mg Q12H PRN PO CONSTIPATION; Start 12/17/18 at 16:30 Magnesium Hydroxide (Milk Of Mag) 30 ml DAILY PRN PO CONSTIPATION; Start 12/17/18 at 16:30 Bisacodyl (Dulcolax) 5 mg DAILY PRN PO CONSTIPATION; Start 12/17/18 at 16:30 Bisacodyl (Dulcolax Supp) 10 mg DAILY PRN [place] CONSTIPATION; Start 12/17/18 at 16:30 Diagnostic Test (Pha) (Accu-Chek) 1 ea 02 XX Last administered on 12/19/18at 01:43; Admin Dose 1 EA; Start 12/18/18 at 02:00 Levalbuterol (Xopenex Neb) 1.25 mg ICU RECOVERY PRN HHN WHEEZING; Start 12/17/18 at 21:30 Ipratropium [place] (Atrovent 0.02% (Neb)) 0.5 mg ICU RECOVERY PRN HHN WHEEZING; Start 12/17/18 at 21:30 Ipratropium [place] (Atrovent Hfa) 4 puff Q6H RESP THERAPY INH Last administered on 12/22/18at 08:00; Admin Dose 4 PUFF; Start 12/18/18 at 02:00 Levalbuterol (Xopenex Hfa) 4 puff Q6H RESP THERAPY INH Last administered on 12/22/18at 08:00; Admin Dose 4 PUFF; Start 12/18/18 at 02:00 Morphine Sulfate (morphine) 2 mg Q4H PRN IV SEVERE PAIN LEVEL 7-10; Start 12/17/18 at 23:45 Sumatriptan Succinate (Imitrex) 6 mg ONCE PRN [place] HEADACHE; Start 12/18/18 at 23:30 Insulin Aspart (Novolog Insulin Pen) NOVOLOG *MODERATE* ALGORITHM WITH MEALS BEDTIME SC Last administered on 12/22/18at 11:53; Admin Dose 2 UNIT; Start 12/19/18 at 17:35 Miscellaneous Information 1 ea NOTE XX ; Start 12/19/18 at 13:30 Glucose (Glutose) 15 gm Q15M PRN PO DECREASED GLUCOSE; Start 12/19/18 at 13:30 Glucose (Glutose) 22.5 gm Q15M PRN PO DECREASED GLUCOSE; Start 12/19/18 at 13:30 Dextrose (D50w Syringe) 25 ml Q15M PRN IV DECREASED GLUCOSE; Start 12/19/18 at 13:30 Dextrose (D50w Syringe) 50 ml Q15M PRN IV DECREASED GLUCOSE; Start 12/19/18 at 13:30 Glucagon (Glucagen) 1 mg Q15M PRN IM DECREASED GLUCOSE; Start 12/19/18 at 13:30 Glucose (Glutose) 15 gm Q15M PRN BUCCAL DECREASED GLUCOSE; Start 12/19/18 at 13:30 Prednisone (Prednisone) 20 mg DAILY PO Last administered on 12/22/18at 08:38; Admin Dose 20 MG; Start 12/19/18 at 17:30 Famotidine (Pepcid) 20 mg DAILY PO Last administered on 12/22/18at 08:36; Admin Dose 20 MG; Start 12/21/18 at 21:00 Acetaminophen/ Hydrocodone Bitart ([place] (7.5-325)) 1 tab Q6H PRN PO MODERATE PAIN LEVEL 4-6; Start 12/21/18 at 18:30 Lactobacillus Acidophilus/ Rhamnosus (Culturelle) 1 cap BID PO Last administered on 12/22/18at 08:36; Admin Dose 1 CAP; Start 12/21/18 at 21:00 Assessment/Plan Chief Complaint/Hosp Course ASSESSMENT: 1. Pericarditis with pericardial effusion, unclear etiology. No evidence so far of bacterial infection or tuberculosis. Final fungal cultures are pending. No evidence of neoplastic process with negative cytology of the fluid. Viral etiology is still a possibility. Consider an autoimmune etiology, although has no prior evidence of autoimmune condition. However, she did come with substantial anemia which may have reflected a more chronic process inflammatory process. 2. Iron deficiency anemia with 6% saturation The patient denies a history of gastrointestinal bleeding. 3. Hypertension, stable. 4. Diabetes mellitus, stable. RECOMMENDATIONS: 1. Various laboratory studies still pending. 2. Continue prednisone 20 mg daily for now 3. Should have GI evaluation in regard to iron deficiency CHINA IVEY MD Dec 22, 2018 13:32
--- NOTE | 2018-12-22 16:03 | NUR ---
ARPAN Notes: This insurance underwriter met with the patient and (Adarsh) at bedside, patient states she does not want to go to SNF upon dc, she lives with her and daughter and they will be the ones to care for her at home, she states she lives in a 2 story home but does not need to go up and down the stairs until she is strong enough to do so, this insurance underwriter informed the patient that if ordered HH will be arranged for SOC upon dc, address and phone # on facesheet have been confirmed. Miriam Espino RNCM
--- NOTE | 2018-12-22 16:28 | PN ---
Date/Time of Note Date/Time of Note DATE: 12/22/18 TIME: 16:27 Assessment/Plan VTE Prophylaxis Risk score (from Ns)>0 risk: 4 SCD applied (from Ns): Yes SCD contraindicated: low risk/ambulating Pharmacological prophylaxis: LMWH Lines/Catheters IV Catheter Type (from Nrsg): Central Line Central line still needed: Yes Assessment/Plan Hospital Course Assessment and plan 1. Recurrent pericardial effusion, stable sp pericardial window. etio, likely viral, cont supportive care; pending viral/ fungal studies. Started prednisone. Probably home soon. 2. Type 2 diabetes/metabolic syndrome stable observe 3. Anemia stable observe severe iron deficiency, consider outpatient GI. 4. Possible migraines, may try Imitrex 4. Abn cxr? CT results noted Subjective: 12/18 extubated some dysphagia occasional headache, which may be associate with photophobia and nausea 12/19: No distress improving. Appreciate eventually T assistance. Viral fungal studies pending. Rheumatology has recommended to start prednisone 12/20: non productive cough 12/21 doing okay. No fever diarrhea. Nur and chest tube out central line still in 12/22: Feels better cough with some expectoration no hemoptysis. No fever diarrhea. Some edema noted, although on prednisone. O: Vital signs stable Physical exam No pallor JVD Regular; no m/r/g Diminished but clear Benign mild edema Result Diagram: 12/22/18 0533 12/22/18 0533 Results 24hrs Laboratory Tests Test 12/21/18 17:10 12/21/18 21:35 12/22/18 05:33 12/22/18 07:56 Bedside Glucose 116 88 82 White Blood Count 7.5 Red Blood Count 3.45 L Hemoglobin 9.9 L Hematocrit 31.0 L Mean Corpuscular 89.9 Volume Mean Corpuscular 28.7 L Hemoglobin Mean Corpuscular 31.9 L Hemoglobin Concent Red Cell 12.6 Distribution Width Platelet Count 203 Mean Platelet Volume 9.5 Immature 0.400 Granulocytes % Neutrophils % 52.8 Lymphocytes % 33.7 Monocytes % 8.4 Eosinophils % 4.4 Basophils % 0.3 Nucleated Red Blood 0.0 Cells % Immature 0.030 Granulocytes # Neutrophils # 4.0 Lymphocytes # 2.5 Monocytes # 0.6 Eosinophils # 0.3 Basophils # 0.0 Nucleated Red Blood 0.0 Cells # Sodium Level 139 Potassium Level 3.7 Chloride Level 105 Carbon Dioxide Level 28 Anion Gap 6 Blood Urea Nitrogen 13 Creatinine 0.60 Est Glomerular > 60 Filtrat Rate mL/min Glucose Level 81 Calcium Level 8.7 Magnesium Level 1.5 L Test 12/22/18 11:46 Bedside Glucose 144 Exam/Review of Systems Vital Signs Vitals Vital Signs Date Temp Pulse Resp B/P (MAP) Pulse Ox O2 O2 Flow FiO2 Time Delivery Rate 12/22/18 74 16:16 12/22/18 98.0 20 130/76 99 16:09 (94) 12/22/18 Nasal 2.0 07:57 Cannula 12/18/18 35 15:00 Intake and Output 12/21/18 12/21/18 12/22/18 1414:59 22:59 06:59 IntakeIntake Total 550 ml 1800 ml 400 ml OutputOutput Total 7 ml BalanceBalance 543 ml 1800 ml 400 ml Medications Medications Current Medications Colchicine (Colchicine) 0.6 mg BID PO Last administered on 12/22/18at 08:36; Admin Dose 0.6 MG; Start 12/17/18 at 21:00 IV Flush (NS 3 ml) 3 ml PER PROTOCOL IV ; Start 12/17/18 at 16:30 Acetaminophen (Tylenol Tab) 650 mg Q6H PRN PO PAIN LEVEL 1-3 OR FEVER Last administered on 12/22/18at 08:40; Admin Dose 650 MG; Start 12/17/18 at 16:30 Acetaminophen (Tylenol Supp) 650 mg Q6H PRN [place] PAIN LEVEL 1-3 OR FEVER; Start 12/17/18 at 16:30 Oxycodone/ Acetaminophen (Percocet (5/ 325)) 1 tab Q6H PRN PO MODERATE PAIN LEVEL 4-6; Start 12/17/18 at 16:30 Docusate Sodium (Colace) 100 mg Q12H PRN PO CONSTIPATION; Start 12/17/18 at 16:30 Magnesium Hydroxide (Milk Of Mag) 30 ml DAILY PRN PO CONSTIPATION; Start 12/17/18 at 16:30 Bisacodyl (Dulcolax) 5 mg DAILY PRN PO CONSTIPATION; Start 12/17/18 at 16:30 Bisacodyl (Dulcolax Supp) 10 mg DAILY PRN [place] CONSTIPATION; Start 12/17/18 at 16:30 Diagnostic Test (Pha) (Accu-Chek) 1 ea 02 XX Last administered on 12/19/18at 01:43; Admin Dose 1 EA; Start 12/18/18 at 02:00 Levalbuterol (Xopenex Neb) 1.25 mg ICU RECOVERY PRN HHN WHEEZING; Start 12/17/18 at 21:30 Ipratropium [place] (Atrovent 0.02% (Neb)) 0.5 mg ICU RECOVERY PRN HHN WHEEZING; Start 12/17/18 at 21:30 Ipratropium [place] (Atrovent Hfa) 4 puff Q6H RESP THERAPY INH Last administered on 12/22/18at 13:49; Admin Dose 4 PUFF; Start 12/18/18 at 02:00 Levalbuterol (Xopenex Hfa) 4 puff Q6H RESP THERAPY INH Last administered on 12/22/18at 13:49; Admin Dose 4 PUFF; Start 12/18/18 at 02:00 Morphine Sulfate (morphine) 2 mg Q4H PRN IV SEVERE PAIN LEVEL 7-10; Start 12/17/18 at 23:45 Sumatriptan Succinate (Imitrex) 6 mg ONCE PRN SC HEADACHE; Start 12/18/18 at 23:30 Insulin Aspart (Novolog Insulin Pen) NOVOLOG *MODERATE* ALGORITHM WITH MEALS BEDTIME SC Last administered on 12/22/18at 11:53; Admin Dose 2 UNIT; Start 12/19/18 at 17:35 Miscellaneous Information 1 ea NOTE XX ; Start 12/19/18 at 13:30 Glucose (Glutose) 15 gm Q15M PRN PO DECREASED GLUCOSE; Start 12/19/18 at 13:30 Glucose (Glutose) 22.5 gm Q15M PRN PO DECREASED GLUCOSE; Start 12/19/18 at 13:30 Dextrose (D50w Syringe) 25 ml Q15M PRN IV DECREASED GLUCOSE; Start 12/19/18 at 13:30 Dextrose (D50w Syringe) 50 ml Q15M PRN IV DECREASED GLUCOSE; Start 12/19/18 at 13:30 Glucagon (Glucagen) 1 mg Q15M PRN IM DECREASED GLUCOSE; Start 12/19/18 at 13:30 Glucose (Glutose) 15 gm Q15M PRN BUCCAL DECREASED GLUCOSE; Start 1/19/19 at 13:30 Prednisone (Prednisone) 20 mg DAILY PO Last administered on 12/22/18at 08:38; Admin Dose 20 MG; Start 12/19/18 at 17:30 Famotidine (Pepcid) 20 mg DAILY PO Last administered on 12/22/18at 08:36; Admin Dose 20 MG; Start 12/21/18 at 21:00 Acetaminophen/ Hydrocodone Bitart ([place] (7.5-325)) 1 tab Q6H PRN PO MODERATE PAIN LEVEL 4-6; Start 12/21/18 at 18:30 Lactobacillus Acidophilus/ Rhamnosus (Culturelle) 1 cap BID PO Last administered on 12/22/18at 08:36; Admin Dose 1 CAP; Start 12/21/18 at 21:00 MICHAEL VELIZ MD Dec 22, 2018 16:28
[2018-12-22] MEDS: ENOXAPARIN 30 MG/0.3 ML SYG SC SCH (17:39)
--- NOTE | 2018-12-22 19:12 | NUR ---
Eoss No significant changes noted at this time. Denies c/o pain, no sob or distress noted. at the bedside. Vitals are stable. Call light within reach, bed locked and low. Will endorse accordingly to incoming nurse.
[2018-12-23] VITALS (11 sets, daily range): BP systolic 110–133; BP diastolic 64–76; PULSE 58–75; RESP 18–20
[2018-12-23] MEDS: ACCU-CHEK XX SCH (02:00)
--- NOTE | 2018-12-23 07:52 | CONS ---
Assessment/Plan Assessment/Plan Hospital Course 1) Fluid overload,improved 2) Pericardial window 3) Preserved LV function Assessment/[place] [facility] [place] Diagram: 12/23/18 0540 12/23/18 0540 Results 24hrs Laboratory Tests Test 12/22/18 07:56 12/22/18 11:46 12/22/18 17:35 12/22/18 21:27 Bedside Glucose 82 144 110 102 Test 12/23/18 05:40 White Blood Count 8.8 Red Blood Count 3.54 L Hemoglobin 10.2 L Hematocrit 30.9 L Mean Corpuscular 87.3 Volume Mean Corpuscular 28.8 L Hemoglobin Mean Corpuscular 33.0 Hemoglobin Concent Red Cell 12.5 Distribution Width Platelet Count 199 Mean Platelet Volume 9.2 Immature 0.700 H Granulocytes % Neutrophils % 49.5 Lymphocytes % 37.0 Monocytes % 9.3 Eosinophils % 3.4 Basophils % 0.1 Nucleated Red Blood 0.0 Cells % Immature 0.060 H Granulocytes # Neutrophils # 4.4 Lymphocytes # 3.3 H Monocytes # 0.8 Eosinophils # 0.3 Basophils # 0.0 Nucleated Red Blood 0.0 Cells # Sodium Level 141 Potassium Level 3.8 Chloride Level 105 Carbon Dioxide Level 28 Anion Gap 8 Blood Urea Nitrogen 12 Creatinine 0.59 Est Glomerular > 60 Filtrat Rate mL/min Glucose Level 78 Calcium Level 8.8 Magnesium Level 1.8 Consultation Date/Type/Reason Admit Date/Time Dec 17, 2018 at 14:27 Initial Consult Date 12/18/18 Type of Consult cv Requesting Provider: Pawel Plascencia DO 24 HR Interval Summary Free Text/Dictation no chest pain or sob Detailed Summary Respiratory: no complaints Cardiovascular: no complaints Gastrointestinal: no complaints Musculoskeletal: no complaints Skin: no complaints Neurologic: no complaints Exam/Review of Systems Vital Signs Vitals Vital Signs Date Temp Pulse Resp B/P (MAP) Pulse Ox O2 O2 Flow FiO2 Time Delivery Rate 12/23/18 Nasal 2.0 07:25 Cannula 12/23/18 97.8 69 18 114/67 93 07:15 (83) Intake and Output 12/22/18 12/22/18 12/23/18 1515:00 23:00 07:00 IntakeIntake Total 800 ml 400 ml BalanceBalance 800 ml 400 ml Exam Constitutional: alert, oriented Head: normocephalic, atraumatic Neck: supple Respiratory: clear to auscultation Cardiovascular: regular rate and rhythm Gastrointestinal: soft Musculoskeletal: nl extremities to inspection Medications Medications Current Medications Colchicine (Colchicine) 0.6 mg BID PO Last administered on 12/22/18at 21:29; A dmin Dose 0.6 MG; Start 12/17/18 at 21:00 IV Flush (NS 3 ml) 3 ml PER PROTOCOL IV ; Start 12/17/18 at 16:30 Acetaminophen (Tylenol Tab) 650 mg Q6H PRN PO PAIN LEVEL 1-3 OR FEVER Last administered on 12/22/18at 08:40; Admin Dose 650 MG; Start 12/17/18 at 16:30 Acetaminophen (Tylenol Supp) 650 mg Q6H PRN [place] PAIN LEVEL 1-3 OR FEVER; Start 12/17/18 at 16:30 Oxycodone/ Acetaminophen (Percocet (5/ 325)) 1 tab Q6H PRN PO MODERATE PAIN LEVEL 4-6; Start 12/17/18 at 16:30 Docusate Sodium (Colace) 100 mg Q12H PRN PO CONSTIPATION; Start 12/17/18 at 16:30 Magnesium Hydroxide (Milk Of Mag) 30 ml DAILY PRN PO CONSTIPATION; Start 12/17/18 at 16:30 Bisacodyl (Dulcolax) 5 mg DAILY PRN PO CONSTIPATION; Start 12/17/18 at 16:30 Bisacodyl (Dulcolax Supp) 10 mg DAILY PRN [place] CONSTIPATION; Start 12/17/18 at 16:30 Diagnostic Test (Pha) (Accu-Chek) 1 ea 02 XX Last administered on 12/19/18at 01:43; Admin Dose 1 EA; Start 12/18/18 at 02:00 Levalbuterol (Xopenex Neb) 1.25 mg ICU RECOVERY PRN HHN WHEEZING; Start 12/17/18 at 21:30 Ipratropium [place] (Atrovent 0.02% (Neb)) 0.5 mg ICU RECOVERY PRN HHN WHEEZING; Start 12/17/18 at 21:30 Morphine Sulfate (morphine) 2 mg Q4H PRN IV SEVERE PAIN LEVEL 7-10; Start 12/17/18 at 23:45 Sumatriptan Succinate (Imitrex) 6 mg ONCE PRN [place] HEADACHE; Start 12/18/18 at 23:30 Insulin Aspart (Novolog Insulin Pen) NOVOLOG *MODERATE* ALGORITHM WITH MEALS BEDTIME SC Last administered on 12/22/18at 11:53; Admin Dose 2 UNIT; Start 12/19/18 at 17:35 Miscellaneous Information 1 ea NOTE XX ; Start 12/19/18 at 13:30 Glucose (Glutose) 15 gm Q15M PRN PO DECREASED GLUCOSE; Start 12/19/18 at 13:30 Glucose (Glutose) 22.5 gm Q15M PRN PO DECREASED GLUCOSE; Start 12/19/18 at 13:30 Dextrose (D50w Syringe) 25 ml Q15M PRN IV DECREASED GLUCOSE; Start 12/19/18 at 13:30 Dextrose (D50w Syringe) 50 ml Q15M PRN IV DECREASED GLUCOSE; Start 12/19/18 at 13:30 Glucagon (Glucagen) 1 mg Q15M PRN IM DECREASED GLUCOSE; Start 12/19/18 at 13:30 Glucose (Glutose) 15 gm Q15M PRN BUCCAL DECREASED GLUCOSE; Start 12/19/18 at 13:30 Prednisone (Prednisone) 20 mg DAILY PO Last administered on 12/22/18at 08:38; Admin Dose 20 MG; Start 12/19/18 at 17:30 Famotidine (Pepcid) 20 mg DAILY PO Last administered on 12/22/18at 08:36; Admin Dose 20 MG; Start 12/21/18 at 21:00 Acetaminophen/ Hydrocodone Bitart ([place] (7.5-325)) 1 tab Q6H PRN PO MODERATE PAIN LEVEL 4-6; Start 12/21/18 at 18:30 Lactobacillus Acidophilus/ Rhamnosus (Culturelle) 1 cap BID PO Last administered on 12/22/18at 21:29; Admin Dose 1 CAP; Start 12/21/18 at 21:00 Ipratropium [place] (Atrovent Hfa) 4 puff Q8H RESP THERAPY INH ; Start 12/23/18 at 00:00 Levalbuterol (Xopenex Hfa) 4 puff Q8H RESP THERAPY INH ; Start 12/23/18 at 00:00 Enoxaparin Sodium (Lovenox) 30 mg DAILY SC Last administered on 12/22/18at 17:39; Admin Dose 30 MG; Start 1/22/19 at 18:00 Date/Time of Note Date/Time of Note DATE: 12/23/18 TIME: 07:51 KERI CAMEJO MD Dec 23, 2018 07:52
[2018-12-23] MEDS: INSULIN ASPART [NOVOLOG] 3 ML PEN SC SCH ×4 (07:55→20:49)
[2018-12-23] MEDS: LEVALBUTEROL (HFA) 15 GM INHALER INH SCH ×4 (08:16→23:06)
[2018-12-23] MEDS: IPRATROPIUM (HFA) 12.9 GM INHALER INH SCH ×4 (08:16→23:06)
[2018-12-23] MEDS: predniSONE 20 MG TAB PO SCH (08:16)
[2018-12-23] MEDS: COLCHICINE 0.6 MG TAB PO SCH ×2 (08:17→20:50)
[2018-12-23] MEDS: FAMOTIDINE 20 MG TAB PO SCH (08:17)
[2018-12-23] MEDS: LACTOBACILLUS RHAMNOSUS CAP PO SCH ×2 (08:17→20:50)
[2018-12-23] MEDS: ENOXAPARIN 30 MG/0.3 ML SYG SC SCH (08:28)
--- NOTE | 2018-12-23 08:41 | CONS ---
Assessment/Plan Assessment/Plan Hospital Course 1) pericarditis/pericardial effusion s/p pericardial window on 12/17/18 the likely diagnosis would be viral in origin I have ordered coxsackie A and B serology, echo virus serology, EBV, HIV I have also ordered mycoplasma fungal and TB are possible but less likely in lieu of relatively benign presentation for constitutional symptoms nonetheless I will order beta d glucan, cocci titers and histoplasma Ag (seen in ridgely) her quant TB gold was neg before and so far the AFB cx are NGTD I will look for non infectious etiology as well with ESR, CRP, HODA her TSH was WNL so no sign of myxedema no further antibiotics at this time when she is done with her cefazolin prophylaxis 12/19 - ESR and CRP are not impressively elevated continue off antibiotics ok for steroids from ID perspective 12/21 - most special serologies are still pending, HIV was neg as well as RF pt on prednisone I will follow up on serologies and report back any positive ones 12/23 - EBV IgM was neg but very high IgG levels, will order EBV PCR in a.m. HODA only at 1:40 - unlikely to be significant ok for d/c from ID perspective 2) DM 3) HTN Result Diagram: 12/23/18 0540 12/23/18 0540 Results 24hrs Laboratory Tests Test 12/22/18 11:46 12/22/18 17:35 12/22/18 21:27 12/23/18 05:40 Bedside Glucose 144 110 102 White Blood Count 8.8 Red Blood Count 3.54 L Hemoglobin 10.2 L Hematocrit 30.9 L Mean Corpuscular 87.3 Volume Mean Corpuscular 28.8 L Hemoglobin Mean Corpuscular 33.0 Hemoglobin Concent Red Cell 12.5 Distribution Width Platelet Count 199 Mean Platelet Volume 9.2 Immature 0.700 H Granulocytes % Neutrophils % 49.5 Lymphocytes % 37.0 Monocytes % 9.3 Eosinophils % 3.4 Basophils % 0.1 Nucleated Red Blood 0.0 Cells % Immature 0.060 H Granulocytes # Neutrophils # 4.4 Lymphocytes # 3.3 H Monocytes # 0.8 Eosinophils # 0.3 Basophils # 0.0 Nucleated Red Blood 0.0 Cells # Sodium Level 141 Potassium Level 3.8 Chloride Level 105 Carbon Dioxide Level 28 Anion Gap 8 Blood Urea Nitrogen 12 Creatinine 0.59 Est Glomerular > 60 Filtrat Rate mL/min Glucose Level 78 Calcium Level 8.8 Magnesium Level 1.8 Test 12/23/18 08:14 Bedside Glucose 79 Consultation Date/Type/Reason Admit Date/Time Dec 17, 2018 at 14:27 Initial Consult Date 12/18/18 Type of Consult ID Requesting Provider: Pawel Plascencia DO 24 HR Interval Summary Free Text/Dictation pt doing ok no CP, not SOB with walking on low dose O2 via NC no N, V, D Exam/Review of Systems Vital Signs Vitals Vital Signs Date Temp Pulse Resp B/P (MAP) Pulse Ox O2 O2 Flow FiO2 Time Delivery Rate 12/23/18 2.0 08:27 12/23/18 64 08:03 12/23/18 Nasal 07:25 Cannula 12/23/18 97.8 18 114/67 93 07:15 (83) Intake and Output 12/22/18 12/22/18 12/23/18 1414:59 22:59 06:59 IntakeIntake Total 800 ml 400 ml BalanceBalance 800 ml 400 ml Exam Constitutional: alert, oriented Eyes: nl sclera ENMT: mucosa pink and moist Respiratory: clear to auscultation Cardiovascular: regular rate and rhythm Gastrointestinal: soft, non-tender Medications Medications Current Medications Colchicine (Colchicine) 0.6 mg BID PO Last administered on 12/23/18at 08:17; Admin Dose 0.6 MG; Start 12/17/18 at 21:00 IV Flush (NS 3 ml) 3 ml PER PROTOCOL IV ; Start 12/17/18 at 16:30 Acetaminophen (Tylenol Tab) 650 mg Q6H PRN PO PAIN LEVEL 1-3 OR FEVER Last administered on 12/22/18at 08:40; Admin Dose 650 MG; Start 12/17/18 at 16:30 Acetaminophen (Tylenol Supp) 650 mg Q6H PRN [place] PAIN LEVEL 1-3 OR FEVER; Start 12/17/18 at 16:30 Oxycodone/ Acetaminophen (Percocet (5/ 325)) 1 tab Q6H PRN PO MODERATE PAIN LEVEL 4-6; Start 12/17/18 at 16:30 Docusate Sodium (Colace) 100 mg Q12H PRN PO CONSTIPATION; Start 12/17/18 at 16:30 Magnesium Hydroxide (Milk Of Mag) 30 ml DAILY PRN PO CONSTIPATION; Start 12/17/18 at 16:30 Bisacodyl (Dulcolax) 5 mg DAILY PRN PO CONSTIPATION; Start 12/17/18 at 16:30 Bisacodyl (Dulcolax Supp) 10 mg DAILY PRN [place] CONSTIPATION; Start 12/17/18 at 16:30 Diagnostic Test (Pha) (Accu-Chek) 1 ea 02 XX Last administered on 12/19/18at 01:43; Admin Dose 1 EA; Start 12/18/18 at 02:00 Levalbuterol (Xopenex Neb) 1.25 mg ICU RECOVERY PRN HHN WHEEZING; Start 12/17/18 at 21:30 Ipratropium [place] (Atrovent 0.02% (Neb)) 0.5 mg ICU RECOVERY PRN HHN WHEEZING; Start 12/17/18 at 21:30 Morphine Sulfate (morphine) 2 mg Q4H PRN IV SEVERE PAIN LEVEL 7-10; Start 12/17/18 at 23:45 Sumatriptan Succinate (Imitrex) 6 mg ONCE PRN [place] HEADACHE; Start 12/18/18 at 23:30 Insulin Aspart (Novolog Insulin Pen) NOVOLOG *MODERATE* ALGORITHM WITH MEALS BEDTIME SC Last administered on 12/22/18at 11:53; Admin Dose 2 UNIT; Start 12/19/18 at 17:35 Miscellaneous Information 1 ea NOTE XX ; Start 12/19/18 at 13:30 Glucose (Glutose) 15 gm Q15M PRN PO DECREASED GLUCOSE; Start 12/19/18 at 13:30 Glucose (Glutose) 22.5 gm Q15M PRN PO DECREASED GLUCOSE; Start 12/19/18 at 13:30 Dextrose (D50w Syringe) 25 ml Q15M PRN IV DECREASED GLUCOSE; Start 12/19/18 at 13:30 Dextrose (D50w Syringe) 50 ml Q15M PRN IV DECREASED GLUCOSE; Start 12/19/18 at 13:30 Glucagon (Glucagen) 1 mg Q15M PRN IM DECREASED GLUCOSE; Start 12/19/18 at 13:30 Glucose (Glutose) 15 gm Q15M PRN BUCC[place] DECREASED GLUCOSE; Start 12/19/18 at 13:30 Prednisone (Prednisone) 20 mg DAILY PO Last administered on 12/23/18at 08:16; Admin Dose 20 MG; Start 12/19/18 at 17:30 Famotidine (Pepcid) 20 mg DAILY PO Last administered on 12/23/18 08:17; Admin Dose 20 MG; Start 12/21/18 at 21:00 Acetaminophen/ Hydrocodone Bitart ([place] (7.5-325)) 1 tab Q6H PRN PO MODERATE PAIN LEVEL 4-6; Start 12/21/18 at 18:30 Lactobacillus Acidophilus/ Rhamnosus (Culturelle) 1 cap BID PO Last administered on 12/23/18at 08:17; Admin Dose 1 CAP; Start 12/21/18 at 21:00 Ipratropium [place] (Atrovent Hfa) 4 puff Q8H RESP THERAPY INH Last administered on 12/23/18 08:16; Admin Dose 4 PUFF; Start 12/23/18 at 00:00 Levalbuterol (Xopenex Hfa) 4 puff Q8H RESP THERAPY INH Last administered on 12/23/18 08:16; Admin Dose 4 PUFF; Start 12/23/18 at 00:00 Enoxaparin Sodium (Lovenox) 30 mg DAILY SC Last administered on 12/23/18at 08:28; Admin Dose 30 MG; Start 12/22/18 at 18:00 Magnesium Sulfate/ Dextrose 100 ml @ 100 mls/hr ONCE ONCE IVPB ; Start 12/23/18 at 09:30; Stop 12/23/18 at 10:29 Date/Time of Note Date/Time of Note DATE: 12/23/18 TIME: 08:39 RAINER SANTIAGO MD Dec 23, 2018 08:41
[2018-12-23] MEDS ORDERED: MAGNESIUM SULFATE 1 GM/D5W 100 ML IVPB ONE (09:30)
--- NOTE | 2018-12-23 10:08 | NUR ---
PT NOTE Therapy day number 2 Subjective Denies pain Pain Intensity 0 (0-10) Patient Stated Goal for Pain Relief 0 (0-10) Pain Level Comment denies Pre Treatment Vital Signs Stable Yes - SpO2 96-97% on 1L O2 via NC throughout tx Transfer Training Start Time 08:55 Transfer Sit to Stand Ability Supervised Additional Mobility Comments pt received in bedside chair, bed mobil not observed, sit<>stand w/no AD Transfer Training End Time 09:10 Total Transfer Training Time 15 min (8-127) Gait Training Start Time 09:10 Gait Assist Levels Stand by Assist Assistive Devices None Ambulation Distance 125 feet Additional Gait Comments 125'no AD SBA, recip,decreased cad/arm swing/postur sway, +100'with FWW SBA Gait Training End Time 09:25 Total Gait Training Treatment Time 15 min (8-127) Weight Bearing Assessment Label Bilat Lower Extremity Weight Bearing Status Full Weight Bearing Stair Training Start Time 09:25 Stair Climbing Ability Stand by Assist Number of Stairs 13 Stairs Additional Stairs Assist Comments up/down, R HR (ascending), recip pattern, no LOB/buckling, on 1L O2 via NC Stair Training End Time 09:33 Total Stair Training Time 8 min (8-127) Static Sitting Balance Good Dynamic Sitting Balance Good Standing Static Balance Good Dynamic Standing Balance Fair plus Safety Judgement Good Activity Tolerance Good Additional Equipment Present 1L O2 via NC, pt rquested to ambulate with supplemental O2 Post Treatment Pain Intensity 0 0-10 Total Treament Time 38 min (8-127) Total Minutes 38 Total Units 3 PT Technical Record Comment PT NOTE S: Pt reports no pain or dizziness, agreeable to PT, cleared for PT per MADELEINE Mendoza O: Pt received sitting in bedside chair with friend present in room, in no apparent distress, on 1L O2 via NC. Pt requested to perform gait tr with supplemental O2. Pt requires encouragement to attempt gait with out AD and to attempt stair tr, pt fearful of coming off supplemental O2. Performed transfer tr, gait and stair tr per tech record above with and with out AD, SBA, SpO2 WNL throughout. Pt ed for incentive spiromter use with good return demo. Pt ed for imrpoved gait mechanics with good return demo for upright posture during gait, no LOB/buckling/dizziness. Pt returned to bedside chair post-tx with calllight and needs in reach, friend present in room, RN informed re pt status, pt in no apparent distress. A: Pt ricky tx fairly, limited by decreased endurance, improved tolerance for PT since last tx. P: Cont POC, attempt gait tr on RA
--- NOTE | 2018-12-23 13:13 | CONS ---
Date/Time of Note Date/Time of Note DATE: 12/23/18 TIME: 13:10 Consult Date/Type/Reason Admit Date/Time Dec 17, 2018 at 14:27 Initial Consult Date 12/18/18 Type of Consultation: Rheum Requesting Provider: Pawel Plascencia DO Subjective No new complaints. Feels better overall. Objective Vital Signs Date Temp Pulse Resp B/P (MAP) Pulse Ox O2 O2 Flow FiO2 Time Delivery Rate 12/23/18 72 12:03 12/23/18 Nasal 1.0 11:34 Cannula 12/23/18 98.3 18 110/66 96 11:14 (81) Intake and Output 12/22/18 12/22/18 12/23/18 1515:00 23:00 07:00 IntakeIntake Total 800 ml 400 ml BalanceBalance 800 ml 400 ml Exam GENERAL: No acute distress at present, alert, oriented. SKIN: Without rashes. HEENT: Without acute oral or ocular lesions. NECK: Without lymphadenopathy. CHEST: Decreased breath sounds. HEART: Regular rate. No murmurs noted. ABDOMEN: Soft without masses or tenderness. MUSCULOSKELETAL: Joints with good range of motion, no synovitis or tenderness. NEUROLOGIC: Grossly intact. EXTREMITIES: No cyanosis edema. Results/Medications Result Diagram: 12/23/18 0540 12/23/18 0540 Results 24 hrs Laboratory Tests Test 12/22/18 17:35 12/22/18 21:27 12/23/18 05:40 12/23/18 08:14 Bedside Glucose 110 102 79 White Blood Count 8.8 Red Blood Count 3.54 L Hemoglobin 10.2 L Hematocrit 30.9 L Mean Corpuscular 87.3 Volume Mean Corpuscular 28.8 L Hemoglobin Mean Corpuscular 33.0 Hemoglobin Concent Red Cell 12.5 Distribution Width Platelet Count 199 Mean Platelet Volume 9.2 Immature 0.700 H Granulocytes % Neutrophils % 49.5 Lymphocytes % 37.0 Monocytes % 9.3 Eosinophils % 3.4 Basophils % 0.1 Nucleated Red Blood 0.0 Cells % Immature 0.060 H Granulocytes # Neutrophils # 4.4 Lymphocytes # 3.3 H Monocytes # 0.8 Eosinophils # 0.3 Basophils # 0.0 Nucleated Red Blood 0.0 Cells # Sodium Level 141 Potassium Level 3.8 Chloride Level 105 Carbon Dioxide Level 28 Anion Gap 8 Blood Urea Nitrogen 12 Creatinine 0.59 Est Glomerular > 60 Filtrat Rate mL/min Glucose Level 78 Calcium Level 8.8 Magnesium Level 1.8 Test 12/23/18 08:39 12/23/18 11:35 Bedside Glucose 96 155 Medications Current Medications Colchicine (Colchicine) 0.6 mg BID PO Last administered on 12/23/18at 08:17; Admin Dose 0.6 MG; Start 12/17/18 at 21:00 IV Flush (NS 3 ml) 3 ml PER PROTOCOL IV ; Start 12/17/18 at 16:30 Acetaminophen (Tylenol Tab) 650 mg Q6H PRN PO PAIN LEVEL 1-3 OR FEVER Last administered on 12/22/18at 08:40; Admin Dose 650 MG; Start 12/17/18 at 16:30 Acetaminophen (Tylenol Supp) 650 mg Q6H PRN NC PAIN LEVEL 1-3 OR FEVER; Start 12/17/18 at 16:30 Oxycodone/ Acetaminophen (Percocet (5/ 325)) 1 tab Q6H PRN PO MODERATE PAIN LEVEL 4-6; Start 12/17/18 at 16:30 Docusate Sodium (Colace) 100 mg Q12H PRN PO CONSTIPATION; Start 12/17/18 at 16:30 Magnesium Hydroxide (Milk Of Mag) 30 ml DAILY PRN PO CONSTIPATION; Start 12/17/18 at 16:30 Bisacodyl (Dulcolax) 5 mg DAILY PRN PO CONSTIPATION; Start 12/17/18 at 16:30 Bisacodyl (Dulcolax Supp) 10 mg DAILY PRN NC CONSTIPATION; Start 12/17/18 at 16:30 Diagnostic Test (Pha) (Accu-Chek) 1 ea 02 XX Last administered on 12/19/18at 01:43; Admin Dose 1 EA; Start 12/18/18 at 02:00 Levalbuterol (Xopenex Neb) 1.25 mg ICU RECOVERY PRN HHN WHEEZING; Start 12/17/18 at 21:30 Ipratropium [place] (Atrovent 0.02% (Neb)) 0.5 mg ICU RECOVERY PRN HHN WHEEZING; Start 12/17/18 at 21:30 Morphine Sulfate (morphine) 2 mg Q4H PRN IV SEVERE PAIN LEVEL 7-10; Start 12/17/18 at 23:45 Sumatriptan Succinate (Imitrex) 6 mg ONCE PRN SC HEADACHE; Start 12/18/18 at 23:30 Insulin Aspart (Novolog Insulin Pen) NOVOLOG *MODERATE* ALGORITHM WITH MEALS BEDTIME SC Last administered on 12/23/18at 12:01; Admin Dose 2 UNIT; Start 12/19/18 at 17:35 Miscellaneous Information 1 ea NOTE XX ; Start 12/19/18 at 13:30 Glucose (Glutose) 15 gm Q15M PRN PO DECREASED GLUCOSE; Start 12/19/18 at 13:30 Glucose (Glutose) 22.5 gm Q15M PRN PO DECREASED GLUCOSE; Start 12/19/18 at 13:30 Dextrose (D50w Syringe) 25 ml Q15M PRN IV DECREASED GLUCOSE; Start 12/19/18 at 13:30 Dextrose (D50w Syringe) 50 ml Q15M PRN IV DECREASED GLUCOSE; Start 12/19/18 at 13:30 Glucagon (Glucagen) 1 mg Q15M PRN IM DECREASED GLUCOSE; Start 12/19/18 at 13:30 Glucose (Glutose) 15 gm Q15M PRN BUCCAL DECREASED GLUCOSE; Start 12/19/18 at 13:30 Prednisone (Prednisone) 20 mg DAILY PO Last administered on 12/23/18at 08:16; Admin Dose 20 MG; Start 12/19/18 at 17:30 Famotidine (Pepcid) 20 mg DAILY PO Last administered on 12/23/18 08:17; Admin Dose 20 MG; Start 12/21/18 at 21:00 Acetaminophen/ Hydrocodone Bitart ([place] (7.5-325)) 1 tab Q6H PRN PO MODERATE PAIN LEVEL 4-6; Start 12/21/18 at 18:30 Lactobacillus Acidophilus/ Rhamnosus (Culturelle) 1 cap BID PO Last administered on 12/23/18 08:17; Admin Dose 1 CAP; Start 12/21/18 at 21:00 Ipratropium [place] (Atrovent Hfa) 4 puff Q8H RESP THERAPY INH Last administered on 12/23/18 08:16; Admin Dose 4 PUFF; Start 12/23/18 at 00:00 Levalbuterol (Xopenex Hfa) 4 puff Q8H RESP THERAPY INH Last administered on 12/23/18 08:16; Admin Dose 4 PUFF; Start 12/23/18 at 00:00 Enoxaparin Sodium (Lovenox) 30 mg DAILY SC Last administered on 12/23/18at 08:28; Admin Dose 30 MG; Start 12/22/18 at 18:00 Assessment/Plan Chief Complaint/Hosp Course ASSESSMENT: 1. Pericarditis with pericardial effusion, unclear etiology. No evidence so far of bacterial infection or tuberculosis. Final fungal cultures are pending. No evidence of neoplastic process with negative cytology of the fluid. Viral etiology is still a possibility. Consider an autoimmune etiology but low positive HODA of doubtful significance.although has no prior evidence of autoimmune condition. However, she did come with substantial anemia which may have reflected a more chronic process inflammatory process. 2. Iron deficiency anemia with 6% saturation The patient denies a history of gastrointestinal bleeding. 3. Hypertension, stable. 4. Diabetes mellitus, stable. 5. Low positive HODA of doubtful significance. RECOMMENDATIONS: 1. Various laboratory studies still pending. 2. Decrease prednisone to 10 mg daily as doing clinically better. 3. Should have GI evaluation in regard to iron deficiency CHINA IVEY MD Dec 23, 2018 13:13
--- NOTE | 2018-12-23 13:34 | OPR ---
DATE OF OPERATION: 12/17/2018 PREOPERATIVE DIAGNOSIS: Recurrent pericardial effusion with cardiac tamponade. POSTOPERATIVE DIAGNOSIS: Recurrent pericardial effusion with cardiac tamponade. PROCEDURE: Subxiphoid pericardial window and biopsy. SURGEON: Cheri Walker MD ANESTHESIOLOGIST: Dr. Ibrahim. TYPE OF ANESTHESIA: General endotracheal. COMPLICATIONS: None. FINDINGS: 1200 mL of bloody fluid was drained under pressure. After completing the drainage, the MARTI did not show any further effusion. INDICATION: The patient is a 53-year-old female who was admitted with shortness of breath and hypotension. She was found to have recurrent large pericardial effusion with tamponade. She was referred for emergent drainage. Benefits, risks and alternatives were explained to the patient and her family understood and consented. PROCEDURE IN DETAILS: The patient was brought to the operating room, was placed in supine position. She was induced and underwent general endotracheal intubation without complications. She was prepped and draped in usual sterile fashion. Antibiotics were given. Subxiphoid incision was made and carried down to the pericardium. Pericardium was incised and immediately drained 1200 mL of bloody fluid under pressure. We biopsied part of the pericardium and was sent for permanent. We then placed a #19 Hector drain within the pericardium and brought out through an anterior stab wound, secured using nylon suture. Once this was completed, we closed the fascia using 0 Vicryl followed by closure of the subcutaneous tissue using 3-0 Vicryl followed by closure of skin using 4-0 Monocryl in subcuticular fashion. Dressings were applied. The patient was left intubated and taken to the ICU in stable condition. Dictated By: CHERI ESPARZA/PACHECO Conf#: [id number] DID#: [id number] CC: MICHAEL VELIZ MD; ZINA MURRAY;*OlegCC* MTDFlavia
--- NOTE | 2018-12-23 15:08 | PN ---
Date/Time of Note Date/Time of Note DATE: 12/23/18 TIME: 14:35 Assessment/Plan VTE [place] [facility] [place]: 4 [place] [facility] [place] Yes Pharmacological prophylaxis: LMWH Lines/Catheters IV C[facility]ter Type (from [facility]): Peripheral IV Assessment/Plan Assessment/Plan 1. Recurrent pericardial effusion, likely viral pericarditis, s/p subxiphoid pericardial window and biopsy on 12/17/2018, pathology reviewed, on prednisone and colchicine 2. Pulmonary infiltrates with bilateral right more than left pleural effusion, still coughs with yellowish sputum, consider pneumonia, levaquin 3. Hyperglycemia, HbA1c 5.8, diet control 4. Iron deficiency anemia, stable, consider outpatient GI. 5. HTN, controlled 6. DVT prophylaxis: lovenox Result Diagram: 12/23/18 0540 12/23/18 0540 Results 24hrs Laboratory Tests Test 12/22/18 17:35 12/22/18 21:27 12/23/18 05:40 12/23/18 08:14 Bedside Glucose 110 102 79 White Blood Count 8.8 Red Blood Count 3.54 L Hemoglobin 10.2 L Hematocrit 30.9 L Mean Corpuscular 87.3 Volume Mean Corpuscular 28.8 L Hemoglobin Mean Corpuscular 33.0 Hemoglobin Concent Red Cell 12.5 Distribution Width Platelet Count 199 Mean Platelet Volume 9.2 Immature 0.700 H Granulocytes % Neutrophils % 49.5 Lymphocytes % 37.0 Monocytes % 9.3 Eosinophils % 3.4 Basophils % 0.1 Nucleated Red Blood 0.0 Cells % Immature 0.060 H Granulocytes # Neutrophils # 4.4 Lymphocytes # 3.3 H Monocytes # 0.8 Eosinophils # 0.3 Basophils # 0.0 Nucleated Red Blood 0.0 Cells # Sodium Level 141 Potassium Level 3.8 Chloride Level 105 Carbon Dioxide Level 28 Anion Gap 8 Blood Urea Nitrogen 12 Creatinine 0.59 Est Glomerular > 60 Filtrat Rate mL/min Glucose Level 78 Calcium Level 8.8 Magnesium Level 1.8 Test 12/23/18 08:39 12/23/18 11:35 Bedside Glucose 96 155 Subjective 24 Hr Interval Summary Free Text/Dictation cough with yellowish sputum and shortness of breath Exam/Review of Systems Vital Signs Vitals Vital Signs Date Temp Pulse Resp B/P (MAP) Pulse Ox O2 O2 Flow FiO2 Time Delivery Rate 12/23/18 72 12:03 12/23/18 Nasal 1.0 11:34 Cannula 12/23/18 98.3 18 110/66 96 11:14 (81) Intake and Output 12/22/18 12/22/18 12/23/18 1515:00 23:00 07:00 IntakeIntake Total 800 ml 400 ml BalanceBalance 800 ml 400 ml Exam Constitutional: alert, oriented, well developed Psych: no complaints, nl mood/affect Head: normocephalic, atraumatic Eyes: nl conjunctiva, EOMI, nl lids ENMT: nl external ears & nose, nl lips & teeth, nl nasal mucosa & septum Neck: supple, non-tender Respiratory: clear to auscultation, normal air movement; No congested cough, No crackles/rales, No diminished breath sounds, No intercostal retraction, No labored breathing, No respirations, No tactile fremitus, No wheezing, No other Cardiovascular: regular rate and rhythm, nl pulses; No bruits, No diastolic murmur, No edema, No gallop, No irregular rhythm, No jugular venous distention (JVD), No murmurs/extra sounds, No rub, No systolic murmur, No S3, No S4, No other Gastrointestinal: soft, nl liver, spleen, non-tender Musculoskeletal: nl extremities to inspection Extremities: normal pulses; No calf tenderness, No cyanosis, No clubbing, No edema, No pitting pedal edema, No palpable cord, No tenderness, No other Neurological: CELL INSPECTOR II-XII intact, nl mental status, nl speech, nl strength Medications Medications Current Medications Colchicine (Colchicine) 0.6 mg BID PO Last administered on 12/23/18at 08:17; Admin Dose 0.6 MG; Start 12/17/18 at 21:00 IV Flush (NS 3 ml) 3 ml PER PROTOCOL IV ; Start 12/17/18 at 16:30 Acetaminophen (Tylenol Tab) 650 mg Q6H PRN PO PAIN LEVEL 1-3 OR FEVER Last administered on 12/22/18at 08:40; Admin Dose 650 MG; Start 12/17/18 at 16:30 Acetaminophen (Tylenol Supp) 650 mg Q6H PRN IN PAIN LEVEL 1-3 OR FEVER; Start 12/17/18 at 16:30 Oxycodone/ Acetaminophen (Percocet (5/ 325)) 1 tab Q6H PRN PO MODERATE PAIN LEVEL 4-6; Start 12/17/18 at 16:30 Docusate Sodium (Colace) 100 mg Q12H PRN PO CONSTIPATION; Start 12/17/18 at 16:30 Magnesium Hydroxide (Milk Of Mag) 30 ml DAILY PRN PO CONSTIPATION; Start 12/17/18 at 16:30 Bisacodyl (Dulcolax) 5 mg DAILY PRN PO CONSTIPATION; Start 12/17/18 at 16:30 Bisacodyl (Dulcolax Supp) 10 mg DAILY PRN IN CONSTIPATION; Start 12/17/18 at 16:30 Diagnostic Test (Pha) (Accu-Chek) 1 ea 02 XX Last administered on 12/19/18at 01:43; Admin Dose 1 EA; Start 12/18/18 at 02:00 Levalbuterol (Xopenex Neb) 1.25 mg ICU RECOVERY PRN HHN WHEEZING; Start 12/17/18 at 21:30 Ipratropium [place] (Atrovent 0.02% (Neb)) 0.5 mg ICU RECOVERY PRN HHN WHEEZING; Start 12/17/18 at 21:30 Morphine Sulfate (morphine) 2 mg Q4H PRN IV SEVERE PAIN LEVEL 7-10; Start 12/01 06/18 at 23:45 Sumatriptan Succinate (Imitrex) 6 mg ONCE PRN SC HEADACHE; Start 12/18/18 at 23:30 Insulin Aspart (Novolog Insulin Pen) NOVOLOG *MODERATE* ALGORITHM WITH MEALS BEDTIME SC Last administered on 12/23/18at 12:01; Admin Dose 2 UNIT; Start 12/19/18 at 17:35 Miscellaneous Information 1 ea NOTE XX ; Start 12/19/18 at 13:30 Glucose (Glutose) 15 gm Q15M PRN PO DECREASED GLUCOSE; Start 12/19/18 at 13:30 Glucose (Glutose) 22.5 gm Q15M PRN PO DECREASED GLUCOSE; Start 12/19/18 at 13:30 Dextrose (D50w Syringe) 25 ml Q15M PRN IV DECREASED GLUCOSE; Start 12/19/18 at 13:30 Dextrose (D50w Syringe) 50 ml Q15M PRN IV DECREASED GLUCOSE; Start 12/19/18 at 13:30 Glucagon (Glucagen) 1 mg Q15M PRN IM DECREASED GLUCOSE; Start 12/19/18 at 13:30 Glucose (Glutose) 15 gm Q15M PRN BUCCAL DECREASED GLUCOSE; Start 12/19/18 at 13:30 Famotidine (Pepcid) 20 mg DAILY PO Last administered on 12/23/18 08:17; Admin Dose 20 MG; Start 12/21/18 at 21:00 Acetaminophen/ Hydrocodone Bitart ([place] (7.5-325)) 1 tab Q6H PRN PO MODERATE PAIN LEVEL 4-6; Start 12/21/18 at 18:30 Lactobacillus Acidophilus/ Rhamnosus (Culturelle) 1 cap BID PO Last administered on 12/23/18 08:17; Admin Dose 1 CAP; Start 12/21/18 at 21:00 Ipratropium [place] (Atrovent Hfa) 4 puff Q8H RESP THERAPY INH Last administered on 12/23/18 08:16; Admin Dose 4 PUFF; Start 12/23/18 at 00:00 Levalbuterol (Xopenex Hfa) 4 puff Q8H RESP THERAPY INH Last administered on 12/23/18 08:16; Admin Dose 4 PUFF; Start 12/23/18 at 00:00 Enoxaparin Sodium (Lovenox) 30 mg DAILY SC Last administered on 12/23/18at 08:28; Admin Dose 30 MG; Start 12/22/18 at 18:00 Prednisone (Prednisone) 10 mg DAILY PO ; Start 12/24/18 at 09:00 MARINE JIMENEZ MD Dec 23, 2018 14:47
--- NOTE | 2018-12-23 18:26 | NUR ---
Eoss No significant change noted at this time, pt denies c/o pain, no sob or distress noted. Pt amb w/ stable gait. family at the bedside always. central line dc, tolerated well. all needs were met. call light within reach, bed locked, and low. Will endorse accordingly
[2018-12-23] MEDS: ACETAMINOPHEN 325 MG TAB PO PRN (22:14)
[2018-12-24] VITALS (10 sets, daily range): BP systolic 119–141; BP diastolic 66–71; PULSE 58–70; RESP 18–22
[2018-12-24] MEDS: ACCU-CHEK XX SCH (01:25)
--- NOTE | 2018-12-24 06:18 | NUR ---
end of shift: patient is alert and oriented; sinus rhythm/ sinus vania on monitor, can ambulate with assist to the bathroom; maintained on O2 support; encourage frequent IS when awake; wound care done; needs attended; will endorse to dayshift nurse
[2018-12-24] MEDS: INSULIN ASPART [NOVOLOG] 3 ML PEN SC SCH ×4 (07:55→20:34)
[2018-12-24] MEDS: IPRATROPIUM (HFA) 12.9 GM INHALER INH SCH ×3 (08:00→23:04)
[2018-12-24] MEDS: LEVALBUTEROL (HFA) 15 GM INHALER INH SCH ×3 (08:00→23:04)
--- NOTE | 2018-12-24 08:02 | CONS ---
Assessment/Plan Assessment/Plan Assessment/Plan Assessment: 1) Pleural effusion 2) Pericardial window 3) Preserved LV function Plan: consider pleurocentesis of no improvement Consultation Date/Type/Reason Admit Date/Time Dec 17, 2018 at 14:27 Initial Consult Date 12/18/18 Type of Consult Cardiology Requesting Provider: Pawel Plascencia DO Date/Time of Note DATE: 12/24/18 TIME: 08:00 24 HR Interval Summary Free Text/Dictation in chair, resting, no chest pain, no sob, still sob when supine Detailed Summary Respiratory: shortness of breath Cardiovascular: no complaints Gastrointestinal: no complaints Musculoskeletal: no complaints Skin: no complaints Neurologic: no complaints Exam/Review of Systems Vital Signs Vitals Vital Signs Date Temp Pulse Resp B/P (MAP) Pulse Ox O2 O2 Flow FiO2 Time Delivery Rate 12/24/18 97.8 68 22 141/71 97 Room Air 07:26 (94) 12/24/18 2.0 03:38 Intake and Output 12/23/18 12/23/18 12/24/18 1515:00 23:00 07:00 IntakeIntake Total 100 ml 2000 ml 500 ml BalanceBalance 100 ml 2000 ml 500 ml Exam Constitutional: alert, oriented Head: normocephalic, atraumatic Neck: jvd Respiratory: diminished breath sounds Cardiovascular: regular rate and rhythm Gastrointestinal: soft Musculoskeletal: nl extremities to inspection Labs Result Diagram: 12/23/18 0540 12/23/18 0540 Results 24hrs Laboratory Tests Test 12/23/18 08:14 12/23/18 08:39 12/23/18 11:35 12/23/18 17:10 Bedside Glucose 79 96 155 146 Test 12/23/18 20:48 Bedside Glucose 113 KERI CAMEJO MD Dec 24, 2018 08:02
[2018-12-24] MEDS: COLCHICINE 0.6 MG TAB PO SCH ×2 (08:10→20:30)
[2018-12-24] MEDS: FAMOTIDINE 20 MG TAB PO SCH (08:11)
[2018-12-24] MEDS: LACTOBACILLUS RHAMNOSUS CAP PO SCH ×2 (08:11→20:30)
[2018-12-24] MEDS: predniSONE 10 MG TAB PO SCH (08:11)
[2018-12-24] MEDS: ENOXAPARIN 30 MG/0.3 ML SYG SC SCH (08:17)
--- NOTE | 2018-12-24 08:55 | NUR ---
PT NOTE Therapy day number 3 Subjective Denies pain Pain Intensity 0 (0-10) Patient Stated Goal for Pain Relief 0 (0-10) Pain Level Comment denies Pre Treatment Vital Signs Stable Yes - SpO2 95-96% pre/throughout tx on RA Exercise Assessment Label Bilat Lower Extremity Exercise Type Active ROM Additional Exercise Comments bed mob tr indep Supine to Sit Independent Transfer Sit to Stand Ability Supervised Bed Mobility Sit to Supine Independent Bed Transfer Ability Supervised Chair Transfer Ability Supervised Toileting Ability Supervised Sitting Tolerance 20 min Additional Mobility Comments pt received/left sitting in chair at bedside, call light in reach Gait Training Start Time 08:55 Gait Assist Levels Stand by Assist Assistive Devices None Ambulation Distance 350 feet Additional Gait Comments decreased pratibha, recip pattern, no LOB, improved recip arm swing with VC Gait Training End Time 09:10 Total Gait Training Treatment Time 15 min (8-127) Weight Bearing Assessment Label Bilat Lower Extremity Weight Bearing Status Full Weight Bearing Stair Training Start Time 09:10 Stair Climbing Ability Stand by Assist Number of Stairs 12 Stairs Additional Stairs Assist Comments up/down, R HR (ascending), recip pattern, no LOB/buckl, good BLE sequencing Stair Training End Time 09:20 Total Stair Training Time 10 min (8-127) Static Sitting Balance Good Dynamic Sitting Balance Good Standing Static Balance Good Dynamic Standing Balance Fair plus Safety Judgement Good Activity Tolerance Good Post Treatment Pain Intensity 0 0-10 Additional Post Treatment Comment See Below Total Treament Time 25 min (8-127) Total Minutes 25 Total Units 2 PT Technical Record Comment T NOTE S: Pt reports no pain or dizziness, agreeable to PT, cleared for PT per MADELEINE Wagner O: Pt received sitting in bedside chair, in no apparent distress, on RA, pt agreeable, no encouragement required for participation in PT. Performed bed mobility tr, transfer tr, gait and stair tr per tech record above with no AD, supervised to SBA, SpO2 WNL on RA throughout. Pt ed for improved gait mechanics with good return demo for upright posture/reciparm swing during gait, no LOB/buckling/dizziness. Pt returned to bedside chair post-tx with calllight and needs in reach, pt in no apparent distress. A: Pt ricky tx well, improved mobility/stability during gait since last tx. P: Cont POC
--- NOTE | 2018-12-24 13:36 | CONS ---
Consult Date/Type/Reason Admit Date/Time Dec 17, 2018 at 14:27 Initial Consult Date 12/18/18 Type of Consultation: Rheum Requesting Provider: Pawel Plascencia DO Date/Time of Note DATE: 12/24/18 TIME: 13:34 Subjective No new complaints Feels better. Now on 10 mg prednisone daily Objective Vitals Vital Signs Date Temp Pulse Resp B/P (MAP) Pulse Ox O2 O2 Flow FiO2 Time Delivery Rate 12/24/18 67 12:01 12/24/18 97.8 21 119/66 96 Room Air 11:34 (83) 12/24/18 2.0 03:38 Intake and Output 12/23/18 12/23/18 12/24/18 1414:59 22:59 06:59 IntakeIntake Total 100 ml 2000 ml 500 ml BalanceBalance 100 ml 2000 ml 500 ml Exam GENERAL: No acute distress at present, alert, oriented. SKIN: Without rashes. HEENT: Without acute oral or ocular lesions. NECK: Without lymphadenopathy. CHEST: Decreased breath sounds. HEART: Regular rate. No murmurs noted. ABDOMEN: Soft without masses or tenderness. MUSCULOSKELETAL: Joints with good range of motion, no synovitis or tenderness. NEUROLOGIC: Grossly intact. EXTREMITIES: No cyanosis edema. Results/Medications Result Diagram: 12/23/18 0540 12/23/18 0540 Results 24 hrs Laboratory Tests Test 12/23/18 17:10 12/23/18 20:48 12/24/18 08:09 12/24/18 13:18 Bedside Glucose 146 113 89 141 Home Meds Active Scripts Metoclopramide Hcl* (Metoclopramide Hcl*) 10 Mg Tablet, 10 MG PO TID PRN for NAUSEA MDD 4 for 7 Days, #1 TAB Prov:MICHAEL VELIZ MD 12/06/18 Reported Medications Colchicine* (Colcrys*) 0.6 Mg Tablet, 0.6 MG PO DAILY, TAB 12/17/18 Amlodipine Besylate* (Amlodipine Besylate*) 5 Mg Tablet, 5 MG PO DAILY, #30 TAB 12/02/18 Losartan Potassium* (Losartan Potassium*) 50 Mg Tablet, 50 MG PO DAILY, TAB 12/02/18 Discontinued Scripts [Colchicine] 0.6 MG TAB No Conflict Check, 0.6 MG PO BID for 7 Days, #14 Prov:MICHAEL VELIZ MD 12/06/18 Oytrfffntaf-C-Rosswqhoha Hb* (Guaifenesin* DM Syrup) 120 Ml Syrup, 10 ML PO Q4H PRN for COUGH for 1 Day Prov:MICHAEL VELIZ MD 12/06/18 Acetaminophen* (Tylenol*) 325 Mg Tablet, 650 MG PO Q6H PRN for PAIN LEVEL 1-3 OR FEVER for 1 Day, TAB Prov:MICHAEL VELIZ MD 12/06/18 Medications Current Medications Colchicine (Colchicine) 0.6 mg BID PO Last administered on 12/24/18at 08:10; Admin Dose 0.6 MG; Start 12/17/18 at 21:00 IV Flush (NS 3 ml) 3 ml PER PROTOCOL IV ; Start 12/17/18 at 16:30 Acetaminophen (Tylenol Tab) 650 mg Q6H PRN PO PAIN LEVEL 1-3 OR FEVER Last a dministered on 12/23/18at 22:14; Admin Dose 650 MG; Start 12/17/18 at 16:30 Acetaminophen (Tylenol Supp) 650 mg Q6H PRN CO PAIN LEVEL 1-3 OR FEVER; Start 12/17/18 at 16:30 Oxycodone/ Acetaminophen (Percocet (5/ 325)) 1 tab Q6H PRN PO MODERATE PAIN LEVEL 4-6; Start 12/17/18 at 16:30 Docusate Sodium (Colace) 100 mg Q12H PRN PO CONSTIPATION; Start 12/17/18 at 16:30 Magnesium Hydroxide (Milk Of Mag) 30 ml DAILY PRN PO CONSTIPATION; Start 12/17/18 at 16:30 Bisacodyl (Dulcolax) 5 mg DAILY PRN PO CONSTIPATION; Start 12/17/18 at 16:30 Bisacodyl (Dulcolax Supp) 10 mg DAILY PRN CO CONSTIPATION; Start 12/17/18 at 16:30 Diagnostic Test (Pha) (Accu-Chek) 1 ea 02 XX Last administered on 12/19/18at 01 :43; Admin Dose 1 EA; Start 12/18/18 at 02:00 Levalbuterol (Xopenex Neb) 1.25 mg ICU RECOVERY PRN HHN WHEEZING; Start 12/17/18 at 21:30 Ipratropium [place] (Atrovent 0.02% (Neb)) 0.5 mg ICU RECOVERY PRN HHN WHEEZING; Start 12/17/18 at 21:30 Morphine Sulfate (morphine) 2 mg Q4H PRN IV SEVERE PAIN LEVEL 7-10; Start 12/17/18 at 23:45 Sumatriptan Succinate (Imitrex) 6 mg ONCE PRN SC HEADACHE; Start 12/18/18 at 23:30 Insulin Aspart (Novolog Insulin Pen) NOVOLOG *MODERATE* ALGORITHM WITH MEALS BEDTIME SC Last administered on 12/24/18at 13:23; Admin Dose 2 UNIT; Start 12/19/18 at 17:35 Miscellaneous Information 1 ea NOTE XX ; Start 12/19/18 at 13:30 Glucose (Glutose) 15 gm Q15M PRN PO DECREASED GLUCOSE; Start 12/19/18 at 13:30 Glucose (Glutose) 22.5 gm Q15M PRN PO DECREASED GLUCOSE; Start 12/19/18 at 13:30 Dextrose (D50w Syringe) 25 ml Q15M PRN IV DECREASED GLUCOSE; Start 12/19/18 at 13:30 Dextrose (D50w Syringe) 50 ml Q15M PRN IV DECREASED GLUCOSE; Start 12/19/18 at 13:30 Glucagon (Glucagen) 1 mg Q15M PRN IM DECREASED GLUCOSE; Start 12/19/18 at 13:30 Glucose (Glutose) 15 gm Q15M PRN BUCCAL DECREASED GLUCOSE; Start 12/19/18 at 13:30 Famotidine (Pepcid) 20 mg DAILY PO Last administered on 12/24/18at 08:11; Admin Dose 20 MG; Start 12/21/18 at 21:00 Acetaminophen/ Hydrocodone Bitart ([place] (7.5-325)) 1 tab Q6H PRN PO MODERATE PAIN LEVEL 4-6; Start 12/21/18 at 18:30 Lactobacillus Acidophilus/ Rhamnosus (Culturelle) 1 cap BID PO Last administered on 12/24/18at 08:11; Admin Dose 1 CAP; Start 12/21/18 at 21:00 Ipratropium [place] (Atrovent Hfa) 4 puff Q8H RESP THERAPY INH Last administered on 12/24/18at 08:00; Admin Dose 4 PUFF; Start 1/23/19 at 00:00 Levalbuterol (Xopenex Hfa) 4 puff Q8H RESP THERAPY INH Last administered on 12/24/18at 08:00; Admin Dose 4 PUFF; Start 12/23/18 at 00:00 Enoxaparin Sodium (Lovenox) 30 mg DAILY SC Last administered on 12/24/18at 08:17; Admin Dose 30 MG; Start 12/22/18 at 18:00 Prednisone (Prednisone) 10 mg DAILY PO Last administered on 12/24/18at 08:11; Admin Dose 10 MG; Start 12/24/18 at 09:00 Assessment/Plan Assessment/Plan (Daily) ASSESSMENT: 1. Pericarditis with pericardial effusion, unclear etiology. No evidence so far of bacterial infection or tuberculosis. Final fungal cultures are pending. No evidence of neoplastic process with negative cytology of the fluid. Viral etiology is still a possibility. Consider an autoimmune etiology but low positive HODA of doubtful significance.although has no prior evidence of autoimmune condition. However, she did come with substantial anemia which may have reflected a more chronic process inflammatory process. 2. Iron deficiency anemia with 6% saturation The patient denies a history of gastrointestinal bleeding. 3. Hypertension, stable. 4. Diabetes mellitus, stable. 5. Low positive HODA of doubtful significance. RECOMMENDATIONS: 1. Various laboratory studies still pending. 2 Continue prednisone to 10 mg daily for now. 3. Should have GI evaluation in regard to iron deficiency CHINA IVEY MD Dec 24, 2018 13:36
--- NOTE | 2018-12-24 15:33 | PN ---
Date/Time of Note Date/Time of Note DATE: 12/24/18 TIME: 15:31 Assessment/Plan VTE Prophylaxis Risk score (from Ns)>0 risk: 4 [place] [facility] [place] Pharmacological prophylaxis: LMWH Lines/Catheters [facility] Saline Lock Urinary Cath still in place: No Assessment/Plan Assessment/Plan 1. Recurrent pericardial effusion, likely viral pericarditis, s/p subxiphoid pericardial window and biopsy on 12/17/2018, pathology reviewed, on prednisone and colchicine 2. Pneumonia on levaquin 3. Bilateral pleural effusion, right US-guided thoracentesis 4. Iron deficiency anemia, stable, consider outpatient GI. 5. HTN, controlled 6. DVT prophylaxis: lovenox Result Diagram: 12/23/18 0540 12/23/18 0540 Results 24hrs Laboratory Tests Test 12/23/18 17:10 12/23/18 20:48 12/24/18 08:09 12/24/18 13:18 Bedside Glucose 146 113 89 141 Subjective 24 Hr Interval Summary Free Text/Dictation less shortness of breath, still cough with greenish sputum Exam/Review of Systems Exam Vitals Vital Signs Date Temp Pulse Resp B/P (MAP) Pulse Ox O2 O2 Flow FiO2 Time Delivery Rate 12/24/18 98.0 66 20 122/70 96 Room Air 15:16 (87) 12/24/18 2.0 03:38 Intake and Output 12/23/18 12/23/18 12/24/18 1515:00 23:00 07:00 IntakeIntake Total 100 ml 2000 ml 500 ml BalanceBalance 100 ml 2000 ml 500 ml Constitutional: alert, oriented, well developed Psych: no complaints, nl mood/affect Head: normocephalic, atraumatic Eyes: nl conjunctiva, EOMI, nl lids ENMT: nl external ears & nose, nl lips & teeth, nl nasal mucosa & septum Neck: supple, non-tender Respiratory: crackles/rales Cardiovascular: regular rate and rhythm, nl pulses; No bruits, No diastolic murmur, No edema, No gallop, No irregular rhythm, No jugular venous distention (JVD), No murmurs/extra sounds, No rub, No systolic murmur, No S3, No S4, No other Gastrointestinal: soft, nl liver, spleen Musculoskeletal: nl extremities to inspection Extremities: normal pulses; No calf tenderness, No cyanosis, No clubbing, No edema, No pitting pedal edema, No palpable cord, No tenderness, No other Neurological: DRUM BUILDER II-XII intact, nl mental status, nl speech, nl strength Skin: nl turgor Results Results 24hrs Laboratory Tests Test 12/23/18 17:10 12/23/18 20:48 12/24/18 08:09 12/24/18 13:18 Bedside Glucose 146 113 89 141 MARINE JIMENEZ MD Dec 24, 2018 15:33
--- NOTE | 2018-12-24 17:25 | NUR ---
RN NOTES: Patient's dtr, Glo had questions regarding US thoracentesis. Dr. Still made aware. Orders given for US Chest of right side to assess if thoracentesis still indicated. Orders placed. Per family request, pt would like to have thoracentesis tomorrow instead of today - RN informed Judith in cardiac cath lab technologist. Pt wants to sign consent tomorrow after talking w/ family. Will continue to follow up as needed.
--- NOTE | 2018-12-24 18:47 | NUR ---
EOSS: Patient is AAOx4, O 2sat 98% on RA. Denies pain or SOB, VSS. Informed Dr. Still of US chest results - Orders given to cancel thoracentesis. Ambulatory, steady. IS teaching done. Hourly rounding done, fall precautions initiated. All needs attended to. Pt is stable - will endorse to oncoming shift.
[2018-12-25] VITALS (9 sets, daily range): BP systolic 108–142; BP diastolic 70–80; PULSE 60–77; RESP 17–22
[2018-12-25] MEDS: ACCU-CHEK XX SCH (01:54)
--- NOTE | 2018-12-25 06:13 | NUR ---
end of shift: patient is alert and oriented; sinus rhythm/ sinus vania on monitor; ambulates with assist; on room air, denies pain; needs attended; no acute events overnight; will endorse to dayshift nurse
[2018-12-25] MEDS: INSULIN ASPART [NOVOLOG] 3 ML PEN SC SCH ×4 (07:55→20:36)
[2018-12-25] MEDS: LEVALBUTEROL (HFA) 15 GM INHALER INH SCH ×2 (08:12→16:00)
[2018-12-25] MEDS: LACTOBACILLUS RHAMNOSUS CAP PO SCH ×2 (08:12→20:31)
[2018-12-25] MEDS: predniSONE 10 MG TAB PO SCH (08:12)
[2018-12-25] MEDS: COLCHICINE 0.6 MG TAB PO SCH ×2 (08:12→20:31)
[2018-12-25] MEDS: IPRATROPIUM (HFA) 12.9 GM INHALER INH SCH ×2 (08:12→16:00)
[2018-12-25] MEDS: FAMOTIDINE 20 MG TAB PO SCH (08:12)
[2018-12-25] MEDS: ENOXAPARIN 30 MG/0.3 ML SYG SC SCH (08:22)
--- NOTE | 2018-12-25 11:02 | NUR ---
PT NOTE Therapy day number 4 Subjective Denies pain Pain Intensity 0 (0-10) Patient Stated Goal for Pain Relief 0 (0-10) Pain Level Comment denies pain Transfer Sit to Stand Ability Independent Additional Mobility Comments pt received/left sitting in chair at bedside, call light in reach Gait Training Start Time 11:02 Gait Assist Levels Supervised Assistive Devices None Ambulation Distance 350 feet Additional Gait Comments steady, recip pattern, no LOB with head turn/nod, improved arm swing Gait Training End Time 11:12 Total Gait Training Treatment Time 10 min (8-127) Weight Bearing Assessment Label Bilat Lower Extremity Weight Bearing Status Full Weight Bearing Stair Climbing Ability Supervised Number of Stairs 13 Stairs Additional Stairs Assist Comments up/down, R HR (ascending), recip pattern, no LOB/buckl/dizziness/SOB Static Sitting Balance Good Dynamic Sitting Balance Good Standing Static Balance Good Dynamic Standing Balance Fair plus Safety Judgement Good Activity Tolerance Good Post Treatment Pain Intensity 0 0-10 Additional Post Treatment Comment See Below Total Treament Time 10 min (8-127) Total Minutes 10 Total Units 1 PT Technical Record Comment PT NOTE S: Pt reports no pain or dizziness, states "I just want you to tell me I'm doing really well", agreeable to PT, cleared for PT per MADELEINE Wagner O: Pt received sitting in bedside chair, in no apparent distress, on RA, pt agreeable, family present in room. Performed bed mobility tr, transfer tr, gait and stair tr per tech record above with no AD, supervised to independent, on RA throughout with no c/o dizziness. Pt with imrpoved gait pratibha/steadiness since previous tx. Pt returned to bedside chair post-tx with call light and needs in reach, pt in no apparent distress, family present in room. A: Pt ricky tx well, improved confidence/mobility/stability during gait since last tx. P: Cont POC, discuss possible DC from PT with supervising PT due to PT goals met Addendum: 12/25/18 at 1415 by KATERINA MEDLEY PT Discussed PT POC with FINISH INSPECTOR, patient supervised mobility with gait due to occasional dizziness, however no LOB or safety limitation observed. As such, patient has assistance at home as needed. Goals met, Patient may ambulate with nursing, Patient will improve with skilled inpatient PT, thus does not require skilled inpatient PT at this time. Co-signed by Katerina Medley PT, DPT
--- NOTE | 2018-12-25 11:38 | CONS ---
Assessment/Plan Assessment/Plan Hospital Course (Demo Recall) 1) pericarditis/pericardial effusion s/p pericardial window on 12/17/18 the likely diagnosis would be viral in origin I have ordered coxsackie A and B serology, echo virus serology, EBV, HIV I have also ordered mycoplasma fungal and TB are possible but less likely in lieu of relatively benign presentation for constitutional symptoms nonetheless I will order beta d glucan, cocci titers and histoplasma Ag (seen in [place]) her quant TB gold was neg before and so far the AFB cx are NGTD I will look for non infectious etiology as well with ESR, CRP, HODA her TSH was WNL so no sign of myxedema no further antibiotics at this time when she is done with her cefazolin prophy laxis 12/19 - ESR and CRP are not impressively elevated continue off antibiotics ok for steroids from ID perspective 12/21 - most special serologies are still pending, HIV was neg as well as RF pt on prednisone I will follow up on serologies and report back any positive ones 12/23 - EBV IgM was neg but very high IgG levels, will order EBV PCR in a.m. HODA only at 1:40 - unlikely to be significant ok for d/c from ID perspective 12/25 - pt is improved with breathing small amount of pleural effusion noted, unable to be drained due to small size mycoplasma serology was neg viral serology still pending continue off antibiotics, this is likely viral I will sign off on case 2) DM 3) HTN Consultation Date/Type/Reason Admit Date/Time Dec 17, 2018 at 14:27 Initial Consult Date 12/18/18 Type of Consult ID Requesting Provider: Pawel Plascencia DO Date/Time of Note DATE: 12/25/18 TIME: 11:36 24 HR Interval Summary Free Text/Dictation doing well able to walk without SOB no N, V, D some mid chest pain only in the a.m. now on prednisone Exam/Review of Systems Exam Vitals Vital Signs Date Temp Pulse Resp B/P (MAP) Pulse Ox O2 O2 Flow FiO2 Time Delivery Rate 12/25/18 68 08:31 12/25/18 97.8 22 108/73 96 Room Air 07:21 (85) 12/24/18 2.0 03:38 Intake and Output 12/24/18 12/24/18 12/25/18 1515:00 23:00 07:00 IntakeIntake Total 730 ml 400 ml BalanceBalance 730 ml 400 ml Constitutional: alert, oriented ENMT: mucosa pink and moist Respiratory: clear to auscultation Cardiovascular: regular rate and rhythm Gastrointestinal: soft, non-tender Results Result Diagram: 12/25/18 0540 12/25/18 0540 Results 24hrs Laboratory Tests Test 12/24/18 13:18 12/24/18 17:45 12/24/18 20:32 12/25/18 05:40 Bedside Glucose 141 101 126 White Blood Count 9.4 Red Blood Count 3.82 L Hemoglobin 10.9 L Hematocrit 33.5 L Mean Corpuscular 87.7 Volume Mean Corpuscular 28.5 L Hemoglobin Mean Corpuscular 32.5 Hemoglobin Concent Red Cell 12.6 Distribution Width Platelet Count 203 Mean Platelet Volume 9.4 Immature 0.600 H Granulocytes % Neutrophils % 52.3 Lymphocytes % 33.4 Monocytes % 9.9 Eosinophils % 3.4 Basophils % 0.4 Nucleated Red Blood 0.0 Cells % Immature 0.060 H Granulocytes # Neutrophils # 4.9 Lymphocytes # 3.2 H Monocytes # 0.9 Eosinophils # 0.3 Basophils # 0.0 Nucleated Red Blood 0.0 Cells # Sodium Level 142 Potassium Level 3.9 Chloride Level 103 Carbon Dioxide Level 26 Anion Gap 13 Blood Urea Nitrogen 16 Creatinine 0.64 Est Glomerular > 60 Filtrat Rate mL/min Glucose Level 84 Calcium Level 9.1 Test 12/25/18 08:09 Bedside Glucose 88 RAINER SANTIAGO MD Dec 25, 2018 11:38
--- NOTE | 2018-12-25 12:40 | CONS ---
Assessment/Plan Assessment/Plan Assessment/Plan (Daily) 1) Pleural effusion 2) Pericardial window 3) Preserved LV function Plan: v small effusion - no tap ID following No further cv [email or web address] Consultation Date/Type/Reason Admit Date/Time Dec 17, 2018 at 14:27 Initial Consult Date 12/18/18 Type of Consult Cardiology Requesting Provider: Pawel Plascencia DO Date/Time of Note DATE: 12/25/18 TIME: 12:39 24 HR Interval Summary Free Text/Dictation The patient with no cahnge Exam/Review of Systems Vital Signs Vitals Vital Signs Date Temp Pulse Resp B/P (MAP) Pulse Ox O2 O2 Flow FiO2 Time Delivery Rate 12/25/18 77 12:31 12/25/18 98.2 22 133/75 96 Room Air 11:58 (94) 12/24/18 2.0 03:38 Intake and Output 12/24/18 12/24/18 12/25/18 1515:00 23:00 07:00 IntakeIntake Total 730 ml 400 ml BalanceBalance 730 ml 400 ml Labs Result Diagram: 12/25/18 0540 12/25/18 0540 Results 24hrs Laboratory Tests Test 12/24/18 13:18 12/24/18 17:45 12/24/18 20:32 12/25/18 05:40 Bedside Glucose 141 101 126 White Blood Count 9.4 Red Blood Count 3.82 L Hemoglobin 10.9 L Hematocrit 33.5 L Mean Corpuscular 87.7 Volume Mean Corpuscular 28.5 L Hemoglobin Mean Corpuscular 32.5 Hemoglobin Concent Red Cell 12.6 Distribution Width Platelet Count 203 Mean Platelet Volume 9.4 Immature 0.600 H Granulocytes % Neutrophils % 52.3 Lymphocytes % 33.4 Monocytes % 9.9 Eosinophils % 3.4 Basophils % 0.4 Nucleated Red Blood 0.0 Cells % Immature 0.060 H Granulocytes # Neutrophils # 4.9 Lymphocytes # 3.2 H Monocytes # 0.9 Eosinophils # 0.3 Basophils # 0.0 Nucleated Red Blood 0.0 Cells # Sodium Level 142 Potassium Level 3.9 Chloride Level 103 Carbon Dioxide Level 26 Anion Gap 13 Blood Urea Nitrogen 16 Creatinine 0.64 Est Glomerular > 60 Filtrat Rate mL/min Glucose Level 84 Calcium Level 9.1 Test 12/25/18 08:09 12/25/18 12:12 Bedside Glucose 88 137 MARLENE MERCER MD Dec 25, 2018 12:40
--- NOTE | 2018-12-25 14:39 | PN ---
Date/Time of Note Date/Time of Note DATE: 12/25/18 TIME: 14:31 Assessment/Plan VTE Prophylaxis [place] [facility] [place]: 4 [place] applied [place] [facility] [place] Pharmacological prophylaxis: LMWH Lines/Catheters IV [facility] Saline Lock Urinary Cath still in place: No Assessment/Plan Assessment/Plan 1. Recurrent pericardial effusion, likely viral pericarditis, s/p subxiphoid pericardial window and biopsy on 12/17/2018, pathology reviewed, on prednisone and colchicine -Several labs ordered for infectious w/u pending. 2. Pneumonia on Levaquin 3. Bilateral pleural effusion, s/p right US-guided thoracentesis 4. Iron deficiency anemia -ordered FOBT -consider outpatient GI. -start ferrous sulfate 5. HTN, controlled Result Diagram: 12/25/18 0540 12/25/18 0540 Results 24hrs Laboratory Tests Test 12/24/18 17:45 12/24/18 20:32 12/25/18 05:40 12/25/18 08:09 Bedside Glucose 101 126 88 White Blood Count 9.4 Red Blood Count 3.82 L Hemoglobin 10.9 L Hematocrit 33.5 L Mean Corpuscular 87.7 Volume Mean Corpuscular 28.5 L Hemoglobin Mean Corpuscular 32.5 Hemoglobin Concent Red Cell 12.6 Distribution Width Platelet Count 203 Mean Platelet Volume 9.4 Immature 0.600 H Granulocytes % Neutrophils % 52.3 Lymphocytes % 33.4 Monocytes % 9.9 Eosinophils % 3.4 Basophils % 0.4 Nucleated Red Blood 0.0 Cells % Immature 0.060 H Granulocytes # Neutrophils # 4.9 Lymphocytes # 3.2 H Monocytes # 0.9 Eosinophils # 0.3 Basophils # 0.0 Nucleated Red Blood 0.0 Cells # Sodium Level 142 Potassium Level 3.9 Chloride Level 103 Carbon Dioxide Level 26 Anion Gap 13 Blood Urea Nitrogen 16 Creatinine 0.64 Est Glomerular > 60 Filtrat Rate mL/min Glucose Level 84 Calcium Level 9.1 Test 12/25/18 12:12 Bedside Glucose 137 Exam/Review of Systems Exam Vitals Vital Signs Date Temp Pulse Resp B/P (MAP) Pulse Ox O2 O2 Flow FiO2 Time Delivery Rate 12/25/18 77 12:31 12/25/18 98.2 22 133/75 96 Room Air 11:58 (94) 12/24/18 2.0 03:38 Intake and Output 12/24/18 12/24/18 12/25/18 1515:00 23:00 07:00 IntakeIntake Total 730 ml 400 ml BalanceBalance 730 ml 400 ml Constitutional: other (no distress) Psych: no complaints, nl mood/affect Respiratory: clear to auscultation, normal air movement Cardiovascular: regular rate and rhythm, nl pulses Gastrointestinal: soft Extremities: normal pulses Results Results 24hrs Laboratory Tests Test 12/24/18 17:45 12/24/18 20:32 12/25/18 05:40 12/25/18 08:09 Bedside Glucose 101 126 88 White Blood Count 9.4 Red Blood Count 3.82 L Hemoglobin 10.9 L Hematocrit 33.5 L Mean Corpuscular 87.7 Volume Mean Corpuscular 28.5 L Hemoglobin Mean Corpuscular 32.5 Hemoglobin Concent Red Cell 12.6 Distribution Width Platelet Count 203 Mean Platelet Volume 9.4 Immature 0.600 H Granulocytes % Neutrophils % 52.3 Lymphocytes % 33.4 Monocytes % 9.9 Eosinophils % 3.4 Basophils % 0.4 Nucleated Red Blood 0.0 Cells % Immature 0.060 H Granulocytes # Neutrophils # 4.9 Lymphocytes # 3.2 H Monocytes # 0.9 Eosinophils # 0.3 Basophils # 0.0 Nucleated Red Blood 0.0 Cells # Sodium Level 142 Potassium Level 3.9 Chloride Level 103 Carbon Dioxide Level 26 Anion Gap 13 Blood Urea Nitrogen 16 Creatinine 0.64 Est Glomerular > 60 Filtrat Rate mL/min Glucose Level 84 Calcium Level 9.1 Test 12/25/18 12:12 Bedside Glucose 137 Medications Medication Current Medications Colchicine (Colchicine) 0.6 mg BID PO Last administered on 12/25/18at 08:12; Admin Dose 0.6 MG; Start 12/17/18 at 21:00 IV Flush (NS 3 ml) 3 ml PER PROTOCOL IV ; Start 12/17/18 at 16:30 Acetaminophen (Tylenol Tab) 650 mg Q6H PRN PO PAIN LEVEL 1-3 OR FEVER Last administered on 12/23/18at 22:14; Admin Dose 650 MG; Start 12/17/18 at 16:30 Acetaminophen (Tylenol Supp) 650 mg Q6H PRN CO PAIN LEVEL 1-3 OR FEVER; Start 12/17/18 at 16:30 Oxycodone/ Acetaminophen (Percocet (5/ 325)) 1 tab Q6H PRN PO MODERATE PAIN LEVEL 4-6; Start 12/17/18 at 16:30 Docusate Sodium (Colace) 100 mg Q12H PRN PO CONSTIPATION; Start 12/17/18 at 16:30 Magnesium Hydroxide (Milk Of Mag) 30 ml DAILY PRN PO CONSTIPATION; Start 12/17/18 at 16:30 Bisacodyl (Dulcolax) 5 mg DAILY PRN PO CONSTIPATION; Start 12/17/18 at 16:30 Bisacodyl (Dulcolax Supp) 10 mg DAILY PRN CO CONSTIPATION; Start 12/17/18 at 16:30 Diagnostic Test (Pha) (Accu-Chek) 1 ea 02 XX Last administered on 12/19/18at 01:43; Admin Dose 1 EA; Start 12/18/18 at 02:00 Levalbuterol (Xopenex Neb) 1.25 mg ICU RECOVERY PRN HHN WHEEZING; Start 12/17/18 at 21:30 Ipratropium [place] (Atrovent 0.02% (Neb)) 0.5 mg ICU RECOVERY PRN HHN WHEEZING; Start 12/17/18 at 21:30 Morphine Sulfate (morphine) 2 mg Q4H PRN IV SEVERE PAIN LEVEL 7-10; Start 12/17/18 at 23:45 Sumatriptan Succinate (Imitrex) 6 mg ONCE PRN SC HEADACHE; Start 12/18/18 at 23:30 Insulin Aspart (Novolog Insulin Pen) NOVOLOG *MODERATE* ALGORITHM WITH MEALS BEDTIME SC Last administered on 12/24/18at 13:23; Admin Dose 2 UNIT; Start 12/19/18 at 17:35 Miscellaneous Information 1 ea NOTE XX ; Start 12/19/18 at 13:30 Glucose (Glutose) 15 gm Q15M PRN PO DECREASED GLUCOSE; Start 12/19/18 at 13:30 Glucose (Glutose) 22.5 gm Q15M PRN PO DECREASED GLUCOSE; Start 12/19/18 at 13:30 Dextrose (D50w Syringe) 25 ml Q15M PRN IV DECREASED GLUCOSE; Start 12/19/18 at 13:30 Dextrose (D50w Syringe) 50 ml Q15M PRN IV DECREASED GLUCOSE; Start 12/19/18 at 13:30 Glucagon (Glucagen) 1 mg Q15M PRN IM DECREASED GLUCOSE; Start 12/19/18 at 13:30 Glucose (Glutose) 15 gm Q15M PRN BUCCAL DECREASED GLUCOSE; Start 12/19/18 at 13:30 Famotidine (Pepcid) 20 mg DAILY PO Last administered on 12/25/18 08:12; Admin Dose 20 MG; Start 12/21/18 at 21:00 Acetaminophen/ Hydrocodone Bitart ([place] (7.5-325)) 1 tab Q6H PRN PO MODERATE PAIN LEVEL 4-6; Start 12/21/18 at 18:30 Lactobacillus Acidophilus/ Rhamnosus (Culturelle) 1 cap BID PO Last administered on 12/25/18 08:12; Admin Dose 1 CAP; Start 12/21/18 at 21:00 Ipratropium [place] (Atrovent Hfa) 4 puff Q8H RESP THERAPY INH Last administered on 12/25/18 08:12; Admin Dose 4 PUFF; Start 12/23/18 at 00:00 Levalbuterol (Xopenex Hfa) 4 puff Q8H RESP THERAPY INH Last administered on 12/25/18 08:12; Admin Dose 4 PUFF; Start 12/23/18 at 00:00 Enoxaparin Sodium (Lovenox) 30 mg DAILY SC Last administered on 12/25/18 08:22; Admin Dose 30 MG; Start 12/22/18 at 18:00 Prednisone (Prednisone) 10 mg DAILY PO Last administered on 12/25/18 08:12; Admin Dose 10 MG; Start 12/24/18 at 09:00 LULU BLACKWOOD MD Dec 25, 2018 14:39
--- NOTE | 2018-12-25 19:05 | NUR ---
EOSS: Patient is AAOx4, O2 sat 98% on RA. Ambulatory steady. IS teaching done. Hourly rounding done, fall precautions initiated, all needs attended to. Pt is stable - will endorse to oncoming shift.
[2018-12-25] MEDS: FERROUS SULFATE (EC) 325 MG TAB PO SCH (20:31)
[2018-12-26] VITALS (8 sets, daily range): BP systolic 120–133; BP diastolic 68–80; PULSE 63–78; RESP 18–22
[2018-12-26] MEDS: ACCU-CHEK XX SCH (02:00)
[2018-12-26] MEDS: INSULIN ASPART [NOVOLOG] 3 ML PEN SC SCH ×2 (07:55→11:41)
[2018-12-26] MEDS: LACTOBACILLUS RHAMNOSUS CAP PO SCH (08:16)
[2018-12-26] MEDS: FERROUS SULFATE (EC) 325 MG TAB PO SCH ×2 (08:16→14:42)
[2018-12-26] MEDS: predniSONE 10 MG TAB PO SCH (08:16)
[2018-12-26] MEDS: FAMOTIDINE 20 MG TAB PO SCH (08:16)
[2018-12-26] MEDS: COLCHICINE 0.6 MG TAB PO SCH (08:16)
[2018-12-26] MEDS: ENOXAPARIN 30 MG/0.3 ML SYG SC SCH (08:22)
--- NOTE | 2018-12-26 08:57 | CONS ---
Assessment/Plan Assessment/Plan Assessment/Plan (Daily) 1) Pleural effusion 2) Pericardial window 3) Preserved LV function Plan: v small effusion - no tap ID following No further cv reccomendations Consultation Date/Type/Reason Admit Date/Time Dec 17, 2018 at 14:27 Initial Consult Date 12/18/18 Type of Consult Cardiology Requesting Provider: Pawel Plascencia DO Date/Time of Note DATE: 12/26/18 TIME: 08:57 24 HR Interval Summary Free Text/Dictation The patient with no cahgne Exam/Review of Systems Vital Signs Vitals Vital Signs Date Temp Pulse Resp B/P (MAP) Pulse Ox O2 O2 Flow FiO2 Time Delivery Rate 12/26/18 77 08:02 12/26/18 97.6 18 121/71 92 Room Air 07:21 (88) 12/24/18 2.0 03:38 Intake and Output 12/25/18 12/25/18 12/26/18 1414:59 22:59 06:59 IntakeIntake Total 830 ml 560 ml BalanceBalance 830 ml 560 ml Labs Result Diagram: 12/26/18 0545 12/26/18 0545 Results 24hrs Laboratory Tests Test 12/25/18 12:12 12/25/18 18:05 12/25/18 18:30 12/25/18 20:30 Bedside Glucose 137 91 148 Stool Occult Blood NEGATIVE Test 12/26/18 05:45 12/26/18 07:54 White Blood Count 9.5 Red Blood Count 4.01 L Hemoglobin 11.4 L Hematocrit 35.1 L Mean Corpuscular 87.5 Volume Mean Corpuscular 28.4 L Hemoglobin Mean Corpuscular 32.5 Hemoglobin Concent Red Cell 12.7 Distribution Width Platelet Count 206 Mean Platelet Volume 9.4 Immature 0.500 H Granulocytes % Neutrophils % 53.6 Lymphocytes % 32.7 Monocytes % 9.5 Eosinophils % 3.4 Basophils % 0.3 Nucleated Red Blood 0.0 Cells % Immature 0.050 H Granulocytes # Neutrophils # 5.1 Lymphocytes # 3.1 H Monocytes # 0.9 Eosinophils # 0.3 Basophils # 0.0 Nucleated Red Blood 0.0 Cells # Sodium Level 140 Potassium Level 4.1 Chloride Level 104 Carbon Dioxide Level 25 Anion Gap 11 Blood Urea Nitrogen 15 Creatinine 0.63 Est Glomerular > 60 Filtrat Rate mL/min Glucose Level 86 Calcium Level 9.3 Total Bilirubin 0.4 Direct Bilirubin 0.00 Indirect Bilirubin 0.4 Aspartate Amino 49 H Transf (AST/SGOT) Alanine 46 Aminotransferase (AL T/SGPT) Alkaline Phosphatase 81 Total Protein 7.5 Albumin 3.4 Globulin 4.10 H Albumin/Globulin 0.82 Ratio Bedside Glucose 92 Medications Medications Current Medications Colchicine (Colchicine) 0.6 mg BID PO Last administered on 12/26/18at 08:16; Admin Dose 0.6 MG; Start 12/17/18 at 21:00 IV Flush (NS 3 ml) 3 ml PER PROTOCOL IV ; Start 12/17/18 at 16:30 Acetaminophen (Tylenol Tab) 650 mg Q6H PRN PO PAIN LEVEL 1-3 OR FEVER Last administered on 12/23/18at 22:14; Admin Dose 650 MG; Start 12/17/18 at 16:30 Acetaminophen (Tylenol Supp) 650 mg Q6H PRN OK PAIN LEVEL 1-3 OR FEVER; Start 12/17/18 at 16:30 Oxycodone/ Acetaminophen (Percocet (5/ 325)) 1 tab Q6H PRN PO MODERATE PAIN LEVEL 4-6; Start 12/17/18 at 16:30 Docusate Sodium (Colace) 100 mg Q12H PRN PO CONSTIPATION; Start 12/17/18 at 16:30 Magnesium Hydroxide (Milk Of Mag) 30 ml DAILY PRN PO CONSTIPATION; Start 12/17/18 at 16:30 Bisacodyl (Dulcolax) 5 mg DAILY PRN PO CONSTIPATION; Start 12/17/18 at 16:30 Bisacodyl (Dulcolax Supp) 10 mg DAILY PRN OK CONSTIPATION; Start 12/17/18 at 16:30 Diagnostic Test (Pha) (Accu-Chek) 1 ea 02 XX Last administered on 12/19/18at 01:43; Admin Dose 1 EA; Start 12/18/18 at 02:00 Levalbuterol (Xopenex Neb) 1.25 mg ICU RECOVERY PRN HHN WHEEZING; Start 12/17/18 at 21:30 Ipratropium [place] (Atrovent 0.02% (Neb)) 0.5 mg ICU RECOVERY PRN HHN WHEEZING; Start 12/17/18 at 21:30 Morphine Sulfate (morphine) 2 mg Q4H PRN IV SEVERE PAIN LEVEL 7-10; Start 12/17/18 at 23:45 Sumatriptan Succinate (Imitrex) 6 mg ONCE PRN SC HEADACHE; Start 12/18/18 at 23:30 Insulin Aspart (Novolog Insulin Pen) NOVOLOG *MODERATE* ALGORITHM WITH MEALS BEDTIME SC Last administered on 12/24/18at 13:23; Admin Dose 2 UNIT; Start 12/19/18 at 17:35 Miscellaneous Information 1 ea NOTE XX ; Start 12/19/18 at 13:30 Glucose (Glutose) 15 gm Q15M PRN PO DECREASED GLUCOSE; Start 12/19/18 at 13:30 Glucose (Glutose) 22.5 gm Q15M PRN PO DECREASED GLUCOSE; Start 12/19/18 at 13:30 Dextrose (D50w Syringe) 25 ml Q15M PRN IV DECREASED GLUCOSE; Start 12/19/18 at 13:30 Dextrose (D50w Syringe) 50 ml Q15M PRN IV DECREASED GLUCOSE; Start 12/19/18 at 13:30 Glucagon (Glucagen) 1 mg Q15M PRN IM DECREASED GLUCOSE; Start 12/19/18 at 13:30 Glucose (Glutose) 15 gm Q15M PRN BUCCAL DECREASED GLUCOSE; Start 12/19/18 at 13:30 Famotidine (Pepcid) 20 mg DAILY PO Last administered on 12/26/18at 08:16; Admin Dose 20 MG; Start 12/21/18 at 21:00 Acetaminophen/ Hydrocodone Bitart ([place] (7.5-325)) 1 tab Q6H PRN PO MODERATE PAIN LEVEL 4-6; Start 12/21/18 at 18:30 Lactobacillus Acidophilus/ Rhamnosus (Culturelle) 1 cap BID PO Last administered on 12/26/18at 08:16; Admin Dose 1 CAP; Start 12/21/18 at 21:00 Ipratropium [place] (Atrovent Hfa) 4 puff Q8H RESP THERAPY INH Last administered on 12/25/18at 16:00; Admin Dose 4 PUFF; Start 12/23/18 at 00:00 Levalbuterol (Xopenex Hfa) 4 puff Q8H RESP THERAPY INH Last administered on 12/25/18 16:00; Admin Dose 4 PUFF; Start 12/23/18 at 00:00 Enoxaparin Sodium (Lovenox) 30 mg DAILY SC Last administered on 12/26/18at 08:22; Admin Dose 30 MG; Start 12/22/18 at 18:00 Prednisone (Prednisone) 10 mg DAILY PO Last administered on 12/26/18at 08:16; Admin Dose 10 MG; Start 12/24/18 at 09:00 Ferrous Sulfate (Ferrous Sulfate (Ec)) 325 mg TID PO Last administered on 12/26/18at 08:16; Admin Dose 325 MG; Start 12/25/18 at 21:00 MARLENE MERCER MD Dec 26, 2018 08:57
[2018-12-26] MEDS: LEVALBUTEROL (HFA) 15 GM INHALER INH SCH ×2 (11:02)
[2018-12-26] MEDS: IPRATROPIUM (HFA) 12.9 GM INHALER INH SCH ×2 (11:03)
[2018-12-26] MEDS ORDERED: PRED10TA PO (11:38)
[2018-12-26] MEDS ORDERED: Colchicine PO (11:38)
[2018-12-26] MEDS ORDERED: FER325 PO (11:38)
[2018-12-26] MEDS ORDERED: LEVA15HF5 INH (11:38)
[2018-12-26] MEDS ORDERED: UDMOM PO (11:38)
[2018-12-26] MEDS ORDERED: FAMO20TA18 PO (11:38)
--- NOTE | 2018-12-26 11:41 | PDOCDIS ---
Discharge Instructions CONDITION [id number] Patient Condition: [id number] Stable HOME CARE INSTRUCTIONS: [id number] Diet Instructions: [id number] Low Fat /Cholesterol ACTIVITY: [id number] Activity Restrictions: [id number] Slowly Increase Activity Rest between Activity Avoid heavy lifting Avoid Heavy Housework FOLLOW UP/APPOINTMENTS Follow-up Plan FOLLOW-UP WITH YOUR PRIMARY CARE DOCTOR OTHER ORDERS: Other Orders: Go to the nearest ER if you have shortness of breath, chest pain, severe pain, bleeding, any sign of infection around surgical site on your chest LULU BLACKWOOD MD Dec 26, 2018 11:41
--- NOTE | 2018-12-26 15:06 | NUR ---
RN NOTES: IV removed, cathlon tip intact. Discharge instructions and prescriptions given and discussed with patient and family, voiced understanding. Pt left the unit with all personal belongings.
--- NOTE | 2019-01-07 02:27 | DS ---
Date/Time of Note Date/Time of Note DATE: 01/07/19 TIME: 12:26 Discharge Summary Admission/Discharge Info Admit Date/Time Dec 17, 2018 at 14:27 Discharge Date/Time Dec 26, 2018 at 15:05 Discharge Diagnosis pericardial effusion Patient Condition: Stable Hospital Course 53-year-old female who presents from home with dyspnea chest and back discomfor t. Subjective fever chills? No known aggravating or relieving factors. No syncope diaphoresis nausea vomiting or chest wall injury. No recent travel. Patient was here at the beginning a month for pericardial effusion had pericardiocentesis. Likely viral. Cultures cytology negative. Patient was stabilized and discharged home on colchicine which I believe she took. pt had a pericardial window in house and slowly improved Home Meds Active Scripts [Colchicine] 0.6 MG TAB No Conflict Check, 0.6 MG PO BID for 14 Days Prov:LULU BLACKWOOD MD 12/26/18 Prednisone* (Prednisone*) 10 Mg Tab, 10 MG PO DAILY for 7 Days, TAB Prov:LULU BLACKWOOD MD 12/26/18 Famotidine* (Famotidine*) 20 Mg Tablet, 20 MG PO DAILY for 30 Days, TAB Prov:LULU BLACKWOOD MD 12/26/18 Magnesium Hydroxide* (Fang' MOM*) 30 Ml Susp, 30 ML PO DAILY PRN for CONSTIPATION for 30 Days Prov:LULU BLACKWOOD MD 12/26/18 Levalbuterol Tartrate (Levalbuterol Tartrate Hfa) 15 Gm Hfa.aer.ad, 4 PUFF INH Q4H RESP THERAPY PRN for SHORTNESS OF BREATH, #1 Prov:LULU BLACKWOOD MD 12/26/18 Ferrous Sulfate* (Ferrous Sulfate*) 325 Mg Tabec, 325 MG PO TID for 30 Days, TAB Prov:LULU BLACKWOOD MD 12/26/18 Metoclopramide Hcl* (Metoclopramide Hcl*) 10 Mg Tablet, 10 MG PO TID PRN for NAUSEA MDD 4 for 7 Days, #1 TAB Prov:MICHAEL VELIZ MD 12/06/18 Reported Medications Amlodipine Besylate* (Amlodipine Besylate*) 5 Mg Tablet, 5 MG PO DAILY, #30 TAB 12/02/18 Losartan Potassium* (Losartan Potassium*) 50 Mg Tablet, 50 MG PO DAILY, TAB 12/02/18 Follow-up Plan FOLLOW-UP WITH YOUR PRIMARY CARE DOCTOR Primary Care Provider Not On Staff Doctor LULU BLACKWOOD MD Jan 07, 2019 02:27
== END 2018-12-26 15:05 | disposition home or self-care (01) | DRG 270 ==
LOC: E/R 11:07 → ICU 14:27 → EDBEDREQSVC 14:58 → TEL 12-19 23:09
PROVIDERS: ADMIT Hospitalist; ATTEND Internal Medicine
PROC: 02BN0ZX Excision of Pericardium, Open Approach, Diagnostic (ICD-10-PCS; 2018-12-17)
PROC: 5A1935Z Respiratory Ventilation, Less than 24 Consecutive Hours (ICD-10-PCS; 2018-12-17)
PROC: 30233N1 Transfusion of Nonautologous Red Blood Cells into Peripheral Vein, Percutaneous Approach (ICD-10-PCS; 2018-12-17)
PROC: 0W9D00Z Drainage of Pericardial Cavity with Drainage Device, Open Approach (ICD-10-PCS; principal; 2018-12-17 18:00)
PROC: 0BJ08ZZ Inspection of Tracheobronchial Tree, Via Natural or Artificial Opening Endoscopic (ICD-10-PCS; 2018-12-18)
DX: I30.1 Infective pericarditis (principal); J18.9 Pneumonia, unspecified organism; J98.11 Atelectasis; J90 Pleural effusion, not elsewhere classified; I31.4 Cardiac tamponade; D64.9 Anemia, unspecified; D69.6 Thrombocytopenia, unspecified; D50.9 Iron deficiency anemia, unspecified; E88.81 Metabolic syndrome and other insulin resistance; E87.70 Fluid overload, unspecified; E11.65 Type 2 diabetes mellitus with hyperglycemia; E11.42 Type 2 diabetes mellitus with diabetic polyneuropathy; E66.9 Obesity, unspecified; E78.5 Hyperlipidemia, unspecified; G43.909 Migraine, unspecified, not intractable, without status migrainosus; I11.0 Hypertensive heart disease with heart failure; I50.9 Heart failure, unspecified; Z68.37 Body mass index [BMI] 37.0-37.9, adult
CPT/HCPCS: 36415; 36430; 36600; 71045; 71260; 76604; 80048; 80053; 81001; 82270; 82607; 82746; 82803; 82962; 83036; 83540; 83605; 83690; 83735; 83880; 84100; 84443; 84484; 84703; 85025; 85045; 85610; 85651; 85730; 86021; 86038; 86140; 86226; 86430; 86635; 86658; 86664; 86703; 86738; 86850; 86900; 86901; 86920; 87040; 87081; 87086; 87400; 88104; 88107; 88305; 93005; 93306; 93308; 93312; 93320; 93325; 93971; 94002; 94003; 94640; 94664; 94770; 96374; 97116; 97162; 97530; J0690; J0692; J1100; J1170; J1650; J1815; J1885; J1940; J2270; J2370; J2405; J2765; J2930; J3010; J3475; J3480; J7030; J7512; P9016; Q9967